=== PATIENT | female | born 1930 | race Caucasian/White ===

== ENCOUNTER 2017-11-12 07:04 | Inpatient (IN) | payer OTHER ==
[~2017-11-12] VITALS: Ht 170.2 cm; Wt 63.2 kg
[2017-11-12] VITALS (17 sets, daily range): BP systolic 47–129; BP diastolic 25–100; PULSE 91–127; TEMP 37.3–37.5; O2SAT 91–98; BMI 19.3
[~2017-11-12 07:04] MED LIST: ATEN-173 PO
[2017-11-12] MEDS ORDERED: SODIUM CHLORIDE 0.9% 1000ML 1,000 ML IV STA (07:18)
--- NOTE | 2017-11-12 07:35 | DIAGNOSTIC IMAGING REPORT ---
CHEST ONE VIEW PORTABLE CLINICAL HISTORY: EVALUATE ALTERED MENTAL STATUS/WEAKNESS dyspnea COMPARISON STUDY: 09/06/2015 FINDINGS: Mild stable cardia megaly. Mild chronic interstitial prominence. No focal infiltrate. Stable postoperative changes left shoulder. IMPRESSION: Mild interstitial prominence. Mild stable cardiomegaly. The above report was generated using voice recognition software. It may contain grammatical, syntax or spelling errors. Electronically signed by: Angel Chau M.D. 11/12/2017 7:34 AM Dictated Date/Time: 11/12/2017 7:33 AM
[2017-11-12 07:57] LABS: EOS % 0.6 %; EOS ABS # 0.01 K/uL (0-0.5); HEMATOCRIT 41.9 % (37-47); HEMOGLOBIN 13.8 g/dL (12.0-16.0); IG# 0.01 K/uL (0.00-0.02); LYMPH % 6.3 %; MEAN CORPUSCULAR HEMOGLOBIN 31.3 pg (25-34); MEAN CORPUSCULAR HGB CONC 32.9 g/dl (32-36); MEAN PLATELET VOLUME 9.1 fL (7.4-10.4); NEUT % 92.5 %; NEUT ABS # 1.48 K/uL (1.4-6.5); PLATELET COUNT 147 K/uL (130-400); RED CELL DISTRIBUTION WIDTH CV 13.4 % (11.5-14.5); RED CELL DISTRIBUTION WIDTH SD 46.2 fL (36.4-46.3)
[2017-11-12] MEDS ORDERED: SERT-234 PO (08:05)
[2017-11-12] MEDS ORDERED: DONE5TAB26 PO (08:05)
[2017-11-12 08:06] LABS: INR 1.1 (0.9-1.1); PTT PATIENT 25.9 SECONDS (21.0-31.0)
[2017-11-12 08:15] LABS: ALBUMIN 3.1 gm/dl (3.4-5.0); ALT/SGPT 64 U/L (12-78); BLOOD UREA NITROGEN 19 mg/dl (7-18); CALCIUM 8.8 mg/dl (8.5-10.1); CARBON DIOXIDE 28 mmol/L (21-32); CREATININE 1.09 mg/dl (0.60-1.20); GLUCOSE 90 mg/dl (70-99); LIPASE 142 U/L (73-393); POTASSIUM 3.2 mmol/L (3.5-5.1); SODIUM 141 mmol/L (136-145)
[2017-11-12 08:24] LABS: ALKALINE PHOSPHATASE 98 U/L (45-117); AST/SGOT 114 U/L (15-37); CKMB 1.1 ng/ml (0.5-3.6); TOTAL PROTEIN 6.4 gm/dl (6.4-8.2)
--- NOTE | 2017-11-12 09:02 | DIAGNOSTIC IMAGING REPORT ---
HEAD WITHOUT CONTRAST (CT) CLINICAL HISTORY: 87 years-old Female presenting with EVALUATE ALTERED MENTAL STATUS/WEAKNESS. TECHNIQUE: Multidetector CT imaging of the head was performed without the use of intravenous contrast. IV contrast: None. A dose lowering technique was used consistent with the principles of ALARA (as low as reasonably achievable). COMPARISON: 10/15/2015. CT DOSE (mGy.cm): The estimated cumulative dose is 537.48 mGy.cm. FINDINGS: Field Service Technician topogram: Unremarkable. Proportional ventricular and sulcal prominence, likely age-related parenchymal volume loss. 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 No mass effect or midline shift. No hemorrhage or acute territorial infarct. No extra-axial fluid collection. Paranasal sinuses and mastoid air cells clear. Calvarium intact. IMPRESSION: 1. No acute intracranial abnormality. Electronically signed by: Hemal Muro M.D. 11/12/2017 9:01 AM Dictated Date/Time: 11/12/2017 8:58 AM
[2017-11-12] MEDS ORDERED: CEFTRIAXONE SOD INJ 1 GM ADDVIAL IV STA (09:22)
[2017-11-12] MEDS ORDERED: SULF800T23 PO (09:47)
[2017-11-12] MEDS ORDERED: SULFAMETHOXAZOLE/TRIMETHOPRIM DS 800/160MG TAB PO STA (09:48)
--- NOTE | 2017-11-12 09:48 | EMERGENCY ROOM VISIT NOTE ---
History Report prepared by Shaunnaibsrinivasan: Filemon Smith Under the Supervision of: Dr. Jamal Duncan D.O. First contact with patient: 07:11 Stated Complaint: FALL/HIP PAIN History of Present Illness The patient is a 87 year old female who presents to the Emergency Room by EMS for evaluation s/p fall occurring shortly prior to arrival. She was brought from her home. Per nursing staff, the patient appears somewhat confused, but her mental baseline is unknown. They state that the patient has complained of a dry mouth. They state that the patient has not had any nausea or vomiting. Nursing staff adds that the patient lost bowel continence during the fall. The patient states "I have big feet and long legs, so I fall a lot". She denies any chest pain, SOB, fevers, or cough. She has no complaints at this time other than her mouth feeling dry. Source of History: patient, nursing staff Onset: Shortly prior to arrival Quality: other (fall) Timing: other (episode) Associated Symptoms: No fevers, No cough, No chest pain, No SOB, No nausea, No vomiting Note: Additional symptoms: dry mouth. Review of Systems See HPI for pertinent positives & negatives. A total of 10 systems reviewed and were otherwise negative. Past Medical & Surgical Medical Problems: (1) Degenerative disc disease (2) Diarrhea (3) HANNAH (generalized anxiety disorder) (4) HTN (hypertension) (5) Hypertension (6) Kidney stone (7) Lactose intolerance (8) Rheumatic fever without heart involvement (9) Sepsis Surgical Problems: (1) H/O breast biopsy (2) S/P shoulder surgery (3) S/P TKR (total knee replacement) Family History FH: CAD (coronary artery disease) FHx: hypertension Kidney stones Social History Smoking Status: Never Smoker Alcohol Use: occasionally Drug Use: none Marital Status: , Housing Status: lives with family Occupation Status: retired Current/Historical Medications Scheduled Donepezil Hydrochloride (Donepezil Hcl), 1 TAB PO DAILY Sertraline (Zoloft), 1 TAB PO DAILY Allergies Coded Allergies: Penicillins (Verified Allergy, Mild, PT UNSURE, RXN A CHILD, 10/15/15) BEE STING (Verified Allergy, Unknown, ANAPHYLAXIS, 10/15/15) Latex1 -Allergic Contact Dermititis (Verified Allergy, Unknown, REDNESS AT SITE, 10/15/15) Physical Exam Vital Signs Date Time Temp Pulse Resp B/P (MAP) Pulse Ox O2 Delivery O2 Flow Rate FiO2 11/12/17 13:24 88 16 83/47 92 Room Air 11/12/17 12:54 95 Room Air 11/12/17 12:19 93 18 73/49 95 Room Air 11/12/17 11:05 95 16 71/49 92 Room Air 11/12/17 10:09 111 16 87/44 94 Room Air 11/12/17 09:38 100 16 82/44 11/12/17 09:06 98 92/50 96 Room Air 11/12/17 07:56 93 16 111/69 96 Room Air 11/12/17 07:42 108 11/12/17 07:16 37.3 111 20 113/62 96 Room Air Physical Exam CONSTITUTIONAL/VITAL SIGNS: Reviewed / noted above. GENERAL: Non-toxic in appearance. INTEGUMENTARY: Warm, dry, and [place]. HEAD: Normocephalic. EYES: without scleral icterus or trauma. ENT/OROPHARYNX: clear with dry mucous membranes. LYMPHADENOPATHY/NECK: Is supple without lymphadenopathy or meningismus. RESPIRATORY: Lungs clear and equal. CARDIOVASCULAR: Regular rate and rhythm. GI/ABDOMEN: Soft and nontender. No organomegaly or pulsatile mass. No rebound or guarding. Normal bowel sounds. EXTREMITIES: Warm and well perfused. BACK: No CVA tenderness. NEUROLOGICAL: Intact without focal deficits. PSYCHIATRIC: normal affect. MUSCULOSKELETAL: Normally developed with good muscle tone. Medical Decision & Procedures ER Provider Diagnostic Interpretation: Radiology results as stated below per my review and radiologist interpretation: HEAD WITHOUT CONTRAST (CT) FINDINGS: Hoop Punch Operator Helper topogram: Unremarkable. Proportional ventricular and sulcal prominence, likely age-related parenchymal volume loss. 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 No mass effect or midline shift. No hemorrhage or acute territorial infarct. No extra-axial fluid collection. Paranasal sinuses and mastoid air cells clear. Calvarium intact. IMPRESSION: 1. No acute intracranial abnormality. Electronically signed by: Hemal Muro M.D. 11/12/2017 9:01 AM CHEST ONE VIEW PORTABLE FINDINGS: Mild stable cardia megaly. Mild chronic interstitial prominence. No focal infiltrate. Stable postoperative changes left shoulder. IMPRESSION: Mild interstitial prominence. Mild stable cardiomegaly. The above report was generated using voice recognition software. It may contain grammatical, syntax or spelling errors. Electronically signed by: Angel Chau M.D. 11/12/2017 7:34 AM Laboratory Results 11/12/17 07:40 Red Blood Count 4.41, Mean Corpuscular Volume 95.0, Mean Corpuscular Hemoglobin 31.3, Mean Corpuscular Hemoglobin Concent 32.9, Mean Platelet Volume 9.1, Neutrophils (%) (Auto) 92.5, Lymphocytes (%) (Auto) 6.3, Monocytes (%) (Auto) 0.0, Eosinophils (%) (Auto) 0.6, Basophils (%) (Auto) 0.0, Neutrophils # (Auto) 1.48, Lymphocytes # (Auto) 0.10, Monocytes # (Auto) 0.00, Eosinophils # (Auto) 0.01, Basophils # (Auto) 0.00 11/12/17 07:40 Test 11/12/17 07:40 11/12/17 07:45 11/12/17 13:33 White Blood Count 1.60 K/uL (4.8-10.8) Red Blood Count 4.41 M/uL (4.2-5.4) Hemoglobin 13.8 g/dL (12.0-16.0) Hematocrit 41.9 % (37-47) Mean Corpuscular Volume 95.0 fL (80-100) Mean Corpuscular Hemoglobin 31.3 pg (25-34) Mean Corpuscular Hemoglobin Concent 32.9 g/dl (32-36) Platelet Count 147 K/uL (130-400) Mean Platelet Volume 9.1 fL (7.4-10.4) Neutrophils (%) (Auto) 92.5 % Lymphocytes (%) (Auto) 6.3 % Monocytes (%) (Auto) 0.0 % Eosinophils (%) (Auto) 0.6 % Basophils (%) (Auto) 0.0 % Neutrophils # (Auto) 1.48 K/uL (1.4-6.5) Lymphocytes # (Auto) 0.10 K/uL (1.2-3.4) Monocytes # (Auto) 0.00 K/uL (0.11-0.59) Eosinophils # (Auto) 0.01 K/uL (0-0.5) Basophils # (Auto) 0.00 K/uL (0-0.2) RDW Standard Deviation 46.2 fL (36.4-46.3) RDW Coefficient of Variation 13.4 % (11.5-14.5) Immature Granulocyte % (Auto) 0.6 % Immature Granulocyte # (Auto) 0.01 K/uL (0.00-0.02) Prothrombin Time 11.7 SECONDS (9.0-12.0) Prothromb Time International Ratio 1.1 (0.9-1.1) Activated Partial Thromboplast Time 25.9 SECONDS (21.0-31.0) Partial Thromboplastin Ratio 1.0 Anion Gap 9.0 mmol/L (3-11) Est Creatinine Clear Calc Drug Dose 33.4 ml/min Estimated GFR () 53.6 Estimated GFR (Non- 46.3 BUN/Creatinine Ratio 17.2 (10-20) Calcium Level 8.8 mg/dl (8.5-10.1) Magnesium Level 1.6 mg/dl (1.8-2.4) Total Bilirubin 1.0 mg/dl (0.2-1) Direct Bilirubin 0.6 mg/dl (0-0.2) Aspartate Amino Transf (AST/SGOT) 114 U/L (15-37) Alanine Aminotransferase (ALT/SGPT) 64 U/L (12-78) Alkaline Phosphatase 98 U/L (45-117) Total Creatine Kinase 58 U/L (26-192) Creatine Kinase MB 1.1 ng/ml (0.5-3.6) Creatine Kinase MB Ratio 1.9 (0-3.0) Troponin I < 0.015 ng/ml (0-0.045) Total Protein 6.4 gm/dl (6.4-8.2) Albumin 3.1 gm/dl (3.4-5.0) Lipase 142 U/L (73-393) Thyroid Stimulating Hormone (TSH) 1.260 uIu/ml (0.300-4.500) Urine Color YELLOW Urine Appearance CLOUDY (CLEAR) Urine pH 7.0 (4.5-7.5) Urine Specific [place] 1.011 (1.000-1.030) Urine Protein 2+ (NEG) Urine Glucose (UA) NEG (NEG) Urine Ketones NEG (NEG) Urine Occult Blood 2+ (NEG) Urine Nitrite NEG (NEG) Urine Bilirubin NEG (NEG) Urine Urobilinogen NEG (NEG) Urine Leukocyte Esterase LARGE (NEG) Urine WBC (Auto) >30 /hpf (0-5) Urine RBC (Auto) 10-30 /hpf (0-4) Urine Hyaline Casts (Auto) 1-5 /lpf (0-5) Urine Epithelial Cells (Auto) 0-5 /lpf (0-5) Urine Bacteria (Auto) 4+ (NEG) Urine Pathogenic Casts 0-3 GRANULAR CASTS /lpf (0) Lactic Acid Level 4.8 mmol/L (0.4-2.0) Laboratory results as stated above per my review. Medications Administered Medications (Trade) Dose Ordered Sig/Tess Route Start Time Stop Time Status Last Admin Dose Admin Sodium Chloride 1,000 ml @ 500 mls/hr Q2H STAT IV 11/12/17 07:18 11/12/17 09:17 DC 11/12/17 07:50 500 MLS/HR Ceftriaxone Sodium (Rocephin Inj) 1 gm NOW STAT IV 11/12/17 09:22 11/12/17 09:23 DC 11/12/17 09:37 1 GM Trimethoprim/ Sulfamethoxazole (Septra Ds 800/ 160MG Tab) 1 tab NOW STAT PO 11/12/17 09:48 11/12/17 09:49 DC 11/12/17 11:14 1 TAB Sodium Chloride 500 ml @ 999 mls/hr Q31M STAT IV 11/12/17 11:08 11/12/17 11:38 DC 11/12/17 11:10 999 MLS/HR Sodium Chloride 500 ml @ 999 mls/hr Q31M STAT IV 11/12/17 12:44 11/12/17 13:14 DC 11/12/17 13:00 999 MLS/HR Magnesium Sulfate 100 ml @ 100 mls/hr NOW STAT IV 11/12/17 13:45 11/12/17 14:44 DC 11/12/17 14:36 100 MLS/HR Potassium Chloride (Klor-Con M10) 40 meq NOW STAT PO 11/12/17 13:45 11/12/17 14:07 DC 11/12/17 14:36 40 MEQ ECG Per My Interpretation Indication: other (fall) Rate (beats per minute): 108 Rhythm: sinus tachycardia Findings: no ectopy, other (Low voltage. No ST elevations. ) ED Course 0713: Previous medical records were reviewed. The patient was evaluated in room A11B. A complete history and physical examination was performed. 0718: Ordered Sodium Chloride 1000 ml @ 500 mls/hr IV. 0922: Ordered Rocephin Inj 1 gm IV. 0948: Ordered Septra Ds 800/160mg Tab PO. 0950: I updated the patient on her results. We discussed her case. 1108: Ordered Sodium Chloride 500 ml @ 999 mls/hr IV. 1235: On reevaluation, the patient is resting. I discussed the results and findings with her. She verbalized agreement of the treatment plan. I spoke with Sandy SHERIFF of the [facility]. The patient will be evaluated for further management and care. Medical Decision Differential diagnosis: Etiologies such as fracture, dislocation, neurovascular compromise, compartment syndrome, soft tissue injury, as well as others were entertained. This is a 87-year-old female who presents to the ED with a chief complaint of a fall. The patient states that she falls a lot. She was brought in by EMS. Her only complaint at this time is feeling that her mouth is dry. She reported to the nurse that she also had a headache. EMS found her to have a blood pressure was on the low side around 70 systolic. She is afebrile. Her vital signs here are stable. Her physical exam was unremarkable other than dry mucous membranes. She does have a history of dementia and is slightly confused at baseline. She does have a caregiver and her daughter came to the emergency department as well. The patient's physical exam did not reveal any obvious trauma. Her EKG shows a sinus tach at a rate of 108. A chest x-ray and a CT scan of the brain did not show acute process. White blood cell count was slightly low at 1.6. Complete metabolic panel was unremarkable. The BUN is 19 and her potassium was 3.2 with magnesium 1.8. Troponin was negative and a TSH was normal, urine reveals evidence of a UTI. The patient was treated with normal saline 1 L IV. She was given Rocephin 1 g IV. The patient was given additional IV fluids as she became hypotensive during her ED stay. Her initial blood pressure was normal. She was given a total of 2 L of normal saline. Lactic acid level was performed and was elevated. Blood cultures have been performed. The patient's initial presentation did not appear to suggest sepsis and despite IV fluids for dehydration, her blood pressure seemed to drop. The patient does not clinically appear septic at this time. She will be seen by the hospitalist for further evaluation and care. Medication Reconcilliation Current Medication List: was personally reviewed by me Blood Pressure Screening Patient's blood pressure: Normal blood pressure Blood pressure disposition: Did not require urgent referral Consults Time Called: [phone] Consulting Physician: [facility] Returned Call: [phone] Discussed the patient's case. The patient will be evaluated for further treatment and disposition. Impression Primary Impression: UTI (urinary tract infection) Scribe Attestation The scribe's documentation has been prepared under my direction and personally reviewed by me in its entirety. I confirm that the note above accurately reflects all work, treatment, procedures, and medical decision making performed by me. Departure Information Dispostion Being Evaluated By Hospitalist Referrals Ruma Copeland M.D. (PCP) Patient Instructions My [facility], UTI Additional Instructions Bactrim as prescribed for urinary tract infection. Follow-up with your doctor for further care and evaluation in 1-2 days. Return to the emergency department for worsening or new symptoms or any concerns. You have been examined and treated today on an emergency basis only. This is not a substitute for, or an effort to provide, complete comprehensive medical care. It is impossible to recognize and treat all injuries or illnesses in a single emergency department visit. It is therefore important that you follow up closely with your doctor. Call as soon as possible for an appointment.
[2017-11-12] MEDS ORDERED: SODIUM CHLORIDE 0.9% 500ML 500 ML IV STA ×2 (11:08→12:44)
[2017-11-12] MEDS ORDERED: MAGNESIUM SULFATE 1 GM IV STA (13:45)
[2017-11-12] MEDS ORDERED: ACETAMINOPHEN 325 MG TAB PO PRN (13:45)
[2017-11-12] MEDS ORDERED: ONDANSETRON INJ 2 MG/ML 2 ML VIAL IV PRN (13:45)
[2017-11-12] MEDS ORDERED: POTASSIUM CHLORIDE 10 MEQ TABCR PO STA (13:45)
[2017-11-12] MEDS ORDERED: D5W 2 GM IV STA (13:45)
[2017-11-12] MEDS ORDERED: SODIUM CHLORIDE 0.9% 1000ML 1,000 ML IV SCH (15:00)
[2017-11-12] MEDS ORDERED: SODIUM CHLORIDE 0.9% 500ML 500 ML IV SCH (15:15)
[2017-11-12] MEDS ORDERED: ENOXAPARIN 40 MG/0.4 ML SYR SC SCH (16:00)
[2017-11-12] MEDS ORDERED: MAGNESIUM SULFATE 1GM / D5W 1 GM IV ONE (16:15)
[2017-11-12] MEDS ORDERED: NURSING VERBAL MED ORDER ONE (16:45)
[2017-11-12] MEDS ORDERED: SODIUM CHLORIDE 0.9% 250ML 250 ML IV ONE (17:00)
--- NOTE | 2017-11-12 18:37 | History and Physical ---
History & Physical Date & Time of Service: Nov 12, 2017 ~ 13:15 Chief Complaint: Fall, Diarrhea Primary Care Physician: Ruma Copeland M.D. History of Present Illness 87-year-old female who presents to the ER after a fall and having diarrhea at home. Patient has underlying Alzheimer's and is disoriented, history is unobtainable from her. Information is obtained from her daughter via telephone. The daughter reports that this morning the patient was having a large amount diarrhea. The daughter's left the room and when he came back and she was on the floor. She was awake and alert. No loss of bowel or bladder function. Daughter reports patient has been at baseline health recently. In the ED, patient's UA is suggestive of UTI. Initially patient's blood pressure was stable however patient developed hypotension. She received 2 L IVF, P.o. Bactrim, dose of IV ceftriaxone. Lactic acid is found to be 4.8. Patient was admitted to the telemetry unit however despite IV fluid she remained hypotensive. She will be transferred to the ICU. Past Medical/Surgical History Medical Problems: (1) Alzheimer disease Status: Chronic (2) Degenerative disc disease Status: Chronic (3) HANNAH (generalized anxiety disorder) Status: Chronic (4) HTN (hypertension) Status: Chronic (5) Hypertension Status: Chronic (6) Kidney stone Status: Chronic (7) Lactose intolerance Status: Chronic (8) Rheumatic fever without heart involvement Permanent Comment: As a child Status: Resolved Surgical Problems: (1) H/O breast biopsy Status: Chronic (2) S/P shoulder surgery Status: Chronic (3) S/P TKR (total knee replacement) Permanent Comment: Right 1993, Left 1995 Status: Chronic Family History Noncontributory secondary to patient's advanced age Social History Smoking Status: Never Smoker Alcohol Use: none Immunizations History of Influenza Vaccine: Yes Influenza Vaccine Date: May 25, 2016 History of Tetanus Vaccine?: Yes Tetanus Immunization Date: Jan 28, 2013 History of Pneumococcal: Yes Pneumococcal Date: May 25, 2016 Allergies Coded Allergies: Penicillins (Verified Allergy, Mild, PT UNSURE, RXN A CHILD, 10/15/15) BEE STING (Verified Allergy, Unknown, ANAPHYLAXIS, 10/15/15) Latex1 -Allergic Contact Dermititis (Verified Allergy, Unknown, REDNESS AT SITE, 10/15/15) Home Medications Scheduled Donepezil Hydrochloride (Donepezil Hcl), 1 TAB PO DAILY Sertraline (Zoloft), 1 TAB PO DAILY Review of Systems 10 points reviewed with patient however considered unreliable due to underlying mental state Physical Exam Vital Signs Date Time Temp Pulse Resp B/P (MAP) Pulse Ox O2 Delivery O2 Flow Rate FiO2 11/12/17 15:15 37.3 91 18 63/37 (46) 92 Room Air 57/34 (42) 11/12/17 14:02 94 16 80/38 91 Room Air 11/12/17 13:52 89 11/12/17 13:24 88 16 83/47 92 Room Air 11/12/17 12:54 95 Room Air 11/12/17 12:19 93 18 73/49 95 Room Air 11/12/17 11:05 95 16 71/49 92 Room Air 11/12/17 10:09 111 16 87/44 94 Room Air 11/12/17 09:38 100 16 82/44 11/12/17 09:06 98 92/50 96 Room Air 11/12/17 07:56 93 16 111/69 96 Room Air 11/12/17 07:42 108 11/12/17 07:16 37.3 111 20 113/62 96 Room Air General Appearance: WD/WN, no apparent distress Head: normocephalic, atraumatic Eyes: normal inspection, EOMI, sclerae normal ENT: hearing grossly normal, + pertinent finding (Mucous membranes dry) Neck: supple, no JVD, trachea midline Respiratory/Chest: lungs clear, normal breath sounds, no respiratory distress Cardiovascular: regular rate, rhythm, no edema, normal peripheral pulses Abdomen/GI: normal bowel sounds, non tender, soft, no organomegaly Extremities/Musculoskelatal: normal inspection, no calf tenderness, normal capillary refill Neurologic/Psych: no motor/sensory deficits, alert, + disoriented (To place, time, and situation) Skin: normal color, warm/dry Diagnostics Laboratory Results Results Past 24 Hours Test 11/12/17 07:40 11/12/17 07:45 11/12/17 13:33 Range/Units White Blood Count 1.60 4.8-10.8 K/uL Red Blood Count 4.41 4.2-5.4 M/uL Hemoglobin 13.8 12.0-16.0 g/dL Hematocrit 41.9 37-47 % Mean Corpuscular Volume 95.0 80-100 fL Mean Corpuscular Hemoglobin 31.3 25-34 pg Mean Corpuscular Hemoglobin Concent 32.9 32-36 g/dl Platelet Count 147 130-400 K/uL Mean Platelet Volume 9.1 7.4-10.4 fL Neutrophils (%) (Auto) 92.5 % Lymphocytes (%) (Auto) 6.3 % Monocytes (%) (Auto) 0.0 % Eosinophils (%) (Auto) 0.6 % Basophils (%) (Auto) 0.0 % Neutrophils # (Auto) 1.48 1.4-6.5 K/uL Lymphocytes # (Auto) 0.10 1.2-3.4 K/uL Monocytes # (Auto) 0.00 0.11-0.59 K/uL Eosinophils # (Auto) 0.01 0-0.5 K/uL Basophils # (Auto) 0.00 0-0.2 K/uL RDW Standard Deviation 46.2 36.4-46.3 fL RDW Coefficient of Variation 13.4 11.5-14.5 % Immature Granulocyte % (Auto) 0.6 % Immature Granulocyte # (Auto) 0.01 0.00-0.02 K/uL Prothrombin Time 11.7 9.0-12.0 SECONDS Prothromb Time International Ratio 1.1 0.9-1.1 Activated Partial Thromboplast Time 25.9 21.0-31.0 SECONDS Partial Thromboplastin Ratio 1.0 Sodium Level 141 136-145 mmol/L Potassium Level 3.2 3.5-5.1 mmol/L Chloride Level 104 98-107 mmol/L Carbon Dioxide Level 28 21-32 mmol/L Anion Gap 9.0 3-11 mmol/L Blood Urea Nitrogen 19 7-18 mg/dl Creatinine 1.09 0.60-1.20 mg/dl Est Creatinine Clear Calc Drug Dose 33.4 ml/min Estimated GFR () 53.6 Estimated GFR (Non- 46.3 BUN/Creatinine Ratio 17.2 10-20 Random Glucose 90 70-99 mg/dl Calcium Level 8.8 8.5-10.1 mg/dl Magnesium Level 1.6 1.8-2.4 mg/dl Total Bilirubin 1.0 0.2-1 mg/dl Direct Bilirubin 0.6 0-0.2 mg/dl Aspartate Amino Transf (AST/SGOT) 114 15-37 U/L Alanine Aminotransferase (ALT/SGPT) 64 12-78 U/L Alkaline Phosphatase 98 45-117 U/L Total Creatine Kinase 58 26-192 U/L Creatine Kinase MB 1.1 0.5-3.6 ng/ml Creatine Kinase MB Ratio 1.9 0-3.0 Troponin I < 0.015 0-0.045 ng/ml Total Protein 6.4 6.4-8.2 gm/dl Albumin 3.1 3.4-5.0 gm/dl Lipase 142 73-393 U/L Thyroid Stimulating Hormone (TSH) 1.260 0.300-4.500 uIu/ml Urine Color YELLOW Urine Appearance CLOUDY CLEAR Urine pH 7.0 4.5-7.5 Urine Specific [place] 1.011 1.000-1.030 Urine Protein 2+ NEG Urine Glucose (UA) NEG NEG Urine Ketones NEG NEG Urine Occult Blood 2+ NEG Urine Nitrite NEG NEG Urine Bilirubin NEG NEG Urine Urobilinogen NEG NEG Urine Leukocyte Esterase LARGE NEG Urine WBC (Auto) >30 0-5 /hpf Urine RBC (Auto) 10-30 0-4 /hpf Urine Hyaline Casts (Auto) 1-5 0-5 /lpf Urine Epithelial Cells (Auto) 0-5 0-5 /lpf Urine Bacteria (Auto) 4+ NEG Urine Pathogenic Casts 0-3 GRANULAR CASTS 0 /lpf Lactic Acid Level 4.8 0.4-2.0 mmol/L Microbiology Results 11/12/17 Blood Culture, Received Pending 11/12/17 Blood Culture, Received Pending 11/12/17 Urine Culture, Received Pending Diagnostic Radiology HEAD CT IMPRESSION: 1. No acute intracranial abnormality. CXR IMPRESSION: Mild interstitial prominence. Mild stable cardiomegaly. Impression Assessment and Plan SEVERE SEPSIS UTI DIARRHEA -Initially admitted to telemetry however transferred to ICU for persistent hypotension -Patient presenting from home after having a large amount of diarrhea this morning and a fall -On presentation, leukopenic WBC 1.6, mildly tachycardic at times with heart rate in the 110's, afebrile -BP initially stable however patient developed hypotension -Patient received appropriate IVF resuscitation and had persistent hypotension -Continue IVF, possible need for pressors -Lactic acid 4.8, recheck in 6 hours -UA suggests UTI; with history of diarrhea, need to r/o C. difficile -S/P oral Bactrim and IV ceftriaxone in the ED; will continue with IV ceftriaxone (patient is from home and no documented history of resistant bacteria) -Blood and urine cultures -Case discussed with Mic Condon PA-C and Dr. Butler ALZHEIMER'S -Continue donepezil and sertraline DVT PROPHYLAXIS -SQ Lovenox CODE STATUS -Patient is a full code as per my discussion with her daughter, Alexa. DISPOSITION -In my clinical judgment this beneficiary meets acute admission criteria, established by [facility], that includes being hospitalized through two midnights. Attending Addendum: The patient was seen by me in The ER Admitted with Sepsis and Hypotension Has had a fall-found on the floor O/E Pleasantly confused No apparent distress BP was noted to be low 80s in ER Chest-clear Heart-regular Abdomen-benign. Extremities-trac edema bilaterally Labs and Imaging studies were reviewed Agree with the assessment and plan. Dr Wiley Huynh Advanced Directives Existing Living Will: No Existing Power of Customer Contact Sales Associate: No Resuscitation Status VTE Prophylaxis Will order VTE Prophylaxis: Yes
[2017-11-12] MEDS ORDERED: HALOPERIDOL LACTATE 5 MG/ML 1 ML VIAL ONE (19:18)
[2017-11-12] MEDS ORDERED: MIDAZOLAM HCL 1 MG/ML 2ML VIAL ONE (19:28)
[2017-11-12] MEDS ORDERED: NORMOSOL R 500 ML IV ONE (20:00)
[2017-11-12] MEDS ORDERED: ICU PROTOCOL FOR HYPERGLYCEMIA PRN (20:00)
--- NOTE | 2017-11-12 20:08 | DIAGNOSTIC IMAGING REPORT ---
CHEST ONE VIEW PORTABLE CLINICAL HISTORY: Chest x-ray status post central venous catheter placement COMPARISON STUDY: 11/12/2017 FINDINGS: The cardiac and mediastinal contours remain stable. There is stable prominence of the right pulmonary artery. There is been interval insertion of a right subclavian central venous catheter. The tip projects over the superior vena cava. There is no pneumothorax. There is no focal pulmonary consolidation. There is no failure. There are no pleural effusions.[ IMPRESSION: No evidence of pneumothorax status post placement of a right subclavian central venous catheter. The tip projects over the superior vena cava Electronically signed by: Yifan Sanches M.D. 11/12/2017 8:07 PM Dictated Date/Time: 11/12/2017 8:06 PM
[2017-11-12] MEDS ORDERED: DexMEDEtomidine HCL IV 200 MCG in SODIUM CHLORIDE 0.9% 50ML 48 ML IV PRN (20:10)
[2017-11-12] MEDS ORDERED: PIPERACILL/TAZOBAC CONSULT ACTIVE PRN (20:15)
[2017-11-12] MEDS ORDERED: ACETAMINOPHEN IV 650 MG in EMPTY BAG 0 ML IV PRN (20:15)
[2017-11-12] MEDS: NORMOSOL R 1,000 ML IV SCH (20:15)
[2017-11-12] MEDS ORDERED: PIPERACILL/TAZOBAC IV 4.5 GM in DEXTROSE 5% 100ML 100 ML IV SCH (20:15)
[2017-11-12] MEDS: NOREPINEPHRINE BIT INJ 8 MG in DEXTROSE 5% 500ML 500 ML IV SCH (20:43)
--- NOTE | 2017-11-12 20:57 | Procedure Note ---
Procedure Note Procedure Date Nov 12, 2017. Procedure Description Procedure Name: Central line placement Procedure time out: side/site verified, patient ID confirmed, correct procedure Consent obtained: written Performed by: attending, resident Indications: diagnostic, therapeutic Contraindications: none Description: The patient was placed in supine position, right subclavian approach, Dr. Acosta had the procedure done, I was present throughout the entire procedure supervising her. Due to the patient's agitation, she received 2 mg of Haldol and total of 3 mg of Versed. The skin was prepped with chlorhexidine, under strict sterile field using OR style, 5 mL 1% lidocaine injected in the right subclavian area, using Seldinger technique, a line was placed to 15 cm and secured with 2 sutures, covered with surgical dressing, the chest x-ray showed the tip of the catheter at the SVC, no pneumothorax. Tolerated the procedure very well. No immediate complication. Complications: none
--- NOTE | 2017-11-12 21:03 | Critical Care Consultation ---
Critical Care Consultation Date of Consultation: Nov 12, 2017. Attending Physician: Brandon Booth M.D. Reason for Consultation: 87-year-old female initially admitted to the medical floor, however patient required vasopressor support after nonresponsiveness to crystalloid bolus infusion for sepsis with likely urinary source. Hypotensive and tachycardic with a lactate of 4.8. Patient demented and agitated worse from baseline. History of Present Illness History of present illness obtained from prior records, staff members, and family members as patient is pleasantly demented and unable to provide past medical history information. Patient is an 87-year-old female with a significant past medical history of Alzheimer disease, anxiety, hypertension, and kidney stones who initially presented to the emergency department earlier this afternoon after sustaining a fall. Apparently, at approximately 4 AM, the patient developed multiple bouts of diarrhea which progressed throughout the day. This afternoon, after a bowel movement, the patient was found on the floor by her son-in-law. She was awake, alert, and oriented. There was no reported loss of consciousness. She was brought to the emergency department for further evaluation. On evaluation, she was noted to be leukopenic and there was concern for UTI on cath urine sample. She was treated with a one-time dose of Bactrim and there was plan for discharge to home, however the patient's blood pressure began to drop. She received 2 L of IV fluid in the emergency department as well as a one-time dose of IV Rocephin. Her blood pressures did stabilize slightly and she was admitted to the med telemetry floor. At that point, the patient had persistent hypotension which did not respond to an additional 750 cc normal saline bolus. She was subsequently transferred to the ICU for further evaluation and management. Upon arrival in the ICU, the patient is awake and alert. She is unable to provide any historical information, however. She is agitated, but denies any discomfort. Per family, the patient has had a history of C. difficile in the past. In addition, she has had a history of kidney stones and urinary tract infections as well. Up until today, the patient had been at her baseline. She lives at home with her daughter. She is reportedly more agitated than normal at this point. She has had no reported past medical history of coronary artery disease, CVA, ACS, valvular heart disease, or lung disease. Past Medical/Surgical History Medical Problems: (1) Alzheimer disease (2) Degenerative disc disease (3) HANNAH (generalized anxiety disorder) (4) HTN (hypertension) (5) Hypertension (6) Kidney stone (7) Lactose intolerance (8) Rheumatic fever without heart involvement Surgical Problems: (1) H/O breast biopsy (2) S/P shoulder surgery (3) S/P TKR (total knee replacement) Family History FH: CAD (coronary artery disease) FHx: hypertension Kidney stones Reviewed. Noncontributory. Social History Smoking Status: Never Smoker Smokeless Tobacco Use: No Alcohol Use: none Drug Use: none Marital Status: single Housing Status: lives with family Occupation Status: retired Allergies Coded Allergies: Penicillins (Verified Allergy, Mild, PT UNSURE, RXN A CHILD, 10/15/15) BEE STING (Verified Allergy, Unknown, ANAPHYLAXIS, 10/15/15) Latex1 -Allergic Contact Dermititis (Verified Allergy, Unknown, REDNESS AT SITE, 10/15/15) Home Medications Scheduled Donepezil Hydrochloride (Donepezil Hcl), 1 TAB PO DAILY Sertraline (Zoloft), 1 TAB PO DAILY Current Inpatient Medications Current Inpatient Medications Medications (Trade) Dose Ordered Sig/Tess Route Start Time Stop Time Status Last Admin Dose Admin Enoxaparin Sodium (Lovenox Inj) 40 mg Q24H SC 11/12/17 16:00 12/12/17 15:59 Ondansetron HCl (Zofran Inj) 4 mg Q6H PRN IV 11/12/17 13:45 12/12/17 13:44 Donepezil HCl (Aricept Tab) 5 mg DAILY PO 11/13/17 09:00 12/13/17 08:59 Sertraline HCl (Zoloft Tab) 100 mg DAILY PO 11/13/17 09:00 12/13/17 08:59 Norepinephrine Bitartrate 8 mg/ Dextrose 508 ml @ 0 mls/hr Q0M IV 11/12/17 20:00 12/12/17 19:59 11/12/17 20:43 12 MLS/HR Miscellaneous Information (Icu Protocol For Hyperglycemia) 1 ea PRN PRN N/A 11/12/17 20:00 11/14/17 19:59 Pantoprazole Sodium 40 mg/ Syringe 10 ml @ 5 mls/min DAILY@11 IV 11/13/17 11:00 12/13/17 10:59 Piperacillin Sod/ Tazobactam Sod 4.5 gm/Dextrose 120 ml @ 200 mls/hr Q6H IV 11/12/17 20:15 11/22/17 20:14 UNV Miscellaneous Information (Consult) 1 ea UD PRN N/A 11/12/17 20:15 12/12/17 20:14 Acetaminophen 650 mg/Empty Bag 65 ml @ 260 mls/hr Q6H PRN IV 11/12/17 20:15 12/12/17 20:14 Dexmedetomidine HCl 200 mcg/ Sodium Chloride 50 ml @ 0 mls/hr Q0M PRN IV 11/12/17 20:10 11/16/17 20:09 Parenteral Electrolyte Solution 1,000 ml @ 80 mls/hr [id number] IV 11/12/17 20:15 12/12/17 20:14 Ciprofloxacin/ Dextrose 400 mg/ Prmx 200 ml @ 100 mls/hr Q12H IV 11/12/17 22:00 11/22/17 21:59 UNV Metronidazole 500 mg/Prmx 100 ml @ 100 mls/hr Q8H IV 11/12/17 21:00 11/22/17 20:59 Review of Systems Unable to obtain review of systems secondary to patient's state of dementia. Physical Exam Date Time Temp Pulse Resp B/P (MAP) Pulse Ox O2 Delivery O2 Flow Rate FiO2 11/12/17 18:27 102 18 70/38 (49) 98 Nasal Cannula 2.0 11/12/17 17:15 37.5 99 22 76/43 (54) 94 Nasal Cannula 2.0 11/12/17 17:15 96 Nasal Cannula 2.0 11/12/17 15:15 37.3 91 18 63/37 (46) 92 Room Air 57/34 (42) 11/12/17 14:02 94 16 80/38 91 Room Air 11/12/17 13:52 89 11/12/17 13:24 88 16 83/47 92 Room Air 11/12/17 12:54 95 Room Air 11/12/17 12:19 93 18 73/49 95 Room Air 11/12/17 11:05 95 16 71/49 92 Room Air 11/12/17 10:09 111 16 87/44 94 Room Air 11/12/17 09:38 100 16 82/44 11/12/17 09:06 98 92/50 96 Room Air 11/12/17 07:56 93 16 111/69 96 Room Air 11/12/17 07:42 108 11/12/17 07:16 37.3 111 20 113/62 96 Room Air VITAL SIGNS - Vital signs and nursing notes were reviewed. GENERAL - 87-year-old female appearing her stated age who is agitated and combative with staff. Communicates, but confused at baseline and is mostly nonsensical. SKIN - Without rashes. HEAD - NC/AT. EYES - PERRL with EOMI bilaterally. EARS - No deformities of external structures noted on gross examination bilaterally. NOSE - Midline and without cyanosis. MOUTH/OROPHARYNX - Without perioral cyanosis. Buccal mucosa pink and dry. NECK - Neck with FROM. Supple to palpation. LUNGS - Chest wall symmetric without accessory muscle use, intercostals retractions, or central cyanosis. Normal vesicular breath sounds CTA B/L. No wheezes, rales, or rhonchi appreciated. CARDIAC - RRR with S1/S2. No murmur, rubs, or gallops appreciated. ABDOMEN - Abdominal contour flat without pulsations or visible masses. BS normoactive all four quadrants. Moderate tenderness to palpation in the LEFT lower and RIGHT sided abdomen. No rebound tenderness or guarding. No palpable masses, hepatosplenomegaly, or ascites noted. EXTREMITIES - No clubbing or peripheral cyanosis. No pretibial edema present. +3 /5 radial pulses palpated throughout. +5/5 strength noted in UE/LE bilaterally. NEUROLOGIC - Cranial nerves II through XII grossly intact. PSYCH - Pleasantly demented. Physically combative with staff. Laboratory Results Last 24 Hours Test 11/12/17 07:40 11/12/17 07:45 11/12/17 13:33 11/12/17 18:36 White Blood Count 1.60 K/uL Red Blood Count 4.41 M/uL Hemoglobin 13.8 g/dL Hematocrit 41.9 % Mean Corpuscular Volume 95.0 fL Mean Corpuscular Hemoglobin 31.3 pg Mean Corpuscular Hemoglobin Concent 32.9 g/dl Platelet Count 147 K/uL Mean Platelet Volume 9.1 fL Neutrophils (%) (Auto) 92.5 % Lymphocytes (%) (Auto) 6.3 % Monocytes (%) (Auto) 0.0 % Eosinophils (%) (Auto) 0.6 % Basophils (%) (Auto) 0.0 % Neutrophils # (Auto) 1.48 K/uL Lymphocytes # (Auto) 0.10 K/uL Monocytes # (Auto) 0.00 K/uL Eosinophils # (Auto) 0.01 K/uL Basophils # (Auto) 0.00 K/uL RDW Standard Deviation 46.2 fL RDW Coefficient of Variation 13.4 % Immature Granulocyte % (Auto) 0.6 % Immature Granulocyte # (Auto) 0.01 K/uL Prothrombin Time 11.7 SECONDS Prothromb Time International Ratio 1.1 Activated Partial Thromboplast Time 25.9 SECONDS Partial Thromboplastin Ratio 1.0 Sodium Level 141 mmol/L Potassium Level 3.2 mmol/L Chloride Level 104 mmol/L Carbon Dioxide Level 28 mmol/L Anion Gap 9.0 mmol/L Blood Urea Nitrogen 19 mg/dl Creatinine 1.09 mg/dl Est Creatinine Clear Calc Drug Dose 33.4 ml/min Estimated GFR () 53.6 Estimated GFR (Non- 46.3 BUN/Creatinine Ratio 17.2 Random Glucose 90 mg/dl Calcium Level 8.8 mg/dl Magnesium Level 1.6 mg/dl Total Bilirubin 1.0 mg/dl Direct Bilirubin 0.6 mg/dl Aspartate Amino Transf (AST/SGOT) 114 U/L Alanine Aminotransferase (ALT/SGPT) 64 U/L Alkaline Phosphatase 98 U/L Total Creatine Kinase 58 U/L Creatine Kinase MB 1.1 ng/ml Creatine Kinase MB Ratio 1.9 Troponin I < 0.015 ng/ml Total Protein 6.4 gm/dl Albumin 3.1 gm/dl Lipase 142 U/L Thyroid Stimulating Hormone (TSH) 1.260 uIu/ml Urine Color YELLOW Urine Appearance CLOUDY Urine pH 7.0 Urine Specific [place] 1.011 Urine Protein 2+ Urine Glucose (UA) NEG Urine Ketones NEG Urine Occult Blood 2+ Urine Nitrite NEG Urine Bilirubin NEG Urine Urobilinogen NEG Urine Leukocyte Esterase LARGE Urine WBC (Auto) >30 /hpf Urine RBC (Auto) 10-30 /hpf Urine Hyaline Casts (Auto) 1-5 /lpf Urine Epithelial Cells (Auto) 0-5 /lpf Urine Bacteria (Auto) 4+ Urine Pathogenic Casts 0-3 GRANULAR CASTS /lpf Lactic Acid Level 4.8 mmol/L Bedside Glucose 69 mg/dl Test 11/12/17 19:56 11/12/17 20:50 11/12/17 20:51 Lactic Acid Level 4.6 mmol/L Diagnostic Results Radiological imaging and reports were reviewed by myself. Radiologist's Interpretation as follows: HEAD WITHOUT CONTRAST (CT) CLINICAL HISTORY: 87 years-old Female presenting with EVALUATE ALTERED MENTAL STATUS/WEAKNESS. TECHNIQUE: Multidetector CT imaging of the head was performed without the use of intravenous contrast. IV contrast: None. A dose lowering technique was used consistent with the principles of ALARA (as low as reasonably achievable). COMPARISON: 10/15/2015. CT DOSE (mGy.cm): The estimated cumulative dose is 537.48 mGy.cm. FINDINGS: Range Aide topogram: Unremarkable. Proportional ventricular and sulcal prominence, likely age-related parenchymal volume loss. 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 No mass effect or midline shift. No hemorrhage or acute territorial infarct. No extra-axial fluid collection. Paranasal sinuses and mastoid air cells clear. Calvarium intact. IMPRESSION: 1. No acute intracranial abnormality. CHEST ONE VIEW PORTABLE CLINICAL HISTORY: EVALUATE ALTERED MENTAL STATUS/WEAKNESS dyspnea COMPARISON STUDY: 09/06/2015 FINDINGS: Mild stable cardia megaly. Mild chronic interstitial prominence. No focal infiltrate. Stable postoperative changes left shoulder. IMPRESSION: Mild interstitial prominence. Mild stable cardiomegaly. CHEST ONE VIEW PORTABLE CLINICAL HISTORY: Chest x-ray status post central venous catheter placement COMPARISON STUDY: 11/12/2017 FINDINGS: The cardiac and mediastinal contours remain stable. There is stable prominence of the right pulmonary artery. There is been interval insertion of a right subclavian central venous catheter. The tip projects over the superior vena cava. There is no pneumothorax. There is no focal pulmonary consolidation. There is no failure. There are no pleural effusions.[ IMPRESSION: No evidence of pneumothorax status post placement of a right subclavian central venous catheter. The tip projects over the superior vena cava Assessment & Plan Reason Critically Ill: 87-year-old female initially admitted to the medical floor, however patient required vasopressor support after nonresponsiveness to crystalloid bolus infusion for sepsis with likely urinary source. Hypotensive and tachycardic with a lactate of 4.8. Patient demented and agitated worse from baseline. Neuro - * CAM ICU: POSITIVE (Baseline dementia) * Agitation: * Likely 2/2 sepsis. * Will place on Precedex w/ PRN Versed. * Restraints in the setting of acuity of illness and multiple lines, access points, etc. * Alzheimer's Dementia: * Continue home Donepezil, Zoloft. Cardiac - * Hypotension/Tachycardia - secondary to severe sepsis w/ septic shock. * Appropriately managed with aggressive IV crystalloid replacement p/t ICU arrival. * Levophed to be titrated to effectiveness. * Patient clinically dry - changed IVF to Normosol w/ occasional boluses. * Provided 5% Albumin x2 w/ minimal improvement of BP. * Added Vasopressin after patient felt to be closer to euvolemic after several fluid boluses. * Placed RIGHT Radial A-line for closer monitoring. * Will titrate down Precedex to minimal effective dose 2/2 associated hypotension/bradycardia. * Initially w/ wide pulse pressures - echo to evaluate for valvular contributions. Known h/o Non-cardiac Rheumatic fever. * EKG initially Sinus tach at 108 w/o ST/T-wave changes and QTc of 424ms per my interpretation. * Monitor on telemetry. Respiratory - * No h/o Pulmonary disease. * Will monitor closely for any changes, need for supplemental O2, noninvasive ventilation, intubation. * CXR in ED and repeat s/p CVL placement unremarkable. GI - * Diarrhea (h/o C. Difficile infection in the remote past): * Will obtain stool cultures. * Patient with abdominal pain on exam. Ideally, plan to perform CT of the Abdomen/Pelvis, however patient is currently to unstable. Have to assume contributing infection until imaging/cultures rule this out. Will attempt to obtain as patient's clinical picture improves. * While patient is too unstable to obtain CT for evaluation of bowels, will treat empirically for Diverticulitis/C.Diff (i.e. Cipro/Flagyl IV). Appreciate Flagyl's anaerobic coverage as patient has unknown penicillin allergy and on Cefepime versus Zosyn. * Prophylaxis: Protonix * NPO pending CT evaluation. RENAL/LYTES - * Hypokalemia on presentation. Repeat Labs WNL - will monitor and replace as needed. * Hypomagnesemia - received replacement per admitting service. Will monitor and replace. * IVF - Normosol @80mL/hr. Will add occasional boluses PRN. - * Sepsis likely 2/2 Urinary Source: * Slight UTI appreciated on presentation. * h/o nephrolithiasis. * Plan to perform CT of the Abdomen/Pelvis for evaluation of GI/ pathology. Patient too unstable at this time. Will obtain as patient's clinical picture improves and allows for safe transport to and from CT. * Initially on Rocephin alone - Changed to Cefepime, Cipro, and Flagyl (see ID section). * Will await urine cultures. * Faustin Catheter in place. * Strict I&Os ENDO - * No h/o DM or Thyroid Dz. * BSGs per protocol w/ ISS/gtt PRN. HEME - * Stable H&H - will monitor. * Initially leukopenic in the setting of sepsis picture: * Repeat Labs show moderate leukocytosis. * Will trend. ID - * Severe Sepsis with Septic Shock from Likely Urinary Source: * Currently on Pressors (Levophed/Vasopressin) after aggressive IVF resuscitation failed. * Lactic Acid initially 4.8 - will trend q6h. * ProCal added - >170 * At this point, the patient is clinically hemodynamically unstable and full evaluation of GI/ pathology cannot be obtained via CT as patient is not stable for transport to and from CT. I chose to empirically treat the patient for her +/- GI infections (i.e. diverticulitis, colitis, c. diff). * Initially placed the patient on Cefepime versus Zosyn as she has an unknown allergy to penicillins. Added Flagyl for dual purpose of C. Diff treatment (as she had severe diarrhea and h/o C. diff) and for Anaerobic coverage to be used in combination with the Cefepime. * Additionally, added Cipro for the dual coverage of GI infection (i.e. diverticulitis) and for dual Pseudomonal coverage from urinary source in the severely ill patient. * Eventually, antibiotics to be narrowed down as cultures allow. LINES/IV ACCESS - * RIGHT Subclavian CVL * RIGHT Radial Arterial Line * Faustin Catheter DVT PROPHYLAXIS - * Placed on Lovenox initially: * Plan to changed to Heparin in the setting of new YEHUDA. * Hold on SCDs while receiving chemoprophylaxis. Patient agitated and demented. May not tolerate at this point. Will add as patient improves. I have personally spent 90 minutes of critical care time in the direct management of this patient. This is a life/limb threatening event. This includes time spent evaluating patient, direct bedside care, chart review, placing orders, interpretation of diagnostic studies, discussion with consultants, patient, and family members, as well as other required patient management activities. This time is exclusive of all separately billable procedures, and teaching time and separate from and in addition to any other critical care service time. Thank you for this consultation allow us to be part of this patient's care. Please refer to my attending physician's documentation for any further recommendations. Attending addendum, The patient was seen, examined independently, agree with assessment and plan of my colleague Neil Max. The patient is 87-year-old female with history of advanced dementia, presented to the hospital with recurrent UTI. The patient was septic not responsive to IV fluid. Patient was admitted to the ICU for pressor management. The patient underwent central line placement and started on IV fluid in addition to Levophed. Vasopressin was added in that regard to maintain her blood pressure. The patient is totally demented and confused requiring aggressive sedation with Precedex. She did receive frequent doses of Versed. The patient needs a CAT scan of the abdomen to evaluate for hydronephrosis and obstructing kidney stone. Blood cultures has been obtained. Broad-spectrum antibiotics also was started. The patient is on prophylaxis for DVT and GI. Currently she is n.p.o. after she will be able to take orals. Case discussed with my colleague, critical care time spent with the patient excluding procedure time was 45 minutes. Discussed in details with the family.
[2017-11-12 21:27] LABS: HEMATOCRIT 33.8 % (37-47); HEMOGLOBIN 11.3 g/dL (12.0-16.0); MEAN CELL VOLUME 93.9 fL (80-100); MEAN CORPUSCULAR HEMOGLOBIN 31.4 pg (25-34); MEAN CORPUSCULAR HGB CONC 33.4 g/dl (32-36); MEAN PLATELET VOLUME 9.9 fL (7.4-10.4); PLATELET COUNT 115 K/uL (130-400); RED CELL DISTRIBUTION WIDTH CV 13.7 % (11.5-14.5); RED CELL DISTRIBUTION WIDTH SD 47.1 fL (36.4-46.3); WHITE BLOOD COUNT 20.88 K/uL (4.8-10.8)
[2017-11-12] MEDS ORDERED: MIDAZOLAM HCL 1 MG/ML 2ML VIAL IV PRN ×2 (21:30→23:45)
[2017-11-12] MEDS ORDERED: ALBUMIN HUMAN 5% 12.5 GM/250 ML VIAL IV ONE ×2 (21:30→22:45)
[2017-11-12] MEDS: METRONIDAZOLE / NSS 500 MG in PREMIXED NSS 100 ML IV SCH (21:32)
[2017-11-12 21:37] LABS: CREATININE 1.72 mg/dl (0.60-1.20); POTASSIUM 4.1 mmol/L (3.5-5.1)
[2017-11-12] MEDS ORDERED: CEFEPIME CONSULT ACTIVE PRN (21:48)
[2017-11-12] MEDS ORDERED: CEFEPIME IV 2,000 MG in SYRINGE 7.5 ML IV SCH (22:00)
[2017-11-12] MEDS ORDERED: CEFEPIME IV 2,000 MG in DEXTROSE 5% 100ML 100 ML IV SCH (22:00)
[2017-11-12 22:01] LABS: CALCIUM 7.3 mg/dl (8.5-10.1)
[2017-11-12] MEDS: CIPROFLOXACIN / D5W 400 MG in PREMIXED IN D5W 200 ML IV SCH ×2 (22:38→23:53)
[2017-11-13] VITALS (47 sets, daily range): BP systolic 79–135; BP diastolic 26–72; PULSE 75–120; TEMP 36.5–37; O2SAT 90–99
[2017-11-13 00:30] LABS: CKMB 7.2 ng/ml (0.5-3.6)
--- NOTE | 2017-11-13 00:41 | Procedure Note ---
Procedure Note Procedure Date Nov 13, 2017. Procedure Description Procedure Name: RIGHT Radial Art Line Procedure time out: patient ID confirmed, correct procedure Consent obtained: verbal, emergent consent implied Time of procedure: 00:00 Performed by: physician water softener installer Indications: diagnostic, therapeutic Description: Procedure: Arterial Line Placement Attending: Dr. Butler APC: Neil Max PA-C Indication: Monitoring on Pressors Anesthesia: Lidocaine 1% Consent was implied as emergent in conversation with my attending and with the family who consents. A time-out was completed verifying correct patient, procedure, site, positioning , and implant(s) or special equipment if applicable. Bhavesh's test was performed to ensure adequate perfusion. Patient's RIGHT wrist was prepped and draped in the usual sterile fashion. Ultrasound guidance was used to aid needle placement. A 20g Arrow arterial line was introduced into the RIGHT Radial artery. Catheter was threaded, and the needle was removed with appropriate blood return. Good waveform was observed. The patient tolerated the procedure well. Confirmation of placement with ultrasound. Blood Loss: Minimal Complications: None Procedural Ultrasound Guidance: Procedure Date: 11/13/2017 Indication: Pressors, ABGs, Frequent Lab Draws Attending: Dr. Butler APC: Neil Max PA-C Artery Identified: YES Line confirmed in Artery with ultrasound: YES Complications: NONE Patient tolerated procedure: WELL Complications: none Patient tolerated procedure: well Post-procedure vital signs: reviewed and stable
--- NOTE | 2017-11-13 02:36 | History & Physical Bridge Note ---
H&P Re-Evaluation Bridge Note: I have examined the patient, reviewed the History & Physical and in the interval since the performance of the History & Physical I have noted the following changes of clinical significance: Patient has large obstructing stone in proximal ureter with severe hydronephrosis. Patient is septic with lactic acidosis on multiple pressors. Emergent consent called and okayed with patient's MPOA Daughter Alexa and her Alex. Patient is being transferred from ICU directly to OR for emergent stent placement. Full consultation to follow.
[2017-11-13] MEDS ORDERED: KETAMINE HCL INJ 50 MG/ML 10 ML VIAL ONE (02:40)
[2017-11-13] MEDS ORDERED: SODIUM CHLORIDE 0.9% IV PRN (02:45)
[2017-11-13] MEDS ORDERED: DEXMEDETOMIDINE HCL IV PRN (02:45)
[2017-11-13] MEDS ORDERED: FENTANYL CITRATE INJ 50 MCG/1 ML 2 ML VIAL ONE (03:12)
[2017-11-13] MEDS ORDERED: Cysto-Conray II 17.2% 250ML BOTTLE ONE (03:33)
--- NOTE | 2017-11-13 03:41 | [facility] Operative Report ---
Operative Report Operative Date Nov 13, 2017. Pre-Operative Diagnosis Septic Stone Right Post-Operative Diagnosis Septic Stone Right Procedure(s) Performed Cystoscopy with retrograde on right and right stent placement. Surgeon Dr Schneider Horticultural Worker Surgeon(s) None Estimated Blood Loss Minimal Findings Septic stone on right mid/proximal ureter. Specimens None as per surgeon Drains 6Fr Multilength stent right Anesthesia Type MAC Complication(s) none Disposition Surgical ICU Indications Septic stone on pressors with hypotension and lactic acidosis. Risks and benefits discussed with MPOA. Patient is sedated. Description of Procedure Patient was consented and brought back to the operating room. Patient was placed under anesthesia in the supine position and moved to the dorsal lithotomy position. Patient was prepped and draped in the regular sterile fashion. A time out was completed. A 30degree Cystoscope was placed into the bladder and the entire bladder was examined. The UO's were identified. The right was cannulized with a catheter and a retrograde pyelogram was completed. A wire was then placed. With the wire in place, a 6 Fr Multi-Length Double J stent was placed. It was confirmed with fluoroscopy. With the stent in place, the bladder was emptied. The scope was removed. The patient was cleaned, aroused from anesthesia, and transferred to the pacu in stable condition having tolerated the procedure well with no complications. I was present and participated in all aspects of the procedure. The patient will be monitored postoperatively in the ICU with critical care and close monitoring. I attest to the content of the Intraoperative Record and any orders documented therein. Any exceptions are noted below.
[2017-11-13] MEDS ORDERED: FENTANYL CITRATE INJ 50 MCG/1 ML 2 ML VIAL IV PRN ×2 (04:15→06:30)
[2017-11-13] MEDS ORDERED: ATROPINE SULFATE 0.1 MG/ML 5ML SYR IV PRN (04:15)
[2017-11-13] MEDS ORDERED: EpHEDrine SULFATE INJ 50 MG/ML AMP IV PRN (04:15)
[2017-11-13] MEDS ORDERED: PHENYLEPHRINE 100MCG/ML 5ML SYR IV PRN (04:15)
[2017-11-13] MEDS ORDERED: ONDANSETRON INJ 2 MG/ML 2 ML VIAL IV PRN (04:15)
--- NOTE | 2017-11-13 05:19 | Anesthesiology Progress Note ---
Anesthesia Post Op Note Date & Time Nov 13, 2017 at 05:19 Vital Signs Pain Intensity: 7.0 Vital Signs Past 12 Hours Date Time Temp Pulse Resp B/P (MAP) Pulse Ox O2 Delivery O2 Flow Rate FiO2 11/13/17 04:31 89 16 93/49 (64) 90 Oxymask 4.0 11/13/17 04:15 36.9 20 100/67 (76) 91 Oxymask 4 11/13/17 04:01 93 16 115/51 (72) 93 Oxymask 4.0 11/13/17 04:00 93 15 112/49 (70) 92 Oxymask 4.0 11/13/17 04:00 36.9 16 108/64 (75) 95 Oxymask 4 11/13/17 04:00 98 Oxymask 4.0 11/13/17 03:48 36.9 18 125/52 (76) 99 Oxymask 4 11/13/17 03:00 112 21 125/43 (70) 93 Oxymask 4.0 11/13/17 02:31 91 19 110/41 (64) 92 Room Air 11/13/17 02:00 98 18 103/39 (60) 92 Room Air 11/13/17 00:31 116 20 98/34 (55) 93 Room Air 11/13/17 00:00 94 Room Air 11/13/17 00:00 120 20 79/26 (43) 93 Room Air 11/12/17 21:47 121 22 71/34 (46) 11/12/17 21:36 104 21 75/43 (54) 11/12/17 21:31 127 20 67/52 (57) 94 Room Air 11/12/17 21:22 120 22 69/48 (55) 11/12/17 21:16 117 17 70/45 (53) 95 Room Air 11/12/17 21:04 121 19 79/44 (56) 94 Room Air 11/12/17 20:34 117 21 55/43 (47) 11/12/17 20:31 115 22 55/45 (48) 11/12/17 20:30 120 19 74/38 (50) 91 Room Air 11/12/17 20:06 111 19 129/100 (110) 11/12/17 20:00 94 Room Air 11/12/17 19:07 111 20 67/45 (52) 94 Room Air 11/12/17 19:03 109 23 47/25 (32) 93 Room Air 11/12/17 18:27 102 18 70/38 (49) 98 Nasal Cannula 2.0 Notes Mental Status: alert / awake / arousable, participated in evaluation Pt Amnestic to Procedure: Yes Nausea / Vomiting: adequately controlled Pain: adequately controlled Airway Patency, RR, SpO2: stable & adequate BP & HR: stable & adequate Hydration State: stable & adequate Anesthetic Complications: no major complications apparent
--- NOTE | 2017-11-13 05:37 | Critical Care Progress Note ---
Critical Care Progress Note Date of Service Nov 13, 2017. 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 Eventually, a combination of Precedex and Versed provided adequate sedation. Eventually, with the addition of vasopressin, the patient was able to sustain more tolerable blood pressures adequate for transport to and from CT scan. I personally accompanied the patient and nursing staff to and from CT. She received an additional 1 mg Versed while in the CT suite secondary to increase in agitation. Upon arrival to the ICU, the patient was resting comfortably. The CT of the abdomen and pelvis was obtained and reviewed as described below: Radiological imaging and reports were reviewed by myself. Radiologist's Interpretation per [facility] as follows: CT ABDOMEN & PELVIS Without Contrast: 09/02/2015 prior 8 x 6 x 16 mm obstructing calculus in the right midureter. Moderate right hydroureteronephrosis and perinephritic stranding. Superimposed infection not excluded. Tiny calculus also within the dilated right UPJ region. Mild left perinephric stranding, increased from the prior and fluid also in the left anterior pararenal space. No obvious left-sided obstructing calculus. Correlate for infection or recently passed calculus. Also consider pancreatitis associated with left anterior pararenal space fluid. Faustin catheter within decompressed urinary bladder. Small pleural effusions and associated basilar atelectasis. Distended gallbladder. Colonic diverticulosis. Small amount of free fluid in the pelvis. No free air. Stable compression deformity, scoliosis, and degenerative changes of the lumbar spine. At this point, I did discuss the case with on-call urology who agrees with emergent surgical intervention secondary to likely source of sepsis. I discussed this with the patient's daughter, Cecile, as well as the patient's power of event marketing coordinator, Alexa (daughter). They were kept up-to-date on all current interventions and for the need for emergent cystoscopy for evaluation and possible removal of stone. They spoke with the on-call urologist, Dr. Schneider , and are in agreement with proceeding forward with surgery. I have personally spent 60 minutes of critical care time in the direct management of this patient. This is a life/limb threatening event. This includes time spent evaluating patient, direct bedside care, chart review, placing orders, interpretation of diagnostic studies, discussion with consultants, patient, and family members, as well as other required patient management activities. This time is exclusive of all separately billable procedures, and teaching time and separate from and in addition to any other critical care service time. Thank you for this consultation allow us to be part of this patient's care. Please refer to my attending physician's documentation for any further recommendations. Attending addendum, Agree with the above, please defer to my other notes.
[2017-11-13 05:46] LABS: HEMATOCRIT 35.1 % (37-47); MEAN CELL VOLUME 92.6 fL (80-100); MEAN CORPUSCULAR HEMOGLOBIN 31.7 pg (25-34); MEAN CORPUSCULAR HGB CONC 34.2 g/dl (32-36); RED CELL DISTRIBUTION WIDTH CV 13.7 % (11.5-14.5); RED CELL DISTRIBUTION WIDTH SD 46.5 fL (36.4-46.3); WHITE BLOOD COUNT 28.27 K/uL (4.8-10.8)
[2017-11-13] MEDS: METRONIDAZOLE / NSS 500 MG in PREMIXED NSS 100 ML IV SCH (05:57)
[2017-11-13 06:10] LABS: MEAN PLATELET VOLUME 10.1 fL (7.4-10.4); PLATELET COUNT 91 K/uL (130-400)
[2017-11-13 06:14] LABS: BASO ABS # 0.01 K/uL (0-0.2); IG# 0.39 K/uL (0.00-0.02); LYMPH % 1.1 %; MONO % 2.2 %; MONO ABS # 0.62 K/uL (0.11-0.59); NEUT % 95.3 %; NEUT ABS # 26.95 K/uL (1.4-6.5)
[2017-11-13 06:19] LABS: ALBUMIN 2.5 gm/dl (3.4-5.0); CALCIUM 6.9 mg/dl (8.5-10.1); CREATININE 1.69 mg/dl (0.60-1.20); POTASSIUM 3.7 mmol/L (3.5-5.1)
[2017-11-13 06:25] LABS: CKMB 12.8 ng/ml (0.5-3.6); PHOSPHORUS 2.5 mg/dl (2.5-4.9); TOTAL PROTEIN 5.3 gm/dl (6.4-8.2)
[2017-11-13] MEDS ORDERED: NURSING VERBAL MED ORDER ONE ×2 (06:30→13:00)
--- NOTE | 2017-11-13 06:56 | DIAGNOSTIC IMAGING REPORT ---
RETROGRADE INCLUDES KUB CLINICAL HISTORY: RT STENT stent placement TECHNIQUE: Image intensifier COMPARISON STUDY: None FINDINGS: Image intensifier was used for placement of a right ureteral stent. The proximal aspect of the stent as well as distal aspect of stent is positioned appropriately. IMPRESSION: Right ureteral stent placement. Good position The above report was generated using voice recognition software. It may contain grammatical, syntax or spelling errors. Electronically signed by: Angel Chau M.D. 11/13/2017 6:55 AM Dictated Date/Time: 11/13/2017 6:54 AM
[2017-11-13 07:03] LABS: INR 1.4 (0.9-1.1)
--- NOTE | 2017-11-13 07:05 | DIAGNOSTIC IMAGING REPORT ---
ABD/PELVIS WITHOUT FOR STONE CT DOSE: 2199.50 mGy.cm HISTORY: Pain abd pain - h/o stones, septic TECHNIQUE: Multiaxial CT images of the abdomen and pelvis were performed without the use of intravenous and oral contrast according to the standard department stone protocol. A dose lowering technique was utilized adhering to the principles of ALARA. COMPARISON STUDY: 09/02/2015 FINDINGS: Small bilateral pleural effusions. Prominent basilar bronchovascular markings. Configuration of liver spleen and pancreas are grossly unremarkable. There is within limitations of a total lack enhancement. Moderate left renal perinephric fluid. No well-defined evidence for an obstructing left urinary tract calculus. Faustin catheter within a collapsed bladder. Right renal hydronephrosis. Distended right ureter to the level of the superior sacrum. At this point there is a 1 cm obstructing calculus. May be a 2 mm calculus within the anterior right renal pelvis. Considerable right perinephric infiltrative change. Bowel pattern suggests a moderate nonobstructive ileus. Several small uterine fibroids are present. There are findings of chronic sigmoid diverticulosis. Mild generalized body wall anasarca. IMPRESSION: 1. Bilateral pleural effusions with secondary findings suggesting prominent basilar pulmonary vasculature. 2. 1 cm obstructing mid right ureteral calculus with significant right urinary tract hydroureteronephrosis. 3. Moderate left perinephric infiltrative change with no well-defined evidence for an acute obstructing calculus. 4. Mild nonspecific infiltrative change of the mesentery with findings of mild body wall anasarca. 5. Generalized nonobstructive bowel ileus. 5. Several small uterine fibroids. The above report was generated using voice recognition software. It may contain grammatical, syntax or spelling errors. Electronically signed by: Angel Chau M.D. 11/13/2017 7:04 AM Dictated Date/Time: 11/13/2017 6:59 AM
[2017-11-13] MEDS: DexMEDEtomidine HCL IV 400 MCG in SODIUM CHLORIDE 0.9% 100ML 96 ML IV PRN ×3 (07:44→22:17)
[2017-11-13] MEDS: NORMOSOL R 1,000 ML IV SCH (07:44)
[2017-11-13] MEDS: DONEPEZIL HCL 5 MG TAB PO SCH (08:45)
[2017-11-13] MEDS: SERTRALINE HCL 100 MG TAB PO SCH (08:45)
--- NOTE | 2017-11-13 08:50 | Progress Note ---
Subjective Date of Service: Nov 13, 2017. Subjective Pt evaluation today including: conversation w/ patient, chart review, lab review Voiding: lopez catheter in place (patent, draining clear, yellow urine ) 87 yo female s/p cysto with right ureteral stent placement for sepsis with stone and hypotension overnight. Pt currently restrained to the bed, but sleeping. Apparently was very agitated pre-op requiring restraints. She did awake with verbal stimuli, but unable to answer questions for me d/t AMS. She did ask me if she slept in a bed last evening. Blood and urine cultures growing gram negative bacilli preliminarily. Review of Systems Pt groggy with dementia. Unable to answer questions for me this morning. Objective Vital Signs Date Time Temp Pulse Resp B/P (MAP) Pulse Ox O2 Delivery O2 Flow Rate FiO2 11/13/17 08:00 36.5 95 20 127/55 (79) 95 Room Air 11/13/17 08:00 Room Air 11/13/17 07:46 94 21 109/72 (84) 93 Room Air 11/13/17 07:31 92 19 110/72 (85) 96 Oxymask 2.0 11/13/17 07:16 96 18 115/56 (75) 97 Oxymask 4.0 11/13/17 07:01 84 16 123/52 (75) 98 Oxymask 4.0 11/13/17 07:00 19 132/55 (80) 97 Oxymask 4.0 11/13/17 06:00 36.9 93 22 100/67 (78) 98 Oxymask 4.0 11/13/17 04:31 89 16 93/49 (64) 90 Oxymask 4.0 11/13/17 04:15 36.9 20 100/67 (76) 91 Oxymask 4 11/13/17 04:01 93 16 115/51 (72) 93 Oxymask 4.0 11/13/17 04:00 93 15 112/49 (70) 92 Oxymask 4.0 11/13/17 04:00 36.9 16 108/64 (75) 95 Oxymask 4 11/13/17 04:00 98 Oxymask 4.0 11/13/17 03:48 36.9 18 125/52 (76) 99 Oxymask 4 11/13/17 03:00 112 21 125/43 (70) 93 Oxymask 4.0 11/13/17 02:31 91 19 110/41 (64) 92 Room Air 11/13/17 02:00 98 18 103/39 (60) 92 Room Air 11/13/17 00:31 116 20 98/34 (55) 93 Room Air 11/13/17 00:00 94 Room Air 11/13/17 00:00 120 20 79/26 (43) 93 Room Air 11/12/17 21:47 121 22 71/34 (46) 11/12/17 21:36 104 21 75/43 (54) 11/12/17 21:31 127 20 67/52 (57) 94 Room Air 11/12/17 21:22 120 22 69/48 (55) 11/12/17 21:16 117 17 70/45 (53) 95 Room Air 11/12/17 21:04 121 19 79/44 (56) 94 Room Air 11/12/17 20:34 117 21 55/43 (47) 11/12/17 20:31 115 22 55/45 (48) 11/12/17 20:30 120 19 74/38 (50) 91 Room Air 11/12/17 20:06 111 19 129/100 (110) 11/12/17 20:00 94 Room Air 11/12/17 19:07 111 20 67/45 (52) 94 Room Air 11/12/17 19:03 109 23 47/25 (32) 93 Room Air 11/12/17 18:27 102 18 70/38 (49) 98 Nasal Cannula 2.0 11/12/17 17:15 37.5 99 22 76/43 (54) 94 Nasal Cannula 2.0 11/12/17 17:15 96 Nasal Cannula 2.0 11/12/17 15:15 37.3 91 18 63/37 (46) 92 Room Air 57/34 (42) 11/12/17 14:02 94 16 80/38 91 Room Air 11/12/17 13:52 89 11/12/17 13:24 88 16 83/47 92 Room Air 11/12/17 12:54 95 Room Air 11/12/17 12:19 93 18 73/49 95 Room Air 11/12/17 11:05 95 16 71/49 92 Room Air 11/12/17 10:09 111 16 87/44 94 Room Air 11/12/17 09:38 100 16 82/44 11/12/17 09:06 98 92/50 96 Room Air Physical Exam General Appearance: no apparent distress Eyes: normal inspection ENT: hearing grossly normal Neck: no JVD Respiratory/Chest: no respiratory distress, no accessory muscle use Cardiovascular: no JVD Extremities: normal inspection Neurologic/Psychiatric: alert, normal mood/affect Skin: normal color Laboratory Results Last 24 Hours Test 11/12/17 13:33 11/12/17 18:36 11/12/17 19:56 11/12/17 20:50 Lactic Acid Level 4.8 mmol/L 4.6 mmol/L Bedside Glucose 69 mg/dl Sodium Level 140 mmol/L Potassium Level 4.1 mmol/L Chloride Level 107 mmol/L Carbon Dioxide Level 21 mmol/L Anion Gap 11.0 mmol/L Blood Urea Nitrogen 25 mg/dl Creatinine 1.72 mg/dl Est Creatinine Clear Calc Drug Dose 23.3 ml/min Estimated GFR () 30.9 Estimated GFR (Non- 26.6 BUN/Creatinine Ratio 14.4 Random Glucose 75 mg/dl Calcium Level 7.3 mg/dl Procalcitonin 178.97 ng/ml Random Cortisol 73.01 mcg/dl Test 11/12/17 20:51 11/12/17 23:55 11/13/17 05:31 11/13/17 05:44 White Blood Count 20.88 K/uL 28.27 K/uL Red Blood Count 3.60 M/uL 3.79 M/uL Hemoglobin 11.3 g/dL 12.0 g/dL Hematocrit 33.8 % 35.1 % Mean Corpuscular Volume 93.9 fL 92.6 fL Mean Corpuscular Hemoglobin 31.4 pg 31.7 pg Mean Corpuscular Hemoglobin Concent 33.4 g/dl 34.2 g/dl RDW Standard Deviation 47.1 fL 46.5 fL RDW Coefficient of Variation 13.7 % 13.7 % Platelet Count 115 K/uL 91 K/uL Mean Platelet Volume 9.9 fL 10.1 fL Arterial Blood pH 7.46 Arterial Blood Partial Pressure CO2 29 mmHg Arterial Blood Partial Pressure O2 71 mm/Hg Arterial Blood HCO3 20 mmol/L Arterial Blood Oxygen Saturation 93.7 % Arterial Blood Base Excess -3.0 mEq/L Arterial Blood Gas Delivery RA Bhavesh Test Lactic Acid Level 3.8 mmol/L 3.1 mmol/L Total Creatine Kinase 354 U/L 639 U/L Creatine Kinase MB 7.2 ng/ml 12.8 ng/ml Creatine Kinase MB Ratio 2.0 2.0 Troponin I 0.041 ng/ml 0.232 ng/ml Neutrophils (%) (Auto) 95.3 % Lymphocytes (%) (Auto) 1.1 % Monocytes (%) (Auto) 2.2 % Eosinophils (%) (Auto) 0.0 % Basophils (%) (Auto) 0.0 % Neutrophils # (Auto) 26.95 K/uL Lymphocytes # (Auto) 0.30 K/uL Monocytes # (Auto) 0.62 K/uL Eosinophils # (Auto) 0.00 K/uL Basophils # (Auto) 0.01 K/uL Immature Granulocyte % (Auto) 1.4 % Immature Granulocyte # (Auto) 0.39 K/uL Toxic Vacuolation 2+ Dohle Bodies 1+ Platelet Estimate DECREASED Sodium Level 136 mmol/L Potassium Level 3.7 mmol/L Chloride Level 106 mmol/L Carbon Dioxide Level 20 mmol/L Anion Gap 11.0 mmol/L Blood Urea Nitrogen 29 mg/dl Creatinine 1.69 mg/dl Est Creatinine Clear Calc Drug Dose 23.7 ml/min Estimated GFR () 31.5 Estimated GFR (Non- 27.2 BUN/Creatinine Ratio 17.0 Random Glucose 103 mg/dl Calcium Level 6.9 mg/dl Phosphorus Level 2.5 mg/dl Magnesium Level 2.0 mg/dl Total Bilirubin 0.4 mg/dl Direct Bilirubin 0.1 mg/dl Aspartate Amino Transf (AST/SGOT) 89 U/L Alanine Aminotransferase (ALT/SGPT) 69 U/L Alkaline Phosphatase 49 U/L Total Protein 5.3 gm/dl Albumin 2.5 gm/dl Lipase 61 U/L Procalcitonin 170.21 ng/ml Bedside Glucose (other) 80 mg/dl Test 11/13/17 06:44 Prothrombin Time 14.9 SECONDS Prothromb Time International Ratio 1.4 Heparin-PF4 Antibody Screen NEG Assessment and Plan S/p cysto and right ureteral stent placement for ureteral stone with sepsis. Continue IV abx pending culture sensitivities. Will then need transitioned to 14 days of oral abx prior to d/c home. Continue lopez catheter until the pt is clinically improved and more ambulatory. Will need definitive management of stone once her infection has been adequately treated. Will continue to follow along with primary service.
[2017-11-13] MEDS: HEPARIN SOD 5000 UNIT/0.5 ML CARP SQ SCH ×2 (08:56→21:20)
[2017-11-13] MEDS ORDERED: CEFTRIAXONE SOD INJ 1 GM in DEXTROSE 5% ADD-VANTAGE 50ML 50 ML IV SCH (09:00)
--- NOTE | 2017-11-13 09:40 | Progress Note ---
Internal Med Progress Note Date of Service: Nov 13, 2017. Provider Documentation: SUBJECTIVE: The patient was seen and examined in ICU S/P Rt Ureteric obstructing stone removal and stent placement Clinically better than yesterday OBJECTIVE: Vital Signs-as noted below Exam: General-Minimal distress at rest Eyes-normal ENT-normal Neck-supple Lungs-decreased breath sound bilaterally Heart-Regular,no murmur appreciated Abdomen-Benign,no masses Extremities-No edema Neuro-AA Pleasantly confused No focal neuro deficit Lab data as noted below. ASSESSMENT & PLAN: SEVERE SEPSIS SECONDARY TO COMPLICATED UTI -Initially admitted to telemetry however transferred to ICU for persistent HYPOTENSION -Patient presenting from home after having a large amount of diarrhea this morning and a fall -On presentation, leukopenic WBC 1.6, mildly tachycardic at times with heart rate in the 110's, afebrile -Patient received appropriate IVF resuscitation and had persistent hypotension -Lactic acid 4.8, recheck in 6 hours and decreased -S/P oral Bactrim and IV ceftriaxone in the ED; will continue with IV ceftriaxone (patient is from home and no documented history of resistant bacteria) -WCC increased to >28 K -Urine and Blood cultures -Gm negative Bacilli -sensitivity pending -Antibiotic changed to Cefepime and Ciprofloxacin -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 Vital Signs: Date Time Temp Pulse Resp B/P (MAP) Pulse Ox O2 Delivery O2 Flow Rate FiO2 11/13/17 08:00 36.5 95 20 127/55 (79) 95 Room Air 11/13/17 08:00 Room Air 11/13/17 07:46 94 21 109/72 (84) 93 Room Air 11/13/17 07:31 92 19 110/72 (85) 96 Oxymask 2.0 11/13/17 07:16 96 18 115/56 (75) 97 Oxymask 4.0 11/13/17 07:01 84 16 123/52 (75) 98 Oxymask 4.0 11/13/17 07:00 19 132/55 (80) 97 Oxymask 4.0 11/13/17 06:00 36.9 93 22 100/67 (78) 98 Oxymask 4.0 11/13/17 04:31 89 16 93/49 (64) 90 Oxymask 4.0 11/13/17 04:15 36.9 20 100/67 (76) 91 Oxymask 4 11/13/17 04:01 93 16 115/51 (72) 93 Oxymask 4.0 11/13/17 04:00 93 15 112/49 (70) 92 Oxymask 4.0 11/13/17 04:00 36.9 16 108/64 (75) 95 Oxymask 4 11/13/17 04:00 98 Oxymask 4.0 11/13/17 03:48 36.9 18 125/52 (76) 99 Oxymask 4 11/13/17 03:00 112 21 125/43 (70) 93 Oxymask 4.0 11/13/17 02:31 91 19 110/41 (64) 92 Room Air 11/13/17 02:00 98 18 103/39 (60) 92 Room Air 11/13/17 00:31 116 20 98/34 (55) 93 Room Air 11/13/17 00:00 94 Room Air 11/13/17 00:00 120 20 79/26 (43) 93 Room Air 11/12/17 21:47 121 22 71/34 (46) 11/12/17 21:36 104 21 75/43 (54) 11/12/17 21:31 127 20 67/52 (57) 94 Room Air 11/12/17 21:22 120 22 69/48 (55) 11/12/17 21:16 117 17 70/45 (53) 95 Room Air 11/12/17 21:04 121 19 79/44 (56) 94 Room Air 11/12/17 20:34 117 21 55/43 (47) 11/12/17 20:31 115 22 55/45 (48) 11/12/17 20:30 120 19 74/38 (50) 91 Room Air 11/12/17 20:06 111 19 129/100 (110) 11/12/17 20:00 94 Room Air 11/12/17 19:07 111 20 67/45 (52) 94 Room Air 11/12/17 19:03 109 23 47/25 (32) 93 Room Air 11/12/17 18:27 102 18 70/38 (49) 98 Nasal Cannula 2.0 11/12/17 17:15 37.5 99 22 76/43 (54) 94 Nasal Cannula 2.0 11/12/17 17:15 96 Nasal Cannula 2.0 11/12/17 15:15 37.3 91 18 63/37 (46) 92 Room Air 57/34 (42) 11/12/17 14:02 94 16 80/38 91 Room Air 11/12/17 13:52 89 11/12/17 13:24 88 16 83/47 92 Room Air 11/12/17 12:54 95 Room Air 11/12/17 12:19 93 18 73/49 95 Room Air 11/12/17 11:05 95 16 71/49 92 Room Air 11/12/17 10:09 111 16 87/44 94 Room Air Lab Results: Results Past 24 Hours Test 11/12/17 13:33 11/12/17 18:36 11/12/17 19:56 11/12/17 20:50 Range/Units Lactic Acid Level 4.8 4.6 0.4-2.0 mmol/L Bedside Glucose 69 70-90 mg/dl Sodium Level 140 136-145 mmol/L Potassium Level 4.1 3.5-5.1 mmol/L Chloride Level 107 98-107 mmol/L Carbon Dioxide Level 21 21-32 mmol/L Anion Gap 11.0 3-11 mmol/L Blood Urea Nitrogen 25 7-18 mg/dl Creatinine 1.72 0.60-1.20 mg/dl Est Creatinine Clear Calc Drug Dose 23.3 ml/min Estimated GFR () 30.9 Estimated GFR (Non- 26.6 BUN/Creatinine Ratio 14.4 10-20 Random Glucose 75 70-99 mg/dl Calcium Level 7.3 8.5-10.1 mg/dl Procalcitonin 178.97 0-0.5 ng/ml Random Cortisol 73.01 mcg/dl Test 11/12/17 20:51 11/12/17 23:55 11/13/17 05:31 11/13/17 05:44 Range/Units White Blood Count 20.88 28.27 4.8-10.8 K/uL Red Blood Count 3.60 3.79 4.2-5.4 M/uL Hemoglobin 11.3 12.0 12.0-16.0 g/dL Hematocrit 33.8 35.1 37-47 % Mean Corpuscular Volume 93.9 92.6 80-100 fL Mean Corpuscular Hemoglobin 31.4 31.7 25-34 pg Mean Corpuscular Hemoglobin Concent 33.4 34.2 32-36 g/dl RDW Standard Deviation 47.1 46.5 36.4-46.3 fL RDW Coefficient of Variation 13.7 13.7 11.5-14.5 % Platelet Count 115 91 130-400 K/uL Mean Platelet Volume 9.9 10.1 7.4-10.4 fL Arterial Blood pH 7.46 7.35-7.45 Arterial Blood Partial Pressure CO2 29 35-46 mmHg Arterial Blood Partial Pressure O2 71 80-95 mm/Hg Arterial Blood HCO3 20 19-24 mmol/L Arterial Blood Oxygen Saturation 93.7 90-95 % Arterial Blood Base Excess -3.0 -9-1.8 mEq/L Arterial Blood Gas Delivery RA Bhavesh Test POS Lactic Acid Level 3.8 3.1 0.4-2.0 mmol/L Total Creatine Kinase 354 639 26-192 U/L Creatine Kinase MB 7.2 12.8 0.5-3.6 ng/ml Creatine Kinase MB Ratio 2.0 2.0 0-3.0 Troponin I 0.041 0.232 0-0.045 ng/ml Neutrophils (%) (Auto) 95.3 % Lymphocytes (%) (Auto) 1.1 % Monocytes (%) (Auto) 2.2 % Eosinophils (%) (Auto) 0.0 % Basophils (%) (Auto) 0.0 % Neutrophils # (Auto) 26.95 1.4-6.5 K/uL Lymphocytes # (Auto) 0.30 1.2-3.4 K/uL Monocytes # (Auto) 0.62 0.11-0.59 K/uL Eosinophils # (Auto) 0.00 0-0.5 K/uL Basophils # (Auto) 0.01 0-0.2 K/uL Immature Granulocyte % (Auto) 1.4 % Immature Granulocyte # (Auto) 0.39 0.00-0.02 K/uL Toxic Vacuolation 2+ Dohle Bodies 1+ Platelet Estimate DECREASED Sodium Level 136 136-145 mmol/L Potassium Level 3.7 3.5-5.1 mmol/L Chloride Level 106 98-107 mmol/L Carbon Dioxide Level 20 21-32 mmol/L Anion Gap 11.0 3-11 mmol/L Blood Urea Nitrogen 29 7-18 mg/dl Creatinine 1.69 0.60-1.20 mg/dl Est Creatinine Clear Calc Drug Dose 23.7 ml/min Estimated GFR () 31.5 Estimated GFR (Non- 27.2 BUN/Creatinine Ratio 17.0 10-20 Random Glucose 103 70-99 mg/dl Calcium Level 6.9 8.5-10.1 mg/dl Phosphorus Level 2.5 2.5-4.9 mg/dl Magnesium Level 2.0 1.8-2.4 mg/dl Total Bilirubin 0.4 0.2-1 mg/dl Direct Bilirubin 0.1 0-0.2 mg/dl Aspartate Amino Transf (AST/SGOT) 89 15-37 U/L Alanine Aminotransferase (ALT/SGPT) 69 12-78 U/L Alkaline Phosphatase 49 45-117 U/L Total Protein 5.3 6.4-8.2 gm/dl Albumin 2.5 3.4-5.0 gm/dl Lipase 61 73-393 U/L Procalcitonin 170.21 0-0.5 ng/ml Bedside Glucose (other) 80 70-99 mg/dl Test 11/13/17 06:44 Range/Units Prothrombin Time 14.9 9.0-12.0 SECONDS Prothromb Time International Ratio 1.4 0.9-1.1 Heparin-PF4 Antibody Screen NEG NEG Microbiology Results 11/12/17 Blood Culture - Preliminary, Resulted Gram Negative Bacilli 11/12/17 Blood Culture - Preliminary, Resulted Gram Negative Bacilli 11/13/17 MRSA DNA Surveillance Screen - Final, Complete Specimen Negative for MRSA by DNA Probe
--- NOTE | 2017-11-13 11:30 | Critical Care Progress Note ---
Critical Care Progress Note Date of Service Nov 13, 2017. Attending Dr. Butler Subjective The patient is fully demented, confused, continue to pull on her lines however she was chemically restrained as well as physically restrained with soft restraints and upper extremities. She seems to tolerate Precedex well. The patient events overnight noted to have right-sided hydronephrosis with obstructive urolithiasis, underwent stent placement and she continued to be hypotensive requiring pressors. The patient was started on vasopressin addition to Levophed. The patient continue on IV fluid and continue also on albumin. Antibiotic changes were noted and doses were adjusted, awaiting the identification of the bacteremia with gram-negative hayden. The patient is poor historian, review of system was not obtainable. Objective Her physical exam on November 13, 2017, showed no fever, blood pressure remains supported by pressors, S1-S2 regular rate and rhythm, tachycardic, lungs with distant breath sounds, abdomen is soft and benign, lower extremity no edema. Her labs showed elevated white count and BUN/creatinine has been elevated but stable, CAT scan of the abdomen was reviewed which showed right-sided hydronephrosis and large urolithiasis. No evidence of pyelonephritis. Assessment & Plan 1. Septic shock secondary to urolithiasis with hydronephrosis and UTI. 2. Urolithiasis status post ureteral stenting. 3. Advanced dementia. Plan: 1. I would continue with antibiotics, although we discussed the change of antibiotics to include high dose of cefepime based on the GFR, given the gram- negative hayden in the blood, awaiting for identification of the pathogen, the elevated white count is concerning to me for ESBL pathogen, I will change antibiotics to cover pending until ESBL is found to be negative. 2. If there is no evidence of multidrug resistant Pseudomonas, ciprofloxacin can be stopped as well. 3. No need for Flagyl. 4. Continue with aggressive IV fluid in addition to albumin. 5. Although thrombocytopenia was noted this is likely related to sepsis and delusional effect. This is not heparin-induced thrombocytopenia. To short of her course. May continue with the heparin subcu. 6. Glucose control. 7. Precedex. 8. Stop fentanyl and Versed as needed. As the patient is not vented at this point. 9. The patient remains a full code. 10. Oral intake will be determined once the patient is off Precedex. 11. The patient's CVP has been variable but still on the low side measuring approximately 7. 12. discussed with the family yesterday and details. Discussed with the staff on rounds and details. Critical care time spent with the patient was 45 minutes. Data Medications: Current Inpatient Medications Medications (Trade) Dose Ordered Sig/Tess Route Start Time Stop Time Status Last Admin Dose Admin Ondansetron HCl (Zofran Inj) 4 mg Q6H PRN IV 11/12/17 13:45 12/12/17 13:44 Donepezil HCl (Aricept Tab) 5 mg DAILY PO 11/13/17 09:00 12/13/17 08:59 Sertraline HCl (Zoloft Tab) 100 mg DAILY PO 11/13/17 09:00 12/13/17 08:59 Norepinephrine Bitartrate 8 mg/ Dextrose 508 ml @ 0 mls/hr Q0M IV 11/12/17 20:00 12/12/17 19:59 11/12/17 20:43 12 MLS/HR Miscellaneous Information ([facility] Protocol For Hyperglycemia) 1 ea PRN PRN N/A 11/12/17 20:00 11/14/17 19:59 Pantoprazole Sodium 40 mg/ Syringe 10 ml @ 5 mls/min DAILY@11 IV 11/13/17 11:00 12/13/17 10:59 Parenteral Electrolyte Solution 1,000 ml @ 80 mls/hr [id number] IV 11/12/17 20:15 12/12/17 20:14 11/13/17 07:44 80 MLS/HR Cefepime HCl (Consult) 1 ea DAILY PRN N/A 11/12/17 21:48 12/12/17 21:47 Vasopressin 50 units/Sodium Chloride 502.5 ml @ 24 mls/hr [id number] PRN IV 11/12/17 23:16 12/12/17 23:15 Dexmedetomidine HCl 400 mcg/ Sodium Chloride 100 ml @ 0 mls/hr Q0M PRN IV 11/13/17 02:45 11/17/17 02:44 11/13/17 07:44 16.6 MLS/HR Heparin Sodium (Porcine) (Heparin Sq 5000 Unit/0.5ml) 5,000 unit Q12 SQ 11/13/17 09:00 4/19/18 08:59 11/13/17 08:56 5,000 UNIT Ciprofloxacin/ Dextrose 400 mg/ Prmx 200 ml @ 100 mls/hr Q18H IV 11/13/17 16:00 11/22/17 21:59 Hydromorphone HCl (Dilaudid Inj) 0.5 mg Q4H PRN IV 11/13/17 08:15 11/27/17 08:14 Cefepime HCl 2000 mg/Syringe 20 ml @ 5 mls/min Q24H IV 11/13/17 22:00 11/23/17 21:59 Vital Signs: Date Time Temp Pulse Resp B/P (MAP) Pulse Ox O2 Delivery O2 Flow Rate FiO2 11/13/17 10:30 89 17 107/50 (69) 11/13/17 10:15 91 17 106/49 (68) 11/13/17 10:00 101 22 98/46 (63) 93 Room Air 11/13/17 09:45 97 20 80/50 (60) 11/13/17 09:30 108 23 87/60 (69) 11/13/17 09:15 94 17 102/47 (65) 11/13/17 09:00 89 19 116/52 (73) 11/13/17 08:45 99 23 135/66 (89) 90 Room Air 11/13/17 08:30 89 17 116/62 (80) 91 Room Air 11/13/17 08:15 88 15 118/53 (74) 92 Room Air 11/13/17 08:00 Room Air 11/13/17 08:00 36.5 95 20 127/55 (79) 95 Room Air 11/13/17 08:00 Room Air 11/13/17 07:46 94 21 109/72 (84) 93 Room Air 11/13/17 07:31 92 19 110/72 (85) 96 Oxymask 2.0 11/13/17 07:16 96 18 115/56 (75) 97 Oxymask 4.0 11/13/17 07:01 84 16 123/52 (75) 98 Oxymask 4.0 11/13/17 07:00 19 132/55 (80) 97 Oxymask 4.0 11/13/17 06:00 36.9 93 22 100/67 (78) 98 Oxymask 4.0 11/13/17 04:31 89 16 93/49 (64) 90 Oxymask 4.0 11/13/17 04:15 36.9 20 100/67 (76) 91 Oxymask 4 11/13/17 04:01 93 16 115/51 (72) 93 Oxymask 4.0 11/13/17 04:00 93 15 112/49 (70) 92 Oxymask 4.0 11/13/17 04:00 36.9 16 108/64 (75) 95 Oxymask 4 11/13/17 04:00 98 Oxymask 4.0 11/13/17 03:48 36.9 18 125/52 (76) 99 Oxymask 4 11/13/17 03:00 112 21 125/43 (70) 93 Oxymask 4.0 11/13/17 02:31 91 19 110/41 (64) 92 Room Air 11/13/17 02:00 98 18 103/39 (60) 92 Room Air 11/13/17 00:31 116 20 98/34 (55) 93 Room Air 11/13/17 00:00 94 Room Air 11/13/17 00:00 120 20 79/26 (43) 93 Room Air 11/12/17 21:47 121 22 71/34 (46) 11/12/17 21:36 104 21 75/43 (54) 11/12/17 21:31 127 20 67/52 (57) 94 Room Air 11/12/17 21:22 120 22 69/48 (55) 11/12/17 21:16 117 17 70/45 (53) 95 Room Air 11/12/17 21:04 121 19 79/44 (56) 94 Room Air 11/12/17 20:34 117 21 55/43 (47) 11/12/17 20:31 115 22 55/45 (48) 11/12/17 20:30 120 19 74/38 (50) 91 Room Air 11/12/17 20:06 111 19 129/100 (110) 11/12/17 20:00 94 Room Air 11/12/17 19:07 111 20 67/45 (52) 94 Room Air 11/12/17 19:03 109 23 47/25 (32) 93 Room Air 11/12/17 18:27 102 18 70/38 (49) 98 Nasal Cannula 2.0 11/12/17 17:15 37.5 99 22 76/43 (54) 94 Nasal Cannula 2.0 11/12/17 17:15 96 Nasal Cannula 2.0 11/12/17 15:15 37.3 91 18 63/37 (46) 92 Room Air 57/34 (42) 11/12/17 14:02 94 16 80/38 91 Room Air 11/12/17 13:52 89 11/12/17 13:24 88 16 83/47 92 Room Air 11/12/17 12:54 95 Room Air 11/12/17 12:19 93 18 73/49 95 Room Air Laboratory Results: Last 24 Hours Test 11/12/17 13:33 11/12/17 18:36 11/12/17 19:56 11/12/17 20:50 Lactic Acid Level 4.8 mmol/L 4.6 mmol/L Bedside Glucose 69 mg/dl Sodium Level 140 mmol/L Potassium Level 4.1 mmol/L Chloride Level 107 mmol/L Carbon Dioxide Level 21 mmol/L Anion Gap 11.0 mmol/L Blood Urea Nitrogen 25 mg/dl Creatinine 1.72 mg/dl Est Creatinine Clear Calc Drug Dose 23.3 ml/min Estimated GFR () 30.9 Estimated GFR (Non- 26.6 BUN/Creatinine Ratio 14.4 Random Glucose 75 mg/dl Calcium Level 7.3 mg/dl Procalcitonin 178.97 ng/ml Random Cortisol 73.01 mcg/dl Test 11/12/17 20:51 11/12/17 23:55 11/13/17 05:31 11/13/17 05:44 White Blood Count 20.88 K/uL 28.27 K/uL Red Blood Count 3.60 M/uL 3.79 M/uL Hemoglobin 11.3 g/dL 12.0 g/dL Hematocrit 33.8 % 35.1 % Mean Corpuscular Volume 93.9 fL 92.6 fL Mean Corpuscular Hemoglobin 31.4 pg 31.7 pg Mean Corpuscular Hemoglobin Concent 33.4 g/dl 34.2 g/dl RDW Standard Deviation 47.1 fL 46.5 fL RDW Coefficient of Variation 13.7 % 13.7 % Platelet Count 115 K/uL 91 K/uL Mean Platelet Volume 9.9 fL 10.1 fL Arterial Blood pH 7.46 Arterial Blood Partial Pressure CO2 29 mmHg Arterial Blood Partial Pressure O2 71 mm/Hg Arterial Blood HCO3 20 mmol/L Arterial Blood Oxygen Saturation 93.7 % Arterial Blood Base Excess -3.0 mEq/L Arterial Blood Gas Delivery RA Bhavesh Test Lactic Acid Level 3.8 mmol/L 3.1 mmol/L Total Creatine Kinase 354 U/L 639 U/L Creatine Kinase MB 7.2 ng/ml 12.8 ng/ml Creatine Kinase MB Ratio 2.0 2.0 Troponin I 0.041 ng/ml 0.232 ng/ml Neutrophils (%) (Auto) 95.3 % Lymphocytes (%) (Auto) 1.1 % Monocytes (%) (Auto) 2.2 % Eosinophils (%) (Auto) 0.0 % Basophils (%) (Auto) 0.0 % Neutrophils # (Auto) 26.95 K/uL Lymphocytes # (Auto) 0.30 K/uL Monocytes # (Auto) 0.62 K/uL Eosinophils # (Auto) 0.00 K/uL Basophils # (Auto) 0.01 K/uL Immature Granulocyte % (Auto) 1.4 % Immature Granulocyte # (Auto) 0.39 K/uL Toxic Vacuolation 2+ Dohle Bodies 1+ Platelet Estimate DECREASED Sodium Level 136 mmol/L Potassium Level 3.7 mmol/L Chloride Level 106 mmol/L Carbon Dioxide Level 20 mmol/L Anion Gap 11.0 mmol/L Blood Urea Nitrogen 29 mg/dl Creatinine 1.69 mg/dl Est Creatinine Clear Calc Drug Dose 23.7 ml/min Estimated GFR () 31.5 Estimated GFR (Non- 27.2 BUN/Creatinine Ratio 17.0 Random Glucose 103 mg/dl Calcium Level 6.9 mg/dl Phosphorus Level 2.5 mg/dl Magnesium Level 2.0 mg/dl Total Bilirubin 0.4 mg/dl Direct Bilirubin 0.1 mg/dl Aspartate Amino Transf (AST/SGOT) 89 U/L Alanine Aminotransferase (ALT/SGPT) 69 U/L Alkaline Phosphatase 49 U/L Total Protein 5.3 gm/dl Albumin 2.5 gm/dl Lipase 61 U/L Procalcitonin 170.21 ng/ml Bedside Glucose (other) 80 mg/dl Test 11/13/17 06:44 11/13/17 10:37 Prothrombin Time 14.9 SECONDS Prothromb Time International Ratio 1.4 Heparin-PF4 Antibody Screen NEG Lactic Acid Level 2.6 mmol/L
[2017-11-13] MEDS: PANTOprazole INJ 40 MG in SYRINGE 0 ML IV SCH (11:50)
[2017-11-13] MEDS ORDERED: DEXTROSE 50% 50 ML SYR ONE ×2 (12:37→18:14)
[2017-11-13] MEDS ORDERED: IMIPENEM-CILASTATIN 250 MG in DEXTROSE 5% 100ML 100 ML IV SCH (12:52)
[2017-11-13] MEDS ORDERED: PHARMACY CONSULT IN PROGRESS PRN (13:15)
[2017-11-13] MEDS ORDERED: CIPROFLOXACIN / D5W 400 MG in PREMIXED IN D5W 200 ML IV SCH (16:00)
[2017-11-13] MEDS: D5W AND NSS 1,000 ML IV SCH (16:07)
[2017-11-13] MEDS: NOREPINEPHRINE BIT INJ 8 MG in DEXTROSE 5% 500ML 500 ML IV SCH (16:09)
--- NOTE | 2017-11-13 17:56 | ECHOCARDIOGRAM REPORT ---
*NOTICE TO RECEIVING [employer]Y This information is strictly Confidential and protected under [place] law. [place] law prohibits you from making any further disclosure of this information unless further disclosure is expressly permitted by the written consent of the person to whom it pertains or is authorized by law. A general authorization for the release of medical or other information is not sufficient for this purpose. Hospital accepts no responsibility if the information is made available to any other person, INCLUDING THE PATIENT. Interpretation Summary * Name: ROOSEVELT TRUJILLO Study Date: 11/13/2017 06:20 AM BP: 100/67 mmHg * [facility] HR: 93 * : 1930 (M/d/yyy) Gender: Female Height: 67 in * Age: 87 yrs Ethnicity: [place] Weight: 123 lb * Ordering Physician: Neil Max * Referring Physician: Self, Referred * Performed By: Madelyn Vasquez RDCS * * Reason For Study: Hypotension, Sepsis * BSA: 1.6 m2 * The study was technically adequate. * There is no comparison study available. * -- Conclusions -- * Ejection Fraction = 50-55%. * No regional wall motion abnormalities noted. * Grade I diastolic dysfunction, (abnormal relaxation pattern). * Aortic valve sclerosis mild, without significant aortic valvular stenosis. * Trace aortic regurgitation. * There is mild mitral regurgitation. * There is mild tricuspid regurgitation. * Doppler findings do not suggest pulmonary hypertension. Procedure Details * A complete two-dimensional transthoracic echocardiogram was performed (2D, M-mode, Doppler and color flow Doppler). Left Ventricle * The left ventricle is normal in size. * There is no thrombus. * The basal septum is thickened and angulated consistent with sigmoid septum. * There is borderline concentric left ventricular hypertrophy. * Ejection Fraction = 50-55%. * Left ventricular systolic function is normal. * No regional wall motion abnormalities noted. Right Ventricle * The right ventricle is normal size. * The right ventricular systolic function is normal as assessed by tricuspid annular plane systolic excursion (TAPSE) (normal >1.5 cm). Atria * The left atrial size is normal. * Right atrial size is normal. * There is no evidence of atrial septal defect, but resolution does not allow assessment for a patent foramen ovale. Mitral Valve * There is moderate mitral annular calcification. * There is no mitral valve stenosis. * There is mild mitral regurgitation. Tricuspid Valve * The tricuspid valve is normal. * There is no tricuspid stenosis. * There is mild tricuspid regurgitation. * Doppler findings do not suggest pulmonary hypertension. Aortic Valve * The aortic valve is trileaflet. * Aortic valve sclerosis mild, without significant aortic valvular stenosis. * Aortic stenosis is absent. * Trace aortic regurgitation. Pulmonic Valve * The pulmonary valve is not well seen, but the Doppler examination is normal without significant regurgitation or stenosis. Great Vessels * The aortic root is normal size. Pericardium/Pleural * There is no pericardial effusion. Great Vessels * Normal inferior vena cava diameter and respiratory variation suggests normal central venous pressure. Left Ventricular Diastolic Function * Grade I diastolic dysfunction, (abnormal relaxation pattern). MMode 2D Measurements and Calculations IVSd 1.2 cm IVSs 1.2 cm LVIDd 3.9 cm LVIDs 2.9 cm LVPWd 1.2 cm LVPWs 1.7 cm IVS/LVPW 0.98 FS 25.9 % EDV(Teich) 66.3 ml ESV(Teich) 32.1 ml EF(Teich) 51.6 % EDV(cubed) 59.7 ml ESV(cubed) 24.3 ml EF(cubed) 59.3 % % IVS thick 3.0 % % LVPW thick 39.1 % LV mass(C)d 164.9 grams LV mass(C)dI 100.3 grams/m\S\2 LV mass(C)s 148.5 grams LV mass(C)sI 90.3 grams/m\S\2 SV(Teich) 34.2 ml SI(Teich) 20.8 ml/m\S\2 SV(cubed) 35.4 ml SI(cubed) 21.5 ml/m\S\2 Ao root diam 2.9 cm Ao root area 6.4 cm\S\2 ACS 1.1 cm LA dimension 3.2 cm LA/Ao 1.1 LVAd ap4 21.3 cm\S\2 LVLd ap4 7.4 cm EDV(MOD-sp4) 55.3 ml EDV(sp4-el) 52.4 ml LVAs ap4 14.1 cm\S\2 LVLs ap4 6.4 cm ESV(MOD-sp4) 27.9 ml ESV(sp4-el) 26.4 ml EF(MOD-sp4) 49.5 % EF(sp4-el) 49.5 % LVAd ap2 24.0 cm\S\2 LVLd ap2 7.8 cm EDV(MOD-sp2) 64.2 ml EDV(sp2-el) 62.6 ml LVAs ap2 15.1 cm\S\2 LVLs ap2 6.6 cm ESV(MOD-sp2) 30.1 ml ESV(sp2-el) 29.2 ml EF(MOD-sp2) 53.1 % EF(sp2-el) 53.3 % LVLd %diff 5.4 % EDV(MOD-bp) 60.4 ml LVLs %diff 3.8 % ESV(MOD-bp) 29.2 ml EF(MOD-bp) 51.7 % SV(MOD-sp4) 27.3 ml SI(MOD-sp4) 16.6 ml/m\S\2 SV(MOD-sp2) 34.1 ml SI(MOD-sp2) 20.7 ml/m\S\2 SV(MOD-bp) 31.2 ml SI(MOD-bp) 19.0 ml/m\S\2 SV(sp4-el) 25.9 ml SI(sp4-el) 15.8 ml/m\S\2 SV(sp2-el) 33.4 ml SI(sp2-el) 20.3 ml/m\S\2 Doppler Measurements and Calculations MV E max radha 64.7 cm/sec MV A max radha 81.1 cm/sec MV E/A 0.80 MV dec time 0.26 sec Ao V2 max 133.8 cm/sec Ao max PG 7.2 mmHg Ao max PG (full) 4.8 mmHg AI max radha 379.7 cm/sec AI max PG 57.7 mmHg AI dec slope 290.9 cm/sec\S\2 AI P1/2t 382.3 msec LV V1 max PG 2.3 mmHg LV V1 max 76.4 cm/sec MR max radha 412.0 cm/sec MR max PG 67.9 mmHg MR mean radha 297.6 cm/sec MR mean PG 39.8 mmHg MR VTI 128.1 cm PA V2 max 63.1 cm/sec PA max PG 1.6 mmHg TR max radha 208.0 cm/sec
[2017-11-13] MEDS ORDERED: DEXTROSE 10% 1,000 ML BAG ONE (18:33)
[2017-11-13] MEDS: DEXTROSE 10% 1,000 ML IV SCH (19:00)
[2017-11-13] MEDS ORDERED: CEFEPIME IV 2,000 MG in SYRINGE 0 ML IV SCH (22:00)
[2017-11-13] MEDS ORDERED: CEFEPIME IV 2,000 MG in SYRINGE 7.5 ML IV SCH (22:00)
[2017-11-13] MEDS ORDERED: CEFEPIME IV 1,000 MG in SYRINGE 0 ML IV SCH (22:00)
[2017-11-13] MEDS: VASOPRESSIN INJ 50 UNITS in SODIUM CHLORIDE 0.9% 500ML 500 ML IV PRN (22:17)
[2017-11-14] VITALS (74 sets, daily range): BP systolic 77–129; BP diastolic 43–86; PULSE 70–97; TEMP 36.5–37; O2SAT 80–100
[2017-11-14] MEDS ORDERED: ACETAMINOPHEN IV 650 MG in EMPTY BAG 0 ML IV ONE (00:15)
[2017-11-14] MEDS ORDERED: IMIPENEM/CILASTATIN IV 500 MG in DEXTROSE 5% 100ML 100 ML IV SCH (02:00)
[2017-11-14] MEDS: D5W AND NSS 1,000 ML IV SCH ×2 (05:33→16:20)
[2017-11-14 06:18] LABS: HEMATOCRIT 32.5 % (37-47); HEMOGLOBIN 11.3 g/dL (12.0-16.0); MEAN CORPUSCULAR HEMOGLOBIN 31.7 pg (25-34); MEAN CORPUSCULAR HGB CONC 34.8 g/dl (32-36); MEAN PLATELET VOLUME 11.1 fL (7.4-10.4); PLATELET COUNT 68 K/uL (130-400); RED CELL DISTRIBUTION WIDTH SD 46.3 fL (36.4-46.3); WHITE BLOOD COUNT 31.12 K/uL (4.8-10.8)
[2017-11-14 06:26] LABS: ALBUMIN 2.1 gm/dl (3.4-5.0); CALCIUM 7.4 mg/dl (8.5-10.1); CREATININE 0.99 mg/dl (0.60-1.20); PHOSPHORUS 2.2 mg/dl (2.5-4.9); POTASSIUM 3.6 mmol/L (3.5-5.1); TOTAL PROTEIN 4.8 gm/dl (6.4-8.2)
[2017-11-14] MEDS: HEPARIN SOD 5000 UNIT/0.5 ML CARP SQ SCH ×2 (07:54→20:34)
[2017-11-14] MEDS: DONEPEZIL HCL 5 MG TAB PO SCH (07:56)
[2017-11-14] MEDS: SERTRALINE HCL 100 MG TAB PO SCH (07:56)
[2017-11-14] MEDS: DexMEDEtomidine HCL IV 400 MCG in SODIUM CHLORIDE 0.9% 100ML 96 ML IV PRN (09:06)
[2017-11-14] MEDS: NOREPINEPHRINE BIT INJ 8 MG in DEXTROSE 5% 500ML 500 ML IV SCH (09:06)
[2017-11-14] MEDS ORDERED: SODIUM CHLORIDE 0.9% IV PRN (09:45)
[2017-11-14] MEDS ORDERED: DEXMEDETOMIDINE HCL IV PRN (09:45)
--- NOTE | 2017-11-14 10:09 | Progress Note ---
Subjective Date of Service: Nov 14, 2017. (Tonya Baez CRNP) Subjective Pt evaluation today including: conversation w/ patient, chart review, lab review Voiding: lopez catheter in place (patent, draining clear, yellow urine ) 87 yo female s/p right ureteral stent for sepsis. Pt denies pain this morning. She is able to answer questions coherently, but remains confused. States she is in some sort of medical center and it is the year "two thousand something." She says she does not know who the president is. She does know her date today. Blood and urine cultures preliminarily positive. UC&S growing ESBL e coli. Pt remains on norepinephrine and vasopressin. (Tonya Baez CRNP) Review of Systems Constitutional: No fever, No chills Respiratory: No shortness of breath Cardiac: No chest pain Abdomen: No pain, No nausea, No vomiting Female : No hematuria Heme: No abnormal bleeding/bruising (Tonya Baez CRNP) Objective Vital Signs Date Time Temp Pulse Resp B/P (MAP) Pulse Ox O2 Delivery O2 Flow Rate FiO2 11/14/17 09:30 82 22 96 11/14/17 09:18 37.0 89 22 101/68 (79) 100 Room Air 11/14/17 09:16 71 16 101/68 (79) 97 11/14/17 09:15 71 17 96 11/14/17 09:01 74 21 119/72 (88) 95 11/14/17 09:00 76 23 97 11/14/17 08:47 82 23 112/86 (95) 96 11/14/17 08:45 82 23 93 11/14/17 08:32 88 22 82/63 (69) 94 11/14/17 08:30 88 26 99 11/14/17 08:16 75 18 117/72 (87) 98 11/14/17 08:15 83 21 97 11/14/17 08:01 81 24 101/79 (86) 98 11/14/17 08:00 86 22 96 11/14/17 07:48 81 24 116/43 (67) 98 11/14/17 07:45 82 30 91 11/14/17 07:30 36.7 88 19 118/56 (76) 99 Room Air 11/14/17 07:30 Room Air 11/14/17 07:30 86 23 11/14/17 07:29 88 24 118/56 (76) 100 11/14/17 07:15 85 26 98 11/14/17 07:00 90 29 80 11/14/17 06:07 80 19 118/61 (80) 99 Room Air 11/14/17 04:00 37.0 85 24 110/64 (79) 98 Room Air 11/14/17 04:00 98 Room Air 11/14/17 03:00 88 20 104/63 (77) 99 Room Air 117/49 (71) 11/14/17 02:00 97 20 110/65 (80) 100 Room Air 119/51 (73) 11/14/17 01:00 97 20 117/74 (88) 96 Room Air 129/55 (79) 11/14/17 00:01 96 Room Air 11/14/17 00:01 37.0 90 23 105/63 (77) 94 Room Air 116/51 (72) 11/13/17 23:02 92 24 105/42 (63) 96 Room Air 120/53 (75) 11/13/17 22:00 37.0 83 21 93/57 (69) 94 Room Air 110/48 (68) 11/13/17 21:00 89 22 94/62 (73) 96 Room Air 109/46 (67) 11/13/17 20:00 36.6 79 22 97/59 (72) 94 Room Air 110/45 (66) 11/13/17 20:00 96 Room Air 11/13/17 19:00 80 22 90/47 (61) 96 Room Air 109/48 (68) 11/13/17 18:01 96 25 120/58 (78) 99 11/13/17 18:00 92 23 116/55 (75) 98 11/13/17 17:00 96 23 105/48 (67) 96 11/13/17 16:01 100 28 103/62 (76) 98 11/13/17 16:00 Room Air 11/13/17 16:00 36.6 86 22 121/53 (75) 96 11/13/17 15:01 87 18 115/53 (73) 11/13/17 14:00 75 18 104/46 (65) 11/13/17 13:01 86 18 105/45 (65) 11/13/17 12:45 90 23 107/46 (66) 11/13/17 12:30 100 26 84/40 (55) 11/13/17 12:15 92 18 103/47 (65) 11/13/17 12:07 98 23 95/45 (62) 11/13/17 12:00 36.6 102 22 92/43 (59) 11/13/17 12:00 Room Air 11/13/17 11:45 92 18 93/45 (61) 11/13/17 11:30 96 18 96/47 (63) 11/13/17 11:15 104 21 84/36 (52) 11/13/17 11:00 103 23 111/49 (69) 11/13/17 10:30 89 17 107/50 (69) 11/13/17 10:15 91 17 106/49 (68) 11/13/17 10:00 101 22 98/46 (63) 93 Room Air (Tonya Baez, FIELD SERVICE ANALYST) Physical Exam General Appearance: no apparent distress Eyes: normal inspection ENT: hearing grossly normal Neck: no JVD Respiratory/Chest: no respiratory distress, no accessory muscle use Cardiovascular: no JVD Extremities: normal inspection Neurologic/Psychiatric: alert, normal mood/affect, oriented x 3 Skin: normal color (Tonya Baez, FIELD SERVICE ANALYST) Laboratory Results Last 24 Hours Test 11/13/17 10:37 11/13/17 12:37 11/13/17 13:05 11/13/17 13:51 Lactic Acid Level 2.6 mmol/L Bedside Glucose (other) 59 mg/dl 99 mg/dl Total Creatine Kinase 553 U/L Creatine Kinase MB 14.0 ng/ml Creatine Kinase MB Ratio 2.5 Troponin I 0.474 ng/ml Test 11/13/17 18:00 11/13/17 18:42 11/14/17 05:11 11/14/17 06:19 Bedside Glucose (other) 67 mg/dl 122 mg/dl 86 mg/dl White Blood Count 31.12 K/uL Red Blood Count 3.57 M/uL Hemoglobin 11.3 g/dL Hematocrit 32.5 % Mean Corpuscular Volume 91.0 fL Mean Corpuscular Hemoglobin 31.7 pg Mean Corpuscular Hemoglobin Concent 34.8 g/dl Platelet Count 68 K/uL Mean Platelet Volume 11.1 fL RDW Standard Deviation 46.3 fL RDW Coefficient of Variation 14.0 % Neutrophils % (Manual) 100.0 % Lymphocytes % (Manual) 0.0 % Neutrophils # (Manual) 31.12 K/uL Total Absolute Neutrophils 31.12 K/uL Total Absolute Lymphocytes 0.00 K/uL Toxic Vacuolation 1+ Dohle Bodies 1+ Echinocytes 2+ Sodium Level 135 mmol/L Potassium Level 3.6 mmol/L Chloride Level 105 mmol/L Carbon Dioxide Level 21 mmol/L Anion Gap 9.0 mmol/L Blood Urea Nitrogen 24 mg/dl Creatinine 0.99 mg/dl Est Creatinine Clear Calc Drug Dose 40.4 ml/min Estimated GFR () 60.2 Estimated GFR (Non- 52.0 BUN/Creatinine Ratio 24.3 Random Glucose 76 mg/dl Calcium Level 7.4 mg/dl Phosphorus Level 2.2 mg/dl Magnesium Level 1.8 mg/dl Total Bilirubin 0.4 mg/dl Direct Bilirubin 0.2 mg/dl Aspartate Amino Transf (AST/SGOT) 59 U/L Alanine Aminotransferase (ALT/SGPT) 48 U/L Alkaline Phosphatase 59 U/L Total Protein 4.8 gm/dl Albumin 2.1 gm/dl Lipase 45 U/L Test 11/14/17 09:45 (Tonya Baez CRNP) Assessment and Plan POD #1 s/p cysto and right ureteral stent placement for ureteral stone with sepsis. Pt will need 10-14 days of IV abx to appropriately tx infection. Consider consulting ID for input. Continue lopez catheter until the pt is clinically improved and more ambulatory. Will need definitive management of stone once her infection has been adequately treated. Will continue to follow along with primary service. (Tonya Baez CRNP)
[2017-11-14] MEDS: PANTOprazole INJ 40 MG in SYRINGE 0 ML IV SCH (10:14)
[2017-11-14] MEDS: IMIPENEM/CILASTATIN IV 500 MG in DEXTROSE 5% 100ML 100 ML IV SCH ×2 (10:14→17:41)
[2017-11-14 10:16] LABS: HEMATOCRIT 32.9 % (37-47); HEMOGLOBIN 11.2 g/dL (12.0-16.0); MEAN CELL VOLUME 90.9 fL (80-100); MEAN CORPUSCULAR HEMOGLOBIN 30.9 pg (25-34); MEAN PLATELET VOLUME 11.6 fL (7.4-10.4); PLATELET COUNT 59 K/uL (130-400); RED CELL DISTRIBUTION WIDTH CV 13.9 % (11.5-14.5); RED CELL DISTRIBUTION WIDTH SD 46.2 fL (36.4-46.3)
[2017-11-14] MEDS: HYDROmorphone INJ 0.5 MG/0.5 ML SYR IV PRN ×3 (11:01→21:43)
--- NOTE | 2017-11-14 12:27 | Progress Note ---
Internal Med Progress Note Date of Service: Nov 14, 2017. Provider Documentation: SUBJECTIVE: The patient was seen and examined in ICU S/P Rt Ureteric obstructing stone removal and stent placement Clinically better than yesterday Pleasantly confused otherwise no complaints OBJECTIVE: Vital Signs-as noted below Exam: General-No distress at rest Eyes-normal ENT-normal Neck-supple Lungs-decreased breath sound bilaterally Heart-Regular,no murmur appreciated Abdomen-Benign,no masses Extremities-No edema Neuro-AA Pleasantly confused No focal neuro deficit Lab data as noted below. ASSESSMENT & PLAN: SEVERE SEPSIS SECONDARY TO COMPLICATED UTI with Multidrug Resistant Organism -Initially admitted to telemetry however transferred to ICU for persistent HYPOTENSION -Patient presenting from home after having a large amount of diarrhea this morning and a fall -On presentation, leukopenic WBC 1.6, mildly tachycardic at times with heart rate in the 110's, afebrile -Patient received appropriate IVF resuscitation and had persistent hypotension -Lactic acid 4.8, recheck in 6 hours and decreased -S/P oral Bactrim and IV ceftriaxone in the ED; will continue with IV ceftriaxone (patient is from home and no documented history of resistant bacteria) -WCC increased to >28 K -Urine and Blood cultures -Gm negative Bacilli -Multidrug Resistant Organism -Antibiotic changed to Cefepime and Ciprofloxacin -Antibiotic changed to Imipenem -Clinically better Hypotension-Secondary to Septic Shock Due to sepsis Did not response to IVF Required pressors in ICU BP seems better this AM Wean off pressors today OBSTRUCTIVE RIGHT HYDRONEPHROSIS DUE TO OBSTRUCTING CALCULUS s/p REMOVAL AND STENT PLACEMENT Appreciate Urology input Will need IV antibiotic for 14 days Clinically better YEHUDA Secondary to Hydronephrosis Complicated by dehydration and sepsis Continue IV Fluid Improving and will monitor -Improved ALZHEIMER'S -Continue donepezil and sertraline DVT PROPHYLAXIS -SQ Lovenox and now on SQ Heparin CODE STATUS -Patient is a full code as per my discussion with her daughter, Alexa. Vital Signs: Date Time Temp Pulse Resp B/P (MAP) Pulse Ox O2 Delivery O2 Flow Rate FiO2 11/14/17 11:32 72 19 81/46 (58) 95 11/14/17 11:30 Room Air 11/14/17 11:30 76 23 94 11/14/17 11:16 70 16 84/46 (59) 95 11/14/17 11:15 73 18 95 11/14/17 11:01 78 21 92/54 (67) 95 11/14/17 11:00 78 25 98 11/14/17 10:46 78 22 91/55 (67) 94 11/14/17 10:45 76 20 96 11/14/17 10:31 78 24 89/55 (66) 94 11/14/17 10:30 77 21 94 11/14/17 10:20 75 23 108/60 (76) 96 11/14/17 10:16 78 23 /56 (38) 93 11/14/17 10:15 73 24 96 11/14/17 10:01 75 21 105/59 (74) 98 11/14/17 10:00 76 21 95 11/14/17 09:46 75 22 118/69 (85) 100 11/14/17 09:45 70 18 100 11/14/17 09:31 86 20 114/69 (84) 100 11/14/17 09:30 82 26 96 11/14/17 09:30 82 22 96 11/14/17 09:18 37.0 89 22 101/68 (79) 100 Room Air 11/14/17 09:16 71 16 101/68 (79) 97 11/14/17 09:15 71 17 96 11/14/17 09:01 74 21 119/72 (88) 95 11/14/17 09:00 76 23 97 11/14/17 08:47 82 23 112/86 (95) 96 11/14/17 08:45 82 23 93 11/14/17 08:32 88 22 82/63 (69) 94 11/14/17 08:30 88 26 99 11/14/17 08:16 75 18 117/72 (87) 98 11/14/17 08:15 83 21 97 11/14/17 08:01 81 24 101/79 (86) 98 11/14/17 08:00 86 22 96 11/14/17 07:48 81 24 116/43 (67) 98 11/14/17 07:45 82 30 91 11/14/17 07:30 36.7 88 19 118/56 (76) 99 Room Air 11/14/17 07:30 Room Air 11/14/17 07:30 86 23 11/14/17 07:29 88 24 118/56 (76) 100 11/14/17 07:15 85 26 98 11/14/17 07:00 90 29 80 11/14/17 06:07 80 19 118/61 (80) 99 Room Air 11/14/17 04:00 37.0 85 24 110/64 (79) 98 Room Air 11/14/17 04:00 98 Room Air 11/14/17 03:00 88 20 104/63 (77) 99 Room Air 117/49 (71) 11/14/17 02:00 97 20 110/65 (80) 100 Room Air 119/51 (73) 11/14/17 01:00 97 20 117/74 (88) 96 Room Air 129/55 (79) 11/14/17 00:01 96 Room Air 11/14/17 00:01 37.0 90 23 105/63 (77) 94 Room Air 116/51 (72) 11/13/17 23:02 92 24 105/42 (63) 96 Room Air 120/53 (75) 11/13/17 22:00 37.0 83 21 93/57 (69) 94 Room Air 110/48 (68) 11/13/17 21:00 89 22 94/62 (73) 96 Room Air 109/46 (67) 11/13/17 20:00 36.6 79 22 97/59 (72) 94 Room Air 110/45 (66) 11/13/17 20:00 96 Room Air 11/13/17 19:00 80 22 90/47 (61) 96 Room Air 109/48 (68) 11/13/17 18:01 96 25 120/58 (78) 99 11/13/17 18:00 92 23 116/55 (75) 98 11/13/17 17:00 96 23 105/48 (67) 96 11/13/17 16:01 100 28 103/62 (76) 98 11/13/17 16:00 Room Air 11/13/17 16:00 36.6 86 22 121/53 (75) 96 11/13/17 15:01 87 18 115/53 (73) 11/13/17 14:00 75 18 104/46 (65) 11/13/17 13:01 86 18 105/45 (65) 11/13/17 12:45 90 23 107/46 (66) 11/13/17 12:30 100 26 84/40 (55) Lab Results: Results Past 24 Hours Test 11/13/17 12:37 11/13/17 13:05 11/13/17 13:51 11/13/17 18:00 Range/Units Bedside Glucose (other) 59 99 67 70-99 mg/dl Total Creatine Kinase 553 26-192 U/L Creatine Kinase MB 14.0 0.5-3.6 ng/ml Creatine Kinase MB Ratio 2.5 0-3.0 Troponin I 0.474 0-0.045 ng/ml Test 11/13/17 18:42 11/14/17 05:11 11/14/17 06:19 11/14/17 09:45 Range/Units Bedside Glucose (other) 122 86 70-99 mg/dl White Blood Count 31.12 30.90 4.8-10.8 K/uL Red Blood Count 3.57 3.62 4.2-5.4 M/uL Hemoglobin 11.3 11.2 12.0-16.0 g/dL Hematocrit 32.5 32.9 37-47 % Mean Corpuscular Volume 91.0 90.9 80-100 fL Mean Corpuscular Hemoglobin 31.7 30.9 25-34 pg Mean Corpuscular Hemoglobin Concent 34.8 34.0 32-36 g/dl Platelet Count 68 59 130-400 K/uL Mean Platelet Volume 11.1 11.6 7.4-10.4 fL RDW Standard Deviation 46.3 46.2 36.4-46.3 fL RDW Coefficient of Variation 14.0 13.9 11.5-14.5 % Neutrophils % (Manual) 100.0 99.1 % Lymphocytes % (Manual) 0.0 0.0 % Neutrophils # (Manual) 31.12 30.62 1.4-6.5 K/uL Total Absolute Neutrophils 31.12 30.62 1.4-6.5 K/uL Total Absolute Lymphocytes 0.00 0.00 1.2-3.4 K/uL Toxic Vacuolation 1+ 1+ Dohle Bodies 1+ 1+ Echinocytes 2+ 2+ Sodium Level 135 136-145 mmol/L Potassium Level 3.6 3.5-5.1 mmol/L Chloride Level 105 98-107 mmol/L Carbon Dioxide Level 21 21-32 mmol/L Anion Gap 9.0 3-11 mmol/L Blood Urea Nitrogen 24 7-18 mg/dl Creatinine 0.99 0.60-1.20 mg/dl Est Creatinine Clear Calc Drug Dose 40.4 ml/min Estimated GFR () 60.2 Estimated GFR (Non- 52.0 BUN/Creatinine Ratio 24.3 10-20 Random Glucose 76 70-99 mg/dl Calcium Level 7.4 8.5-10.1 mg/dl Phosphorus Level 2.2 2.5-4.9 mg/dl Magnesium Level 1.8 1.8-2.4 mg/dl Total Bilirubin 0.4 0.2-1 mg/dl Direct Bilirubin 0.2 0-0.2 mg/dl Aspartate Amino Transf (AST/SGOT) 59 15-37 U/L Alanine Aminotransferase (ALT/SGPT) 48 12-78 U/L Alkaline Phosphatase 59 45-117 U/L Total Protein 4.8 6.4-8.2 gm/dl Albumin 2.1 3.4-5.0 gm/dl Lipase 45 73-393 U/L Monocytes % (Manual) 0.9 % Monocytes # (Manual) 0.28 0.11-0.59 K/uL Toxic Granulation 1+
[2017-11-14] MEDS ORDERED: NURSING VERBAL MED ORDER ONE (13:45)
[2017-11-14] MEDS ORDERED: LORAZEPAM 2 MG/ML 1 ML VIAL IV PRN (16:45)
[2017-11-14] MEDS: DEXTROSE 10% 1,000 ML IV SCH (16:53)
[2017-11-14] MEDS: VASOPRESSIN INJ 50 UNITS in SODIUM CHLORIDE 0.9% 500ML 500 ML IV PRN (16:54)
--- NOTE | 2017-11-14 17:52 | Critical Care Progress Note ---
Critical Care Progress Note Date of Service Nov 14, 2017. Attending Dr. Butler Subjective The patient remained confused, agitated occasionally, she was unable to tolerate being off the sedation for a long period of time. She denies any pain , no nausea or vomiting, she is confused and wants to go home. Objective Her physical exam on November 13, 2017, showed no fever, blood pressure remains supported by pressors, S1-S2 regular rate and rhythm, tachycardic, lungs with distant breath sounds, abdomen is soft and benign, lower extremity no edema. Her labs showed elevated white count and BUN/creatinine has been elevated but stable, CAT scan of the abdomen was reviewed which showed right-sided hydronephrosis and large urolithiasis. No evidence of pyelonephritis. Physical exam on November 14, 2017, showed no fever again, blood pressure has been maintained, O2 saturation is 94% on nasal cannula, S1-S2 regular rate and rhythm , lungs were distant clear, abdomen nontender and soft, no edema. Her labs also were reviewed for today which showed positive C. difficile antigen by PCR in the stool. Assessment & Plan 1. Septic shock secondary to urolithiasis with hydronephrosis and UTI. 2. Urolithiasis status post ureteral stenting. 3. Advanced dementia. 4. C. difficile colitis. Plan: 1. Antibiotic was changed to imipenem, the patient was found to have ESBL in the blood with recent urolithiasis. 2. If there is no evidence of multidrug resistant Pseudomonas, ciprofloxacin can be stopped as well. 3. No need for Flagyl. 4. Continue with aggressive IV fluid in addition to albumin. 5. Although thrombocytopenia was noted this is likely related to sepsis and delusional effect. This is not heparin-induced thrombocytopenia. To short of her course. May continue with the heparin subcu. 6. Glucose control. The patient continued to have episodes of hypoglycemia requiring D50, I have increased D10 IV infusion to 60 mL an hour. We will continue also with IV hydration including normal so with D5W. At 125 mL an hour. 7. Discontinue Precedex. 8. Stop fentanyl, Ativan was used without any effect on her agitation, I will place the patient back again on Versed 1 mg every 2 hours as needed for agitation. 9. The patient remains a full code. 10. Oral intake will be determined once the patient is off Precedex. 11. No need to continue to transfuse CVP. 12. discussed with the family in details. 13. I have repeated the CBC which was still elevated in the range of 31,000. Discussed with the staff on rounds and details. Critical care time spent with the patient was 45 minutes. Data Medications: Current Inpatient Medications Medications (Trade) Dose Ordered Sig/Tess Route Start Time Stop Time Status Last Admin Dose Admin Ondansetron HCl (Zofran Inj) 4 mg Q6H PRN IV 11/12/17 13:45 12/12/17 13:44 Donepezil HCl (Aricept Tab) 5 mg DAILY PO 11/13/17 09:00 12/13/17 08:59 11/14/17 07:56 5 MG Sertraline HCl (Zoloft Tab) 100 mg DAILY PO 11/13/17 09:00 12/13/17 08:59 11/14/17 07:56 100 MG Norepinephrine Bitartrate 8 mg/ Dextrose 508 ml @ 0 mls/hr Q0M IV 11/12/17 20:00 12/12/17 19:59 11/14/17 09:06 18 MLS/HR Miscellaneous Information (Icu Protocol For Hyperglycemia) 1 ea PRN PRN N/A 11/12/17 20:00 11/14/17 19:59 Pantoprazole Sodium 40 mg/ Syringe 10 ml @ 5 mls/min DAILY@11 IV 11/13/17 11:00 12/13/17 10:59 11/14/17 10:14 5 MLS/MIN Parenteral Electrolyte Solution 1,000 ml @ 80 mls/hr [id number] IV 11/12/17 20:15 12/12/17 20:14 Future Hold 11/13/17 07:44 80 MLS/HR Vasopressin 50 units/Sodium Chloride 502.5 ml @ 24 mls/hr [id number] PRN IV 11/12/17 23:16 12/12/17 23:15 11/14/17 16:54 24 MLS/HR Heparin Sodium (Porcine) (Heparin Sq 5000 Unit/0.5ml) 5,000 unit Q12 SQ 11/13/17 09:00 12/13/17 08:59 11/14/17 07:54 5,000 UNIT Hydromorphone HCl (Dilaudid Inj) 0.5 mg Q4H PRN IV 11/13/17 08:15 11/27/17 08:14 11/14/17 17:41 0.5 MG Miscellaneous Information 1 ea UD PRN N/A 11/13/17 13:15 12/13/17 13:14 Dextrose/Sodium Chloride 1,000 ml @ 80 mls/hr [id number] IV 11/13/17 15:00 12/13/17 14:59 11/14/17 16:20 80 MLS/HR Dextrose 1,000 ml @ 60 mls/hr [id number] IV 11/13/17 19:00 12/13/17 18:59 11/14/17 16:53 60 MLS/HR Imipenem/ Cilastatin Sodium 500 mg/Dextrose 110 ml @ 100 mls/hr Q8H IV 11/14/17 10:00 11/24/17 01:59 11/14/17 17:41 100 MLS/HR Dexmedetomidine HCl 200 mcg/ Sodium Chloride 48 ml @ 0 mls/hr Q0M PRN IV 11/14/17 09:45 11/18/17 09:44 Lorazepam (Ativan Inj) 1 mg Q4H PRN IV 11/14/17 16:45 12/14/17 16:44 11/14/17 16:54 1 MG Vancomycin HCl (Vancomycin Oral Soln) 250 mg Q6H PO 11/14/17 18:00 11/28/17 17:59 UNV Raspberry (Raspberry Syrup 5ml Cup) 5 ml Q6H PO 11/14/17 18:00 11/28/17 17:59 UNV I & O: 24-Hour Column 11/15/17 08:00 Intake Total 1216 ml Output Total 450 ml Balance 766 ml Vital Signs: Date Time Temp Pulse Resp B/P (MAP) Pulse Ox O2 Delivery O2 Flow Rate FiO2 11/14/17 16:00 36.7 11/14/17 16:00 99 Room Air 11/14/17 14:00 36.7 80 19 108/56 (73) 99 Room Air 11/14/17 12:46 75 21 127/81 (96) 91 11/14/17 12:45 75 25 89 11/14/17 12:32 78 22 112/58 (76) 92 11/14/17 12:30 83 18 3/21/18 12:27 84 22 105/49 (67) 100 11/14/17 12:15 83 18 93 11/14/17 12:01 72 16 77/56 (63) 11/14/17 12:00 73 23 85 11/14/17 11:32 72 19 81/46 (58) 95 11/14/17 11:30 Room Air 11/14/17 11:30 76 23 94 11/14/17 11:16 70 16 84/46 (59) 95 11/14/17 11:15 73 18 95 11/14/17 11:01 78 21 92/54 (67) 95 11/14/17 11:00 78 25 98 11/14/17 10:46 78 22 91/55 (67) 94 11/14/17 10:45 76 20 96 11/14/17 10:31 78 24 89/55 (66) 94 11/14/17 10:30 77 21 94 11/14/17 10:20 75 23 108/60 (76) 96 11/14/17 10:16 78 23 /56 (38) 93 11/14/17 10:15 73 24 96 11/14/17 10:01 75 21 105/59 (74) 98 11/14/17 10:00 76 21 95 11/14/17 09:46 75 22 118/69 (85) 100 11/14/17 09:45 70 18 100 11/14/17 09:31 86 20 114/69 (84) 100 11/14/17 09:30 82 26 96 11/14/17 09:30 82 22 96 11/14/17 09:18 37.0 89 22 101/68 (79) 100 Room Air 11/14/17 09:16 71 16 101/68 (79) 97 11/14/17 09:15 71 17 96 11/14/17 09:01 74 21 119/72 (88) 95 11/14/17 09:00 76 23 97 11/14/17 08:47 82 23 112/86 (95) 96 11/14/17 08:45 82 23 93 11/14/17 08:32 88 22 82/63 (69) 94 11/14/17 08:30 88 26 99 11/14/17 08:16 75 18 117/72 (87) 98 11/14/17 08:15 83 21 97 11/14/17 08:01 81 24 101/79 (86) 98 11/14/17 08:00 Room Air 11/14/17 08:00 86 22 96 11/14/17 07:48 81 24 116/43 (67) 98 11/14/17 07:45 82 30 91 11/14/17 07:30 36.7 88 19 118/56 (76) 99 Room Air 11/14/17 07:30 Room Air 11/14/17 07:30 86 23 11/14/17 07:29 88 24 118/56 (76) 100 11/14/17 07:15 85 26 98 11/14/17 07:00 90 29 80 11/14/17 06:07 80 19 118/61 (80) 99 Room Air 11/14/17 04:00 37.0 85 24 110/64 (79) 98 Room Air 11/14/17 04:00 98 Room Air 11/14/17 03:00 88 20 104/63 (77) 99 Room Air 117/49 (71) 11/14/17 02:00 97 20 110/65 (80) 100 Room Air 119/51 (73) 11/14/17 01:00 97 20 117/74 (88) 96 Room Air 129/55 (79) 11/14/17 00:01 96 Room Air 11/14/17 00:01 37.0 90 23 105/63 (77) 94 Room Air 116/51 (72) 11/13/17 23:02 92 24 105/42 (63) 96 Room Air 120/53 (75) 11/13/17 22:00 37.0 83 21 93/57 (69) 94 Room Air 110/48 (68) 11/13/17 21:00 89 22 94/62 (73) 96 Room Air 109/46 (67) 11/13/17 20:00 36.6 79 22 97/59 (72) 94 Room Air 110/45 (66) 11/13/17 20:00 96 Room Air 11/13/17 19:00 80 22 90/47 (61) 96 Room Air 109/48 (68) 11/13/17 18:01 96 25 120/58 (78) 99 11/13/17 18:00 92 23 116/55 (75) 98 Laboratory Results: Last 24 Hours Test 11/13/17 18:00 11/13/17 18:42 11/14/17 05:11 11/14/17 06:19 Bedside Glucose (other) 67 mg/dl 122 mg/dl 86 mg/dl White Blood Count 31.12 K/uL Red Blood Count 3.57 M/uL Hemoglobin 11.3 g/dL Hematocrit 32.5 % Mean Corpuscular Volume 91.0 fL Mean Corpuscular Hemoglobin 31.7 pg Mean Corpuscular Hemoglobin Concent 34.8 g/dl Platelet Count 68 K/uL Mean Platelet Volume 11.1 fL RDW Standard Deviation 46.3 fL RDW Coefficient of Variation 14.0 % Neutrophils % (Manual) 100.0 % Lymphocytes % (Manual) 0.0 % Neutrophils # (Manual) 31.12 K/uL Total Absolute Neutrophils 31.12 K/uL Total Absolute Lymphocytes 0.00 K/uL Toxic Vacuolation 1+ Dohle Bodies 1+ Echinocytes 2+ Sodium Level 135 mmol/L Potassium Level 3.6 mmol/L Chloride Level 105 mmol/L Carbon Dioxide Level 21 mmol/L Anion Gap 9.0 mmol/L Blood Urea Nitrogen 24 mg/dl Creatinine 0.99 mg/dl Est Creatinine Clear Calc Drug Dose 40.4 ml/min Estimated GFR () 60.2 Estimated GFR (Non- 52.0 BUN/Creatinine Ratio 24.3 Random Glucose 76 mg/dl Calcium Level 7.4 mg/dl Phosphorus Level 2.2 mg/dl Magnesium Level 1.8 mg/dl Total Bilirubin 0.4 mg/dl Direct Bilirubin 0.2 mg/dl Aspartate Amino Transf (AST/SGOT) 59 U/L Alanine Aminotransferase (ALT/SGPT) 48 U/L Alkaline Phosphatase 59 U/L Total Protein 4.8 gm/dl Albumin 2.1 gm/dl Lipase 45 U/L Test 11/14/17 09:45 White Blood Count 30.90 K/uL Red Blood Count 3.62 M/uL Hemoglobin 11.2 g/dL Hematocrit 32.9 % Mean Corpuscular Volume 90.9 fL Mean Corpuscular Hemoglobin 30.9 pg Mean Corpuscular Hemoglobin Concent 34.0 g/dl Platelet Count 59 K/uL Mean Platelet Volume 11.6 fL RDW Standard Deviation 46.2 fL RDW Coefficient of Variation 13.9 % Neutrophils % (Manual) 99.1 % Lymphocytes % (Manual) 0.0 % Monocytes % (Manual) 0.9 % Neutrophils # (Manual) 30.62 K/uL Total Absolute Neutrophils 30.62 K/uL Total Absolute Lymphocytes 0.00 K/uL Monocytes # (Manual) 0.28 K/uL Toxic Granulation 1+ Toxic Vacuolation 1+ Dohle Bodies 1+ Echinocytes 2+
[2017-11-14] MEDS: VANCOMYCIN HCL 250 MG/5 ML SOLN PO SCH ×2 (19:15→23:41)
[2017-11-14] MEDS: RASPBERRY SYRUP 5 ML UDP PO SCH ×2 (19:16→23:41)
[2017-11-14] MEDS: MIDAZOLAM HCL 1 MG/ML 2ML VIAL IV PRN (20:52)
[2017-11-15] VITALS (35 sets, daily range): BP systolic 82–133; BP diastolic 44–78; PULSE 68–107; TEMP 36.6–36.8; O2SAT 89–100; Ht 170.2 cm; Wt 63.2 kg
[2017-11-15] MEDS: HYDROmorphone INJ 0.5 MG/0.5 ML SYR IV PRN ×5 (00:51→20:46)
[2017-11-15] MEDS: IMIPENEM/CILASTATIN IV 500 MG in DEXTROSE 5% 100ML 100 ML IV SCH ×3 (02:00→18:16)
[2017-11-15] MEDS: D5W AND NSS 1,000 ML IV SCH (05:37)
[2017-11-15] MEDS: RASPBERRY SYRUP 5 ML UDP PO SCH ×3 (05:37→18:16)
[2017-11-15] MEDS: VANCOMYCIN HCL 250 MG/5 ML SOLN PO SCH ×3 (05:37→18:16)
[2017-11-15 05:38] LABS: HEMATOCRIT 29.9 % (37-47); HEMOGLOBIN 9.9 g/dL (12.0-16.0); MEAN CELL VOLUME 93.1 fL (80-100); MEAN CORPUSCULAR HEMOGLOBIN 30.8 pg (25-34); MEAN CORPUSCULAR HGB CONC 33.1 g/dl (32-36); MEAN PLATELET VOLUME 12.1 fL (7.4-10.4); PLATELET COUNT 45 K/uL (130-400); RED CELL DISTRIBUTION WIDTH SD 47.7 fL (36.4-46.3); WHITE BLOOD COUNT 29.75 K/uL (4.8-10.8)
[2017-11-15 05:42] LABS: BASO ABS # 0.01 K/uL (0-0.2); EOS ABS # 0.01 K/uL (0-0.5); IG# 0.42 K/uL (0.00-0.02); LYMPH % 2.2 %; LYMPH ABS # 0.66 K/uL (1.2-3.4); MONO % 2.2 %; MONO ABS # 0.64 K/uL (0.11-0.59); NEUT % 94.2 %; NEUT ABS # 28.01 K/uL (1.4-6.5)
[2017-11-15 05:44] LABS: CALCIUM 7.3 mg/dl (8.5-10.1); CREATININE 0.62 mg/dl (0.60-1.20); PHOSPHORUS 2.1 mg/dl (2.5-4.9); TOTAL PROTEIN 4.7 gm/dl (6.4-8.2)
[2017-11-15] MEDS: DONEPEZIL HCL 5 MG TAB PO SCH (08:09)
[2017-11-15] MEDS: SERTRALINE HCL 100 MG TAB PO SCH (08:09)
[2017-11-15] MEDS: HEPARIN SOD 5000 UNIT/0.5 ML CARP SQ SCH (08:10)
[2017-11-15] MEDS ORDERED: POTASSIUM PHOS 3 MMOL/1 ML INFUSION IV STA (08:25)
[2017-11-15] MEDS ORDERED: MAGNESIUM SULFATE 1GM / D5W 1 GM in PREMIXED IN D5W 100 ML IV SCH (09:00)
[2017-11-15] MEDS ORDERED: POTASSIUM PHOSPHATE INJ 21 MMOL in SODIUM CHLORIDE 0.9% 500ML 500 ML IV ONE (09:00)
[2017-11-15] MEDS: POTASSIUM CHLR 20 MEQ / WTR 20 MEQ in PREMIXED WATER 100 ML IV SCH ×2 (09:25→12:34)
--- NOTE | 2017-11-15 10:30 | DIAGNOSTIC IMAGING REPORT ---
ABD/PELVIS WITHOUT FOR STONE CLINICAL HISTORY: 87 years-old Female presenting with persistent sepsis despite aggressive treatment. . TECHNIQUE: Multidetector CT of the abdomen and pelvis was performed without the use of intravenous contrast. IV contrast: None. A dose lowering technique was used consistent with the principles of ALARA (as low as reasonably achievable). COMPARISON: 11/13/2017. CT DOSE (mGy.cm): The estimated cumulative dose is 1086.92 mGycm. FINDINGS: Evaluation degraded by positioning of the arms at the sides. Copywriter topogram: Unremarkable. Lung bases: Increase in bibasilar consolidation and volume loss. Mild multichamber cardiac enlargement. Aortic valve, coronary artery, and mitral annular calcification. Increased size of the small to moderate right and moderate left pleural effusions. Liver: Normal morphology. Decreased density. Periportal edema. Biliary: No gross biliary ductal dilatation allowing for noncontrast technique. Mildly distended gallbladder. Pancreas: Normal noncontrast appearance. Spleen: Normal noncontrast appearance. Adrenal glands: Thickening of the adrenal glands, nonspecific. Kidneys and ureters: Interval placement of a right ureteral stent with resolution of right hydroureteronephrosis though there is mild pelvocaliectasis likely indicating a flaccid collecting system. Few punctate nonobstructing calculi noted in the lower pole of the right kidney. The prominent obstructing right ureteral calculus has been removed. Normal noncontrast appearance of the left kidney and grossly normal appearance of the left ureter. Bladder: Decompressed with a Faustin catheter. Intraluminal gas related to the presence of the catheter. Pelvic organs: Normal noncontrast appearance. Bowel: Diverticulosis of the sigmoid colon. Fluid noted in the colon consistent with a diarrheal state. The appendix is not visualized. No bowel obstruction. Small hiatal hernia may be present. Peritoneal cavity: Small amount of abdominal pelvic ascites. Significant presacral/extraperitoneal pelvic fluid. No free intraperitoneal gas. Lymph nodes: No gross lymphadenopathy allowing for noncontrast technique. Vasculature: Atherosclerosis of the normal caliber abdominal aorta. Abdominal wall: Extensive body wall edema. Musculoskeletal: Compression deformity of T12, unchanged from prior. Extensive multilevel degenerative changes with endplate erosions likely related to osteoarthritis collateral unchanged. IMPRESSION: 1. Interval placement of a right ureteral stent with decompression of the right urinary collecting system. Removal of the obstructing right ureteral calculus. Nonobstructing punctate right renal calculi. 2. Small amount of abdominal pelvic ascites and extraperitoneal pelvic fluid, significantly increased from prior. Combined with body wall edema and increased bilateral pleural effusions, this could suggest volume overload and anasarca. 3. Diverticulosis without evidence of diverticulitis. 4. Limited evaluation of the distended gallbladder. If there is clinical concern for cholecystitis, further evaluation with ultrasound to be considered. The report will be called/faxed according to standard departmental protocol. Electronically signed by: Hemal Muro M.D. 11/15/2017 10:29 AM Dictated Date/Time: 11/15/2017 10:20 AM
[2017-11-15] MEDS: PANTOprazole INJ 40 MG in SYRINGE 0 ML IV SCH (11:17)
[2017-11-15] MEDS ORDERED: DEXTROSE 50% 50 ML SYR ONE (11:33)
[2017-11-15] MEDS ORDERED: NURSING VERBAL MED ORDER ONE (12:00)
[2017-11-15] MEDS: ALBUMIN HUMAN 5% 12.5 GM/250 ML VIAL IV SCH ×2 (12:39→18:16)
[2017-11-15] MEDS ORDERED: SODI CHLOR 2.5MEQ/ML 14.6% INJ 155 MEQ in DEXTROSE 10% 1,000 ML IV SCH (13:00)
--- NOTE | 2017-11-15 14:05 | Critical Care Progress Note ---
Critical Care Progress Note Date of Service Nov 15, 2017. Attending Dr. Butler Subjective The patient remains confused part of her advanced dementia, no events occurred overnight, episodes of hypoglycemia and hypertension were managed with minimal dose of Levophed and D50. The patient oral intake remains inadequate. Objective Her physical exam on November 13, 2017, showed no fever, blood pressure remains supported by pressors, S1-S2 regular rate and rhythm, tachycardic, lungs with distant breath sounds, abdomen is soft and benign, lower extremity no edema. Her labs showed elevated white count and BUN/creatinine has been elevated but stable, CAT scan of the abdomen was reviewed which showed right-sided hydronephrosis and large urolithiasis. No evidence of pyelonephritis. Physical exam on November 14, 2017, showed no fever again, blood pressure has been maintained, O2 saturation is 94% on nasal cannula, S1-S2 regular rate and rhythm , lungs were distant clear, abdomen nontender and soft, no edema. Her labs also were reviewed for today which showed positive C. difficile antigen by PCR in the stool. Physical exam on November 15, 2017, patient did not have any fever, her O2 saturation remains 94% on nasal cannula, S1-S2, regular rate and rhythm, minimal crackles mainly at the bases, abdomen is soft but minimally tender at the pelvic area, no edema. Blood pressure most recently reported 104/52. Urine output is adequate. Assessment & Plan 1. Septic shock secondary to urolithiasis with hydronephrosis and UTI. E. coli with ESBL features. 2. Urolithiasis status post ureteral stenting. 3. Advanced dementia. 4. C. difficile colitis. 5. Anasarca. Plan: 1. Antibiotic was changed to imipenem, the patient was found to have ESBL in the blood with recent urolithiasis. 2. I will decrease IV fluids to 50 mL an hour. 3. No need for Flagyl. 4. I will continue with albumin to maintain her oncotic pressure. 5. Worsening thrombocytopenia, the patient has been taken off the heparin. This is likely related to sepsis. 6. Glucose control. The patient continued to have episodes of hypoglycemia requiring D50, I have increased D10 IV infusion to 50 mL an hour with normal saline, discussed with Yevgeniy Candelario PHD, appreciate his input.. 7. Discontinue Precedex. 8. Stop fentanyl, Ativan was used without any effect on her agitation, I will place the patient back again on Versed 1 mg every 2 hours as needed for agitation. 9. The patient remains a full code. Will discuss with the family the CODE STATUS again. 10. Oral intake will be determined once the patient is off Precedex. 11. No need to continue to transduce CVP. 12. Abdominal CT was repeated due to the persistence of leukocytosis, which showed ascites anasarca and continued colonic wall thickening. The hydronephrosis on the right side has been resolved. 13. We will continue to follow the CBC as well. 14. Prognosis is guarded. 15. Noted that the new CAT scan showed what appeared to be an infiltrative process in the right lower lobe. Discussed with the staff on rounds and details. Critical care time spent with the patient was 45 minutes. Data Medications: Current Inpatient Medications Medications (Trade) Dose Ordered Sig/Tess Route Start Time Stop Time Status Last Admin Dose Admin Ondansetron HCl (Zofran Inj) 4 mg Q6H PRN IV 11/12/17 13:45 12/12/17 13:44 Donepezil HCl (Aricept Tab) 5 mg DAILY PO 11/13/17 09:00 12/13/17 08:59 11/15/17 08:09 5 MG Sertraline HCl (Zoloft Tab) 100 mg DAILY PO 11/13/17 09:00 12/13/17 08:59 11/15/17 08:09 100 MG Norepinephrine Bitartrate 8 mg/ Dextrose 508 ml @ 0 mls/hr Q0M IV 11/12/17 20:00 12/12/17 19:59 11/14/17 09:06 18 MLS/HR Pantoprazole Sodium 40 mg/ Syringe 10 ml @ 5 mls/min DAILY@11 IV 11/13/17 11:00 12/13/17 10:59 11/15/17 11:17 5 MLS/MIN Vasopressin 50 units/Sodium Chloride 502.5 ml @ 24 mls/hr [id number] PRN IV 11/12/17 23:16 12/12/17 23:15 11/14/17 16:54 24 MLS/HR Miscellaneous Information 1 ea UD PRN N/A 11/13/17 13:15 12/13/17 13:14 Vancomycin HCl (Vancomycin Oral Soln) 250 mg Q6H PO 11/14/17 18:00 11/28/17 17:59 11/15/17 11:18 250 MG Raspberry (Raspberry Syrup 5ml Cup) 5 ml Q6H PO 11/14/17 18:00 11/28/17 17:59 11/15/17 11:18 5 ML Midazolam HCl (Versed Inj) 1 mg Q2HWA PRN IV 11/14/17 18:00 12/14/17 17:59 11/14/17 20:52 1 MG Hydromorphone HCl (Dilaudid Inj) 0.5 mg Q3H PRN IV 11/15/17 00:45 11/27/17 08:14 11/15/17 11:29 0.5 MG Imipenem/ Cilastatin Sodium 500 mg/Dextrose 110 ml @ 100 mls/hr Q6H IV 11/15/17 18:00 11/24/17 01:59 Albumin Human (Albumin 5%) 12.5 gm Q6H IV 11/15/17 12:00 11/17/17 06:01 11/15/17 12:39 12.5 GM Sodium Chloride 155 meq/Dextrose 1,062 ml @ 50 mls/hr [id number] IV 11/15/17 13:00 12/15/17 12:59 I & O: 24-Hour Column 11/16/17 08:00 Intake Total 1469 ml Output Total 350 ml Balance 1119 ml Vital Signs: Date Time Temp Pulse Resp B/P (MAP) Pulse Ox O2 Delivery O2 Flow Rate FiO2 11/15/17 13:30 36.6 75 20 106/48 (67) 97 Nasal Cannula 4.0 11/15/17 12:00 36.6 68 20 93/47 (62) 94 Nasal Cannula 4.0 11/15/17 12:00 Nasal Cannula 4.0 11/15/17 11:30 88 18 97 11/15/17 11:01 81 18 121/53 (75) 95 11/15/17 11:00 84 20 95 11/15/17 10:31 85 18 112/66 (81) 95 11/15/17 10:31 85 18 112/66 (81) 95 11/15/17 10:30 96 19 93 11/15/17 10:30 96 19 93 3/22/18 10:25 87 45 99/78 (85) 93 11/15/17 10:25 87 45 99/78 (85) 93 11/15/17 10:00 36.6 92 20 92/47 (62) 95 Nasal Cannula 4.0 11/15/17 09:31 77 13 92/51 (65) 97 11/15/17 09:31 77 13 92/51 (65) 97 11/15/17 09:30 78 14 97 11/15/17 09:30 78 14 97 11/15/17 09:29 77 13 99/45 (63) 98 11/15/17 09:29 77 13 99/45 (63) 98 11/15/17 09:01 75 15 89/44 (59) 97 11/15/17 09:01 75 15 89/44 (59) 97 11/15/17 09:00 76 13 97 11/15/17 09:00 76 13 97 11/15/17 08:31 74 13 100/50 (67) 97 11/15/17 08:31 74 13 100/50 (67) 97 11/15/17 08:30 74 13 98 11/15/17 08:30 74 13 98 11/15/17 08:01 78 20 116/60 (78) 96 11/15/17 08:01 78 20 116/60 (78) 96 11/15/17 08:00 81 22 97 11/15/17 08:00 81 22 97 11/15/17 08:00 Nasal Cannula 11/15/17 07:31 85 18 120/64 (82) 11/15/17 07:31 85 18 120/64 (82) 11/15/17 07:30 Oxymask 4.0 11/15/17 07:30 86 21 11/15/17 07:30 86 21 11/15/17 07:30 36.6 107 20 120/64 (82) 95 Nasal Cannula 4.0 11/15/17 07:01 81 22 119/63 (81) 92 11/15/17 07:01 81 22 119/63 (81) 92 11/15/17 07:00 78 18 97 11/15/17 07:00 78 18 97 11/15/17 06:00 107 20 118/54 (75) 95 Nasal Cannula 4.0 11/15/17 04:00 99 Oxymask 4.0 11/15/17 04:00 36.8 74 16 89/57 (68) 99 Oxymask 4.0 11/15/17 02:00 75 16 98/53 (68) 99 Oxyhood 4.0 11/15/17 01:00 36.6 20 85/45 (58) 100 Oxymask 4.0 11/15/17 00:00 100 Nasal Cannula 4.0 11/14/17 22:31 81 15 101/56 (72) 94 11/14/17 22:01 77 16 92/46 (70) 97 11/14/17 21:47 84 20 95/50 (61) 97 11/14/17 21:08 86 18 108/50 (51) 91 11/14/17 21:05 95 26 117/47 (83) 89 11/14/17 20:32 76 14 84/56 (58) 97 11/14/17 20:01 74 18 122/68 (93) 97 11/14/17 20:00 94 Oxymask 4.0 11/14/17 20:00 36.5 11/14/17 19:31 77 16 104/67 (78) 97 11/14/17 19:06 79 17 95/57 (67) 93 11/14/17 18:31 75 14 89/53 (66) 96 11/14/17 18:01 93 16 90/48 (62) 95 11/14/17 17:55 80 17 98/58 (66) 95 11/14/17 17:02 85 23 107/67 (76) 95 11/14/17 16:31 77 20 110/56 (81) 94 11/14/17 16:02 76 19 110/55 (85) 95 11/14/17 16:00 36.7 11/14/17 16:00 99 Room Air 11/14/17 15:52 78 18 116/71 (82) 93 11/14/17 15:31 89 23 116/71 (82) 94 11/14/17 15:18 76 20 111/53 (73) 95 11/14/17 15:01 71 17 104/55 (69) 99 11/14/17 14:00 36.7 80 19 108/56 (73) 99 Room Air Laboratory Results: Last 24 Hours Test 11/14/17 14:25 11/14/17 17:56 11/15/17 05:04 11/15/17 05:37 Bedside Glucose 45 mg/dl Bedside Glucose (other) 97 mg/dl 97 mg/dl White Blood Count 29.75 K/uL Red Blood Count 3.21 M/uL Hemoglobin 9.9 g/dL Hematocrit 29.9 % Mean Corpuscular Volume 93.1 fL Mean Corpuscular Hemoglobin 30.8 pg Mean Corpuscular Hemoglobin Concent 33.1 g/dl Platelet Count 45 K/uL Mean Platelet Volume 12.1 fL Neutrophils (%) (Auto) 94.2 % Lymphocytes (%) (Auto) 2.2 % Monocytes (%) (Auto) 2.2 % Eosinophils (%) (Auto) 0.0 % Basophils (%) (Auto) 0.0 % Neutrophils # (Auto) 28.01 K/uL Lymphocytes # (Auto) 0.66 K/uL Monocytes # (Auto) 0.64 K/uL Eosinophils # (Auto) 0.01 K/uL Basophils # (Auto) 0.01 K/uL RDW Standard Deviation 47.7 fL RDW Coefficient of Variation 14.0 % Immature Granulocyte % (Auto) 1.4 % Immature Granulocyte # (Auto) 0.42 K/uL Toxic Vacuolation 2+ Dohle Bodies 1+ Echinocytes 1+ Sodium Level 134 mmol/L Potassium Level 3.0 mmol/L Chloride Level 106 mmol/L Carbon Dioxide Level 22 mmol/L Anion Gap 6.0 mmol/L Blood Urea Nitrogen 21 mg/dl Creatinine 0.62 mg/dl Est Creatinine Clear Calc Drug Dose 64.5 ml/min Estimated GFR () 95.3 Estimated GFR (Non- 82.2 BUN/Creatinine Ratio 33.0 Random Glucose 98 mg/dl Lactic Acid Level 1.6 mmol/L Calcium Level 7.3 mg/dl Phosphorus Level 2.1 mg/dl Magnesium Level 1.7 mg/dl Total Bilirubin 0.4 mg/dl Direct Bilirubin 0.2 mg/dl Aspartate Amino Transf (AST/SGOT) 37 U/L Alanine Aminotransferase (ALT/SGPT) 37 U/L Alkaline Phosphatase 69 U/L Total Protein 4.7 gm/dl Albumin 2.0 gm/dl Lipase 49 U/L Procalcitonin 21.82 ng/ml Test 11/15/17 11:18 11/15/17 11:48 Bedside Glucose (other) 57 mg/dl 191 mg/dl
--- NOTE | 2017-11-15 14:35 | Progress Note ---
Internal Med Progress Note Date of Service: Nov 15, 2017. Provider Documentation: SUBJECTIVE: The patient was seen and examined in ICU S/P Rt Ureteric obstructing stone removal and stent placement Clinically better than yesterday Pleasantly confused otherwise no complaints 11/15: More weak and drowsy today Not in any acute distress Still requiring pressors OBJECTIVE: Vital Signs-as noted below Exam: General-No distress at rest Eyes-normal ENT-normal Neck-supple Lungs-decreased breath sound bilaterally Heart-Regular,no murmur appreciated Abdomen-Benign,no masses Extremities-No edema Neuro-AA Pleasantly confused No focal neuro deficit Lab data as noted below. ASSESSMENT & PLAN: SEVERE SEPSIS SECONDARY TO COMPLICATED UTI with ELBS,MDR -Initially admitted to telemetry however transferred to ICU for persistent HYPOTENSION -Patient presenting from home after having a large amount of diarrhea this morning and a fall -On presentation, leukopenic WBC 1.6, mildly tachycardic at times with heart rate in the 110's, afebrile -Patient received appropriate IVF resuscitation and had persistent hypotension -Lactic acid 4.8, recheck in 6 hours and decreased -S/P oral Bactrim and IV ceftriaxone in the ED; will continue with IV ceftriaxone (patient is from home and no documented history of resistant bacteria) -WCC increased to >28 K -Urine and Blood cultures -Gm negative Bacilli -Multidrug Resistant Organism -Antibiotic changed to Cefepime and Ciprofloxacin -Antibiotic changed to Imipenem -Clinically not any better -Repeat CT -no obstruction -monitor Hypotension-Secondary to Septic Shock Due to sepsis Did not response to IVF Required pressors in ICU BP seems better this AM Trying to wean off Pressors OBSTRUCTIVE RIGHT HYDRONEPHROSIS DUE TO OBSTRUCTING CALCULUS s/p REMOVAL AND STENT PLACEMENT Appreciate Urology input Will need IV antibiotic for [address] looks better too YEHUDA Secondary to Hydronephrosis Complicated by dehydration and sepsis Continue IV Fluid Improving and will monitor -Improved and Normalized ALZHEIMER'S -Continue donepezil and sertraline -may have acute Delirium DVT PROPHYLAXIS -SQ Lovenox and now on SQ Heparin CODE STATUS -Patient is a full code as per my discussion with her daughter, Alexa. -Discussed with the Daughter Vital Signs: Date Time Temp Pulse Resp B/P (MAP) Pulse Ox O2 Delivery O2 Flow Rate FiO2 11/15/17 13:30 36.6 75 20 106/48 (67) 97 Nasal Cannula 4.0 3/22/18 12:00 36.6 68 20 93/47 (62) 94 Nasal Cannula 4.0 11/15/17 12:00 Nasal Cannula 4.0 11/15/17 11:30 88 18 97 11/15/17 11:01 81 18 121/53 (75) 95 11/15/17 11:00 84 20 95 11/15/17 10:31 85 18 112/66 (81) 95 11/15/17 10:31 85 18 112/66 (81) 95 11/15/17 10:30 96 19 93 11/15/17 10:30 96 19 93 11/15/17 10:25 87 45 99/78 (85) 93 11/15/17 10:25 87 45 99/78 (85) 93 11/15/17 10:00 36.6 92 20 92/47 (62) 95 Nasal Cannula 4.0 11/15/17 09:31 77 13 92/51 (65) 97 11/15/17 09:31 77 13 92/51 (65) 97 11/15/17 09:30 78 14 97 11/15/17 09:30 78 14 97 11/15/17 09:29 77 13 99/45 (63) 98 11/15/17 09:29 77 13 99/45 (63) 98 11/15/17 09:01 75 15 89/44 (59) 97 11/15/17 09:01 75 15 89/44 (59) 97 11/15/17 09:00 76 13 97 11/15/17 09:00 76 13 97 11/15/17 08:31 74 13 100/50 (67) 97 11/15/17 08:31 74 13 100/50 (67) 97 11/15/17 08:30 74 13 98 11/15/17 08:30 74 13 98 11/15/17 08:01 78 20 116/60 (78) 96 11/15/17 08:01 78 20 116/60 (78) 96 11/15/17 08:00 81 22 97 11/15/17 08:00 81 22 97 11/15/17 08:00 Nasal Cannula 11/15/17 07:31 85 18 120/64 (82) 11/15/17 07:31 85 18 120/64 (82) 11/15/17 07:30 Oxymask 4.0 11/15/17 07:30 86 21 11/15/17 07:30 86 21 11/15/17 07:30 36.6 107 20 120/64 (82) 95 Nasal Cannula 4.0 11/15/17 07:01 81 22 119/63 (81) 92 11/15/17 07:01 81 22 119/63 (81) 92 11/15/17 07:00 78 18 97 11/15/17 07:00 78 18 97 11/15/17 06:00 107 20 118/54 (75) 95 Nasal Cannula 4.0 11/15/17 04:00 99 Oxymask 4.0 11/15/17 04:00 36.8 74 16 89/57 (68) 99 Oxymask 4.0 11/15/17 02:00 75 16 98/53 (68) 99 Oxyhood 4.0 11/15/17 01:00 36.6 20 85/45 (58) 100 Oxymask 4.0 11/15/17 00:00 100 Nasal Cannula 4.0 11/14/17 22:31 81 15 101/56 (72) 94 11/14/17 22:01 77 16 92/46 (70) 97 11/14/17 21:47 84 20 95/50 (61) 97 11/14/17 21:08 86 18 108/50 (51) 91 11/14/17 21:05 95 26 117/47 (83) 89 11/14/17 20:32 76 14 84/56 (58) 97 11/14/17 20:01 74 18 122/68 (93) 97 11/14/17 20:00 94 Oxymask 4.0 11/14/17 20:00 36.5 11/14/17 19:31 77 16 104/67 (78) 97 11/14/17 19:06 79 17 95/57 (67) 93 11/14/17 18:31 75 14 89/53 (66) 96 11/14/17 18:01 93 16 90/48 (62) 95 11/14/17 17:55 80 17 98/58 (66) 95 11/14/17 17:02 85 23 107/67 (76) 95 11/14/17 16:31 77 20 110/56 (81) 94 11/14/17 16:02 76 19 110/55 (85) 95 11/14/17 16:00 36.7 11/14/17 16:00 99 Room Air 11/14/17 15:52 78 18 116/71 (82) 93 11/14/17 15:31 89 23 116/71 (82) 94 11/14/17 15:18 76 20 111/53 (73) 95 11/14/17 15:01 71 17 104/55 (69) 99 Lab Results: Results Past 24 Hours Test 11/14/17 17:56 11/15/17 05:04 11/15/17 05:37 11/15/17 11:18 Range/Units Bedside Glucose (other) 97 97 57 70-99 mg/dl White Blood Count 29.75 4.8-10.8 K/uL Red Blood Count 3.21 4.2-5.4 M/uL Hemoglobin 9.9 12.0-16.0 g/dL Hematocrit 29.9 37-47 % Mean Corpuscular Volume 93.1 80-100 fL Mean Corpuscular Hemoglobin 30.8 25-34 pg Mean Corpuscular Hemoglobin Concent 33.1 32-36 g/dl Platelet Count 45 130-400 K/uL Mean Platelet Volume 12.1 7.4-10.4 fL Neutrophils (%) (Auto) 94.2 % Lymphocytes (%) (Auto) 2.2 % Monocytes (%) (Auto) 2.2 % Eosinophils (%) (Auto) 0.0 % Basophils (%) (Auto) 0.0 % Neutrophils # (Auto) 28.01 1.4-6.5 K/uL Lymphocytes # (Auto) 0.66 1.2-3.4 K/uL Monocytes # (Auto) 0.64 0.11-0.59 K/uL Eosinophils # (Auto) 0.01 0-0.5 K/uL Basophils # (Auto) 0.01 0-0.2 K/uL RDW Standard Deviation 47.7 36.4-46.3 fL RDW Coefficient of Variation 14.0 11.5-14.5 % Immature Granulocyte % (Auto) 1.4 % Immature Granulocyte # (Auto) 0.42 0.00-0.02 K/uL Toxic Vacuolation 2+ Dohle Bodies 1+ Echinocytes 1+ Sodium Level 134 136-145 mmol/L Potassium Level 3.0 3.5-5.1 mmol/L Chloride Level 106 98-107 mmol/L Carbon Dioxide Level 22 21-32 mmol/L Anion Gap 6.0 3-11 mmol/L Blood Urea Nitrogen 21 7-18 mg/dl Creatinine 0.62 0.60-1.20 mg/dl Est Creatinine Clear Calc Drug Dose 64.5 ml/min Estimated GFR () 95.3 Estimated GFR (Non- 82.2 BUN/Creatinine Ratio 33.0 10-20 Random Glucose 98 70-99 mg/dl Lactic Acid Level 1.6 0.4-2.0 mmol/L Calcium Level 7.3 8.5-10.1 mg/dl Phosphorus Level 2.1 2.5-4.9 mg/dl Magnesium Level 1.7 1.8-2.4 mg/dl Total Bilirubin 0.4 0.2-1 mg/dl Direct Bilirubin 0.2 0-0.2 mg/dl Aspartate Amino Transf (AST/SGOT) 37 15-37 U/L Alanine Aminotransferase (ALT/SGPT) 37 12-78 U/L Alkaline Phosphatase 69 45-117 U/L Total Protein 4.7 6.4-8.2 gm/dl Albumin 2.0 3.4-5.0 gm/dl Lipase 49 73-393 U/L Procalcitonin 21.82 0-0.5 ng/ml Test 11/15/17 11:48 Range/Units Bedside Glucose (other) 191 70-99 mg/dl Microbiology Results 11/14/17 C.difficile Toxin B Gene (PCR) - Final, Complete Positive for C. difficile toxin B gene
--- NOTE | 2017-11-15 15:10 | Progress Note ---
Subjective Date of Service: Nov 15, 2017. Subjective Pt evaluation today including: conversation w/ patient, chart review, lab review Voiding: lopez catheter in place (patent, draining clear, yellow urine ) 87 yo female s/p right ureteral stent placement for sepsis. Pt remains agitated and confused with one to one supervision. Blood and urine cultures growing ESBL e coli. UC&S also growing Klebsiella. Renal function has normalized since surgery. White count remains elevated at 29.75. Remains on low dose of Levophed for her BP. Review of Systems AMS. Pt unable to answer questions. Objective Vital Signs Date Time Temp Pulse Resp B/P (MAP) Pulse Ox O2 Delivery O2 Flow Rate FiO2 11/15/17 13:30 36.6 75 20 106/48 (67) 97 Nasal Cannula 4.0 11/15/17 12:00 36.6 68 20 93/47 (62) 94 Nasal Cannula 4.0 11/15/17 12:00 Nasal Cannula 4.0 11/15/17 11:30 88 18 97 11/15/17 11:01 81 18 121/53 (75) 95 11/15/17 11:00 84 20 95 11/15/17 10:31 85 18 112/66 (81) 95 11/15/17 10:31 85 18 112/66 (81) 95 11/15/17 10:30 96 19 93 11/15/17 10:30 96 19 93 11/15/17 10:25 87 45 99/78 (85) 93 11/15/17 10:25 87 45 99/78 (85) 93 11/15/17 10:00 36.6 92 20 92/47 (62) 95 Nasal Cannula 4.0 11/15/17 09:31 77 13 92/51 (65) 97 11/15/17 09:31 77 13 92/51 (65) 97 11/15/17 09:30 78 14 97 11/15/17 09:30 78 14 97 11/15/17 09:29 77 13 99/45 (63) 98 11/15/17 09:29 77 13 99/45 (63) 98 11/15/17 09:01 75 15 89/44 (59) 97 11/15/17 09:01 75 15 89/44 (59) 97 11/15/17 09:00 76 13 97 11/15/17 09:00 76 13 97 11/15/17 08:31 74 13 100/50 (67) 97 11/15/17 08:31 74 13 100/50 (67) 97 11/15/17 08:30 74 13 98 11/15/17 08:30 74 13 98 11/15/17 08:01 78 20 116/60 (78) 96 11/15/17 08:01 78 20 116/60 (78) 96 11/15/17 08:00 81 22 97 11/15/17 08:00 81 22 97 11/15/17 08:00 Nasal Cannula 11/15/17 07:31 85 18 120/64 (82) 11/15/17 07:31 85 18 120/64 (82) 11/15/17 07:30 Oxymask 4.0 11/15/17 07:30 86 21 11/15/17 07:30 86 21 11/15/17 07:30 36.6 107 20 120/64 (82) 95 Nasal Cannula 4.0 11/15/17 07:01 81 22 119/63 (81) 92 11/15/17 07:01 81 22 119/63 (81) 92 11/15/17 07:00 78 18 97 11/15/17 07:00 78 18 97 11/15/17 06:00 107 20 118/54 (75) 95 Nasal Cannula 4.0 11/15/17 04:00 99 Oxymask 4.0 11/15/17 04:00 36.8 74 16 89/57 (68) 99 Oxymask 4.0 11/15/17 02:00 75 16 98/53 (68) 99 Oxyhood 4.0 11/15/17 01:00 36.6 20 85/45 (58) 100 Oxymask 4.0 11/15/17 00:00 100 Nasal Cannula 4.0 11/14/17 22:31 81 15 101/56 (72) 94 11/14/17 22:01 77 16 92/46 (70) 97 11/14/17 21:47 84 20 95/50 (61) 97 11/14/17 21:08 86 18 108/50 (51) 91 11/14/17 21:05 95 26 117/47 (83) 89 11/14/17 20:32 76 14 84/56 (58) 97 11/14/17 20:01 74 18 122/68 (93) 97 11/14/17 20:00 94 Oxymask 4.0 11/14/17 20:00 36.5 11/14/17 19:31 77 16 104/67 (78) 97 11/14/17 19:06 79 17 95/57 (67) 93 11/14/17 18:31 75 14 89/53 (66) 96 11/14/17 18:01 93 16 90/48 (62) 95 11/14/17 17:55 80 17 98/58 (66) 95 11/14/17 17:02 85 23 107/67 (76) 95 11/14/17 16:31 77 20 110/56 (81) 94 11/14/17 16:02 76 19 110/55 (85) 95 11/14/17 16:00 36.7 11/14/17 16:00 99 Room Air 11/14/17 15:52 78 18 116/71 (82) 93 11/14/17 15:31 89 23 116/71 (82) 94 11/14/17 15:18 76 20 111/53 (73) 95 Physical Exam General Appearance: + mild distress (pt agitated and attempting to pull off her gown ) Eyes: normal inspection ENT: hearing grossly normal Neck: no JVD Respiratory/Chest: no respiratory distress Cardiovascular: no JVD Extremities: normal inspection Neurologic/Psychiatric: alert, normal mood/affect, oriented x 3 Skin: normal color Laboratory Results Last 24 Hours Test 11/14/17 17:56 11/15/17 05:04 11/15/17 05:37 11/15/17 11:18 Bedside Glucose (other) 97 mg/dl 97 mg/dl 57 mg/dl White Blood Count 29.75 K/uL Red Blood Count 3.21 M/uL Hemoglobin 9.9 g/dL Hematocrit 29.9 % Mean Corpuscular Volume 93.1 fL Mean Corpuscular Hemoglobin 30.8 pg Mean Corpuscular Hemoglobin Concent 33.1 g/dl Platelet Count 45 K/uL Mean Platelet Volume 12.1 fL Neutrophils (%) (Auto) 94.2 % Lymphocytes (%) (Auto) 2.2 % Monocytes (%) (Auto) 2.2 % Eosinophils (%) (Auto) 0.0 % Basophils (%) (Auto) 0.0 % Neutrophils # (Auto) 28.01 K/uL Lymphocytes # (Auto) 0.66 K/uL Monocytes # (Auto) 0.64 K/uL Eosinophils # (Auto) 0.01 K/uL Basophils # (Auto) 0.01 K/uL RDW Standard Deviation 47.7 fL RDW Coefficient of Variation 14.0 % Immature Granulocyte % (Auto) 1.4 % Immature Granulocyte # (Auto) 0.42 K/uL Toxic Vacuolation 2+ Dohle Bodies 1+ Echinocytes 1+ Sodium Level 134 mmol/L Potassium Level 3.0 mmol/L Chloride Level 106 mmol/L Carbon Dioxide Level 22 mmol/L Anion Gap 6.0 mmol/L Blood Urea Nitrogen 21 mg/dl Creatinine 0.62 mg/dl Est Creatinine Clear Calc Drug Dose 64.5 ml/min Estimated GFR () 95.3 Estimated GFR (Non- 82.2 BUN/Creatinine Ratio 33.0 Random Glucose 98 mg/dl Lactic Acid Level 1.6 mmol/L Calcium Level 7.3 mg/dl Phosphorus Level 2.1 mg/dl Magnesium Level 1.7 mg/dl Total Bilirubin 0.4 mg/dl Direct Bilirubin 0.2 mg/dl Aspartate Amino Transf (AST/SGOT) 37 U/L Alanine Aminotransferase (ALT/SGPT) 37 U/L Alkaline Phosphatase 69 U/L Total Protein 4.7 gm/dl Albumin 2.0 gm/dl Lipase 49 U/L Procalcitonin 21.82 ng/ml Test 11/15/17 11:48 Bedside Glucose (other) 191 mg/dl Assessment and Plan POD #3 s/p cysto and right ureteral stent placement for ureteral stone with sepsis. Pt will need 10-14 days of IV abx to appropriately tx infection. Consider consulting ID for input. Continue lopez catheter until the pt is clinically improved and more ambulatory. Will need definitive management of stone once her infection has been adequately treated. Will continue to follow along with primary service. The pt was seen and assessed with Dr. Balgey this afternoon.
[2017-11-16] VITALS (51 sets, daily range): BP systolic 76–134; BP diastolic 37–78; PULSE 68–103; TEMP 36.4–36.9; O2SAT 86–100
[2017-11-16] MEDS: HYDROmorphone INJ 0.5 MG/0.5 ML SYR IV PRN ×3 (00:19→07:43)
[2017-11-16] MEDS: ALBUMIN HUMAN 5% 12.5 GM/250 ML VIAL IV SCH ×2 (00:46→05:28)
[2017-11-16] MEDS: VANCOMYCIN HCL 250 MG/5 ML SOLN PO SCH ×2 (00:47→05:27)
[2017-11-16] MEDS: IMIPENEM/CILASTATIN IV 500 MG in DEXTROSE 5% 100ML 100 ML IV SCH ×5 (00:47→23:35)
[2017-11-16] MEDS: RASPBERRY SYRUP 5 ML UDP PO SCH ×2 (00:47→05:27)
[2017-11-16 05:48] LABS: HEMATOCRIT 33.2 % (37-47); HEMOGLOBIN 10.8 g/dL (12.0-16.0); MEAN CELL VOLUME 94.6 fL (80-100); MEAN CORPUSCULAR HEMOGLOBIN 30.8 pg (25-34); MEAN CORPUSCULAR HGB CONC 32.5 g/dl (32-36); RED CELL DISTRIBUTION WIDTH CV 14.5 % (11.5-14.5); RED CELL DISTRIBUTION WIDTH SD 49.4 fL (36.4-46.3); WHITE BLOOD COUNT 29.44 K/uL (4.8-10.8)
[2017-11-16 05:50] LABS: MEAN PLATELET VOLUME 11.7 fL (7.4-10.4); PLATELET COUNT 36 K/uL (130-400)
[2017-11-16 06:25] LABS: BASO % 0.1 %; BASO ABS # 0.03 K/uL (0-0.2); EOS ABS # 0.01 K/uL (0-0.5); IG# 1.14 K/uL (0.00-0.02); LYMPH % 2.5 %; LYMPH ABS # 0.73 K/uL (1.2-3.4); MONO % 3.2 %; MONO ABS # 0.93 K/uL (0.11-0.59); NEUT % 90.3 %
[2017-11-16] MEDS ORDERED: FUROSEMIDE INJ 40 MG in SYRINGE 0 ML IV ONE (06:30)
[2017-11-16] MEDS ORDERED: ALBUMIN HUMAN 25% 12.5 GM/50 ML VIAL IV ONE (06:30)
[2017-11-16 06:35] LABS: ALBUMIN 2.5 gm/dl (3.4-5.0); CALCIUM 7.8 mg/dl (8.5-10.1); CREATININE 0.5 mg/dl (0.60-1.20); PHOSPHORUS 2.4 mg/dl (2.5-4.9); POTASSIUM 3.5 mmol/L (3.5-5.1); TOTAL PROTEIN 5.1 gm/dl (6.4-8.2)
--- NOTE | 2017-11-16 06:40 | Critical Care Progress Note ---
Critical Care Progress Note Date of Service Nov 16, 2017. Critical Care Progress Note Just before 6 AM, I was approached by nursing staff and asked to evaluate the patient secondary to increasing oxygen requirements. Prior to my arrival last evening, the patient had an O2 requirement of 4 L. Throughout the night, patient had increasing oxygen requirement. At this point, she is on a 7 L oxygen mask with oxygen saturations in the high 80s. I did evaluate the patient and she had rails appreciated throughout the lower and posterior lung garcia bilaterally. She has wheezes at the apices of the lungs, LEFT greater than right. At this point, I did order chest x-ray. Per my interpretation, the patient has developed acute pulmonary edema with likely infiltrative change appreciated to the RIGHT lower lobe. At this point, I did order a dose of 40 mg IV Lasix as well as 12.5 g of 25% albumin. I personally placed orders for BiPAP to aid in oxygenation. Patient will continue to be monitored closely for any further changes or worsening respiratory distress. I have personally spent 30 minutes of critical care time in the direct management of this patient. This is a life/limb threatening event. This includes time spent evaluating patient, direct bedside care, chart review, placing orders, interpretation of diagnostic studies, discussion with consultants, patient, and family members, as well as other required patient management activities. This time is exclusive of all separately billable procedures, and teaching time and separate from and in addition to any other critical care service time.
--- NOTE | 2017-11-16 07:06 | DIAGNOSTIC IMAGING REPORT ---
CHEST ONE VIEW PORTABLE HISTORY: 87 years-old Female chf? Acute shortness of breath COMPARISON: Chest radiograph 11/12/2017, CT abdomen and pelvis 11/15/2017 TECHNIQUE: Portable AP view of the chest FINDINGS: Cardiac silhouette is mildly enlarged. Mild right hemidiaphragmatic elevation redemonstrated with small bilateral pleural effusions and bibasilar consolidation. Additionally, multifocal multilobar distribution of mixed interstitial and alveolar opacities are present bilaterally within a perihilar predominant distribution, new from chest radiograph 11/12/2017. No pneumothorax. Right subclavian [id number] catheter is unchanged. Left shoulder arthroplasty. Bones appear demineralized. Degenerative changes are seen about the shoulders and spine. IMPRESSION: 1. Cardiomegaly with interval development of mixed bilateral interstitial and alveolar opacities suggesting moderate pulmonary edema, new from chest radiograph 11/12/2017. 2. Small bilateral pleural effusions with bibasilar consolidative opacities, unchanged from comparison CT. The above report was generated using voice recognition software. It may contain grammatical, syntax or spelling errors. Electronically signed by: Jeremy Gonsalez M.D. 11/16/2017 7:04 AM Dictated Date/Time: 11/16/2017 7:01 AM
[2017-11-16] MEDS ORDERED: POTASSIUM PHOS 3 MMOL/1 ML INFUSION IV STA (08:12)
[2017-11-16] MEDS ORDERED: POTASSIUM PHOSPHATE INJ 24 MMOL in SODIUM CHLORIDE 0.9% 500ML 500 ML IV ONE (08:30)
[2017-11-16] MEDS: DONEPEZIL HCL 5 MG TAB PO SCH (09:00)
[2017-11-16] MEDS ORDERED: RAPID SEQUENCE INDUCTION BAG ONE (09:42)
[2017-11-16] MEDS ORDERED: MIDAZOLAM 125MG/250ML D5W IV ONE (10:01)
[2017-11-16] MEDS ORDERED: FENTANYL CITRATE 1250MCG/250ML NSS ONE (10:02)
--- NOTE | 2017-11-16 10:20 | Progress Note ---
Subjective Date of Service: Nov 16, 2017. Subjective Pt evaluation today including: chart review, lab review Voiding: lopez catheter in place (patent, draining clear, yellow urine ) 87 yo female s/p right ureteral stent placement for sepsis. Unfortunately the pt has decompensated with pulmonary edema. In the process of intubation and bronchoscopy when I stopped by to see her this morning. Continues to require pressors. Review of Systems Pt intubated and unable to answer questions. Objective Vital Signs Date Time Temp Pulse Resp B/P (MAP) Pulse Ox O2 Delivery O2 Flow Rate FiO2 11/16/17 08:18 73 20 90/37 (54) 96 BiPAP 60 11/16/17 08:02 70 17 77/37 (50) 94 BiPAP 60 11/16/17 08:01 36.4 68 18 76/38 (51) 94 BiPAP 60 11/16/17 08:00 BiPAP 60 11/16/17 07:32 92 22 129/61 (83) 95 BiPAP 60 11/16/17 07:01 86 24 109/75 (86) 90 BiPAP 60 11/16/17 06:40 82 93 60 11/16/17 06:00 90 17 101/44 (63) 88 Oxymask 8.0 11/16/17 05:00 87 15 119/55 (76) 88 Oxymask 7.0 11/16/17 04:00 80 15 92/46 (61) 91 Oxymask 6.0 11/16/17 04:00 90 Nasal Cannula 6.0 11/16/17 03:00 81 15 114/47 (69) 87 Oxymask 6.0 11/16/17 02:00 78 15 118/59 (78) 91 Oxymask 6.0 11/16/17 01:00 88 14 90/42 (58) 91 Oxymask 6.0 11/16/17 00:00 36.9 91 22 134/78 (96) 86 Nasal Cannula 6.0 11/15/17 23:59 89 Nasal Cannula 6.0 11/15/17 23:00 79 17 112/56 (74) 89 Nasal Cannula 6.0 11/15/17 22:00 84 15 110/58 (75) 89 Nasal Cannula 4.0 11/15/17 21:00 83 16 99/66 (77) 91 Nasal Cannula 4.0 11/15/17 20:00 Nasal Cannula 4.0 11/15/17 20:00 36.6 85 20 133/71 (91) 90 Nasal Cannula 4.0 11/15/17 18:31 91 17 117/49 (71) 92 11/15/17 18:00 77 15 82/50 (61) 95 11/15/17 16:00 36.8 86 17 111/57 (75) 91 Nasal Cannula 4.0 11/15/17 16:00 Nasal Cannula 4.0 11/15/17 13:30 36.6 75 20 106/48 (67) 97 Nasal Cannula 4.0 11/15/17 12:00 36.6 68 20 93/47 (62) 94 Nasal Cannula 4.0 11/15/17 12:00 Nasal Cannula 4.0 11/15/17 11:30 88 18 97 11/15/17 11:01 81 18 121/53 (75) 95 11/15/17 11:00 84 20 95 11/15/17 10:31 85 18 112/66 (81) 95 11/15/17 10:31 85 18 112/66 (81) 95 11/15/17 10:30 96 19 93 11/15/17 10:30 96 19 93 11/15/17 10:25 87 45 99/78 (85) 93 11/15/17 10:25 87 45 99/78 (85) 93 Physical Exam Comments: Pt sedated in the process of bronchoscopy. No further assessment at this time. Laboratory Results Last 24 Hours Test 11/15/17 11:18 11/15/17 11:48 11/16/17 04:59 11/16/17 05:04 Bedside Glucose (other) 57 mg/dl 191 mg/dl White Blood Count 29.44 K/uL Red Blood Count 3.51 M/uL Hemoglobin 10.8 g/dL Hematocrit 33.2 % Mean Corpuscular Volume 94.6 fL Mean Corpuscular Hemoglobin 30.8 pg Mean Corpuscular Hemoglobin Concent 32.5 g/dl Platelet Count 36 K/uL Mean Platelet Volume 11.7 fL Neutrophils (%) (Auto) 90.3 % Lymphocytes (%) (Auto) 2.5 % Monocytes (%) (Auto) 3.2 % Eosinophils (%) (Auto) 0.0 % Basophils (%) (Auto) 0.1 % Neutrophils # (Auto) 26.60 K/uL Lymphocytes # (Auto) 0.73 K/uL Monocytes # (Auto) 0.93 K/uL Eosinophils # (Auto) 0.01 K/uL Basophils # (Auto) 0.03 K/uL RDW Standard Deviation 49.4 fL RDW Coefficient of Variation 14.5 % Immature Granulocyte % (Auto) 3.9 % Immature Granulocyte # (Auto) 1.14 K/uL Toxic Vacuolation OCCASIONAL Dohle Bodies OCCASIONAL Echinocytes 2+ Sodium Level 137 mmol/L Potassium Level 3.5 mmol/L Chloride Level 108 mmol/L Carbon Dioxide Level 22 mmol/L Anion Gap 7.0 mmol/L Blood Urea Nitrogen 19 mg/dl Creatinine 0.50 mg/dl Est Creatinine Clear Calc Drug Dose 80.0 ml/min Estimated GFR () 102.3 Estimated GFR (Non- 88.3 BUN/Creatinine Ratio 37.9 Random Glucose 85 mg/dl Calcium Level 7.8 mg/dl Phosphorus Level 2.4 mg/dl Magnesium Level 2.1 mg/dl Total Bilirubin 0.9 mg/dl Direct Bilirubin 0.2 mg/dl Aspartate Amino Transf (AST/SGOT) 25 U/L Alanine Aminotransferase (ALT/SGPT) 29 U/L Alkaline Phosphatase 87 U/L Total Protein 5.1 gm/dl Albumin 2.5 gm/dl Lipase 96 U/L Procalcitonin 11.14 ng/ml Bedside Glucose 80 mg/dl Assessment and Plan POD #4 s/p cysto and right ureteral stent placement for ureteral stone with sepsis. Unfortunately the pt has decompensated. Management per primary service. Pt will need 10-14 days of IV abx to appropriately tx infection. Consider consulting ID for input. Continue lopez catheter until the pt is clinically improved and more ambulatory. Will need definitive management of stone once her infection has been adequately treated and prognosis improved. Will continue to follow along intermittently with primary service.
[2017-11-16] MEDS: SERTRALINE HCL 100 MG TAB PO SCH (10:54)
[2017-11-16] MEDS: PANTOprazole INJ 40 MG in SYRINGE 0 ML IV SCH (10:57)
--- NOTE | 2017-11-16 11:44 | DIAGNOSTIC IMAGING REPORT ---
CHEST ONE VIEW PORTABLE CLINICAL HISTORY: Respiratory failure. The patient. COMPARISON STUDY: 11/16/2017 FINDINGS: The cardiac and mediastinal contours remain stable. There are extensive bilateral pulmonary airspace opacity similar to the prior study. A right subclavian central venous catheter remains unchanged in position. There has been interval placement of endotracheal tube which is positioned 7.3 cm above the jo-ann. An additional catheter, overlies the stomach. This likely represents a nasogastric tube. Small pleural effusions are suspected.[ IMPRESSION: 1. Interval placement of an endotracheal tube 7.3 cm above the jo-ann 2. Extensive bilateral pulmonary airspace opacities remain unchanged from the prior study. Persistent pleural effusions. Electronically signed by: Yifan Sanches M.D. 11/16/2017 11:43 AM Dictated Date/Time: 11/16/2017 11:41 AM
[2017-11-16] MEDS ORDERED: NURSING VERBAL MED ORDER ONE ×2 (11:45→12:00)
[2017-11-16] MEDS: VANCOMYCIN HCL 500 MG/10ML SOLN NG SCH ×3 (11:58→23:35)
[2017-11-16] MEDS ORDERED: MIDAZOLAM 125MG/250ML D5W 250 ML IV PRN (12:00)
[2017-11-16] MEDS ORDERED: RASPBERRY SYRUP 5 ML UDP PO SCH (12:00)
--- NOTE | 2017-11-16 12:01 | DIAGNOSTIC IMAGING REPORT ---
KUB HISTORY: NG tube placement. COMPARISON: Abdomen and pelvis CT 11/15/2017. FINDINGS: Distended gas-filled stomach. The nasogastric tube terminates in the mid body of the stomach. Right ureteral stent is again noted. Calcification within the right side of the pelvis is vascular. No change in position in the 1.4 cm stone within the right renal pelvis. Mildly dilated gas-filled loops of large and small bowel seen throughout the abdomen. This is an system with a mild ileus. No pneumoperitoneum or pneumatosis. IMPRESSION: 1. Distended gas-filled stomach. The nasogastric tube terminates in the mid body the stomach. 2. Mildly dilated gas-filled large and small bowel consistent with an ileus. 3. A right ureteral stent and a 1.4 cm stone within the right renal pelvis remained unchanged in position. Electronically signed by: Mike Pereyra M.D. 11/16/2017 12:00 PM Dictated Date/Time: 11/16/2017 11:56 AM
[2017-11-16] MEDS: FUROSEMIDE INJ 40 MG in SYRINGE 0 ML IV PRN (12:26)
[2017-11-16] MEDS: NORMOSOL R 1,000 ML IV SCH ×2 (12:27→16:24)
[2017-11-16] MEDS ORDERED: SODIUM CHLORIDE 0.9% 500ML 500 ML IV PRN (12:30)
[2017-11-16] MEDS ORDERED: SODIUM CHLORIDE 0.9% 500ML 250 ML IV PRN (12:30)
[2017-11-16] MEDS ORDERED: ETOMIDATE 2 MG/ML 20 ML VIAL IV ONE (13:42)
[2017-11-16] MEDS ORDERED: ROCURONIUM BROMIDE 10 MG/ML 5 ML VIAL IV ONE (13:42)
--- NOTE | 2017-11-16 14:32 | Critical Care Progress Note ---
Critical Care Progress Note Date of Service Nov 16, 2017. Attending Dr. Carrie Tiwari The patient developed hypoxia overnight, requiring BiPAP, currently she is on 60 % FiO2 to maintain her O2 sat barely at 89%. The patient is somnolent and does not follow commands properly. She responded with Dilaudid for the pain Objective Her physical exam on November 13, 2017, showed no fever, blood pressure remains supported by pressors, S1-S2 regular rate and rhythm, tachycardic, lungs with distant breath sounds, abdomen is soft and benign, lower extremity no edema. Her labs showed elevated white count and BUN/creatinine has been elevated but stable, CAT scan of the abdomen was reviewed which showed right-sided hydronephrosis and large urolithiasis. No evidence of pyelonephritis. Physical exam on November 14, 2017, showed no fever again, blood pressure has been maintained, O2 saturation is 94% on nasal cannula, S1-S2 regular rate and rhythm , lungs were distant clear, abdomen nontender and soft, no edema. Her labs also were reviewed for today which showed positive C. difficile antigen by PCR in the stool. Physical exam on November 15, 2017, patient did not have any fever, her O2 saturation remains 94% on nasal cannula, S1-S2, regular rate and rhythm, minimal crackles mainly at the bases, abdomen is soft but minimally tender at the pelvic area, no edema. Blood pressure most recently reported 104/52. Urine output is adequate. Physical exam on November 16, 2017, the patient is afebrile, her blood pressure is borderline, the patient is demented and confused and review of system was unobtainable, O2 saturation is 89% on 60% via the BiPAP. S1-S2 regular rate and rhythm. Lungs with bilateral diminished breath sounds, abdomen is soft but fluid shift were notable, anasarca, neurologically difficult to assess. Assessment & Plan 1. Septic shock secondary to urolithiasis with hydronephrosis and UTI. E. coli with ESBL features. 2. Urolithiasis status post ureteral stenting. 3. Advanced dementia. 4. C. difficile colitis. 5. Anasarca. Fluid overloaded. 6. Developing pneumonia right lower lobe. Bilateral pleural effusion. 7. Thrombocytopenia secondary to sepsis. Plan: #1 I have discussed with the daughter Cecile as well as with the rest of the family the need for intubation. They are in agreement of this plan at this point given the patient requirement of oxygen with FiO2 of 60%. 2. The patient was intubated with #8 ET tube. OG tube was placed also for feeding. 3. The ET tube was confirmed with chest x-ray. And the chest x-ray reviewed personally which showed multiple patchy infiltrate consistent with her superimposed pneumonia on the top of her previous infectious processes. 4. I will stop albumin considering the patient anasarca. 5. Diuresis. 6. Transduce CVP and manage the fluid base of the syncope. 7. Levophed for blood pressure support. 8. Resume Versed and fentanyl drip for sedation. 9. Ventilator associated pneumonia bundle. 10. Thrombocytopenia was noted likely related to sepsis, will continue to watch. 11. Discussed with the family in the meeting, all family members were at the bedside, agreed with the plan to continue with this aggressive treatment for the next 3 days, a decision can be made afterwards. 12. Case discussed with the staff on rounds and details. Critical care time spent with the patient was 45 minutes. Data Medications: Current Inpatient Medications Medications (Trade) Dose Ordered Sig/Tess Route Start Time Stop Time Status Last Admin Dose Admin Ondansetron HCl (Zofran Inj) 4 mg Q6H PRN IV 11/12/17 13:45 12/12/17 13:44 Donepezil HCl (Aricept Tab) 5 mg DAILY PO 11/13/17 09:00 12/13/17 08:59 11/15/17 08:09 5 MG Sertraline HCl (Zoloft Tab) 100 mg DAILY PO 11/13/17 09:00 12/13/17 08:59 11/15/17 08:09 100 MG Norepinephrine Bitartrate 8 mg/ Dextrose 508 ml @ 0 mls/hr Q0M IV 11/12/17 20:00 12/12/17 19:59 11/14/17 09:06 18 MLS/HR Pantoprazole Sodium 40 mg/ Syringe 10 ml @ 5 mls/min DAILY@11 IV 11/13/17 11:00 12/13/17 10:59 11/16/17 10:57 5 MLS/MIN Vasopressin 50 units/Sodium Chloride 502.5 ml @ 24 mls/hr [id number] PRN IV 11/12/17 23:16 12/12/17 23:15 11/14/17 16:54 24 MLS/HR Miscellaneous Information 1 ea UD PRN N/A 11/13/17 13:15 12/13/17 13:14 Midazolam HCl (Versed Inj) 1 mg Q2HWA PRN IV 11/14/17 18:00 12/14/17 17:59 11/14/17 20:52 1 MG Hydromorphone HCl (Dilaudid Inj) 0.5 mg Q3H PRN IV 11/15/17 00:45 11/27/17 08:14 11/16/17 07:43 0.5 MG Imipenem/ Cilastatin Sodium 500 mg/Dextrose 110 ml @ 100 mls/hr Q6H IV 11/15/17 18:00 11/24/17 01:59 11/16/17 11:57 100 MLS/HR Furosemide 40 mg/ Syringe 4 ml @ 4 mls/min Q8 PRN IV 11/16/17 11:00 12/16/17 10:59 11/16/17 12:26 4 MLS/MIN Vancomycin HCl (Vancomycin Oral Soln) 500 mg Q6H NG 11/16/17 12:00 11/30/17 11:59 11/16/17 11:58 500 MG Midazolam HCl 250 ml @ 0 mls/hr Q0M PRN IV 11/16/17 12:00 12/16/17 11:59 Fentanyl Citrate 250 ml @ 0 mls/hr Q0M PRN IV 11/16/17 12:00 11/30/17 11:59 Parenteral Electrolyte Solution 1,000 ml @ 75 mls/hr [id number] IV 11/16/17 12:30 12/16/17 12:29 Sodium Chloride 250 ml @ 999 mls/hr Q16M PRN IV 11/16/17 12:30 12/16/17 12:29 I & O: 24-Hour Column 11/17/17 08:00 Intake Total 712 ml Output Total 1970 ml Balance -1258 ml Vital Signs: Date Time Temp Pulse Resp B/P (MAP) Pulse Ox O2 Delivery O2 Flow Rate FiO2 11/16/17 14:01 80 12 96/46 (63) 96 Mechanical Ventilator 50 11/16/17 13:46 71 12 89/40 (56) 93 Mechanical Ventilator 50 11/16/17 13:31 70 12 85/40 (55) 92 Mechanical Ventilator 50 11/16/17 13:28 50 11/16/17 13:01 76 12 102/42 (62) 99 Mechanical Ventilator 80 11/16/17 12:31 82 12 100/51 (67) 99 Mechanical Ventilator 80 11/16/17 12:01 36.6 79 12 97/48 (64) 99 Mechanical Ventilator 80 11/16/17 12:00 80 11/16/17 12:00 Mechanical Ventilator 80 11/16/17 11:31 79 12 92/45 (61) 97 11/16/17 11:01 79 14 97/45 (62) 93 11/16/17 10:46 80 20 89/44 (59) 91 11/16/17 10:43 60 11/16/17 10:31 79 29 96/50 (65) 94 11/16/17 10:30 100 11/16/17 10:17 91 24 104/43 (63) 97 11/16/17 10:15 89 20 110/48 (68) 98 11/16/17 10:13 98 21 112/51 (71) 96 11/16/17 10:11 103 43 117/59 (78) 97 11/16/17 10:09 95 12 114/51 (72) 99 11/16/17 10:07 95 14 102/45 (64) 97 11/16/17 10:05 91 12 97/45 (62) 97 11/16/17 10:03 93 12 94/44 (61) 96 11/16/17 10:01 97 12 90/37 (54) 97 11/16/17 09:59 96 12 83/38 (53) 96 11/16/17 09:57 95 16 86/38 (54) 96 11/16/17 09:55 93 33 84/55 (65) 96 11/16/17 09:53 80 17 95/48 (64) 100 11/16/17 09:52 87 21 91/41 (58) 98 11/16/17 09:31 72 22 105/51 (69) 93 11/16/17 09:01 70 20 112/48 (69) 93 11/16/17 08:18 73 20 90/37 (54) 96 BiPAP 60 11/16/17 08:02 70 17 77/37 (50) 94 BiPAP 60 11/16/17 08:01 36.4 68 18 76/38 (51) 94 BiPAP 60 11/16/17 08:00 BiPAP 60 11/16/17 08:00 BiPAP 11/16/17 07:32 92 22 129/61 (83) 95 BiPAP 60 11/16/17 07:01 86 24 109/75 (86) 90 BiPAP 60 11/16/17 06:40 82 93 60 11/16/17 06:00 90 17 101/44 (63) 88 Oxymask 8.0 11/16/17 05:00 87 15 119/55 (76) 88 Oxymask 7.0 11/16/17 04:00 80 15 92/46 (61) 91 Oxymask 6.0 11/16/17 04:00 90 Nasal Cannula 6.0 11/16/17 03:00 81 15 114/47 (69) 87 Oxymask 6.0 11/16/17 02:00 78 15 118/59 (78) 91 Oxymask 6.0 11/16/17 01:00 88 14 90/42 (58) 91 Oxymask 6.0 11/16/17 00:00 36.9 91 22 134/78 (96) 86 Nasal Cannula 6.0 11/15/17 23:59 89 Nasal Cannula 6.0 11/15/17 23:00 79 17 112/56 (74) 89 Nasal Cannula 6.0 11/15/17 22:00 84 15 110/58 (75) 89 Nasal Cannula 4.0 11/15/17 21:00 83 16 99/66 (77) 91 Nasal Cannula 4.0 11/15/17 20:00 Nasal Cannula 4.0 11/15/17 20:00 36.6 85 20 133/71 (91) 90 Nasal Cannula 4.0 11/15/17 18:31 91 17 117/49 (71) 92 11/15/17 18:00 77 15 82/50 (61) 95 11/15/17 16:00 36.8 86 17 111/57 (75) 91 Nasal Cannula 4.0 11/15/17 16:00 Nasal Cannula 4.0 Laboratory Results: Last 24 Hours Test 11/15/17 16:48 11/15/17 20:20 11/16/17 04:59 11/16/17 05:04 Bedside Glucose (other) 74 mg/dl 77 mg/dl White Blood Count 29.44 K/uL Red Blood Count 3.51 M/uL Hemoglobin 10.8 g/dL Hematocrit 33.2 % Mean Corpuscular Volume 94.6 fL Mean Corpuscular Hemoglobin 30.8 pg Mean Corpuscular Hemoglobin Concent 32.5 g/dl Platelet Count 36 K/uL Mean Platelet Volume 11.7 fL Neutrophils (%) (Auto) 90.3 % Lymphocytes (%) (Auto) 2.5 % Monocytes (%) (Auto) 3.2 % Eosinophils (%) (Auto) 0.0 % Basophils (%) (Auto) 0.1 % Neutrophils # (Auto) 26.60 K/uL Lymphocytes # (Auto) 0.73 K/uL Monocytes # (Auto) 0.93 K/uL Eosinophils # (Auto) 0.01 K/uL Basophils # (Auto) 0.03 K/uL RDW Standard Deviation 49.4 fL RDW Coefficient of Variation 14.5 % Immature Granulocyte % (Auto) 3.9 % Immature Granulocyte # (Auto) 1.14 K/uL Toxic Vacuolation OCCASIONAL Dohle Bodies OCCASIONAL Echinocytes 2+ Sodium Level 137 mmol/L Potassium Level 3.5 mmol/L Chloride Level 108 mmol/L Carbon Dioxide Level 22 mmol/L Anion Gap 7.0 mmol/L Blood Urea Nitrogen 19 mg/dl Creatinine 0.50 mg/dl Est Creatinine Clear Calc Drug Dose 80.0 ml/min Estimated GFR () 102.3 Estimated GFR (Non- 88.3 BUN/Creatinine Ratio 37.9 Random Glucose 85 mg/dl Calcium Level 7.8 mg/dl Phosphorus Level 2.4 mg/dl Magnesium Level 2.1 mg/dl Total Bilirubin 0.9 mg/dl Direct Bilirubin 0.2 mg/dl Aspartate Amino Transf (AST/SGOT) 25 U/L Alanine Aminotransferase (ALT/SGPT) 29 U/L Alkaline Phosphatase 87 U/L Total Protein 5.1 gm/dl Albumin 2.5 gm/dl Lipase 96 U/L Procalcitonin 11.14 ng/ml Bedside Glucose 80 mg/dl Test 11/16/17 12:29 11/16/17 12:32 Bedside Glucose 69 mg/dl 70 mg/dl
--- NOTE | 2017-11-16 14:58 | Procedure Note ---
Procedure Note Procedure Date Nov 16, 2017. Procedure Description Procedure Name: Intubation Procedure time out: side/site verified, patient ID confirmed, correct procedure Consent obtained: verbal (Consent obtained from the daughter Cecile over the phone and agreed her and her siblings with the procedure.) Performed by: attending Indications: therapeutic Contraindications: none Description: The patient was desaturating to 89% on 60% via the BiPAP and become unresponsive. The patient was placed in supine position. Using Ambu bag, the patient was ventilated for total of 2 minutes with O2 sat above the 95% for 2 minutes. The patient was induced with 10 mg of etomidate and 25 mg of rocuronium. 2 doses. Using MAC #3 and #8 ET tube, the patient was intubated with one attempt. Equal breath sounds were noted. A T-tube was placed to 19 cm. End-tidal CO2 was yellow. Confirmed with a chest x-ray. The ET tube was 7 cm above the jo-ann and was advanced by 2 cm. Frothy secretions also noted from the ET tube. Bronchoscopy was called in. Complications: none
--- NOTE | 2017-11-16 15:00 | Procedure Note ---
Procedure Note Procedure Date Nov 16, 2017. Procedure Description Procedure Name: Bronchoscopy. Procedure time out: side/site verified, patient ID confirmed, correct procedure Consent obtained: emergent consent implied Performed by: attending Indications: diagnostic, therapeutic Contraindications: none Description: The patient has been just intubated with large amount of frothy secretions were noted coming out of the ET tube. Bronchoscopy was indicated for that reason. Consent was deferred however her [id number] Alexa who works at our institution was at the bedside. The patient was already been sedated with etomidate and rocuronium and received 2 doses of each totaling 20 mg of etomidate and 50 mg of rocuronium. The bronchoscope passed through the blue adapter through #8 ET tube. And the findings as follows: 1. Moderate amount of secretions appear to be frothy and pink highly suspicious for pulmonary edema was noted in every single segment of the tracheobronchial tree. 2. Suction was applied and total of 10 mL of bronchial wash obtained from the left lower lobe. 3. Specimen was sent for Gram stain and culture. 4. The patient tolerated the procedure very well. And the tracheobronchial tree was cleared. 5. Tolerated the procedure very well, no immediate complication. The patient was placed on the ventilator with titratable FiO2. Complications: none
[2017-11-16] MEDS: PEPTAMEN 1.5 CAL 1000ML BAG OG SCH (15:20)
--- NOTE | 2017-11-16 17:07 | Progress Note ---
Internal Med Progress Note Date of Service: Nov 16, 2017. Provider Documentation: SUBJECTIVE: The patient was seen and examined in ICU S/P Rt Ureteric obstructing stone removal and stent placement Clinically better than yesterday Pleasantly confused otherwise no complaints 11/15: More weak and drowsy today Not in any acute distress Still requiring pressors 11/16 Condition deteriorated Required intubation this AM OBJECTIVE: Vital Signs-as noted below Exam: General-Sedated on Vent Eyes-normal ENT-normal Neck-supple Lungs-decreased breath sound bilaterally Heart-Regular,no murmur appreciated Abdomen-Benign,no masses Extremities-No edema Neuro-sedated on Vent Lab data as noted below. ASSESSMENT & PLAN: Hypoxic Respiratory Failure Required Intubation Appreciate Safety Instructor input and care Family members updated by the Safety Instructor Aggressive management for the next 3 days SEVERE SEPSIS SECONDARY TO COMPLICATED UTI with EBLS,MDR -Initially admitted to telemetry however transferred to ICU for persistent HYPOTENSION -Patient presenting from home after having a large amount of diarrhea this morning and a fall -On presentation, leukopenic WBC 1.6, mildly tachycardic at times with heart rate in the 110's, afebrile -Patient received appropriate IVF resuscitation and had persistent hypotension -Lactic acid 4.8, recheck in 6 hours and decreased -S/P oral Bactrim and IV ceftriaxone in the ED; will continue with IV ceftriaxone (patient is from home and no documented history of resistant bacteria) -WCC increased to >28 K -Urine and Blood cultures -Gm negative Bacilli -Multidrug Resistant Organism -Antibiotic changed to Cefepime and Ciprofloxacin -Antibiotic changed to Imipenem -Clinically not any better -Repeat CT -no obstruction Hypotension-Secondary to Septic Shock Due to sepsis Did not response to IVF Required pressors in ICU BP seems better this AM Trying to wean off Pressors Continue pressor support OBSTRUCTIVE RIGHT HYDRONEPHROSIS DUE TO OBSTRUCTING CALCULUS s/p REMOVAL AND STENT PLACEMENT Appreciate Urology input Will need IV antibiotic for [address] looks better too YEHUDA Secondary to Hydronephrosis Complicated by dehydration and sepsis Continue IV Fluid Improving and will monitor -Improved and Normalized ALZHEIMER'S -Continue donepezil and sertraline -may have acute Delirium DVT PROPHYLAXIS -SQ Lovenox and now on SQ Heparin CODE STATUS -Patient is a full code as per my discussion with her daughter, Alexa. -Discussed with the Daughter -Prognosis poor Vital Signs: Date Time Temp Pulse Resp B/P (MAP) Pulse Ox O2 Delivery O2 Flow Rate FiO2 11/16/17 16:45 40 11/16/17 16:01 36.5 81 15 104/48 (66) 94 Mechanical Ventilator 50 11/16/17 16:00 Mechanical Ventilator 50 18 16:00 50 11/16/17 15:31 75 13 98/50 (66) 93 Mechanical Ventilator 50 11/16/17 15:01 82 12 96/45 (62) 94 Mechanical Ventilator 50 11/16/17 14:01 80 12 96/46 (63) 96 Mechanical Ventilator 50 11/16/17 13:46 71 12 89/40 (56) 93 Mechanical Ventilator 50 11/16/17 13:31 70 12 85/40 (55) 92 Mechanical Ventilator 50 11/16/17 13:28 50 11/16/17 13:01 76 12 102/42 (62) 99 Mechanical Ventilator 80 11/16/17 12:31 82 12 100/51 (67) 99 Mechanical Ventilator 80 11/16/17 12:01 36.6 79 12 97/48 (64) 99 Mechanical Ventilator 80 11/16/17 12:00 80 11/16/17 12:00 Mechanical Ventilator 80 11/16/17 11:31 79 12 92/45 (61) 97 11/16/17 11:01 79 14 97/45 (62) 93 11/16/17 10:46 80 20 89/44 (59) 91 11/16/17 10:43 60 11/16/17 10:31 79 29 96/50 (65) 94 11/16/17 10:30 100 11/16/17 10:17 91 24 104/43 (63) 97 18 10:15 89 20 110/48 (68) 98 11/16/17 10:13 98 21 112/51 (71) 96 11/16/17 10:11 103 43 117/59 (78) 97 11/16/17 10:09 95 12 114/51 (72) 99 18 10:07 95 14 102/45 (64) 97 11/16/18 10:05 91 12 97/45 (62) 97 11/16/18 10:03 93 12 94/44 (61) 96 11/16/17 10:01 97 12 90/37 (54) 97 11/16/17 09:59 96 12 83/38 (53) 96 11/16/17 09:57 95 16 86/38 (54) 96 11/16/17 09:55 93 33 84/55 (65) 96 11/16/17 09:53 80 17 95/48 (64) 100 11/16/17 09:52 87 21 91/41 (58) 98 11/16/17 09:31 72 22 105/51 (69) 93 11/16/17 09:01 70 20 112/48 (69) 93 11/16/17 08:18 73 20 90/37 (54) 96 BiPAP 60 11/16/17 08:02 70 17 77/37 (50) 94 BiPAP 60 11/16/17 08:01 36.4 68 18 76/38 (51) 94 BiPAP 60 11/16/17 08:00 BiPAP 60 11/16/17 08:00 BiPAP 11/16/17 07:32 92 22 129/61 (83) 95 BiPAP 60 11/16/17 07:01 86 24 109/75 (86) 90 BiPAP 60 11/16/17 06:40 82 93 60 11/16/17 06:00 90 17 101/44 (63) 88 Oxymask 8.0 11/16/17 05:00 87 15 119/55 (76) 88 Oxymask 7.0 11/16/17 04:00 80 15 92/46 (61) 91 Oxymask 6.0 11/16/17 04:00 90 Nasal Cannula 6.0 11/16/17 03:00 81 15 114/47 (69) 87 Oxymask 6.0 11/16/17 02:00 78 15 118/59 (78) 91 Oxymask 6.0 11/16/17 01:00 88 14 90/42 (58) 91 Oxymask 6.0 11/16/17 00:00 36.9 91 22 134/78 (96) 86 Nasal Cannula 6.0 11/15/17 23:59 89 Nasal Cannula 6.0 11/15/17 23:00 79 17 112/56 (74) 89 Nasal Cannula 6.0 11/15/17 22:00 84 15 110/58 (75) 89 Nasal Cannula 4.0 11/15/17 21:00 83 16 99/66 (77) 91 Nasal Cannula 4.0 11/15/17 20:00 Nasal Cannula 4.0 11/15/17 20:00 36.6 85 20 133/71 (91) 90 Nasal Cannula 4.0 11/15/17 18:31 91 17 117/49 (71) 92 11/15/17 18:00 77 15 82/50 (61) 95 Lab Results: Results Past 24 Hours Test 11/15/17 20:20 11/16/17 04:59 11/16/17 05:04 11/16/17 12:29 Range/Units Bedside Glucose (other) 77 70-99 mg/dl White Blood Count 29.44 4.8-10.8 K/uL Red Blood Count 3.51 4.2-5.4 M/uL Hemoglobin 10.8 12.0-16.0 g/dL Hematocrit 33.2 37-47 % Mean Corpuscular Volume 94.6 80-100 fL Mean Corpuscular Hemoglobin 30.8 25-34 pg Mean Corpuscular Hemoglobin Concent 32.5 32-36 g/dl Platelet Count 36 130-400 K/uL Mean Platelet Volume 11.7 7.4-10.4 fL Neutrophils (%) (Auto) 90.3 % Lymphocytes (%) (Auto) 2.5 % Monocytes (%) (Auto) 3.2 % Eosinophils (%) (Auto) 0.0 % Basophils (%) (Auto) 0.1 % Neutrophils # (Auto) 26.60 1.4-6.5 K/uL Lymphocytes # (Auto) 0.73 1.2-3.4 K/uL Monocytes # (Auto) 0.93 0.11-0.59 K/uL Eosinophils # (Auto) 0.01 0-0.5 K/uL Basophils # (Auto) 0.03 0-0.2 K/uL RDW Standard Deviation 49.4 36.4-46.3 fL RDW Coefficient of Variation 14.5 11.5-14.5 % Immature Granulocyte % (Auto) 3.9 % Immature Granulocyte # (Auto) 1.14 0.00-0.02 K/uL Toxic Vacuolation OCCASIONAL Dohle Bodies OCCASIONAL Echinocytes 2+ Sodium Level 137 136-145 mmol/L Potassium Level 3.5 3.5-5.1 mmol/L Chloride Level 108 98-107 mmol/L Carbon Dioxide Level 22 21-32 mmol/L Anion Gap 7.0 3-11 mmol/L Blood Urea Nitrogen 19 7-18 mg/dl Creatinine 0.50 0.60-1.20 mg/dl Est Creatinine Clear Calc Drug Dose 80.0 ml/min Estimated GFR () 102.3 Estimated GFR (Non- 88.3 BUN/Creatinine Ratio 37.9 10-20 Random Glucose 85 70-99 mg/dl Calcium Level 7.8 8.5-10.1 mg/dl Phosphorus Level 2.4 2.5-4.9 mg/dl Magnesium Level 2.1 1.8-2.4 mg/dl Total Bilirubin 0.9 0.2-1 mg/dl Direct Bilirubin 0.2 0-0.2 mg/dl Aspartate Amino Transf (AST/SGOT) 25 15-37 U/L Alanine Aminotransferase (ALT/SGPT) 29 12-78 U/L Alkaline Phosphatase 87 45-117 U/L Total Protein 5.1 6.4-8.2 gm/dl Albumin 2.5 3.4-5.0 gm/dl Lipase 96 73-393 U/L Procalcitonin 11.14 0-0.5 ng/ml Bedside Glucose 80 69 70-90 mg/dl Test 11/16/17 12:32 Range/Units Bedside Glucose 70 70-90 mg/dl Microbiology Results 11/16/17 Blood Culture, Received Pending 11/16/17 Blood Culture, Received Pending 11/16/17 Gram Stain - Final, Resulted 11/16/17 Bronchoalveolar Lavage Culture, Resulted Pending
[2017-11-17] VITALS (41 sets, daily range): BP systolic 77–138; BP diastolic 33–72; PULSE 78–117; TEMP 36.8–38.6; O2SAT 92–100
[2017-11-17] MEDS ORDERED: DEXTROSE 50% 50 ML SYR IV ONE
[2017-11-17] MEDS: D5W NORMOSOL-R 1,000 ML IV SCH ×3 (00:20→16:33)
[2017-11-17 01:59] LABS: CALCIUM 6.8 mg/dl (8.5-10.1); CREATININE 0.56 mg/dl (0.60-1.20); POTASSIUM 2.5 mmol/L (3.5-5.1)
[2017-11-17] MEDS ORDERED: POTASSIUM CHLORIDE 20 MEQ/15 ML UDC PO STA (01:59)
[2017-11-17] MEDS ORDERED: POTASSIUM CHLR 20 MEQ / WTR 20 MEQ in PREMIXED WATER 100 ML IV STA (01:59)
[2017-11-17] MEDS ORDERED: MAGNESIUM SULFATE 1GM / D5W 1 GM in PREMIXED IN D5W 100 ML IV STA ×2 (02:01→03:44)
[2017-11-17] MEDS: FENTANYL 1250MCG/250ML NSS IV PRN ×2 (02:22→20:45)
[2017-11-17] MEDS ORDERED: POTASSIUM CHLR 20 MEQ / WTR 20 MEQ in PREMIXED WATER 100 ML IV SCH (04:00)
--- NOTE | 2017-11-17 05:01 | Critical Care Progress Note ---
Critical Care Progress Note Date of Service Nov 17, 2017. Critical Care Progress Note Shortly after 1 AM, while reviewing the monitors, it was noticed that the patient was starting to have moderate ectopy. Her blood pressure remained stable. I did order repeat EKG as well as repeat labs as the patient was actively diuresed today. EKG was suggestive of atrial fibrillation, however this was of poor baseline. Patient's repeat labs were critical with a potassium of 2.5 and magnesium of 1.5. The patient was provided 20 mEq of IV potassium chloride as well as 40 mEq of oral potassium supplement. She was treated with 1 g of IV magnesium sulfate. Just prior to the ordering of this dictation, the patient was developing frequent, concerning ectopy for progression to torsades. Shortly after administration of IV potassium and magnesium, the patient's rhythm seemed to organize better. Repeat EKG demonstrated a sinus rhythm. She was provided an additional gram of magnesium as her QTC remained prolonged at greater than 550 which was new for the patient. Patient continued to remain relatively hemodynamically stable with an increase in her blood pressure with intervention. I have personally spent 45 minutes of critical care time in the direct management of this patient. This is a life/limb threatening event. This includes time spent evaluating patient, direct bedside care, chart review, placing orders, interpretation of diagnostic studies, discussion with consultants, patient, and family members, as well as other required patient management activities. This time is exclusive of all separately billable procedures, and teaching time and separate from and in addition to any other critical care service time.
[2017-11-17] MEDS: IMIPENEM/CILASTATIN IV 500 MG in DEXTROSE 5% 100ML 100 ML IV SCH ×4 (05:56→23:13)
[2017-11-17] MEDS: VANCOMYCIN HCL 500 MG/10ML SOLN NG SCH ×4 (05:56→23:13)
[2017-11-17 06:03] LABS: HEMATOCRIT 31.8 % (37-47); HEMOGLOBIN 10.8 g/dL (12.0-16.0); MEAN CELL VOLUME 91.6 fL (80-100); MEAN CORPUSCULAR HEMOGLOBIN 31.1 pg (25-34); RED CELL DISTRIBUTION WIDTH CV 14.2 % (11.5-14.5); WHITE BLOOD COUNT 20.23 K/uL (4.8-10.8)
[2017-11-17 06:13] LABS: MEAN PLATELET VOLUME 11.7 fL (7.4-10.4); PLATELET COUNT 37 K/uL (130-400)
[2017-11-17 06:14] LABS: BASO % 0.1 %; BASO ABS # 0.02 K/uL (0-0.2); EOS % 0.3 %; EOS ABS # 0.07 K/uL (0-0.5); IG# 0.13 K/uL (0.00-0.02); LYMPH % 3.5 %; LYMPH ABS # 0.71 K/uL (1.2-3.4); MONO % 6.1 %; MONO ABS # 1.24 K/uL (0.11-0.59); NEUT % 89.4 %; NEUT ABS # 18.06 K/uL (1.4-6.5)
[2017-11-17 06:38] LABS: ALBUMIN 2.2 gm/dl (3.4-5.0); CALCIUM 7.3 mg/dl (8.5-10.1); CREATININE 0.47 mg/dl (0.60-1.20); POTASSIUM 2.7 mmol/L (3.5-5.1)
[2017-11-17] MEDS ORDERED: DOPamine 400MG / 250ML D5W ONE (06:43)
[2017-11-17] MEDS ORDERED: DOPamine 400MG / D5W 400 MG IV PRN (06:45)
[2017-11-17] MEDS: MAGNESIUM SULFATE 1GM / D5W 1 GM in PREMIXED IN D5W 100 ML IV SCH ×4 (06:51→17:37)
[2017-11-17 06:58] LABS: CKMB 1.2 ng/ml (0.5-3.6); PHOSPHORUS 1.4 mg/dl (2.5-4.9); TOTAL PROTEIN 4.8 gm/dl (6.4-8.2)
[2017-11-17] MEDS ORDERED: POTASSIUM PHOS 3 MMOL/1 ML INFUSION IV STA ×2 (06:58→15:21)
[2017-11-17] MEDS ORDERED: POTASSIUM PHOSPHATE INJ 24 MMOL in SODIUM CHLORIDE 0.9% 500ML 500 ML IV ONE (07:30)
[2017-11-17] MEDS ORDERED: FUROSEMIDE INJ 40 MG in SYRINGE 0 ML IV ONE (08:16)
[2017-11-17] MEDS: POTASSIUM CHLR 20 MEQ / WTR 20 MEQ in PREMIXED WATER 100 ML IV SCH ×4 (08:19→17:37)
--- NOTE | 2017-11-17 09:08 | DIAGNOSTIC IMAGING REPORT ---
CHEST ONE VIEW PORTABLE CLINICAL HISTORY: chf/pna dyspnea COMPARISON STUDY: 11/16/2017 FINDINGS: The endotracheal tube is 6 cm above the jo-ann. Diffuse bilateral infiltrative change is stable. Central catheter remains this. Vena cava. IMPRESSION: Diffuse bilateral parenchymal infiltrates unchanged from the prior study. Endotracheal tube 6 cm above the jo-ann. The above report was generated using voice recognition software. It may contain grammatical, syntax or spelling errors. Electronically signed by: Angel Chau M.D. 11/17/2017 9:07 AM Dictated Date/Time: 11/17/2017 9:06 AM
[2017-11-17] MEDS: DONEPEZIL HCL 5 MG TAB PO SCH (09:40)
[2017-11-17] MEDS: SERTRALINE HCL 100 MG TAB PO SCH (09:40)
[2017-11-17] MEDS: PANTOprazole INJ 40 MG in SYRINGE 0 ML IV SCH (10:29)
[2017-11-17] MEDS: METOCLOPRAMIDE HCL INJ 5 MG/ML 2 ML VIAL IV. SCH ×3 (10:31→22:11)
[2017-11-17] MEDS: MIDAZOLAM HCL 1 MG/ML 2ML VIAL IV PRN ×3 (11:30→20:55)
--- NOTE | 2017-11-17 11:36 | Progress Note ---
Internal Med Progress Note Date of Service: Nov 17, 2017. Provider Documentation: SUBJECTIVE: The patient was seen and examined in ICU S/P Rt Ureteric obstructing stone removal and stent placement Clinically better than yesterday Pleasantly confused otherwise no complaints 11/15: More weak and drowsy today Not in any acute distress Still requiring pressors 11/16 Condition deteriorated Required intubation this AM 11/17 Has had Torsade and Arrhythmia Remains stable on Vent OBJECTIVE: Vital Signs-as noted below Exam: General-Sedated on Vent Eyes-normal ENT-normal Neck-supple Lungs-decreased breath sound bilaterally Heart-Regular,no murmur appreciated Abdomen-Benign,no masses Extremities-No edema Neuro-sedated on Vent Lab data as noted below. ASSESSMENT & PLAN: Cardiac Arrhythmia/Electrolytes Imbalance Torsades de pointes Received IV electrolytes Seems controlled Hypoxic Respiratory Failure Required Intubation Appreciate Controlled Area Checker input and care Family members updated by the Controlled Area Checker Aggressive management for the next 3 days Remains stable on VENT SEVERE SEPSIS SECONDARY TO COMPLICATED UTI with EBLS,MDR -Initially admitted to telemetry however transferred to ICU for persistent HYPOTENSION -Patient presenting from home after having a large amount of diarrhea this morning and a fall -On presentation, leukopenic WBC 1.6, mildly tachycardic at times with heart rate in the 110's, afebrile -Patient received appropriate IVF resuscitation and had persistent hypotension -Lactic acid 4.8, recheck in 6 hours and decreased -S/P oral Bactrim and IV ceftriaxone in the ED; will continue with IV ceftriaxone (patient is from home and no documented history of resistant bacteria) -WCC increased to >28 K -Urine and Blood cultures -Gm negative Bacilli -Multidrug Resistant Organism -Antibiotic changed to Cefepime and Ciprofloxacin -Antibiotic changed to Imipenem -Clinically not any better -Repeat CT -no obstruction -continue current antibiotic Hypotension-Secondary to Septic Shock Due to sepsis Did not response to IVF Required pressors in ICU BP seems better this AM Trying to wean off Pressors Continue pressor support OBSTRUCTIVE RIGHT HYDRONEPHROSIS DUE TO OBSTRUCTING CALCULUS s/p REMOVAL AND STENT PLACEMENT Appreciate Urology input Will need IV antibiotic for [address] looks better too YEHUDA Secondary to Hydronephrosis Complicated by dehydration and sepsis Continue IV Fluid Improving and will monitor -Improved and Normalized ALZHEIMER'S -Continue donepezil and sertraline -may have acute Delirium DVT PROPHYLAXIS -SQ Lovenox and now on SQ Heparin CODE STATUS -Patient is a full code as per my discussion with her daughter, Alexa. -Discussed with the Daughter -Prognosis poor Vital Signs: Date Time Temp Pulse Resp B/P (MAP) Pulse Ox O2 Delivery O2 Flow Rate FiO2 11/17/17 10:31 96 17 121/59 (79) 95 Mechanical Ventilator 60 11/17/17 10:01 37.2 99 20 129/68 (88) 95 Mechanical Ventilator 60 11/17/17 09:31 95 19 125/65 (85) 94 Mechanical Ventilator 60 11/17/17 09:01 99 19 128/71 (90) 94 Mechanical Ventilator 60 11/17/17 08:31 102 15 118/54 (75) 96 Mechanical Ventilator 60 11/17/17 08:01 37.4 111 20 128/60 (82) 96 Mechanical Ventilator 60 11/17/17 08:00 Mechanical Ventilator 60 11/17/17 08:00 60 11/17/17 07:50 60 11/17/17 07:31 109 19 127/64 (85) 94 Mechanical Ventilator 60 11/17/17 07:19 117 20 133/69 (90) 92 Mechanical Ventilator 60 11/17/17 07:01 91 17 120/55 (76) 94 Mechanical Ventilator 45 11/17/17 06:01 83 15 113/54 (73) 97 Mechanical Ventilator 45 11/17/17 05:01 92 21 131/67 (88) 94 Mechanical Ventilator 40 11/17/17 04:50 40 11/17/17 04:01 37.2 91 17 117/56 (76) 94 Mechanical Ventilator 40 11/17/17 04:00 40 11/17/17 04:00 93 Mechanical Ventilator 40 11/17/17 03:01 85 23 136/72 (93) 92 Mechanical Ventilator 40 11/17/17 02:01 84 17 114/54 (74) 95 Mechanical Ventilator 40 11/17/17 01:52 40 11/17/17 01:01 90 16 103/47 (65) 95 Mechanical Ventilator 40 11/17/17 00:01 37.0 91 17 126/50 (75) 93 Mechanical Ventilator 40 11/16/17 23:59 40 11/16/17 23:59 95 Mechanical Ventilator 40 11/16/17 23:01 88 14 115/52 (73) 90 Mechanical Ventilator 40 11/16/17 22:55 40 11/16/17 22:00 91 17 121/54 (76) 94 Mechanical Ventilator 40 11/16/17 21:30 40 11/16/17 20:31 85 16 121/57 (78) 94 Mechanical Ventilator 40 11/16/17 20:00 40 11/16/17 20:00 Mechanical Ventilator 40 11/16/17 20:00 36.9 90 16 119/55 (76) 94 Mechanical Ventilator 40 11/16/17 18:01 36.6 80 15 111/63 (79) 93 Mechanical Ventilator 40 11/16/17 17:45 82 15 106/49 (68) 94 Mechanical Ventilator 40 11/16/17 17:31 82 14 105/45 (65) 95 Mechanical Ventilator 40 11/16/17 17:01 79 13 105/43 (63) 94 Mechanical Ventilator 40 11/16/17 16:45 40 11/16/17 16:01 36.5 81 15 104/48 (66) 94 Mechanical Ventilator 50 11/16/17 16:00 Mechanical Ventilator 50 11/16/17 16:00 50 11/16/17 15:31 75 13 98/50 (66) 93 Mechanical Ventilator 50 11/16/17 15:01 82 12 96/45 (62) 94 Mechanical Ventilator 50 11/16/17 14:01 80 12 96/46 (63) 96 Mechanical Ventilator 50 11/16/17 13:46 71 12 89/40 (56) 93 Mechanical Ventilator 50 11/16/17 13:31 70 12 85/40 (55) 92 Mechanical Ventilator 50 11/16/17 13:28 50 11/16/17 13:01 76 12 102/42 (62) 99 Mechanical Ventilator 80 11/16/17 12:31 82 12 100/51 (67) 99 Mechanical Ventilator 80 11/16/17 12:01 36.6 79 12 97/48 (64) 99 Mechanical Ventilator 80 11/16/17 12:00 80 11/16/17 12:00 Mechanical Ventilator 80 Lab Results: Results Past 24 Hours Test 11/16/17 12:29 11/16/17 12:32 11/16/17 18:59 11/16/17 23:53 Range/Units Bedside Glucose 69 70 78 60 70-90 mg/dl Test 11/17/17 00:47 11/17/17 01:19 11/17/17 05:04 11/17/17 05:37 Range/Units Bedside Glucose 106 70-90 mg/dl Sodium Level 140 139 136-145 mmol/L Potassium Level 2.5 2.7 3.5-5.1 mmol/L Chloride Level 105 105 98-107 mmol/L Carbon Dioxide Level 25 26 21-32 mmol/L Anion Gap 9.0 8.0 3-11 mmol/L Blood Urea Nitrogen 15 15 7-18 mg/dl Creatinine 0.56 0.47 0.60-1.20 mg/dl Est Creatinine Clear Calc Drug Dose 71.4 85.1 ml/min Estimated GFR () 98.5 104.4 Estimated GFR (Non- 85.0 90.1 BUN/Creatinine Ratio 27.5 31.1 10-20 Random Glucose 224 117 70-99 mg/dl Calcium Level 6.8 7.3 8.5-10.1 mg/dl Magnesium Level 1.5 2.0 1.8-2.4 mg/dl Blood Gas Sample Site L Radial Bedside Blood Gas pH (LAB) 7.40 7.35-7.45 Bedside Blood Gas pCO2 (LAB) 42 35-46 mmHg Bedside Blood Gas pO2 (LAB) 62 80-95 mmHg Bedside Blood Gas HCO3 (LAB) 26 19-24 meq/L Bedside Blood Gas Total CO2 27 24-31 mEq/l Bedside Blood Gas Base Excess (LAB) 1.0 -9-1.8 meq/L Bedside Blood Gas O2 Saturation 91.0 90-95 % Bhavesh Test Pass Oxygen Delivery Device Ventilator Bedside Oxygen Rate (breaths/min) 12 Blood Gas Minute Ventilation 7.8 Bedside FiO2 40 % Blood Gas Tidal Volume 500 Blood Gas PEEP 5 White Blood Count 20.23 4.8-10.8 K/uL Red Blood Count 3.47 4.2-5.4 M/uL Hemoglobin 10.8 12.0-16.0 g/dL Hematocrit 31.8 37-47 % Mean Corpuscular Volume 91.6 80-100 fL Mean Corpuscular Hemoglobin 31.1 25-34 pg Mean Corpuscular Hemoglobin Concent 34.0 32-36 g/dl Platelet Count 37 130-400 K/uL Mean Platelet Volume 11.7 7.4-10.4 fL Neutrophils (%) (Auto) 89.4 % Lymphocytes (%) (Auto) 3.5 % Monocytes (%) (Auto) 6.1 % Eosinophils (%) (Auto) 0.3 % Basophils (%) (Auto) 0.1 % Neutrophils # (Auto) 18.06 1.4-6.5 K/uL Lymphocytes # (Auto) 0.71 1.2-3.4 K/uL Monocytes # (Auto) 1.24 0.11-0.59 K/uL Eosinophils # (Auto) 0.07 0-0.5 K/uL Basophils # (Auto) 0.02 0-0.2 K/uL RDW Standard Deviation 47.0 36.4-46.3 fL RDW Coefficient of Variation 14.2 11.5-14.5 % Immature Granulocyte % (Auto) 0.6 % Immature Granulocyte # (Auto) 0.13 0.00-0.02 K/uL Phosphorus Level 1.4 2.5-4.9 mg/dl Total Bilirubin 0.9 0.2-1 mg/dl Direct Bilirubin 0.3 0-0.2 mg/dl Aspartate Amino Transf (AST/SGOT) 14 15-37 U/L Alanine Aminotransferase (ALT/SGPT) 21 12-78 U/L Alkaline Phosphatase 95 45-117 U/L Total Creatine Kinase 19 26-192 U/L Creatine Kinase MB 1.2 0.5-3.6 ng/ml Creatine Kinase MB Ratio 6.3 0-3.0 Troponin I 0.043 0-0.045 ng/ml Total Protein 4.8 6.4-8.2 gm/dl Albumin 2.2 3.4-5.0 gm/dl Lipase 117 73-393 U/L Test 11/17/17 05:57 Range/Units Bedside Glucose 99 70-90 mg/dl
--- NOTE | 2017-11-17 12:21 | Critical Care Progress Note ---
Critical Care Progress Note Date of Service Nov 17, 2017. Attending Dr. Butler Subjective The patient remains vented and sedated, overnight the patient did develop what appeared to be wide complex tachycardia mostly torsade. Short-lived nonsustained. The patient was hypokalemic and replaced accordingly. Started on dopamine to shorten her QTC. No drop in the blood pressure was reported. Her urine output seems to be adequate with diuresis. Objective Her physical exam on November 13, 2017, showed no fever, blood pressure remains supported by pressors, S1-S2 regular rate and rhythm, tachycardic, lungs with distant breath sounds, abdomen is soft and benign, lower extremity no edema. Her labs showed elevated white count and BUN/creatinine has been elevated but stable, CAT scan of the abdomen was reviewed which showed right-sided hydronephrosis and large urolithiasis. No evidence of pyelonephritis. Physical exam on November 14, 2017, showed no fever again, blood pressure has been maintained, O2 saturation is 94% on nasal cannula, S1-S2 regular rate and rhythm , lungs were distant clear, abdomen nontender and soft, no edema. Her labs also were reviewed for today which showed positive C. difficile antigen by PCR in the stool. Physical exam on November 15, 2017, patient did not have any fever, her O2 saturation remains 94% on nasal cannula, S1-S2, regular rate and rhythm, minimal crackles mainly at the bases, abdomen is soft but minimally tender at the pelvic area, no edema. Blood pressure most recently reported 104/52. Urine output is adequate. Physical exam on November 16, 2017, the patient is afebrile, her blood pressure is borderline, the patient is demented and confused and review of system was unobtainable, O2 saturation is 89% on 60% via the BiPAP. S1-S2 regular rate and rhythm. Lungs with bilateral diminished breath sounds, abdomen is soft but fluid shift were notable, anasarca, neurologically difficult to assess. Physical exam on November 17, 2017 showed the patient remains afebrile, vital signs currently are stable, she is not in wide-complex tachycardia anymore, she is in normal sinus rhythm. JVP. Heart examination S1-S2 regular rate and rhythm with slight tachycardia. Bilateral crackles right greater than left. Abdomen is soft but benign. Anasarca. Her laboratory were reviewed which showed hypokalemia, magnesium was borderline, BUN/creatinine has been stable, and continued to have thrombocytopenia. Imaging reviewed personally showing persistent infiltrates. Assessment & Plan 1. Septic shock secondary to urolithiasis with hydronephrosis and UTI. E. coli with ESBL features. 2. Urolithiasis status post ureteral stenting. 3. Advanced dementia. 4. C. difficile colitis. 5. Anasarca. Fluid overloaded. 6. Developing pneumonia right lower lobe. Bilateral pleural effusion. 7. Thrombocytopenia secondary to sepsis. Plan: 1. I would replete her potassium aggressively with potassium phosphate. 2. Give the patient magnesium sulfate regardless given her brief torsade that she had. 3. Measure QTC periodically. 4. The patient had residual on her tube feeding with 500 mL however I would add Reglan to improve her gastric emptying and restart the tube feeding at lower rate. 5. I have given the patient additional dose of Lasix as she is still fluid overloaded 40 mg. 6. We will repeat the labs in the afternoon. 7. Continue to decrease FiO2. Currently she is on 60%. Keep her O2 sat above the 90%. 8. I will continue with imipenem for the management of ESBL bacteremia and UTI. 9. Continue with Vanco p.o. for C. difficile colitis. 10. I will stop the IV fluids at this point and continue the tube feeding until goal is accomplished. 11. I have discussed the case with the daughter at the bedside, she is in agreement with the plan. 12. The case discussed with the staff on rounds and details. And with Dr. Ventura Critical care time spent with the patient was 45 minutes. Data Medications: Current Inpatient Medications Medications (Trade) Dose Ordered Sig/Tess Route Start Time Stop Time Status Last Admin Dose Admin Ondansetron HCl (Zofran Inj) 4 mg Q6H PRN IV 11/12/17 13:45 12/12/17 13:44 Donepezil HCl (Aricept Tab) 5 mg DAILY PO 11/13/17 09:00 12/13/17 08:59 11/17/17 09:40 5 MG Sertraline HCl (Zoloft Tab) 100 mg DAILY PO 11/13/17 09:00 12/13/17 08:59 11/17/17 09:40 100 MG Norepinephrine Bitartrate 8 mg/ Dextrose 508 ml @ 0 mls/hr Q0M IV 11/12/17 20:00 4/18/18 19:59 11/14/17 09:06 18 MLS/HR Pantoprazole Sodium 40 mg/ Syringe 10 ml @ 5 mls/min DAILY@11 IV 11/13/17 11:00 12/13/17 10:59 11/17/17 10:29 5 MLS/MIN Vasopressin 50 units/Sodium Chloride 502.5 ml @ 24 mls/hr [id number] PRN IV 11/12/17 23:16 12/12/17 23:15 11/14/17 16:54 24 MLS/HR Miscellaneous Information 1 ea UD PRN N/A 11/13/17 13:15 12/13/17 13:14 Midazolam HCl (Versed Inj) 1 mg Q2HWA PRN IV 11/14/17 18:00 12/14/17 17:59 11/17/17 11:30 1 MG Hydromorphone HCl (Dilaudid Inj) 0.5 mg Q3H PRN IV 11/15/17 00:45 11/27/17 08:14 11/16/17 07:43 0.5 MG Imipenem/ Cilastatin Sodium 500 mg/Dextrose 110 ml @ 100 mls/hr Q6H IV 11/15/17 18:00 11/24/17 01:59 11/17/17 11:31 100 MLS/HR Furosemide 40 mg/ Syringe 4 ml @ 4 mls/min Q8 PRN IV 11/16/17 11:00 12/16/17 10:59 11/16/17 12:26 4 MLS/MIN Vancomycin HCl (Vancomycin Oral Soln) 500 mg Q6H NG 11/16/17 12:00 11/30/17 11:59 11/17/17 05:56 500 MG Midazolam HCl 250 ml @ 0 mls/hr Q0M PRN IV 11/16/17 12:00 12/16/17 11:59 Fentanyl Citrate 250 ml @ 0 mls/hr Q0M PRN IV 11/16/17 12:00 11/30/17 11:59 11/17/17 02:22 10 MLS/HR Enteral Nutritional Formula (Peptamen 1.5) 1,000 ml goal = 50ml/hr OG 11/16/17 16:00 12/16/17 15:59 11/16/17 15:20 1,000 ML Parenteral Electrolyte Di/ Dextrose 1,000 ml @ 75 mls/hr [id number] IV 11/17/17 00:00 12/17/17 00:00 11/17/17 03:24 75 MLS/HR Dopamine HCl/ Dextrose 250 ml @ 0 mls/hr Q0M PRN IV 11/17/17 06:45 12/17/17 06:44 Metoclopramide HCl (Reglan Inj) 10 mg Q6H IV. 11/17/17 10:30 12/17/17 10:29 11/17/17 10:31 10 MG Vital Signs: Date Time Temp Pulse Resp B/P (MAP) Pulse Ox O2 Delivery O2 Flow Rate FiO2 11/17/17 12:01 99 13 115/55 (75) 99 Mechanical Ventilator 60 11/17/17 12:00 60 11/17/17 12:00 Mechanical Ventilator 60 11/17/17 11:31 101 15 119/54 (75) 95 Mechanical Ventilator 60 11/17/17 11:30 60 11/17/17 11:01 99 17 138/71 (93) 97 Mechanical Ventilator 60 11/17/17 10:31 96 17 121/59 (79) 95 Mechanical Ventilator 60 11/17/17 10:01 37.2 99 20 129/68 (88) 95 Mechanical Ventilator 60 11/17/17 09:31 95 19 125/65 (85) 94 Mechanical Ventilator 60 11/17/17 09:01 99 19 128/71 (90) 94 Mechanical Ventilator 60 11/17/17 08:31 102 15 118/54 (75) 96 Mechanical Ventilator 60 11/17/17 08:01 37.4 111 20 128/60 (82) 96 Mechanical Ventilator 60 11/17/17 08:00 Mechanical Ventilator 60 11/17/17 08:00 60 11/17/17 07:50 60 11/17/17 07:31 109 19 127/64 (85) 94 Mechanical Ventilator 60 11/17/17 07:19 117 20 133/69 (90) 92 Mechanical Ventilator 60 11/17/17 07:01 91 17 120/55 (76) 94 Mechanical Ventilator 45 11/17/17 06:01 83 15 113/54 (73) 97 Mechanical Ventilator 45 11/17/17 05:01 92 21 131/67 (88) 94 Mechanical Ventilator 40 11/17/17 04:50 40 11/17/17 04:01 37.2 91 17 117/56 (76) 94 Mechanical Ventilator 40 11/17/17 04:00 40 11/17/17 04:00 93 Mechanical Ventilator 40 11/17/17 03:01 85 23 136/72 (93) 92 Mechanical Ventilator 40 11/17/17 02:01 84 17 114/54 (74) 95 Mechanical Ventilator 40 11/17/17 01:52 40 11/17/17 01:01 90 16 103/47 (65) 95 Mechanical Ventilator 40 11/17/17 00:01 37.0 91 17 126/50 (75) 93 Mechanical Ventilator 40 11/16/17 23:59 40 11/16/17 23:59 95 Mechanical Ventilator 40 11/16/17 23:01 88 14 115/52 (73) 90 Mechanical Ventilator 40 11/16/17 22:55 40 11/16/17 22:00 91 17 121/54 (76) 94 Mechanical Ventilator 40 11/16/17 21:30 40 11/16/17 20:31 85 16 121/57 (78) 94 Mechanical Ventilator 40 11/16/17 20:00 40 11/16/17 20:00 Mechanical Ventilator 40 11/16/17 20:00 36.9 90 16 119/55 (76) 94 Mechanical Ventilator 40 11/16/17 18:01 36.6 80 15 111/63 (79) 93 Mechanical Ventilator 40 11/16/17 17:45 82 15 106/49 (68) 94 Mechanical Ventilator 40 11/16/17 17:31 82 14 105/45 (65) 95 Mechanical Ventilator 40 11/16/17 17:01 79 13 105/43 (63) 94 Mechanical Ventilator 40 11/16/17 16:45 40 11/16/17 16:01 36.5 81 15 104/48 (66) 94 Mechanical Ventilator 50 11/16/17 16:00 Mechanical Ventilator 50 11/16/17 16:00 50 11/16/17 15:31 75 13 98/50 (66) 93 Mechanical Ventilator 50 11/16/17 15:01 82 12 96/45 (62) 94 Mechanical Ventilator 50 11/16/17 14:01 80 12 96/46 (63) 96 Mechanical Ventilator 50 11/16/17 13:46 71 12 89/40 (56) 93 Mechanical Ventilator 50 11/16/17 13:31 70 12 85/40 (55) 92 Mechanical Ventilator 50 11/16/17 13:28 50 11/16/17 13:01 76 12 102/42 (62) 99 Mechanical Ventilator 80 11/16/17 12:31 82 12 100/51 (67) 99 Mechanical Ventilator 80 Laboratory Results: Last 24 Hours Test 11/16/17 12:29 11/16/17 12:32 11/16/17 18:59 11/16/17 23:53 Bedside Glucose 69 mg/dl 70 mg/dl 78 mg/dl 60 mg/dl Test 11/17/17 00:47 11/17/17 01:19 11/17/17 05:04 11/17/17 05:37 Bedside Glucose 106 mg/dl Sodium Level 140 mmol/L 139 mmol/L Potassium Level 2.5 mmol/L 2.7 mmol/L Chloride Level 105 mmol/L 105 mmol/L Carbon Dioxide Level 25 mmol/L 26 mmol/L Anion Gap 9.0 mmol/L 8.0 mmol/L Blood Urea Nitrogen 15 mg/dl 15 mg/dl Creatinine 0.56 mg/dl 0.47 mg/dl Est Creatinine Clear Calc Drug Dose 71.4 ml/min 85.1 ml/min Estimated GFR () 98.5 104.4 Estimated GFR (Non- 85.0 90.1 BUN/Creatinine Ratio 27.5 31.1 Random Glucose 224 mg/dl 117 mg/dl Calcium Level 6.8 mg/dl 7.3 mg/dl Magnesium Level 1.5 mg/dl 2.0 mg/dl Blood Gas Sample Site L Radial Bedside Blood Gas pH (LAB) 7.40 Bedside Blood Gas pCO2 (LAB) 42 mmHg Bedside Blood Gas pO2 (LAB) 62 mmHg Bedside Blood Gas HCO3 (LAB) 26 meq/L Bedside Blood Gas Total CO2 27 mEq/l Bedside Blood Gas Base Excess (LAB) 1.0 meq/L Bedside Blood Gas O2 Saturation 91.0 % Bhavesh Test Pass Oxygen Delivery Device Ventilator Bedside Oxygen Rate (breaths/min) 12 Blood Gas Minute Ventilation 7.8 Bedside FiO2 40 % Blood Gas Tidal Volume 500 Blood Gas PEEP 5 White Blood Count 20.23 K/uL Red Blood Count 3.47 M/uL Hemoglobin 10.8 g/dL Hematocrit 31.8 % Mean Corpuscular Volume 91.6 fL Mean Corpuscular Hemoglobin 31.1 pg Mean Corpuscular Hemoglobin Concent 34.0 g/dl Platelet Count 37 K/uL Mean Platelet Volume 11.7 fL Neutrophils (%) (Auto) 89.4 % Lymphocytes (%) (Auto) 3.5 % Monocytes (%) (Auto) 6.1 % Eosinophils (%) (Auto) 0.3 % Basophils (%) (Auto) 0.1 % Neutrophils # (Auto) 18.06 K/uL Lymphocytes # (Auto) 0.71 K/uL Monocytes # (Auto) 1.24 K/uL Eosinophils # (Auto) 0.07 K/uL Basophils # (Auto) 0.02 K/uL RDW Standard Deviation 47.0 fL RDW Coefficient of Variation 14.2 % Immature Granulocyte % (Auto) 0.6 % Immature Granulocyte # (Auto) 0.13 K/uL Phosphorus Level 1.4 mg/dl Total Bilirubin 0.9 mg/dl Direct Bilirubin 0.3 mg/dl Aspartate Amino Transf (AST/SGOT) 14 U/L Alanine Aminotransferase (ALT/SGPT) 21 U/L Alkaline Phosphatase 95 U/L Total Creatine Kinase 19 U/L Creatine Kinase MB 1.2 ng/ml Creatine Kinase MB Ratio 6.3 Troponin I 0.043 ng/ml Total Protein 4.8 gm/dl Albumin 2.2 gm/dl Lipase 117 U/L Test 11/17/17 05:57 Bedside Glucose 99 mg/dl
--- NOTE | 2017-11-17 13:24 | Progress Note ---
Subjective Date of Service: Nov 17, 2017. Subjective Pt evaluation today including: conversation w/ family Pain: Sedated, Intubated Patient with respiratory failure and sepsis. Obst stone s/p Stent. Guarded condition. Critical management. Problem List Sepsis Objective Vital Signs Date Time Temp Pulse Resp B/P (MAP) Pulse Ox O2 Delivery O2 Flow Rate FiO2 11/17/17 12:31 37.6 94 15 119/54 (75) 97 Mechanical Ventilator 60 11/17/17 12:01 99 13 115/55 (75) 99 Mechanical Ventilator 60 11/17/17 12:00 60 11/17/17 12:00 Mechanical Ventilator 60 11/17/17 11:31 101 15 119/54 (75) 95 Mechanical Ventilator 60 11/17/17 11:30 60 11/17/17 11:01 99 17 138/71 (93) 97 Mechanical Ventilator 60 11/17/17 10:31 96 17 121/59 (79) 95 Mechanical Ventilator 60 11/17/17 10:01 37.2 99 20 129/68 (88) 95 Mechanical Ventilator 60 11/17/17 09:31 95 19 125/65 (85) 94 Mechanical Ventilator 60 11/17/17 09:01 99 19 128/71 (90) 94 Mechanical Ventilator 60 11/17/17 08:31 102 15 118/54 (75) 96 Mechanical Ventilator 60 11/17/17 08:01 37.4 111 20 128/60 (82) 96 Mechanical Ventilator 60 11/17/17 08:00 Mechanical Ventilator 60 11/17/17 08:00 60 11/17/17 07:50 60 11/17/17 07:31 109 19 127/64 (85) 94 Mechanical Ventilator 60 11/17/17 07:19 117 20 133/69 (90) 92 Mechanical Ventilator 60 11/17/17 07:01 91 17 120/55 (76) 94 Mechanical Ventilator 45 11/17/17 06:01 83 15 113/54 (73) 97 Mechanical Ventilator 45 11/17/17 05:01 92 21 131/67 (88) 94 Mechanical Ventilator 40 11/17/17 04:50 40 11/17/17 04:01 37.2 91 17 117/56 (76) 94 Mechanical Ventilator 40 11/17/17 04:00 40 11/17/17 04:00 93 Mechanical Ventilator 40 11/17/17 03:01 85 23 136/72 (93) 92 Mechanical Ventilator 40 11/17/17 02:01 84 17 114/54 (74) 95 Mechanical Ventilator 40 11/17/17 01:52 40 11/17/17 01:01 90 16 103/47 (65) 95 Mechanical Ventilator 40 11/17/17 00:01 37.0 91 17 126/50 (75) 93 Mechanical Ventilator 40 11/16/17 23:59 40 11/16/17 23:59 95 Mechanical Ventilator 40 11/16/17 23:01 88 14 115/52 (73) 90 Mechanical Ventilator 40 11/16/17 22:55 40 11/16/17 22:00 91 17 121/54 (76) 94 Mechanical Ventilator 40 11/16/17 21:30 40 11/16/17 20:31 85 16 121/57 (78) 94 Mechanical Ventilator 40 11/16/17 20:00 40 11/16/17 20:00 Mechanical Ventilator 40 11/16/17 20:00 36.9 90 16 119/55 (76) 94 Mechanical Ventilator 40 11/16/17 18:01 36.6 80 15 111/63 (79) 93 Mechanical Ventilator 40 11/16/17 17:45 82 15 106/49 (68) 94 Mechanical Ventilator 40 11/16/17 17:31 82 14 105/45 (65) 95 Mechanical Ventilator 40 11/16/17 17:01 79 13 105/43 (63) 94 Mechanical Ventilator 40 11/16/17 16:45 40 11/16/17 16:01 36.5 81 15 104/48 (66) 94 Mechanical Ventilator 50 11/16/17 16:00 Mechanical Ventilator 50 11/16/17 16:00 50 11/16/17 15:31 75 13 98/50 (66) 93 Mechanical Ventilator 50 11/16/17 15:01 82 12 96/45 (62) 94 Mechanical Ventilator 50 11/16/17 14:01 80 12 96/46 (63) 96 Mechanical Ventilator 50 11/16/17 13:46 71 12 89/40 (56) 93 Mechanical Ventilator 50 18 13:31 70 12 85/40 (55) 92 Mechanical Ventilator 50 11/16/17 13:28 50 Physical Exam General Appearance: + moderate distress, + cachetic Respiratory/Chest: + accessory muscle use, + pertinent finding (Intubated) Cardiovascular: regular rate, rhythm, + tachycardia Abdomen: non tender, soft Extremities: + pertinent finding (Sedated, ) Neurologic/Psychiatric: + pertinent finding (Arousable) Skin: normal color, warm/dry Comments: Faustin draining clear yellow Laboratory Results Last 24 Hours Test 11/16/17 18:59 11/16/17 23:53 11/17/17 00:47 11/17/17 01:19 Bedside Glucose 78 mg/dl 60 mg/dl 106 mg/dl Sodium Level 140 mmol/L Potassium Level 2.5 mmol/L Chloride Level 105 mmol/L Carbon Dioxide Level 25 mmol/L Anion Gap 9.0 mmol/L Blood Urea Nitrogen 15 mg/dl Creatinine 0.56 mg/dl Est Creatinine Clear Calc Drug Dose 71.4 ml/min Estimated GFR () 98.5 Estimated GFR (Non- 85.0 BUN/Creatinine Ratio 27.5 Random Glucose 224 mg/dl Calcium Level 6.8 mg/dl Magnesium Level 1.5 mg/dl Test 11/17/17 05:04 11/17/17 05:37 11/17/17 05:57 Blood Gas Sample Site L Radial Bedside Blood Gas pH (LAB) 7.40 Bedside Blood Gas pCO2 (LAB) 42 mmHg Bedside Blood Gas pO2 (LAB) 62 mmHg Bedside Blood Gas HCO3 (LAB) 26 meq/L Bedside Blood Gas Total CO2 27 mEq/l Bedside Blood Gas Base Excess (LAB) 1.0 meq/L Bedside Blood Gas O2 Saturation 91.0 % Bhavesh Test Pass Oxygen Delivery Device Ventilator Bedside Oxygen Rate (breaths/min) 12 Blood Gas Minute Ventilation 7.8 Bedside FiO2 40 % Blood Gas Tidal Volume 500 Blood Gas PEEP 5 White Blood Count 20.23 K/uL Red Blood Count 3.47 M/uL Hemoglobin 10.8 g/dL Hematocrit 31.8 % Mean Corpuscular Volume 91.6 fL Mean Corpuscular Hemoglobin 31.1 pg Mean Corpuscular Hemoglobin Concent 34.0 g/dl Platelet Count 37 K/uL Mean Platelet Volume 11.7 fL Neutrophils (%) (Auto) 89.4 % Lymphocytes (%) (Auto) 3.5 % Monocytes (%) (Auto) 6.1 % Eosinophils (%) (Auto) 0.3 % Basophils (%) (Auto) 0.1 % Neutrophils # (Auto) 18.06 K/uL Lymphocytes # (Auto) 0.71 K/uL Monocytes # (Auto) 1.24 K/uL Eosinophils # (Auto) 0.07 K/uL Basophils # (Auto) 0.02 K/uL RDW Standard Deviation 47.0 fL RDW Coefficient of Variation 14.2 % Immature Granulocyte % (Auto) 0.6 % Immature Granulocyte # (Auto) 0.13 K/uL Sodium Level 139 mmol/L Potassium Level 2.7 mmol/L Chloride Level 105 mmol/L Carbon Dioxide Level 26 mmol/L Anion Gap 8.0 mmol/L Blood Urea Nitrogen 15 mg/dl Creatinine 0.47 mg/dl Est Creatinine Clear Calc Drug Dose 85.1 ml/min Estimated GFR () 104.4 Estimated GFR (Non- 90.1 BUN/Creatinine Ratio 31.1 Random Glucose 117 mg/dl Calcium Level 7.3 mg/dl Phosphorus Level 1.4 mg/dl Magnesium Level 2.0 mg/dl Total Bilirubin 0.9 mg/dl Direct Bilirubin 0.3 mg/dl Aspartate Amino Transf (AST/SGOT) 14 U/L Alanine Aminotransferase (ALT/SGPT) 21 U/L Alkaline Phosphatase 95 U/L Total Creatine Kinase 19 U/L Creatine Kinase MB 1.2 ng/ml Creatine Kinase MB Ratio 6.3 Troponin I 0.043 ng/ml Total Protein 4.8 gm/dl Albumin 2.2 gm/dl Lipase 117 U/L Bedside Glucose 99 mg/dl Assessment and Plan 1. Sepsis 2. Obst Stone s/p Stent 3. Resp Failure Patient critically managed. Intubated and sedated. condition critical. Patient' s family at bedside. Discussed at length. stone and related issues. Patient needs stent in place during stabilization. Will consider stone treatment after critical event improved. Will monitor. Plan to continue abx and follow for improvement. Major life threatening medical issues.
[2017-11-17 14:53] LABS: CALCIUM 7.3 mg/dl (8.5-10.1); CREATININE 0.53 mg/dl (0.60-1.20)
[2017-11-17 15:28] LABS: PHOSPHORUS 2.5 mg/dl (2.5-4.9)
[2017-11-17] MEDS ORDERED: ACETAMINOPHEN SOLN 325 MG/10.15 ML UDC ONE (15:57)
[2017-11-17] MEDS ORDERED: POTASSIUM PHOSPHATE INJ 30 MMOL in SODIUM CHLORIDE 0.9% 500ML 500 ML IV SCH (18:30)
--- NOTE | 2017-11-17 20:54 | Critical Care Progress Note ---
Critical Care Progress Note Date of Service Nov 17, 2017. Critical Care Progress Note Patient with elevated CVP at greater than 16, but has low blood pressure readings in the 80s. I was asked by nursing staff for evaluation as there is ordered in place to provide IV Lasix versus fluid bolus given her vital signs. At this point, given her repeat chest x-ray this morning, persistent O2 requirements, and elevated CVP, I did feel it was necessary to provide an IV dose of Lasix. Prior to this, however, I did repeat the patient's PRP, magnesium, pro-calcitonin, lactic acid. Decision was made that if blood pressure continues to decline, will restart Levophed for maintaining adequate MAPs while patient actively diuresing. Continue to reassess electrolytes and blood pressures for any changes and needs for supplementation.
[2017-11-17 20:56] LABS: HEMATOCRIT 31.2 % (37-47); HEMOGLOBIN 10.7 g/dL (12.0-16.0); MEAN CORPUSCULAR HEMOGLOBIN 31.2 pg (25-34); MEAN CORPUSCULAR HGB CONC 34.3 g/dl (32-36); RED CELL DISTRIBUTION WIDTH CV 14.2 % (11.5-14.5); RED CELL DISTRIBUTION WIDTH SD 46.7 fL (36.4-46.3); WHITE BLOOD COUNT 19.87 K/uL (4.8-10.8)
[2017-11-17 21:00] LABS: MEAN PLATELET VOLUME 11.2 fL (7.4-10.4); PLATELET COUNT 48 K/uL (130-400)
[2017-11-17] MEDS: FUROSEMIDE INJ 40 MG in SYRINGE 0 ML IV PRN (21:14)
[2017-11-17 21:25] LABS: CALCIUM 7.1 mg/dl (8.5-10.1); CREATININE 0.49 mg/dl (0.60-1.20); POTASSIUM 3.9 mmol/L (3.5-5.1)
[2017-11-17 21:29] LABS: PHOSPHORUS 3.4 mg/dl (2.5-4.9)
[2017-11-18] VITALS (28 sets, daily range): BP systolic 74–144; BP diastolic 43–84; PULSE 82–139; TEMP 36.8–38.1; O2SAT 90–100
[2017-11-18] MEDS: METOCLOPRAMIDE HCL INJ 5 MG/ML 2 ML VIAL IV. SCH ×4 (04:21→22:38)
[2017-11-18] MEDS: MIDAZOLAM HCL 1 MG/ML 2ML VIAL IV PRN ×2 (04:42→08:14)
[2017-11-18] MEDS: VANCOMYCIN HCL 500 MG/10ML SOLN NG SCH ×3 (05:21→17:35)
[2017-11-18] MEDS: IMIPENEM/CILASTATIN IV 500 MG in DEXTROSE 5% 100ML 100 ML IV SCH ×3 (05:21→17:35)
[2017-11-18 05:56] LABS: HEMATOCRIT 29.7 % (37-47); MEAN CELL VOLUME 91.4 fL (80-100); MEAN CORPUSCULAR HEMOGLOBIN 30.8 pg (25-34); MEAN CORPUSCULAR HGB CONC 33.7 g/dl (32-36); RED CELL DISTRIBUTION WIDTH CV 14.2 % (11.5-14.5); RED CELL DISTRIBUTION WIDTH SD 47.3 fL (36.4-46.3); WHITE BLOOD COUNT 19.32 K/uL (4.8-10.8)
[2017-11-18 06:07] LABS: MEAN PLATELET VOLUME 11.3 fL (7.4-10.4); PLATELET COUNT 57 K/uL (130-400)
[2017-11-18 06:38] LABS: BASO % 0.1 %; BASO ABS # 0.01 K/uL (0-0.2); EOS % 0.5 %; EOS ABS # 0.09 K/uL (0-0.5); IG# 0.15 K/uL (0.00-0.02); LYMPH % 5.7 %; MONO ABS # 1.36 K/uL (0.11-0.59); NEUT % 85.9 %; NEUT ABS # 16.61 K/uL (1.4-6.5)
[2017-11-18 06:40] LABS: ALBUMIN 1.9 gm/dl (3.4-5.0); CALCIUM 7.4 mg/dl (8.5-10.1); CREATININE 0.43 mg/dl (0.60-1.20); POTASSIUM 3.2 mmol/L (3.5-5.1)
[2017-11-18 06:43] LABS: PHOSPHORUS 3.1 mg/dl (2.5-4.9); TOTAL PROTEIN 4.8 gm/dl (6.4-8.2)
--- NOTE | 2017-11-18 07:24 | DIAGNOSTIC IMAGING REPORT ---
CHEST ONE VIEW PORTABLE CLINICAL HISTORY: 87 years-old Female presenting with f/u, CHF/pneumonia, intubated. TECHNIQUE: Portable upright AP view of the chest was obtained. COMPARISON: 11/17/2017. FINDINGS: Endotracheal tube positioned in the upper thoracic trachea over 6 cm from the jo-ann. Right subclavian central venous catheter again terminates in the lower SVC. Nasogastric tube descends below the diaphragm, terminus and sidehole not visualized. Atherosclerosis of the aorta. Cardiac silhouette top normal in size. No significant change in patchy bilateral pulmonary opacities. Small left pleural effusion is difficult to exclude. No large pneumothorax. Degenerative changes of the thoracic spine. Left shoulder arthroplasty. Degenerative change of the right shoulder. Osteopenia suspected. IMPRESSION: 1. Lines and tubes appropriately positioned. 2. No significant change in patchy bilateral pulmonary opacities, which could represent diffuse alveolar damage or multifocal pneumonia among other etiologies. Electronically signed by: Hemal Muro M.D. 11/18/2017 7:22 AM Dictated Date/Time: 11/18/2017 7:20 AM
[2017-11-18] MEDS ORDERED: SOAP SUDS ENEMA PR PRN (09:00)
[2017-11-18] MEDS: DONEPEZIL HCL 5 MG TAB PO SCH (09:22)
[2017-11-18] MEDS: SERTRALINE HCL 100 MG TAB PO SCH (09:22)
[2017-11-18] MEDS: FUROSEMIDE INJ 40 MG in SYRINGE 0 ML IV PRN (09:22)
[2017-11-18] MEDS: POTASSIUM CHLR 20 MEQ / WTR 20 MEQ in PREMIXED WATER 100 ML IV SCH ×4 (09:22→15:38)
[2017-11-18] MEDS ORDERED: NURSING VERBAL MED ORDER ONE ×4 (10:30→18:45)
[2017-11-18] MEDS: PANTOprazole INJ 40 MG in SYRINGE 0 ML IV SCH (10:52)
--- NOTE | 2017-11-18 11:05 | Progress Note ---
Internal Med Progress Note Date of Service: Nov 18, 2017. Provider Documentation: SUBJECTIVE: The patient was seen and examined in ICU S/P Rt Ureteric obstructing stone removal and stent placement Clinically better than yesterday Pleasantly confused otherwise no complaints 11/15: More weak and drowsy today Not in any acute distress Still requiring pressors 11/16 Condition deteriorated Required intubation this AM 11/17 Has had Torsade and Arrhythmia Remains stable on Vent 11/18 Remains on VENT,likely to come off Vent today Clinically a little better OBJECTIVE: Vital Signs-as noted below Exam: General-Sedated on Vent Eyes-normal ENT-normal Neck-supple Lungs-decreased breath sound bilaterally otherwise clear Heart-Regular,no murmur appreciated Abdomen-Benign,no masses Extremities-No edema Neuro-sedated on Vent Lab data as noted below. ASSESSMENT & PLAN: Cardiac Arrhythmia/Electrolytes Imbalance Torsades de pointes Received IV electrolytes Seems controlled No more episodes Hypoxic Respiratory Failure Required Intubation Appreciate Hearing Aid Mechanic input and care Family members updated by the Hearing Aid Mechanic Aggressive management for the next 3 days Remains stable on VENT-likely to extubate today SEVERE SEPSIS SECONDARY TO COMPLICATED UTI with EBLS,MDR -Initially admitted to telemetry however transferred to ICU for persistent HYPOTENSION -Patient presenting from home after having a large amount of diarrhea this morning and a fall -On presentation, leukopenic WBC 1.6, mildly tachycardic at times with heart rate in the 110's, afebrile -Patient received appropriate IVF resuscitation and had persistent hypotension -Lactic acid 4.8, recheck in 6 hours and decreased -S/P oral Bactrim and IV ceftriaxone in the ED; will continue with IV ceftriaxone (patient is from home and no documented history of resistant bacteria) -WCC increased to >28 K -Urine and Blood cultures -Gm negative Bacilli -Multidrug Resistant Organism -Antibiotic changed to Cefepime and Ciprofloxacin -Antibiotic changed to Imipenem -Clinically not any better -Repeat CT -no obstruction -continue current antibiotic Hypotension-Secondary to Septic Shock Due to sepsis Did not response to IVF Required pressors in ICU BP seems better this AM Trying to wean off Pressors Continue pressor support -now on Dopamin OBSTRUCTIVE RIGHT HYDRONEPHROSIS DUE TO OBSTRUCTING CALCULUS s/p REMOVAL AND STENT PLACEMENT Appreciate Urology input Will need IV antibiotic for [address] looks better too YEHUDA Secondary to Hydronephrosis Complicated by dehydration and sepsis Continue IV Fluid Improving and will monitor -Improved and Normalized ALZHEIMER'S -Continue donepezil and sertraline -may have acute Delirium DVT PROPHYLAXIS -SQ Lovenox and now on SQ Heparin CODE STATUS -Patient is a full code as per my discussion with her daughter, Alexa. -Discussed with the Daughter -Prognosis poor -aggressive treatment for the next day or two before making her comfort care only Vital Signs: Date Time Temp Pulse Resp B/P (MAP) Pulse Ox O2 Delivery O2 Flow Rate FiO2 11/18/17 10:16 40 11/18/17 10:00 90 14 111/50 (70) 98 Mechanical Ventilator 40 11/18/17 09:00 86 16 115/68 (84) 95 Mechanical Ventilator 40 11/18/17 08:31 92 12 108/57 (74) 96 Mechanical Ventilator 40 11/18/17 08:01 36.8 82 12 100/51 (67) 97 Mechanical Ventilator 40 11/18/17 08:00 40 11/18/17 08:00 Mechanical Ventilator 40 11/18/17 07:49 40 11/18/17 07:01 98 12 108/64 (79) 99 Mechanical Ventilator 40 11/18/17 06:01 89 12 94/47 (63) 97 Mechanical Ventilator 40 11/18/17 05:45 40 11/18/17 05:28 60 11/18/17 05:01 99 12 74/43 (53) 90 Mechanical Ventilator 40 11/18/17 04:01 37.3 89 12 91/43 (59) 96 Mechanical Ventilator 40 11/18/17 04:00 40 11/18/17 04:00 Mechanical Ventilator 40 11/18/17 03:01 93 12 108/54 (72) 97 Mechanical Ventilator 40 11/18/17 02:27 40 11/18/17 02:01 83 12 97/46 (63) 96 Mechanical Ventilator 40 11/18/17 01:01 86 13 96/56 (69) 96 Mechanical Ventilator 40 11/18/17 00:01 37.0 99 12 92/79 (83) 96 Mechanical Ventilator 40 11/17/17 23:59 Mechanical Ventilator 40 11/17/17 23:59 40 11/17/17 23:30 40 11/17/17 23:01 84 12 105/67 (80) 97 Mechanical Ventilator 40 11/17/17 22:01 78 13 99/48 (65) 96 Mechanical Ventilator 40 [id number] 21:01 85 12 93/47 (62) 94 Mechanical Ventilator 40 [id number] 20:18 40 3/18 20:01 36.8 82 12 92/48 (63) 94 Mechanical Ventilator 40 2418 20:00 Mechanical Ventilator 40 318 20:00 40 18 19:15 37.3 11/17/18 19:01 81 12 86/43 (57) 97 Mechanical Ventilator 40 18 18:01 37.3 82 13 94/41 (58) 95 Mechanical Ventilator 40 18 17:32 84 10 85/33 (50) 94 Mechanical Ventilator 40 18 17:31 92 12 78/42 (54) 95 Mechanical Ventilator 40 18 17:24 50 11/17/18 17:10 112 16 97/57 (70) 98 Mechanical Ventilator 50 18 17:06 50 11/17/18 17:01 82 13 77/38 (51) 96 Mechanical Ventilator 50 18 16:31 91 12 86/41 (56) 97 Mechanical Ventilator 50 18 16:01 38.6 91 11 104/48 (66) 98 Mechanical Ventilator 50 18 16:00 Mechanical Ventilator 50 18 15:31 90 15 111/54 (73) 98 Mechanical Ventilator 50 11/17/18 15:04 94 14 95/59 (71) 99 Mechanical Ventilator 50 18 15:01 87 12 88/44 (59) 98 Mechanical Ventilator 50 18 14:31 91 13 92/47 (62) 99 Mechanical Ventilator 50 18 14:30 60 324/18 14:01 101 12 116/54 (74) 100 Mechanical Ventilator 60 18 13:31 98 12 110/54 (72) 100 Mechanical Ventilator 60 18 13:01 95 12 108/53 (71) 98 Mechanical Ventilator 60 18 12:31 37.6 94 15 119/54 (75) 97 Mechanical Ventilator 60 18 12:01 99 13 115/55 (75) 99 Mechanical Ventilator 60 18 12:00 60 324/18 12:00 Mechanical Ventilator 60 3/24/18 11:31 101 15 119/54 (75) 95 Mechanical Ventilator 60 11/17/17 11:30 60 11/17/17 11:01 99 17 138/71 (93) 97 Mechanical Ventilator 60 Lab Results: Results Past 24 Hours Test 11/17/17 14:22 11/17/17 20:49 11/17/17 23:04 11/18/17 00:02 Range/Units Sodium Level 140 141 136-145 mmol/L Potassium Level 3.0 3.9 3.5-5.1 mmol/L Chloride Level 103 105 98-107 mmol/L Carbon Dioxide Level 31 31 21-32 mmol/L Anion Gap 5.0 5.0 3-11 mmol/L Blood Urea Nitrogen 13 14 7-18 mg/dl Creatinine 0.53 0.49 0.60-1.20 mg/dl Est Creatinine Clear Calc Drug Dose 75.5 81.6 ml/min Estimated GFR () 100.3 103.0 Estimated GFR (Non- 86.6 88.8 BUN/Creatinine Ratio 24.9 27.6 10-20 Random Glucose 112 90 70-99 mg/dl Calcium Level 7.3 7.1 8.5-10.1 mg/dl Phosphorus Level 2.5 3.4 2.5-4.9 mg/dl Magnesium Level 1.8 2.1 1.8-2.4 mg/dl White Blood Count 19.87 4.8-10.8 K/uL Red Blood Count 3.43 4.2-5.4 M/uL Hemoglobin 10.7 12.0-16.0 g/dL Hematocrit 31.2 37-47 % Mean Corpuscular Volume 91.0 80-100 fL Mean Corpuscular Hemoglobin 31.2 25-34 pg Mean Corpuscular Hemoglobin Concent 34.3 32-36 g/dl RDW Standard Deviation 46.7 36.4-46.3 fL RDW Coefficient of Variation 14.2 11.5-14.5 % Platelet Count 48 130-400 K/uL Mean Platelet Volume 11.2 7.4-10.4 fL Lactic Acid Level 0.9 0.4-2.0 mmol/L Procalcitonin 3.50 0-0.5 ng/ml Bedside Glucose 94 78 70-90 mg/dl Test 11/18/17 05:29 11/18/17 05:31 11/18/17 05:32 Range/Units White Blood Count 19.32 4.8-10.8 K/uL Red Blood Count 3.25 4.2-5.4 M/uL Hemoglobin 10.0 12.0-16.0 g/dL Hematocrit 29.7 37-47 % Mean Corpuscular Volume 91.4 80-100 fL Mean Corpuscular Hemoglobin 30.8 25-34 pg Mean Corpuscular Hemoglobin Concent 33.7 32-36 g/dl Platelet Count 57 130-400 K/uL Mean Platelet Volume 11.3 7.4-10.4 fL Neutrophils (%) (Auto) 85.9 % Lymphocytes (%) (Auto) 5.7 % Monocytes (%) (Auto) 7.0 % Eosinophils (%) (Auto) 0.5 % Basophils (%) (Auto) 0.1 % Neutrophils # (Auto) 16.61 1.4-6.5 K/uL Lymphocytes # (Auto) 1.10 1.2-3.4 K/uL Monocytes # (Auto) 1.36 0.11-0.59 K/uL Eosinophils # (Auto) 0.09 0-0.5 K/uL Basophils # (Auto) 0.01 0-0.2 K/uL RDW Standard Deviation 47.3 36.4-46.3 fL RDW Coefficient of Variation 14.2 11.5-14.5 % Immature Granulocyte % (Auto) 0.8 % Immature Granulocyte # (Auto) 0.15 0.00-0.02 K/uL Sodium Level 140 136-145 mmol/L Potassium Level 3.2 3.5-5.1 mmol/L Chloride Level 103 98-107 mmol/L Carbon Dioxide Level 32 21-32 mmol/L Anion Gap 5.0 3-11 mmol/L Blood Urea Nitrogen 14 7-18 mg/dl Creatinine 0.43 0.60-1.20 mg/dl Est Creatinine Clear Calc Drug Dose 93.0 ml/min Estimated GFR () 107.5 Estimated GFR (Non- 92.7 BUN/Creatinine Ratio 32.7 10-20 Random Glucose 110 70-99 mg/dl Calcium Level 7.4 8.5-10.1 mg/dl Phosphorus Level 3.1 2.5-4.9 mg/dl Magnesium Level 1.9 1.8-2.4 mg/dl Total Bilirubin 0.8 0.2-1 mg/dl Direct Bilirubin 0.3 0-0.2 mg/dl Aspartate Amino Transf (AST/SGOT) 10 15-37 U/L Alanine Aminotransferase (ALT/SGPT) 17 12-78 U/L Alkaline Phosphatase 115 45-117 U/L Total Protein 4.8 6.4-8.2 gm/dl Albumin 1.9 3.4-5.0 gm/dl Bedside Glucose 103 70-90 mg/dl Blood Gas Sample Site L Radial Bedside Blood Gas pH (LAB) 7.42 7.35-7.45 Bedside Blood Gas pCO2 (LAB) 53 35-46 mmHg Bedside Blood Gas pO2 (LAB) 139 80-95 mmHg Bedside Blood Gas HCO3 (LAB) 34 19-24 meq/L Bedside Blood Gas Total CO2 35 24-31 mEq/l Bedside Blood Gas Base Excess (LAB) 9.0 -9-1.8 meq/L Bedside Blood Gas O2 Saturation 99.0 90-95 % Bhavesh Test Pass Oxygen Delivery Device Ventilator Bedside Oxygen Rate (breaths/min) 12 Blood Gas Minute Ventilation 6 Bedside FiO2 60 % Blood Gas Tidal Volume 500 Blood Gas PEEP 5
--- NOTE | 2017-11-18 12:59 | DIAGNOSTIC IMAGING REPORT ---
KUB CLINICAL HISTORY: 87 years-old Female presenting with NGT PLACEMENT. TECHNIQUE: Single supine view of the abdomen was obtained. COMPARISON: 11/16/2017. FINDINGS: Interval placement of a weighted feeding catheter containing a guidewire, looped in the stomach. Nasogastric tube has been removed. Right ureteral stent remains in place. Calcification along the course of the right ureteral stent unchanged. No bowel obstruction. No gross free air. Degenerative changes of the spine. IMPRESSION: 1. Interval removal of the nasogastric tube and placement of a weighted feeding catheter, which is looped in the stomach. Electronically signed by: Hemal Muro M.D. 11/18/2017 12:57 PM Dictated Date/Time: 11/18/2017 12:56 PM
[2017-11-18] MEDS: D5W NORMOSOL-R 1,000 ML IV SCH (13:08)
--- NOTE | 2017-11-18 13:39 | Critical Care Progress Note ---
Critical Care Progress Note Date of Service Nov 18, 2017. Attending Dr. Butler Subjective No events overnight, one episode of tachycardia resolved spontaneously, the patient blood pressure has been marginal, the patient O2 saturation remains improving, the patient did receive a dose of Lasix overnight with good urine output. She has been doing better overall. Review of system is not obtainable from this patient with history of dementia and currently intubated and sedated. Objective Her physical exam on November 13, 2017, showed no fever, blood pressure remains supported by pressors, S1-S2 regular rate and rhythm, tachycardic, lungs with distant breath sounds, abdomen is soft and benign, lower extremity no edema. Her labs showed elevated white count and BUN/creatinine has been elevated but stable, CAT scan of the abdomen was reviewed which showed right-sided hydronephrosis and large urolithiasis. No evidence of pyelonephritis. Physical exam on November 14, 2017, showed no fever again, blood pressure has been maintained, O2 saturation is 94% on nasal cannula, S1-S2 regular rate and rhythm , lungs were distant clear, abdomen nontender and soft, no edema. Her labs also were reviewed for today which showed positive C. difficile antigen by PCR in the stool. Physical exam on November 15, 2017, patient did not have any fever, her O2 saturation remains 94% on nasal cannula, S1-S2, regular rate and rhythm, minimal crackles mainly at the bases, abdomen is soft but minimally tender at the pelvic area, no edema. Blood pressure most recently reported 104/52. Urine output is adequate. Physical exam on November 16, 2017, the patient is afebrile, her blood pressure is borderline, the patient is demented and confused and review of system was unobtainable, O2 saturation is 89% on 60% via the BiPAP. S1-S2 regular rate and rhythm. Lungs with bilateral diminished breath sounds, abdomen is soft but fluid shift were notable, anasarca, neurologically difficult to assess. Physical exam on November 17, 2017 showed the patient remains afebrile, vital signs currently are stable, she is not in wide-complex tachycardia anymore, she is in normal sinus rhythm. JVP. Heart examination S1-S2 regular rate and rhythm with slight tachycardia. Bilateral crackles right greater than left. Abdomen is soft but benign. Anasarca. Her laboratory were reviewed which showed hypokalemia, magnesium was borderline, BUN/creatinine has been stable, and continued to have thrombocytopenia. Imaging reviewed personally showing persistent infiltrates. Physical exam on November 18, 2017 revealed elderly female, currently intubated, no fever, appeared very lethargic, vital signs are stable, positive JVP, S1-S2 regular rate and rhythm, bilateral crackles right greater than left, abdomen is benign and soft, no edema in the periphery, sacral edema was noted. Laboratory and chest x-ray both were reviewed. She continued to have leukocytosis, hypokalemia which has been replaced, chest x-ray showed multiple patchy infiltrates bilaterally right greater than left. ET tube was still 6 cm above the jo-ann . Likely positional. Assessment & Plan 1. Septic shock secondary to urolithiasis with hydronephrosis and UTI. E. coli with ESBL features. 2. Urolithiasis status post ureteral stenting. 3. Advanced dementia. 4. C. difficile colitis. 5. Anasarca. Fluid overloaded. 6. Developing pneumonia right lower lobe. Bilateral pleural effusion. 7. Thrombocytopenia secondary to sepsis. Plan: 1. I would replete her potassium aggressively with potassium phosphate. 2. Give the patient magnesium sulfate regardless given her brief torsade that she had. 3. We will continue to monitor her leukocytes count. 4. I would minimize her sedation and stop fentanyl in preparation for extubation. 5. I will change the oral gastric tube to nasogastric tube. 6. CPAP trial was done and the patient succeeded with spontaneous breathing trial. 7. ABG was done and was compatible with extubation. 8. The patient was extubated to facemask and she has been maintaining her airways properly. 9. I will continue with her current antibiotics including coverage for C. difficile colitis as well as with imipenem for ESBL in the urine. 10. GI and DVT prophylaxis. 11. We will minimize his sedation and use soft restraints. 12. Discussed with the family and details. 13. Stop Versed drip. 14. I will stop IV fluids as the patient is reaching her goal with the tube feeding. 15. Swallow evaluation in the morning. 16. Potential physical therapy and out of bed in the morning. 17. The patient remains DNR. Case discussed with the staff on rounds and details. Critical care time spent with the patient was 45 minutes. Data Medications: Current Inpatient Medications Medications (Trade) Dose Ordered Sig/Tess Route Start Time Stop Time Status Last Admin Dose Admin Ondansetron HCl (Zofran Inj) 4 mg Q6H PRN IV 11/12/17 13:45 12/12/17 13:44 Donepezil HCl (Aricept Tab) 5 mg DAILY PO 11/13/17 09:00 12/13/17 08:59 11/18/17 09:22 5 MG Sertraline HCl (Zoloft Tab) 100 mg DAILY PO 11/13/17 09:00 12/13/17 08:59 11/18/17 09:22 100 MG Norepinephrine Bitartrate 8 mg/ Dextrose 508 ml @ 0 mls/hr Q0M IV 11/12/17 20:00 12/12/17 19:59 11/14/17 09:06 18 MLS/HR Pantoprazole Sodium 40 mg/ Syringe 10 ml @ 5 mls/min DAILY@11 IV 11/13/17 11:00 12/13/17 10:59 11/18/17 10:52 5 MLS/MIN Vasopressin 50 units/Sodium Chloride 502.5 ml @ 24 mls/hr [id number] PRN IV 11/12/17 23:16 12/12/17 23:15 11/14/17 16:54 24 MLS/HR Miscellaneous Information 1 ea UD PRN N/A 11/13/17 13:15 12/13/17 13:14 Midazolam HCl (Versed Inj) 1 mg Q2HWA PRN IV 11/14/17 18:00 12/14/17 17:59 11/18/17 08:14 1 MG Imipenem/ Cilastatin Sodium 500 mg/Dextrose 110 ml @ 100 mls/hr Q6H IV 11/15/17 18:00 11/24/17 01:59 11/18/17 13:09 100 MLS/HR Furosemide 40 mg/ Syringe 4 ml @ 4 mls/min Q8 PRN IV 11/16/17 11:00 12/16/17 10:59 11/18/17 09:22 4 MLS/MIN Vancomycin HCl (Vancomycin Oral Soln) 500 mg Q6H NG 11/16/17 12:00 11/30/17 11:59 11/18/17 13:08 500 MG Enteral Nutritional Formula (Peptamen 1.5) 1,000 ml goal = 50ml/hr OG 11/16/17 16:00 12/16/17 15:59 11/16/17 15:20 1,000 ML Parenteral Electrolyte Di/ Dextrose 1,000 ml @ 75 mls/hr [id number] IV 11/17/17 00:00 12/17/17 00:00 11/18/17 13:08 75 MLS/HR Dopamine HCl/ Dextrose 250 ml @ 0 mls/hr Q0M PRN IV 11/17/17 06:45 12/17/17 06:44 Metoclopramide HCl (Reglan Inj) 10 mg Q6H IV. 11/17/17 10:30 12/17/17 10:29 11/18/17 10:52 10 MG Acetaminophen (Tylenol Soln) 650 mg Q4H PRN PO 11/17/17 15:45 12/17/17 15:44 Potassium Chloride 20 meq/ Prmx 100 ml @ 50 mls/hr Q2H IV 11/18/17 09:00 11/18/17 16:59 11/18/17 13:08 50 MLS/HR Miscellaneous (Soap Suds Enema) 1 ea Q2HWA PRN WI 11/18/17 09:00 12/18/17 08:59 Miscellaneous Information (Nursing Verbal Med Order) 1 ea ONE ONCE N/A 11/18/17 13:30 11/18/17 13:31 UNV Vital Signs: Date Time Temp Pulse Resp B/P (MAP) Pulse Ox O2 Delivery O2 Flow Rate FiO2 11/18/17 12:12 103 14 121/61 (81) 99 Mechanical Ventilator 40 11/18/17 12:01 36.9 105 12 121/61 (81) 100 Mechanical Ventilator 40 11/18/17 12:00 CPAP 40 Mechanical Ventilator 11/18/17 12:00 40 11/18/17 11:45 40 11/18/17 11:31 114 13 104/63 (77) 98 Mechanical Ventilator 40 11/18/17 11:01 120 14 133/65 (87) 99 Mechanical Ventilator 40 11/18/17 10:16 40 11/18/17 10:00 90 14 111/50 (70) 98 Mechanical Ventilator 40 11/18/17 09:00 86 16 115/68 (84) 95 Mechanical Ventilator 40 11/18/17 08:31 92 12 108/57 (74) 96 Mechanical Ventilator 40 11/18/17 08:01 36.8 82 12 100/51 (67) 97 Mechanical Ventilator 40 11/18/17 08:00 40 11/18/17 08:00 Mechanical Ventilator 40 11/18/17 07:49 40 11/18/17 07:01 98 12 108/64 (79) 99 Mechanical Ventilator 40 11/18/17 06:01 89 12 94/47 (63) 97 Mechanical Ventilator 40 11/18/17 05:45 40 11/18/17 05:28 60 11/18/17 05:01 99 12 74/43 (53) 90 Mechanical Ventilator 40 11/18/17 04:01 37.3 89 12 91/43 (59) 96 Mechanical Ventilator 40 11/18/17 04:00 40 11/18/17 04:00 Mechanical Ventilator 40 11/18/17 03:01 93 12 108/54 (72) 97 Mechanical Ventilator 40 11/18/17 02:27 40 11/18/17 02:01 83 12 97/46 (63) 96 Mechanical Ventilator 40 11/18/17 01:01 86 13 96/56 (69) 96 Mechanical Ventilator 40 11/18/17 00:01 37.0 99 12 92/79 (83) 96 Mechanical Ventilator 40 11/17/17 23:59 Mechanical Ventilator 40 11/17/17 23:59 40 11/17/17 23:30 40 11/17/17 23:01 84 12 105/67 (80) 97 Mechanical Ventilator 40 11/17/17 22:01 78 13 99/48 (65) 96 Mechanical Ventilator 40 11/17/17 21:01 85 12 93/47 (62) 94 Mechanical Ventilator 40 11/17/17 20:18 40 11/17/17 20:01 36.8 82 12 92/48 (63) 94 Mechanical Ventilator 40 11/17/17 20:00 Mechanical Ventilator 40 11/17/17 20:00 40 11/17/17 19:15 37.3 11/17/17 19:01 81 12 86/43 (57) 97 Mechanical Ventilator 40 11/17/17 18:01 37.3 82 13 94/41 (58) 95 Mechanical Ventilator 40 11/17/17 17:32 84 10 85/33 (50) 94 Mechanical Ventilator 40 11/17/17 17:31 92 12 78/42 (54) 95 Mechanical Ventilator 40 11/17/17 17:24 50 11/17/17 17:10 112 16 97/57 (70) 98 Mechanical Ventilator 50 11/17/17 17:06 50 11/17/17 17:01 82 13 77/38 (51) 96 Mechanical Ventilator 50 11/17/17 16:31 91 12 86/41 (56) 97 Mechanical Ventilator 50 11/17/17 16:01 38.6 91 11 104/48 (66) 98 Mechanical Ventilator 50 11/17/17 16:00 Mechanical Ventilator 50 11/17/17 15:31 90 15 111/54 (73) 98 Mechanical Ventilator 50 11/17/17 15:04 94 14 95/59 (71) 99 Mechanical Ventilator 50 11/17/17 15:01 87 12 88/44 (59) 98 Mechanical Ventilator 50 11/17/17 14:31 91 13 92/47 (62) 99 Mechanical Ventilator 50 11/17/17 14:30 60 11/17/17 14:01 101 12 116/54 (74) 100 Mechanical Ventilator 60 Laboratory Results: Last 24 Hours Test 11/17/17 14:22 11/17/17 20:49 11/17/17 23:04 11/18/17 00:02 Sodium Level 140 mmol/L 141 mmol/L Potassium Level 3.0 mmol/L 3.9 mmol/L Chloride Level 103 mmol/L 105 mmol/L Carbon Dioxide Level 31 mmol/L 31 mmol/L Anion Gap 5.0 mmol/L 5.0 mmol/L Blood Urea Nitrogen 13 mg/dl 14 mg/dl Creatinine 0.53 mg/dl 0.49 mg/dl Est Creatinine Clear Calc Drug Dose 75.5 ml/min 81.6 ml/min Estimated GFR () 100.3 103.0 Estimated GFR (Non- 86.6 88.8 BUN/Creatinine Ratio 24.9 27.6 Random Glucose 112 mg/dl 90 mg/dl Calcium Level 7.3 mg/dl 7.1 mg/dl Phosphorus Level 2.5 mg/dl 3.4 mg/dl Magnesium Level 1.8 mg/dl 2.1 mg/dl White Blood Count 19.87 K/uL Red Blood Count 3.43 M/uL Hemoglobin 10.7 g/dL Hematocrit 31.2 % Mean Corpuscular Volume 91.0 fL Mean Corpuscular Hemoglobin 31.2 pg Mean Corpuscular Hemoglobin Concent 34.3 g/dl RDW Standard Deviation 46.7 fL RDW Coefficient of Variation 14.2 % Platelet Count 48 K/uL Mean Platelet Volume 11.2 fL Lactic Acid Level 0.9 mmol/L Procalcitonin 3.50 ng/ml Bedside Glucose 94 mg/dl 78 mg/dl Test 11/18/17 05:29 11/18/17 05:31 11/18/17 05:32 11/18/17 12:04 White Blood Count 19.32 K/uL Red Blood Count 3.25 M/uL Hemoglobin 10.0 g/dL Hematocrit 29.7 % Mean Corpuscular Volume 91.4 fL Mean Corpuscular Hemoglobin 30.8 pg Mean Corpuscular Hemoglobin Concent 33.7 g/dl Platelet Count 57 K/uL Mean Platelet Volume 11.3 fL Neutrophils (%) (Auto) 85.9 % Lymphocytes (%) (Auto) 5.7 % Monocytes (%) (Auto) 7.0 % Eosinophils (%) (Auto) 0.5 % Basophils (%) (Auto) 0.1 % Neutrophils # (Auto) 16.61 K/uL Lymphocytes # (Auto) 1.10 K/uL Monocytes # (Auto) 1.36 K/uL Eosinophils # (Auto) 0.09 K/uL Basophils # (Auto) 0.01 K/uL RDW Standard Deviation 47.3 fL RDW Coefficient of Variation 14.2 % Immature Granulocyte % (Auto) 0.8 % Immature Granulocyte # (Auto) 0.15 K/uL Sodium Level 140 mmol/L Potassium Level 3.2 mmol/L Chloride Level 103 mmol/L Carbon Dioxide Level 32 mmol/L Anion Gap 5.0 mmol/L Blood Urea Nitrogen 14 mg/dl Creatinine 0.43 mg/dl Est Creatinine Clear Calc Drug Dose 93.0 ml/min Estimated GFR () 107.5 Estimated GFR (Non- 92.7 BUN/Creatinine Ratio 32.7 Random Glucose 110 mg/dl Calcium Level 7.4 mg/dl Phosphorus Level 3.1 mg/dl Magnesium Level 1.9 mg/dl Total Bilirubin 0.8 mg/dl Direct Bilirubin 0.3 mg/dl Aspartate Amino Transf (AST/SGOT) 10 U/L Alanine Aminotransferase (ALT/SGPT) 17 U/L Alkaline Phosphatase 115 U/L Total Protein 4.8 gm/dl Albumin 1.9 gm/dl Bedside Glucose 103 mg/dl 96 mg/dl Blood Gas Sample Site L Radial Bedside Blood Gas pH (LAB) 7.42 Bedside Blood Gas pCO2 (LAB) 53 mmHg Bedside Blood Gas pO2 (LAB) 139 mmHg Bedside Blood Gas HCO3 (LAB) 34 meq/L Bedside Blood Gas Total CO2 35 mEq/l Bedside Blood Gas Base Excess (LAB) 9.0 meq/L Bedside Blood Gas O2 Saturation 99.0 % Bhavesh Test Pass Oxygen Delivery Device Ventilator Bedside Oxygen Rate (breaths/min) 12 Blood Gas Minute Ventilation 6 Bedside FiO2 60 % Blood Gas Tidal Volume 500 Blood Gas PEEP 5 Test 11/18/17 12:08 Blood Gas Sample Site R Radial Bedside Blood Gas pH (LAB) 7.51 Bedside Blood Gas pCO2 (LAB) 42 mmHg Bedside Blood Gas pO2 (LAB) 84 mmHg Bedside Blood Gas HCO3 (LAB) 34 meq/L Bedside Blood Gas Total CO2 35 mEq/l Bedside Blood Gas Base Excess (LAB) 10.0 meq/L Bedside Blood Gas O2 Saturation 97.0 % Bhavesh Test Pass Oxygen Delivery Device Ventilator Bedside FiO2 40 % Blood Gas PEEP 5
[2017-11-18] MEDS ORDERED: POLYETHYLENE (MIRALAX) 17 GM PACK GT SCH (16:30)
[2017-11-18] MEDS: PEPTAMEN 1.5 CAL 1000ML BAG OG SCH (17:35)
[2017-11-18] MEDS ORDERED: ZOLPIDEM TARTRATE 5 MG TAB PO PRN (19:15)
[2017-11-18] MEDS: HYDROmorphone INJ 0.5 MG/0.5 ML SYR IV PRN (19:52)
[2017-11-18] MEDS: ACETAMINOPHEN SOLN 650MG/20.3 ML UDC PO PRN (21:14)
[2017-11-19] VITALS (25 sets, daily range): BP systolic 99–180; BP diastolic 51–121; PULSE 84–118; TEMP 36.8–38.5; O2SAT 4–100
[2017-11-19] MEDS: VANCOMYCIN HCL 500 MG/10ML SOLN NG SCH ×5 (00:10→23:15)
[2017-11-19] MEDS: IMIPENEM/CILASTATIN IV 500 MG in DEXTROSE 5% 100ML 100 ML IV SCH ×2 (00:10→06:13)
[2017-11-19] MEDS: HYDROmorphone INJ 0.5 MG/0.5 ML SYR IV PRN ×5 (00:11→23:16)
[2017-11-19] MEDS: METOCLOPRAMIDE HCL INJ 5 MG/ML 2 ML VIAL IV. SCH (03:38)
[2017-11-19 05:39] LABS: HEMOGLOBIN 10.7 g/dL (12.0-16.0); MEAN CORPUSCULAR HEMOGLOBIN 31.8 pg (25-34); MEAN CORPUSCULAR HGB CONC 34.5 g/dl (32-36); MEAN PLATELET VOLUME 10.7 fL (7.4-10.4); PLATELET COUNT 90 K/uL (130-400); RED CELL DISTRIBUTION WIDTH CV 13.9 % (11.5-14.5); RED CELL DISTRIBUTION WIDTH SD 46.6 fL (36.4-46.3); WHITE BLOOD COUNT 22.17 K/uL (4.8-10.8)
[2017-11-19 05:55] LABS: BASO % 0.1 %; BASO ABS # 0.02 K/uL (0-0.2); EOS % 0.3 %; EOS ABS # 0.06 K/uL (0-0.5); LYMPH % 6.2 %; LYMPH ABS # 1.37 K/uL (1.2-3.4); MONO % 6.3 %; MONO ABS # 1.39 K/uL (0.11-0.59); NEUT % 86.2 %; NEUT ABS # 19.13 K/uL (1.4-6.5)
[2017-11-19 06:13] LABS: CALCIUM 7.6 mg/dl (8.5-10.1); CREATININE 0.44 mg/dl (0.60-1.20); POTASSIUM 3.1 mmol/L (3.5-5.1)
[2017-11-19 06:18] LABS: TOTAL PROTEIN 5.3 gm/dl (6.4-8.2)
[2017-11-19 06:36] LABS: PHOSPHORUS 1.8 mg/dl (2.5-4.9)
[2017-11-19 06:40] LABS: INR 1.1 (0.9-1.1)
--- NOTE | 2017-11-19 07:18 | DIAGNOSTIC IMAGING REPORT ---
CHEST ONE VIEW PORTABLE CLINICAL HISTORY: f/u ARDS COMPARISON STUDY: Chest radiograph November 18, 2017. FINDINGS: Incidental note is made of a left shoulder arthroplasty. A right subclavian central line is in place. Endotracheal tube has been removed. Feeding tube is partially imaged on this exam and is likely coiled within the stomach. There is no pneumothorax. There are small bilateral pleural effusions. Bilateral airspace opacities and diffuse interstitial thickening persists. IMPRESSION: 1. No significant change in interstitial thickening and bilateral opacities which may reflect pneumonia, pulmonary edema or ARDS. 2. Small bilateral pleural effusions. Electronically signed by: Nicolas Covarrubias M.D. 11/19/2017 7:17 AM Dictated Date/Time: 11/19/2017 7:10 AM
[2017-11-19] MEDS: ACETAMINOPHEN SOLN 650MG/20.3 ML UDC PO PRN ×2 (08:49→17:45)
[2017-11-19] MEDS: DONEPEZIL HCL 5 MG TAB PO SCH (08:50)
[2017-11-19] MEDS: SERTRALINE HCL 100 MG TAB PO SCH (08:50)
[2017-11-19] MEDS: METOPROLOL TARTRATE 25 MG TAB PO SCH ×2 (09:26→20:55)
[2017-11-19] MEDS ORDERED: POT PHOSPHATE MONOBASIC W/ SOD TAB PO ONE (09:30)
[2017-11-19] MEDS ORDERED: MAGNESIUM SULFATE 1GM / D5W 1 GM in PREMIXED IN D5W 100 ML IV ONE (09:30)
[2017-11-19] MEDS ORDERED: POTASSIUM PHOSPHATE INJ 24 MMOL in SODIUM CHLORIDE 0.9% 500ML 500 ML IV ONE (09:30)
[2017-11-19] MEDS: ENOXAPARIN 30 MG/0.3 ML SYR SQ SCH (09:35)
--- NOTE | 2017-11-19 09:43 | Progress Note ---
Subjective Date of Service: Nov 19, 2017. Subjective Pt evaluation today including: chart review, lab review Voiding: lopez catheter in place (patent, draining light lopez colored urine ) Pt extubated overnight. Moaning some this morning. Mitts in place. Continues to spike fevers. 38.1F overnight. Review of Systems Pt unable to answer questions d/t AMS. Objective Vital Signs Date Time Temp Pulse Resp B/P (MAP) Pulse Ox O2 Delivery O2 Flow Rate FiO2 11/19/17 06:01 96 18 109/59 (76) 98 Humidified Oxygen 35 11/19/17 05:02 118 19 130/71 (90) 100 Humidified Oxygen 35 11/19/17 04:28 93 Humidified Oxygen 35 Mask 11/19/17 04:01 95 18 102/56 (71) 91 Humidified Oxygen 35 11/19/17 03:01 97 17 120/51 (74) 94 Humidified Oxygen 35 11/19/17 02:01 100 16 99/56 (70) 94 Humidified Oxygen 35 11/19/17 01:07 93 Humidified Oxygen 35 Mask 11/19/17 01:01 101 27 125/85 (98) 91 Humidified Oxygen 35 11/19/17 00:01 36.8 102 20 122/62 (82) 92 Humidified Oxygen 35 11/18/17 23:01 102 16 103/56 (72) 94 Humidified Oxygen 35 11/18/17 22:01 103 18 118/56 (76) 94 Humidified Oxygen 35 11/18/17 21:01 105 17 117/59 (78) 95 Humidified Oxygen 35 11/18/17 20:03 93 Oxymask 6.0 Humidified Oxygen 11/18/17 20:02 38.1 128 22 117/77 (90) 92 Humidified Oxygen 35 11/18/17 19:02 137 22 123/82 (96) 92 Humidified Oxygen 35 11/18/17 18:02 37.3 113 22 144/72 (96) 93 Humidified Oxygen 35 11/18/17 17:01 105 20 140/84 (102) 95 Humidified Oxygen 35 11/18/17 16:01 37.4 115 19 134/80 (98) 93 Humidified Oxygen 35 11/18/17 16:00 Humidified Oxygen 35 Mask 11/18/17 15:01 105 17 137/83 (101) 98 Humidified Oxygen 40 11/18/17 14:01 125 17 126/73 (90) 94 Humidified Oxygen 50 3/25/18 13:01 139 18 128/73 (91) 92 Humidified Oxygen 50 11/18/17 12:12 103 14 121/61 (81) 99 Mechanical Ventilator 40 11/18/17 12:01 36.9 105 12 121/61 (81) 100 Mechanical Ventilator 40 11/18/17 12:00 CPAP 40 Mechanical Ventilator 11/18/17 12:00 40 11/18/17 11:45 40 11/18/17 11:31 114 13 104/63 (77) 98 Mechanical Ventilator 40 11/18/17 11:01 120 14 133/65 (87) 99 Mechanical Ventilator 40 11/18/17 10:16 40 11/18/17 10:00 90 14 111/50 (70) 98 Mechanical Ventilator 40 Physical Exam General Appearance: no apparent distress Neck: no JVD Respiratory/Chest: no respiratory distress, no accessory muscle use Cardiovascular: no JVD Extremities: normal inspection Neurologic/Psychiatric: + disoriented, + pertinent finding (Pt with AMS, resting. ) Skin: normal color Laboratory Results Last 24 Hours Test 11/18/17 12:04 11/18/17 12:08 11/19/17 05:17 11/19/17 06:05 Bedside Glucose 96 mg/dl Blood Gas Sample Site R Radial L Radial Bedside Blood Gas pH (LAB) 7.51 7.51 Bedside Blood Gas pCO2 (LAB) 42 mmHg 45 mmHg Bedside Blood Gas pO2 (LAB) 84 mmHg 60 mmHg Bedside Blood Gas HCO3 (LAB) 34 meq/L 36 meq/L Bedside Blood Gas Total CO2 35 mEq/l 38 mEq/l Bedside Blood Gas Base Excess (LAB) 10.0 meq/L 13.0 meq/L Bedside Blood Gas O2 Saturation 97.0 % 93.0 % Bhavesh Test Pass Pass Oxygen Delivery Device Ventilator Other Bedside FiO2 40 % 40 % Blood Gas PEEP 5 White Blood Count 22.17 K/uL Red Blood Count 3.37 M/uL Hemoglobin 10.7 g/dL Hematocrit 31.0 % Mean Corpuscular Volume 92.0 fL Mean Corpuscular Hemoglobin 31.8 pg Mean Corpuscular Hemoglobin Concent 34.5 g/dl Platelet Count 90 K/uL Mean Platelet Volume 10.7 fL Neutrophils (%) (Auto) 86.2 % Lymphocytes (%) (Auto) 6.2 % Monocytes (%) (Auto) 6.3 % Eosinophils (%) (Auto) 0.3 % Basophils (%) (Auto) 0.1 % Neutrophils # (Auto) 19.13 K/uL Lymphocytes # (Auto) 1.37 K/uL Monocytes # (Auto) 1.39 K/uL Eosinophils # (Auto) 0.06 K/uL Basophils # (Auto) 0.02 K/uL RDW Standard Deviation 46.6 fL RDW Coefficient of Variation 13.9 % Immature Granulocyte % (Auto) 0.9 % Immature Granulocyte # (Auto) 0.20 K/uL Prothrombin Time 11.9 SECONDS Prothromb Time International Ratio 1.1 Sodium Level 142 mmol/L Potassium Level 3.1 mmol/L Chloride Level 102 mmol/L Carbon Dioxide Level 36 mmol/L Anion Gap 5.0 mmol/L Blood Urea Nitrogen 15 mg/dl Creatinine 0.44 mg/dl Est Creatinine Clear Calc Drug Dose 90.9 ml/min Estimated GFR () 106.7 Estimated GFR (Non- 92.0 BUN/Creatinine Ratio 34.4 Random Glucose 116 mg/dl Calcium Level 7.6 mg/dl Phosphorus Level 1.8 mg/dl Magnesium Level 1.5 mg/dl Total Bilirubin 0.9 mg/dl Direct Bilirubin 0.3 mg/dl Aspartate Amino Transf (AST/SGOT) 19 U/L Alanine Aminotransferase (ALT/SGPT) 18 U/L Alkaline Phosphatase 168 U/L Total Protein 5.3 gm/dl Albumin 2.0 gm/dl Assessment and Plan POD #7 s/p cysto and right ureteral stent placement for ureteral stone with sepsis. Pt will need 10-14 days of IV abx to appropriately tx infection. Consider consulting ID for input. Continue lopez catheter until the pt is clinically improved and more ambulatory. Will need definitive management of stone once her infection has been adequately treated and prognosis improved. No further management at this time. Will sign off for now. Recall PRN issues. Will arrange for outpatient f/u with Dr. Schneiedr.
--- NOTE | 2017-11-19 09:45 | Critical Care Progress Note ---
Critical Care Progress Note Date of Service Nov 19, 2017. ICU Day ICU Day Number: [address] Castillo Subjective No overnight events. Review of systems not able to be obtained secondary to history of dementia and acute encephalopathy. Objective Her physical exam on November 13, 2017, showed no fever, blood pressure remains supported by pressors, S1-S2 regular rate and rhythm, tachycardic, lungs with distant breath sounds, abdomen is soft and benign, lower extremity no edema. Her labs showed elevated white count and BUN/creatinine has been elevated but stable, CAT scan of the abdomen was reviewed which showed right-sided hydronephrosis and large urolithiasis. No evidence of pyelonephritis. Physical exam on November 14, 2017, showed no fever again, blood pressure has been maintained, O2 saturation is 94% on nasal cannula, S1-S2 regular rate and rhythm , lungs were distant clear, abdomen nontender and soft, no edema. Her labs also were reviewed for today which showed positive C. difficile antigen by PCR in the stool. Physical exam on November 15, 2017, patient did not have any fever, her O2 saturation remains 94% on nasal cannula, S1-S2, regular rate and rhythm, minimal crackles mainly at the bases, abdomen is soft but minimally tender at the pelvic area, no edema. Blood pressure most recently reported 104/52. Urine output is adequate. Physical exam on November 16, 2017, the patient is afebrile, her blood pressure is borderline, the patient is demented and confused and review of system was unobtainable, O2 saturation is 89% on 60% via the BiPAP. S1-S2 regular rate and rhythm. Lungs with bilateral diminished breath sounds, abdomen is soft but fluid shift were notable, anasarca, neurologically difficult to assess. Physical exam on November 17, 2017 showed the patient remains afebrile, vital signs currently are stable, she is not in wide-complex tachycardia anymore, she is in normal sinus rhythm. JVP. Heart examination S1-S2 regular rate and rhythm with slight tachycardia. Bilateral crackles right greater than left. Abdomen is soft but benign. Anasarca. Her laboratory were reviewed which showed hypokalemia, magnesium was borderline, BUN/creatinine has been stable, and continued to have thrombocytopenia. Imaging reviewed personally showing persistent infiltrates. Physical exam on November 18, 2017 revealed elderly female, currently intubated, no fever, appeared very lethargic, vital signs are stable, positive JVP, S1-S2 regular rate and rhythm, bilateral crackles right greater than left, abdomen is benign and soft, no edema in the periphery, sacral edema was noted. Laboratory and chest x-ray both were reviewed. She continued to have leukocytosis, hypokalemia which has been replaced, chest x-ray showed multiple patchy infiltrates bilaterally right greater than left. ET tube was still 6 cm above the jo-ann . Likely positional. Physical exam on November 19, 2017 revealed elderly female, currently intubated, appeared mildly agitated, vital signs are stable, positive JVP, S1-S2 regular rate and rhythm, bilateral crackles right greater than left, abdomen is benign and soft, no edema in the periphery. Laboratory and chest x-ray both were reviewed. She continued to have leukocytosis, hypokalemia which has been replaced, chest x-ray showed multiple patchy infiltrates bilaterally right greater than left. Assessment & Plan 1. Septic shock secondary to urolithiasis with hydronephrosis and UTI. E. coli with ESBL features. 2. Urolithiasis status post ureteral stenting. 3. Advanced dementia. 4. C. difficile colitis. 5. Anasarca. 7. Thrombocytopenia secondary to sepsis: Improving Plan: 1. Given 1 tab Neutra-Phos and 24 mmol K-Phos today 2. Give the patient magnesium sulfate 1 g IV today and then 400 mg magnesium oxide nightly 3. We will continue to monitor her leukocytes count. 4. Discontinue all sedating medication 5. Nasogastric tube, in place and tolerating tube feeds 6. Aggressive pulmonary toilet as able 7. ABG consistent with aggressive diuresis holding additional diuresis today 8. Wean oxygen as tolerated 9. Blood culture negative on November 16, will continue IV antibiotics for 10 days status post negative blood culture, will continue p.o. vancomycin for at least 1 week after discontinuation of all additional antibiotics 10. GI prophylaxis discontinued as patient is tolerating tube feeds, DVT prophylaxis reinstituted Lovenox 30 mg subcu daily 11. We will minimize his sedation and use soft restraints, currently still requiring soft wrist restraints, combative with staff 12. Discontinued all vasoactive medications from NOV 06. Will likely discontinue subclavian central line tomorrow. 14. Given increase in febrile nature, will add retention enemas at this time 15. Added metoprolol 12.5 mg twice daily 16. Potential physical therapy and out of bed in the morning. 17. The patient remains DNR. Case discussed with the staff on rounds and details. I have personally spent 60 minutes of critical care time in the direct management of this patient. This is a life/limb threatening event. This includes time spent evaluating patient, direct bedside care, chart review, placing orders, interpretation of diagnostic studies, discussion with consultants, patient, and/or family members regarding treatment decisions, as well as other required patient management activities. This time is exclusive of all separately billable procedures, and teaching time and separate from and in addition to any other critical care service time. Data Medications: Current Inpatient Medications Medications (Trade) Dose Ordered Sig/Tess Route Start Time Stop Time Status Last Admin Dose Admin Ondansetron HCl (Zofran Inj) 4 mg Q6H PRN IV 11/12/17 13:45 12/12/17 13:44 Donepezil HCl (Aricept Tab) 5 mg DAILY PO 11/13/17 09:00 12/13/17 08:59 11/19/17 08:50 5 MG Sertraline HCl (Zoloft Tab) 100 mg DAILY PO 11/13/17 09:00 12/13/17 08:59 11/19/17 08:50 100 MG Miscellaneous Information 1 ea UD PRN N/A 11/13/17 13:15 12/13/17 13:14 Imipenem/ Cilastatin Sodium 500 mg/Dextrose 110 ml @ 100 mls/hr Q6H IV 11/15/17 18:00 11/24/17 01:59 11/19/17 06:13 100 MLS/HR Vancomycin HCl (Vancomycin Oral Soln) 500 mg Q6H NG 11/16/17 12:00 11/30/17 11:59 11/19/17 06:13 500 MG Enteral Nutritional Formula (Peptamen 1.5) 1,000 ml goal = 50ml/hr OG 11/16/17 16:00 12/16/17 15:59 11/18/17 17:35 1,000 ML Acetaminophen (Tylenol Soln) 650 mg Q4H PRN PO 11/17/17 15:45 12/17/17 15:44 11/19/17 08:49 650 MG Hydromorphone HCl (Dilaudid Inj) 0.5 mg Q4 PRN IV 11/18/17 19:15 12/02/17 19:14 11/19/17 03:38 0.5 MG Metoprolol Tartrate (Lopressor Tab) 12.5 mg BID PO 11/19/17 09:30 12/19/17 09:29 11/19/17 09:26 12.5 MG Enoxaparin Sodium (Lovenox Inj) 30 mg QAM SQ 11/19/17 09:30 12/19/17 09:29 Potassium/ Phosphorus/Sodium (Phospha 250 Neutral 155-852-130 Mg) 1 tab NOW ONCE PO 11/19/17 09:30 11/19/17 09:31 11/19/17 09:27 1 TAB Potassium Phosphate 24 mmol/ Sodium Chloride 508 ml @ 125 mls/hr TODAY@0930 ONCE IV 11/19/17 09:30 11/19/17 13:33 11/19/17 09:26 125 MLS/HR Magnesium Sulfate 1 gm/Prmx 100 ml @ 100 mls/hr TODAY@0930 ONCE IV 11/19/17 09:30 11/19/17 10:29 Magnesium Oxide (Mag-Ox Tab) 400 mg HS PO 11/19/17 21:00 12/19/17 20:59 Vancomycin HCl (Vancomycin Enema) 500 mg Q6 MI 11/19/17 10:00 12/03/17 09:59 Vital Signs: Date Time Temp Pulse Resp B/P (MAP) Pulse Ox O2 Delivery O2 Flow Rate FiO2 11/19/17 06:01 96 18 109/59 (76) 98 Humidified Oxygen 35 11/19/17 05:02 118 19 130/71 (90) 100 Humidified Oxygen 35 11/19/17 04:28 93 Humidified Oxygen 35 Mask 11/19/17 04:01 95 18 102/56 (71) 91 Humidified Oxygen 35 11/19/17 03:01 97 17 120/51 (74) 94 Humidified Oxygen 35 11/19/17 02:01 100 16 99/56 (70) 94 Humidified Oxygen 35 11/19/17 01:07 93 Humidified Oxygen 35 Mask 11/19/17 01:01 101 27 125/85 (98) 91 Humidified Oxygen 35 11/19/17 00:01 36.8 102 20 122/62 (82) 92 Humidified Oxygen 35 11/18/17 23:01 102 16 103/56 (72) 94 Humidified Oxygen 35 11/18/17 22:01 103 18 118/56 (76) 94 Humidified Oxygen 35 11/18/17 21:01 105 17 117/59 (78) 95 Humidified Oxygen 35 11/18/17 20:03 93 Oxymask 6.0 Humidified Oxygen 11/18/17 20:02 38.1 128 22 117/77 (90) 92 Humidified Oxygen 35 11/18/17 19:02 137 22 123/82 (96) 92 Humidified Oxygen 35 11/18/17 18:02 37.3 113 22 144/72 (96) 93 Humidified Oxygen 35 11/18/17 17:01 105 20 140/84 (102) 95 Humidified Oxygen 35 11/18/17 16:01 37.4 115 19 134/80 (98) 93 Humidified Oxygen 35 11/18/17 16:00 Humidified Oxygen 35 Mask 11/18/17 15:01 105 17 137/83 (101) 98 Humidified Oxygen 40 11/18/17 14:01 125 17 126/73 (90) 94 Humidified Oxygen 50 11/18/17 13:01 139 18 128/73 (91) 92 Humidified Oxygen 50 11/18/17 12:12 103 14 121/61 (81) 99 Mechanical Ventilator 40 11/18/17 12:01 36.9 105 12 121/61 (81) 100 Mechanical Ventilator 40 11/18/17 12:00 CPAP 40 Mechanical Ventilator 11/18/17 12:00 40 11/18/17 11:45 40 11/18/17 11:31 114 13 104/63 (77) 98 Mechanical Ventilator 40 11/18/17 11:01 120 14 133/65 (87) 99 Mechanical Ventilator 40 11/18/17 10:16 40 11/18/17 10:00 90 14 111/50 (70) 98 Mechanical Ventilator 40 Laboratory Results: Last 24 Hours Test 11/18/17 12:04 11/18/17 12:08 11/19/17 05:17 11/19/17 06:05 Bedside Glucose 96 mg/dl Blood Gas Sample Site R Radial L Radial Bedside Blood Gas pH (LAB) 7.51 7.51 Bedside Blood Gas pCO2 (LAB) 42 mmHg 45 mmHg Bedside Blood Gas pO2 (LAB) 84 mmHg 60 mmHg Bedside Blood Gas HCO3 (LAB) 34 meq/L 36 meq/L Bedside Blood Gas Total CO2 35 mEq/l 38 mEq/l Bedside Blood Gas Base Excess (LAB) 10.0 meq/L 13.0 meq/L Bedside Blood Gas O2 Saturation 97.0 % 93.0 % Bhavesh Test Pass Pass Oxygen Delivery Device Ventilator Other Bedside FiO2 40 % 40 % Blood Gas PEEP 5 White Blood Count 22.17 K/uL Red Blood Count 3.37 M/uL Hemoglobin 10.7 g/dL Hematocrit 31.0 % Mean Corpuscular Volume 92.0 fL Mean Corpuscular Hemoglobin 31.8 pg Mean Corpuscular Hemoglobin Concent 34.5 g/dl Platelet Count 90 K/uL Mean Platelet Volume 10.7 fL Neutrophils (%) (Auto) 86.2 % Lymphocytes (%) (Auto) 6.2 % Monocytes (%) (Auto) 6.3 % Eosinophils (%) (Auto) 0.3 % Basophils (%) (Auto) 0.1 % Neutrophils # (Auto) 19.13 K/uL Lymphocytes # (Auto) 1.37 K/uL Monocytes # (Auto) 1.39 K/uL Eosinophils # (Auto) 0.06 K/uL Basophils # (Auto) 0.02 K/uL RDW Standard Deviation 46.6 fL RDW Coefficient of Variation 13.9 % Immature Granulocyte % (Auto) 0.9 % Immature Granulocyte # (Auto) 0.20 K/uL Prothrombin Time 11.9 SECONDS Prothromb Time International Ratio 1.1 Sodium Level 142 mmol/L Potassium Level 3.1 mmol/L Chloride Level 102 mmol/L Carbon Dioxide Level 36 mmol/L Anion Gap 5.0 mmol/L Blood Urea Nitrogen 15 mg/dl Creatinine 0.44 mg/dl Est Creatinine Clear Calc Drug Dose 90.9 ml/min Estimated GFR () 106.7 Estimated GFR (Non- 92.0 BUN/Creatinine Ratio 34.4 Random Glucose 116 mg/dl Calcium Level 7.6 mg/dl Phosphorus Level 1.8 mg/dl Magnesium Level 1.5 mg/dl Total Bilirubin 0.9 mg/dl Direct Bilirubin 0.3 mg/dl Aspartate Amino Transf (AST/SGOT) 19 U/L Alanine Aminotransferase (ALT/SGPT) 18 U/L Alkaline Phosphatase 168 U/L Total Protein 5.3 gm/dl Albumin 2.0 gm/dl
[2017-11-19] MEDS ORDERED: IMIPENEM/CILASTATIN CONSULT ACTIVE PRN (11:00)
--- NOTE | 2017-11-19 12:15 | Clinical Documentation Query ---
CLINICAL DOCUMENTATION QUERY 87-y/o female with septic stone in right mid/proximal ureter. on 11/16 patient required intubation and several days of IV Lasix administration. In your clinical opinion is this patient being managed for: ( ) Acute diastolic (preserved EF) heart failure ( + ) Not Agree May has had fluid overload/Anasarca as mentioned. .Doubt any Heart failure ( ) Other explanation of clinical findings (Please Explain) ( ) Unable to determine (Please Define) ( ) Need to Discuss The medical record reflects the following clinical findings, treatment, and risk factors. Clinical Indicators: Vocal Artist PERLA note, "At this point, she is on a 7 L oxygen mask with oxygen saturations in the high 80s. I did evaluate the patient and she had rails appreciated throughout the lower and posterior lung garcia bilaterally. She has wheezes at the apices of the lungs, LEFT greater than right. At this point, I did order chest x-ray. Per my interpretation, the patient has developed acute pulmonary edema with likely infiltrative change appreciated to the RIGHT lower lobe. At this point, I did order a dose of 40 mg IV Lasix as well as 12.5 g of 25% albumin. I personally placed orders for BiPAP to aid in oxygenation." Echo from this admission shows EF of 50-55% with Grade I diastolic dysfunction. Treatment: IV Lasix, IV albumin, mechanical ventilation Risk Factors: Age, Sepsis, pneumonia, IVF resusitation. Please clarify and document your clinical opinion in the progress notes and discharge summary. Terms such as "probable", "suspected", "likely", "questionable", "possible", or "still to be ruled out" are acceptable. IF IN AGREEMENT, YOU MUST DOCUMENT ABOVE DIAGNOSTIC STATEMENT IN DAILY PROGRESS NOTES AND DISCHARGE SUMMARY. This document is not part of the patient's record. Thank You, Kole Law, RN [phone]
--- NOTE | 2017-11-19 12:17 | Clinical Documentation Query ---
CLINICAL DOCUMENTATION QUERY 87-y/o female with septic stone in right mid/proximal ureter. on 11/16 patient required intubation and several days of IV Lasix administration. In your clinical opinion is this patient being managed for: ( ) Acute diastolic (preserved EF) heart failure occurring 11/16-11/18 treated with diuretics. ( ) Not Agree ( ) Other explanation of clinical findings (Please Explain) (X ) Unable to determine (Please Define) ( ) Need to Discuss Please request Dr. Butler to speak on his opinion The medical record reflects the following clinical findings, treatment, and risk factors. Clinical Indicators: Dairy Farmer PA note, "At this point, she is on a 7 L oxygen mask with oxygen saturations in the high 80s. I did evaluate the patient and she had rails appreciated throughout the lower and posterior lung garcia bilaterally. She has wheezes at the apices of the lungs, LEFT greater than right. At this point, I did order chest x-ray. Per my interpretation, the patient has developed acute pulmonary edema with likely infiltrative change appreciated to the RIGHT lower lobe. At this point, I did order a dose of 40 mg IV Lasix as well as 12.5 g of 25% albumin. I personally placed orders for BiPAP to aid in oxygenation." Echo from this admission shows EF of 50-55% with Grade I diastolic dysfunction. Treatment: IV Lasix, IV albumin, mechanical ventilation Risk Factors: Age, Sepsis, pneumonia, IVF resuscitation. Please clarify and document your clinical opinion in the progress notes and discharge summary. Terms such as "probable", "suspected", "likely", "questionable", "possible", or "still to be ruled out" are acceptable. IF IN AGREEMENT, YOU MUST DOCUMENT ABOVE DIAGNOSTIC STATEMENT IN DAILY PROGRESS NOTES AND DISCHARGE SUMMARY. This document is not part of the patient's record. Thank You, Kole Law, RN [phone]
[2017-11-19] MEDS: PEPTAMEN 1.5 CAL 1000ML BAG OG SCH (13:44)
[2017-11-19] MEDS: VANCOMYCIN ENEMA PR SCH ×3 (13:49→23:15)
[2017-11-19] MEDS: DEXTROSE 5% IV SCH ×2 (13:49→19:36)
[2017-11-19] MEDS: IMIPENEM IV SCH ×2 (13:49→19:36)
[2017-11-19] MEDS: CILASTATIN IV SCH ×2 (13:49→19:36)
--- NOTE | 2017-11-19 15:51 | Progress Note ---
Internal Med Progress Note Date of Service: Nov 19, 2017. Provider Documentation: SUBJECTIVE: The patient was seen and examined in ICU S/P Rt Ureteric obstructing stone removal and stent placement Clinically better than yesterday Pleasantly confused otherwise no complaints 11/15: More weak and drowsy today Not in any acute distress Still requiring pressors 11/16 Condition deteriorated Required intubation this AM 11/17 Has had Torsade and Arrhythmia Remains stable on Vent 11/18 Remains on VENT,likely to come off Vent today Clinically a little better 11/19 S/P Extubation and Off Pressors Remains stable and clinically a little better OBJECTIVE: Vital Signs-as noted below Exam: General-No apparent distress Eyes-normal ENT-normal Neck-supple Lungs-decreased breath sound bilaterally Occasional crackles at the bases Heart-Regular,no murmur appreciated Abdomen-Benign,no masses Extremities-No edema Neuro-advanced dementia Lab data as noted below. ASSESSMENT & PLAN: Cardiac Arrhythmia/Electrolytes Imbalance Torsades de pointes Received IV electrolytes and replace accordingly No more episodes Small dose of BB added Hypoxic Respiratory Failure Required Intubation Appreciate Delinquent Tax Collector Assistant input and care Family members updated by the Delinquent Tax Collector Assistant Aggressive management for the next 3 days Remains stable on VENT-likely to extubate today 11/18 S/O Extubation Clinically a little better SEVERE SEPSIS SECONDARY TO COMPLICATED UTI with EBLS,MDR -Initially admitted to telemetry however transferred to ICU for persistent HYPOTENSION -Patient presenting from home after having a large amount of diarrhea this morning and a fall -On presentation, leukopenic WBC 1.6, mildly tachycardic at times with heart rate in the 110's, afebrile -Patient received appropriate IVF resuscitation and had persistent hypotension -Lactic acid 4.8, recheck in 6 hours and decreased -S/P oral Bactrim and IV ceftriaxone in the ED; will continue with IV ceftriaxone (patient is from home and no documented history of resistant bacteria) -WCC increased to >28 K -Urine and Blood cultures -Gm negative Bacilli -Multidrug Resistant Organism -Antibiotic changed to Cefepime and Ciprofloxacin -Antibiotic changed to Imipenem -Clinically not any better -Repeat CT -no obstruction -continue current antibiotic as per Urology recommendation Hypotension-Secondary to Septic Shock Due to sepsis Did not response to IVF Required pressors in ICU BP seems better this AM Trying to wean off Pressors Continue pressor support -now on Dolamin Pressors are off Monitor OBSTRUCTIVE RIGHT HYDRONEPHROSIS DUE TO OBSTRUCTING CALCULUS s/p REMOVAL AND STENT PLACEMENT Appreciate Urology input Will need IV antibiotic for [address] looks better too YEHUDA Secondary to Hydronephrosis Complicated by dehydration and sepsis Continue IV Fluid Improving and will monitor -Improved and Normalized ALZHEIMER'S -Continue donepezil and sertraline -may have acute Delirium DVT PROPHYLAXIS -SQ Lovenox and now on SQ Heparin CODE STATUS -Patient is a full code as per my discussion with her daughter, Alexa. -Discussed with the Daughter -Prognosis poor -aggressive treatment for the next day or two before making her comfort care only Vital Signs: Date Time Temp Pulse Resp B/P (MAP) Pulse Ox O2 Delivery O2 Flow Rate FiO2 11/19/17 14:00 84 20 111/56 (74) 96 Nasal Cannula 3.0 Humidified Oxygen 11/19/17 12:00 109 17 126/74 (91) 96 Nasal Cannula 3.0 Humidified Oxygen 11/19/17 12:00 99 Nasal Cannula 3.0 Humidified Oxygen 11/19/17 11:00 93 19 107/84 (92) 96 Nasal Cannula 3.0 Humidified Oxygen 11/19/17 10:06 37.4 11/19/17 10:00 95 16 124/64 (84) 100 Nasal Cannula 3.0 Humidified Oxygen 11/19/17 09:00 106 18 132/76 (94) 98 Nasal Cannula 3.0 Humidified Oxygen 11/19/17 08:00 Nasal Cannula 4.0 Humidified Oxygen 11/19/17 08:00 38.5 98 21 133/60 (84) 100 Nasal Cannula 4.0 Humidified Oxygen 11/19/17 07:00 99 23 120/67 (84) 100 Humidified Oxygen 35 11/19/17 06:01 96 18 109/59 (76) 98 Humidified Oxygen 35 11/19/17 05:02 118 19 130/71 (90) 100 Humidified Oxygen 35 11/19/17 04:28 93 Humidified Oxygen 35 Mask 11/19/17 04:01 95 18 102/56 (71) 91 Humidified Oxygen 35 11/19/17 03:01 97 17 120/51 (74) 94 Humidified Oxygen 35 11/19/17 02:01 100 16 99/56 (70) 94 Humidified Oxygen 35 11/19/17 01:07 93 Humidified Oxygen 35 Mask 11/19/17 01:01 101 27 125/85 (98) 91 Humidified Oxygen 35 11/19/17 00:01 36.8 102 20 122/62 (82) 92 Humidified Oxygen 35 11/18/17 23:01 102 16 103/56 (72) 94 Humidified Oxygen 35 11/18/17 22:01 103 18 118/56 (76) 94 Humidified Oxygen 35 11/18/17 21:01 105 17 117/59 (78) 95 Humidified Oxygen 35 11/18/17 20:03 93 Oxymask 6.0 Humidified Oxygen 11/18/17 20:02 38.1 128 22 117/77 (90) 92 Humidified Oxygen 35 11/18/17 19:02 137 22 123/82 (96) 92 Humidified Oxygen 35 11/18/17 18:02 37.3 113 22 144/72 (96) 93 Humidified Oxygen 35 11/18/17 17:01 105 20 140/84 (102) 95 Humidified Oxygen 35 11/18/17 16:01 37.4 115 19 134/80 (98) 93 Humidified Oxygen 35 11/18/17 16:00 Humidified Oxygen 35 Mask Lab Results: Results Past 24 Hours Test 11/19/17 05:17 11/19/17 06:05 11/19/17 11:59 Range/Units White Blood Count 22.17 4.8-10.8 K/uL Red Blood Count 3.37 4.2-5.4 M/uL Hemoglobin 10.7 12.0-16.0 g/dL Hematocrit 31.0 37-47 % Mean Corpuscular Volume 92.0 80-100 fL Mean Corpuscular Hemoglobin 31.8 25-34 pg Mean Corpuscular Hemoglobin Concent 34.5 32-36 g/dl Platelet Count 90 130-400 K/uL Mean Platelet Volume 10.7 7.4-10.4 fL Neutrophils (%) (Auto) 86.2 % Lymphocytes (%) (Auto) 6.2 % Monocytes (%) (Auto) 6.3 % Eosinophils (%) (Auto) 0.3 % Basophils (%) (Auto) 0.1 % Neutrophils # (Auto) 19.13 1.4-6.5 K/uL Lymphocytes # (Auto) 1.37 1.2-3.4 K/uL Monocytes # (Auto) 1.39 0.11-0.59 K/uL Eosinophils # (Auto) 0.06 0-0.5 K/uL Basophils # (Auto) 0.02 0-0.2 K/uL RDW Standard Deviation 46.6 36.4-46.3 fL RDW Coefficient of Variation 13.9 11.5-14.5 % Immature Granulocyte % (Auto) 0.9 % Immature Granulocyte # (Auto) 0.20 0.00-0.02 K/uL Prothrombin Time 11.9 9.0-12.0 SECONDS Prothromb Time International Ratio 1.1 0.9-1.1 Sodium Level 142 136-145 mmol/L Potassium Level 3.1 3.5-5.1 mmol/L Chloride Level 102 98-107 mmol/L Carbon Dioxide Level 36 21-32 mmol/L Anion Gap 5.0 3-11 mmol/L Blood Urea Nitrogen 15 7-18 mg/dl Creatinine 0.44 0.60-1.20 mg/dl Est Creatinine Clear Calc Drug Dose 90.9 ml/min Estimated GFR () 106.7 Estimated GFR (Non- 92.0 BUN/Creatinine Ratio 34.4 10-20 Random Glucose 116 70-99 mg/dl Calcium Level 7.6 8.5-10.1 mg/dl Phosphorus Level 1.8 2.5-4.9 mg/dl Magnesium Level 1.5 1.8-2.4 mg/dl Total Bilirubin 0.9 0.2-1 mg/dl Direct Bilirubin 0.3 0-0.2 mg/dl Aspartate Amino Transf (AST/SGOT) 19 15-37 U/L Alanine Aminotransferase (ALT/SGPT) 18 12-78 U/L Alkaline Phosphatase 168 45-117 U/L Total Protein 5.3 6.4-8.2 gm/dl Albumin 2.0 3.4-5.0 gm/dl Blood Gas Sample Site L Radial Bedside Blood Gas pH (LAB) 7.51 7.35-7.45 Bedside Blood Gas pCO2 (LAB) 45 35-46 mmHg Bedside Blood Gas pO2 (LAB) 60 80-95 mmHg Bedside Blood Gas HCO3 (LAB) 36 19-24 meq/L Bedside Blood Gas Total CO2 38 24-31 mEq/l Bedside Blood Gas Base Excess (LAB) 13.0 -9-1.8 meq/L Bedside Blood Gas O2 Saturation 93.0 90-95 % Bhavesh Test Pass Oxygen Delivery Device Other Bedside FiO2 40 % Bedside Glucose 139 70-90 mg/dl
[2017-11-19] MEDS: MAGNESIUM OXIDE 400 MG TAB PO SCH (20:55)
[2017-11-20] VITALS (30 sets, daily range): BP systolic 113–165; BP diastolic 56–86; PULSE 79–118; TEMP 36–38.1; O2SAT 95–100
[2017-11-20] MEDS: CILASTATIN IV SCH ×2 (04:18→11:37)
[2017-11-20] MEDS: DEXTROSE 5% IV SCH ×2 (04:18→11:37)
[2017-11-20] MEDS: IMIPENEM IV SCH ×2 (04:18→11:37)
[2017-11-20] MEDS: HYDROmorphone INJ 0.5 MG/0.5 ML SYR IV PRN (04:30)
[2017-11-20] MEDS: VANCOMYCIN HCL 500 MG/10ML SOLN NG SCH ×3 (05:44→18:59)
[2017-11-20] MEDS: VANCOMYCIN ENEMA PR SCH ×3 (05:45→18:59)
[2017-11-20 05:53] LABS: HEMATOCRIT 30.1 % (37-47); MEAN CELL VOLUME 91.8 fL (80-100); MEAN CORPUSCULAR HEMOGLOBIN 30.5 pg (25-34); MEAN CORPUSCULAR HGB CONC 33.2 g/dl (32-36); MEAN PLATELET VOLUME 10.6 fL (7.4-10.4); PLATELET COUNT 120 K/uL (130-400); RED CELL DISTRIBUTION WIDTH CV 13.8 % (11.5-14.5); RED CELL DISTRIBUTION WIDTH SD 46.4 fL (36.4-46.3); WHITE BLOOD COUNT 18.35 K/uL (4.8-10.8)
[2017-11-20 06:22] LABS: ALBUMIN 1.8 gm/dl (3.4-5.0); CALCIUM 7.6 mg/dl (8.5-10.1); CREATININE 0.33 mg/dl (0.60-1.20); POTASSIUM 3.3 mmol/L (3.5-5.1)
[2017-11-20 06:25] LABS: PHOSPHORUS 2.1 mg/dl (2.5-4.9)
[2017-11-20] MEDS ORDERED: POT PHOSPHATE MONOBASIC W/ SOD TAB PO STA (06:34)
[2017-11-20] MEDS: POTASSIUM CHLORIDE 20 MEQ/15 ML UDC PO SCH ×3 (08:26→15:14)
[2017-11-20] MEDS: DONEPEZIL HCL 5 MG TAB PO SCH (08:28)
[2017-11-20] MEDS: SERTRALINE HCL 100 MG TAB PO SCH (08:28)
[2017-11-20] MEDS: METOPROLOL TARTRATE 25 MG TAB PO SCH ×2 (08:29→21:01)
[2017-11-20] MEDS: ENOXAPARIN 30 MG/0.3 ML SYR SQ SCH (08:31)
[2017-11-20] MEDS ORDERED: ACETAMINOPHEN 325 MG TAB PO PRN (10:45)
[2017-11-20] MEDS ORDERED: OXYCODONE HCL IR 5 MG TAB (IMMEDIATE RELEASE) PO PRN ×2 (10:45)
[2017-11-20] MEDS ORDERED: POTASSIUM PHOSPHATE INJ 15 MMOL in SODIUM CHLORIDE 0.9% 250ML 250 ML IV ONE (11:00)
[2017-11-20] MEDS: PEPTAMEN 1.5 CAL 1000ML BAG OG SCH (13:57)
[2017-11-20] MEDS ORDERED: HALOPERIDOL LACTATE 5 MG/ML 1 ML VIAL IV STA (17:07)
--- NOTE | 2017-11-20 17:14 | Critical Care Progress Note ---
Critical Care Progress Note Date of Service Nov 20, 2017. ICU Day ICU Day Number: [address] Castillo Subjective Overnight events: Patient required 2 doses of Dilaudid for pain Still combative at times and pulling at NG tube Review of systems unable to be obtained secondary to patient's dementia Objective Her physical exam on November 13, 2017, showed no fever, blood pressure remains supported by pressors, S1-S2 regular rate and rhythm, tachycardic, lungs with distant breath sounds, abdomen is soft and benign, lower extremity no edema. Her labs showed elevated white count and BUN/creatinine has been elevated but stable, CAT scan of the abdomen was reviewed which showed right-sided hydronephrosis and large urolithiasis. No evidence of pyelonephritis. Physical exam on November 14, 2017, showed no fever again, blood pressure has been maintained, O2 saturation is 94% on nasal cannula, S1-S2 regular rate and rhythm , lungs were distant clear, abdomen nontender and soft, no edema. Her labs also were reviewed for today which showed positive C. difficile antigen by PCR in the stool. Physical exam on November 15, 2017, patient did not have any fever, her O2 saturation remains 94% on nasal cannula, S1-S2, regular rate and rhythm, minimal crackles mainly at the bases, abdomen is soft but minimally tender at the pelvic area, no edema. Blood pressure most recently reported 104/52. Urine output is adequate. Physical exam on November 16, 2017, the patient is afebrile, her blood pressure is borderline, the patient is demented and confused and review of system was unobtainable, O2 saturation is 89% on 60% via the BiPAP. S1-S2 regular rate and rhythm. Lungs with bilateral diminished breath sounds, abdomen is soft but fluid shift were notable, anasarca, neurologically difficult to assess. Physical exam on November 17, 2017 showed the patient remains afebrile, vital signs currently are stable, she is not in wide-complex tachycardia anymore, she is in normal sinus rhythm. JVP. Heart examination S1-S2 regular rate and rhythm with slight tachycardia. Bilateral crackles right greater than left. Abdomen is soft but benign. Anasarca. Her laboratory were reviewed which showed hypokalemia, magnesium was borderline, BUN/creatinine has been stable, and continued to have thrombocytopenia. Imaging reviewed personally showing persistent infiltrates. Physical exam on November 18, 2017 revealed elderly female, currently intubated, no fever, appeared very lethargic, vital signs are stable, positive JVP, S1-S2 regular rate and rhythm, bilateral crackles right greater than left, abdomen is benign and soft, no edema in the periphery, sacral edema was noted. Laboratory and chest x-ray both were reviewed. She continued to have leukocytosis, hypokalemia which has been replaced, chest x-ray showed multiple patchy infiltrates bilaterally right greater than left. ET tube was still 6 cm above the jo-ann . Likely positional. Physical exam on November 19, 2017 revealed elderly female, currently intubated, appeared mildly agitated, vital signs are stable, positive JVP, S1-S2 regular rate and rhythm, bilateral crackles right greater than left, abdomen is benign and soft, no edema in the periphery. Laboratory and chest x-ray both were reviewed. She continued to have leukocytosis, hypokalemia which has been replaced, chest x-ray showed multiple patchy infiltrates bilaterally right greater than left. Physical exam on November 20, 2017 revealed elderly female, currently intubated, appeared mildly agitated, vital signs are stable, S1-S2 regular rate and rhythm , bilateral crackles right greater than left, abdomen is benign and soft, no edema in the periphery. Laboratory were reviewed. She continued to have leukocytosis, hypokalemia which has been replaced Assessment & Plan 1. Septic shock secondary to urolithiasis with hydronephrosis and UTI. E. coli with ESBL features. 2. Urolithiasis status post ureteral stenting. 3. Advanced dementia. 4. C. difficile colitis. 5. Anasarca. 7. Thrombocytopenia secondary to sepsis: Improving Plan: 1. Given potassium replacement today 2. 400 mg magnesium oxide nightly 3. We will continue to monitor her leukocytes count. 4. Discontinue all sedating medication 5. Nasogastric tube, in place and tolerating tube feeds 6. Aggressive pulmonary toilet as able 7. Goal fluid balance to remain even 8. Wean oxygen as tolerated 9. Blood culture negative on November 16, will continue IV antibiotics for 10 days status post negative blood culture, will continue p.o. vancomycin for at least 1 week after discontinuation of all additional antibiotics 10. GI prophylaxis discontinued as patient is tolerating tube feeds, DVT prophylaxis reinstituted Lovenox 30 mg subcu daily 11. We will minimize his sedation and use soft restraints, still remains combative with staff 12. Discontinued all vasoactive medications from NOV 06. Discontinue subclavian central line today status post PICC placement 14. Retention enemas for 5 days 15. Tolerating metoprolol 16. Attempt to engage family to assist with reorientation, will need rehabilitation services long-term. 17. The patient remains DNR. Case discussed with the staff on rounds and details. Acute active critical CARE issues have largely resolved. Patient would be stable for downgrade out of the ICU as we transition to chronic care following severe sepsis with septic shock Data Medications: Current Inpatient Medications Medications (Trade) Dose Ordered Sig/Tess Route Start Time Stop Time Status Last Admin Dose Admin Ondansetron HCl (Zofran Inj) 4 mg Q6H PRN IV 11/12/17 13:45 12/12/17 13:44 Donepezil HCl (Aricept Tab) 5 mg DAILY PO 11/13/17 09:00 12/13/17 08:59 11/20/17 08:28 5 MG Sertraline HCl (Zoloft Tab) 100 mg DAILY PO 11/13/17 09:00 12/13/17 08:59 11/20/17 08:28 100 MG Vancomycin HCl (Vancomycin Oral Soln) 500 mg Q6H NG 11/16/17 12:00 12/02/17 23:59 11/20/17 11:37 500 MG Enteral Nutritional Formula (Peptamen 1.5) 1,000 ml goal = 50ml/hr OG 11/16/17 16:00 12/16/17 15:59 11/20/17 13:57 1,000 ML Metoprolol Tartrate (Lopressor Tab) 12.5 mg BID PO 11/19/17 09:30 12/19/17 09:29 11/20/17 08:29 12.5 MG Enoxaparin Sodium (Lovenox Inj) 30 mg QAM SQ 11/19/17 09:30 12/19/17 09:29 11/20/17 08:31 30 MG Magnesium Oxide (Mag-Ox Tab) 400 mg HS PO 11/19/17 21:00 12/19/17 20:59 11/19/17 20:55 400 MG Vancomycin HCl (Vancomycin Enema) 500 mg Q6 AR 11/19/17 10:00 11/24/17 11:59 11/20/17 11:37 500 MG Imipenem/ Cilastatin Sodium (Consult) 1 ea UD PRN N/A 11/19/17 11:00 12/19/17 10:59 Heparin Sodium (Porcine) (Heparin 10 Unit/ ml 5 ml Flush) 5 ml PRN PRN FLUSH 11/19/17 16:15 12/19/17 16:14 Acetaminophen (Tylenol Tab) 975 mg Q6H PRN PO 11/20/17 10:45 12/17/17 15:44 Oxycodone HCl (Roxicodone Immediate Rel Tab) 5 mg Q6H PRN PO 11/20/17 10:45 12/04/17 10:44 Oxycodone HCl (Roxicodone Immediate Rel Tab) 10 mg Q6H PRN PO 11/20/17 10:45 12/04/17 10:44 Imipenem/ Cilastatin Sodium 1000 mg/Dextrose 270 ml @ 250 mls/hr Q8H IV 11/20/17 20:00 11/25/17 23:59 I & O: 24-Hour Column 11/21/17 07:59 Intake Total 815 ml Output Total 725 ml Balance 90 ml Vital Signs: Date Time Temp Pulse Resp B/P (MAP) Pulse Ox O2 Delivery O2 Flow Rate FiO2 11/20/17 16:00 100 Nasal Cannula 3.0 Humidified Oxygen 11/20/17 15:00 87 24 100 11/20/17 14:01 85 24 134/75 (94) 100 11/20/17 14:00 84 23 100 11/20/17 13:01 89 22 137/76 (96) 99 11/20/17 13:00 86 25 99 11/20/17 12:01 38.1 86 21 133/74 (93) 100 Nasal Cannula 3.0 Humidified Oxygen 11/20/17 12:00 100 Nasal Cannula 3.0 Humidified Oxygen 11/20/17 12:00 82 21 100 11/20/17 11:03 88 28 158/69 (98) 100 Nasal Cannula 3.0 Humidified Oxygen 11/20/17 11:00 93 24 95 11/20/17 10:01 85 18 128/69 (88) 100 11/20/17 10:00 80 22 100 11/20/17 09:01 96 20 130/80 (97) 100 Nasal Cannula 3.0 Humidified Oxygen 11/20/17 09:00 87 21 100 11/20/17 08:15 100 Nasal Cannula 3.0 Humidified Oxygen 11/20/17 08:01 38.1 116 25 140/72 (94) 96 Nasal Cannula 3.0 Humidified Oxygen 11/20/17 08:00 118 30 95 11/20/17 07:01 86 20 113/56 (75) 100 Nasal Cannula 3.0 Humidified Oxygen 11/20/17 07:00 85 28 100 11/20/17 06:18 98 16 131/67 (88) 100 Nasal Cannula 3.0 Humidified Oxygen 11/20/17 05:01 84 24 121/66 (84) 98 Nasal Cannula 3.0 Humidified Oxygen 11/20/17 04:02 37.2 102 24 133/75 (94) 96 Nasal Cannula 3.0 Humidified Oxygen 11/20/17 04:00 100 Nasal Cannula 3.0 Humidified Oxygen 11/20/17 02:01 85 24 135/68 (90) 98 Nasal Cannula 3.0 Humidified Oxygen 11/20/17 00:01 37.4 79 21 132/62 (85) 100 Nasal Cannula 3.0 Humidified Oxygen 11/19/17 23:59 100 Nasal Cannula 3.0 Humidified Oxygen 11/19/17 22:02 85 25 130/69 (89) 100 Nasal Cannula 3.0 Humidified Oxygen 11/19/17 20:01 37.7 99 22 139/66 (90) 97 Nasal Cannula 3.0 Humidified Oxygen 11/19/17 20:00 100 Nasal Cannula 3.0 Humidified Oxygen 11/19/17 18:00 91 22 133/71 (91) 100 Nasal Cannula 3.0 Humidified Oxygen Laboratory Results: Last 24 Hours Test 11/19/17 17:40 11/19/17 23:12 11/20/17 05:41 11/20/17 05:42 Bedside Glucose 102 mg/dl 81 mg/dl 127 mg/dl White Blood Count 18.35 K/uL Red Blood Count 3.28 M/uL Hemoglobin 10.0 g/dL Hematocrit 30.1 % Mean Corpuscular Volume 91.8 fL Mean Corpuscular Hemoglobin 30.5 pg Mean Corpuscular Hemoglobin Concent 33.2 g/dl RDW Standard Deviation 46.4 fL RDW Coefficient of Variation 13.8 % Platelet Count 120 K/uL Mean Platelet Volume 10.6 fL Venous Blood pH 7.47 Venous Blood Partial Pressure CO2 47 mmHg Venous Blood Partial Pressure O2 41 mmHg Venous Blood HCO3 34 mmol/L Venous Blood Oxygen Saturation 75.0 % Venous Blood Base Excess 9.2 mEq/L Sodium Level 142 mmol/L Potassium Level 3.3 mmol/L Chloride Level 103 mmol/L Carbon Dioxide Level 33 mmol/L Anion Gap 6.0 mmol/L Blood Urea Nitrogen 16 mg/dl Creatinine 0.33 mg/dl Est Creatinine Clear Calc Drug Dose 121.2 ml/min Estimated GFR () 117.3 Estimated GFR (Non- 101.2 BUN/Creatinine Ratio 49.0 Random Glucose 118 mg/dl Calcium Level 7.6 mg/dl Phosphorus Level 2.1 mg/dl Magnesium Level 2.0 mg/dl Total Bilirubin 0.8 mg/dl Aspartate Amino Transf (AST/SGOT) 19 U/L Alanine Aminotransferase (ALT/SGPT) 18 U/L Alkaline Phosphatase 156 U/L Total Protein 5.0 gm/dl Albumin 1.8 gm/dl Globulin 3.2 gm/dl Albumin/Globulin Ratio 0.6 Test 11/20/17 11:36 Bedside Glucose 105 mg/dl
--- NOTE | 2017-11-20 19:46 | Progress Note ---
Subjective Date of Service: Nov 20, 2017. Subjective Pt evaluation today including: conversation w/ patient, physical exam, lab review, review of studies, review of inpatient medication list Saw/examined the patient in room 104 She is confused, demented, intermittently agitated, requiring one-to-one observation Mitts are placed due to her pulling on tubes Granddaughter in the room with the patient Objective Vital Signs Date Time Temp Pulse Resp B/P (MAP) Pulse Ox O2 Delivery O2 Flow Rate FiO2 11/20/17 19:14 37.5 100 24 165/86 (112) 95 Nasal Cannula 2.0 11/20/17 18:00 98 20 144/83 (103) 97 Nasal Cannula 2.0 11/20/17 17:53 85 23 100 3.0 11/20/17 17:00 37.2 92 21 134/85 (101) 100 Nasal Cannula 2.0 11/20/17 16:00 100 Nasal Cannula 3.0 Humidified Oxygen 11/20/17 15:00 85 23 146/75 (98) 100 Nasal Cannula 3.0 11/20/17 15:00 87 24 100 11/20/17 14:01 85 24 134/75 (94) 100 11/20/17 14:00 84 23 100 11/20/17 13:01 89 22 137/76 (96) 99 11/20/17 13:00 86 25 99 11/20/17 12:01 38.1 86 21 133/74 (93) 100 Nasal Cannula 3.0 Humidified Oxygen 11/20/17 12:00 100 Nasal Cannula 3.0 Humidified Oxygen 11/20/17 12:00 82 21 100 11/20/17 11:03 88 28 158/69 (98) 100 Nasal Cannula 3.0 Humidified Oxygen 11/20/17 11:00 93 24 95 11/20/17 10:01 85 18 128/69 (88) 100 11/20/17 10:00 80 22 100 11/20/17 09:01 96 20 130/80 (97) 100 Nasal Cannula 3.0 Humidified Oxygen 11/20/17 09:00 87 21 100 11/20/17 08:15 100 Nasal Cannula 3.0 Humidified Oxygen 11/20/17 08:01 38.1 116 25 140/72 (94) 96 Nasal Cannula 3.0 Humidified Oxygen 11/20/17 08:00 118 30 95 11/20/17 07:01 86 20 113/56 (75) 100 Nasal Cannula 3.0 Humidified Oxygen 11/20/17 07:00 85 28 100 11/20/17 06:18 98 16 131/67 (88) 100 Nasal Cannula 3.0 Humidified Oxygen 11/20/17 05:01 84 24 121/66 (84) 98 Nasal Cannula 3.0 Humidified Oxygen 11/20/17 04:02 37.2 102 24 133/75 (94) 96 Nasal Cannula 3.0 Humidified Oxygen 11/20/17 04:00 100 Nasal Cannula 3.0 Humidified Oxygen 11/20/17 02:01 85 24 135/68 (90) 98 Nasal Cannula 3.0 Humidified Oxygen 11/20/17 00:01 37.4 79 21 132/62 (85) 100 Nasal Cannula 3.0 Humidified Oxygen 11/19/17 23:59 100 Nasal Cannula 3.0 Humidified Oxygen 11/19/17 22:02 85 25 130/69 (89) 100 Nasal Cannula 3.0 Humidified Oxygen 11/19/17 20:01 37.7 99 22 139/66 (90) 97 Nasal Cannula 3.0 Humidified Oxygen 11/19/17 20:00 100 Nasal Cannula 3.0 Humidified Oxygen Laboratory Results Last 24 Hours Test 11/19/17 23:12 11/20/17 05:41 11/20/17 05:42 11/20/17 11:36 Bedside Glucose 81 mg/dl 127 mg/dl 105 mg/dl White Blood Count 18.35 K/uL Red Blood Count 3.28 M/uL Hemoglobin 10.0 g/dL Hematocrit 30.1 % Mean Corpuscular Volume 91.8 fL Mean Corpuscular Hemoglobin 30.5 pg Mean Corpuscular Hemoglobin Concent 33.2 g/dl RDW Standard Deviation 46.4 fL RDW Coefficient of Variation 13.8 % Platelet Count 120 K/uL Mean Platelet Volume 10.6 fL Venous Blood pH 7.47 Venous Blood Partial Pressure CO2 47 mmHg Venous Blood Partial Pressure O2 41 mmHg Venous Blood HCO3 34 mmol/L Venous Blood Oxygen Saturation 75.0 % Venous Blood Base Excess 9.2 mEq/L Sodium Level 142 mmol/L Potassium Level 3.3 mmol/L Chloride Level 103 mmol/L Carbon Dioxide Level 33 mmol/L Anion Gap 6.0 mmol/L Blood Urea Nitrogen 16 mg/dl Creatinine 0.33 mg/dl Est Creatinine Clear Calc Drug Dose 121.2 ml/min Estimated GFR () 117.3 Estimated GFR (Non- 101.2 BUN/Creatinine Ratio 49.0 Random Glucose 118 mg/dl Calcium Level 7.6 mg/dl Phosphorus Level 2.1 mg/dl Magnesium Level 2.0 mg/dl Total Bilirubin 0.8 mg/dl Aspartate Amino Transf (AST/SGOT) 19 U/L Alanine Aminotransferase (ALT/SGPT) 18 U/L Alkaline Phosphatase 156 U/L Total Protein 5.0 gm/dl Albumin 1.8 gm/dl Globulin 3.2 gm/dl Albumin/Globulin Ratio 0.6 Assessment and Plan 11/20 plan to transfer from ICU to medical monitor white count; continue abx. s/p extubated continue one-to-one off of pressors vitals are stable Cardiac Arrhythmia/Electrolytes Imbalance Torsades de pointes Received IV electrolytes and replace accordingly No more episodes Small dose of BB added Hypoxic Respiratory Failure Required Intubation Appreciate Cigarette Making Machine Hopper Feeder input and care Family members updated by the Cigarette Making Machine Hopper Feeder Aggressive management for the next 3 days Remains stable on VENT-likely to extubate today 11/18 S/O Extubation Clinically a little better SEVERE SEPSIS SECONDARY TO COMPLICATED UTI with EBLS,MDR -Initially admitted to telemetry however transferred to ICU for persistent HYPOTENSION -Patient presenting from home after having a large amount of diarrhea this morning and a fall -On presentation, leukopenic WBC 1.6, mildly tachycardic at times with heart rate in the 110's, afebrile -Patient received appropriate IVF resuscitation and had persistent hypotension -Lactic acid 4.8, recheck in 6 hours and decreased -S/P oral Bactrim and IV ceftriaxone in the ED; will continue with IV ceftriaxone (patient is from home and no documented history of resistant bacteria) -WCC increased to >28 K -Urine and Blood cultures -Gm negative Bacilli -Multidrug Resistant Organism -Antibiotic changed to Cefepime and Ciprofloxacin -Antibiotic changed to Imipenem -Clinically not any better -Repeat CT -no obstruction -continue current antibiotic as per Urology recommendation Hypotension-Secondary to Septic Shock Due to sepsis Did not response to IVF Required pressors in ICU BP seems better this AM Trying to wean off Pressors Continue pressor support -now on Dolamin Pressors are off Monitor OBSTRUCTIVE RIGHT HYDRONEPHROSIS DUE TO OBSTRUCTING CALCULUS s/p REMOVAL AND STENT PLACEMENT Appreciate Urology input Will need IV antibiotic for [address] looks better too YEHUDA Secondary to Hydronephrosis Complicated by dehydration and sepsis Continue IV Fluid Improving and will monitor -Improved and Normalized ALZHEIMER'S -Continue donepezil and sertraline -may have acute Delirium DVT PROPHYLAXIS -SQ Lovenox and now on SQ Heparin CODE STATUS -Patient is a full code as per my discussion with her daughter, Alexa. -Discussed with the Daughter -Prognosis poor -aggressive treatment for the next day or two before making her comfort care only
[2017-11-20] MEDS: IMIPENEM/CILASTATIN IV 1,000 MG in DEXTROSE 5% 250ML 250 ML IV SCH (21:00)
[2017-11-20] MEDS: MAGNESIUM OXIDE 400 MG TAB PO SCH (21:01)
[2017-11-21] MEDS: VANCOMYCIN ENEMA PR SCH ×3 (01:02→11:56)
[2017-11-21] MEDS: VANCOMYCIN HCL 500 MG/10ML SOLN NG SCH ×3 (01:03→11:55)
[2017-11-21] MEDS: IMIPENEM/CILASTATIN IV 1,000 MG in DEXTROSE 5% 250ML 250 ML IV SCH ×3 (04:12→20:00)
[2017-11-21 06:57] VITALS: BP 135/75; PULSE 86; TEMP 37.1; O2SAT 100
[2017-11-21 07:10] LABS: CALCIUM 8.3 mg/dl (8.5-10.1); CREATININE 0.41 mg/dl (0.60-1.20); PHOSPHORUS 2.3 mg/dl (2.5-4.9); POTASSIUM 3.8 mmol/L (3.5-5.1)
[2017-11-21 07:22] LABS: HEMATOCRIT 31.9 % (37-47); HEMOGLOBIN 10.6 g/dL (12.0-16.0); MEAN CELL VOLUME 91.9 fL (80-100); MEAN CORPUSCULAR HEMOGLOBIN 30.5 pg (25-34); MEAN CORPUSCULAR HGB CONC 33.2 g/dl (32-36); MEAN PLATELET VOLUME 11.2 fL (7.4-10.4); PLATELET COUNT 189 K/uL (130-400); RED CELL DISTRIBUTION WIDTH CV 13.9 % (11.5-14.5); RED CELL DISTRIBUTION WIDTH SD 46.4 fL (36.4-46.3)
[2017-11-21] MEDS: METOPROLOL TARTRATE 25 MG TAB PO SCH ×2 (08:07→20:00)
[2017-11-21] MEDS: ENOXAPARIN 30 MG/0.3 ML SYR SQ SCH (08:07)
[2017-11-21] MEDS: DONEPEZIL HCL 5 MG TAB PO SCH (08:07)
[2017-11-21] MEDS: SERTRALINE HCL 100 MG TAB PO SCH (08:07)
[2017-11-21] MEDS ORDERED: MAGNESIUM SULFATE 1GM / D5W 1 GM in PREMIXED IN D5W 100 ML IV SCH (11:30)
[2017-11-21 15:00] VITALS: BP 127/58; PULSE 84; TEMP 36.7; O2SAT 92
[2017-11-21] MEDS: RASPBERRY SYRUP 5 ML UDP PO SCH (18:00)
[2017-11-21] MEDS: VANCOMYCIN HCL 250 MG/5 ML SOLN PO SCH (18:00)
[2017-11-21] MEDS: MAGNESIUM OXIDE 400 MG TAB PO SCH (22:00)
[2017-11-22 00:05] VITALS: BP 132/68; PULSE 85; TEMP 36.6; O2SAT 90
[2017-11-22] MEDS: VANCOMYCIN HCL 250 MG/5 ML SOLN PO SCH ×5 (00:14→23:57)
[2017-11-22] MEDS: RASPBERRY SYRUP 5 ML UDP PO SCH ×5 (00:15→23:58)
[2017-11-22] MEDS: IMIPENEM/CILASTATIN IV 1,000 MG in DEXTROSE 5% 250ML 250 ML IV SCH ×3 (03:55→20:55)
[2017-11-22 05:59] LABS: HEMATOCRIT 31.1 % (37-47); HEMOGLOBIN 10.7 g/dL (12.0-16.0); MEAN CELL VOLUME 90.7 fL (80-100); MEAN CORPUSCULAR HEMOGLOBIN 31.2 pg (25-34); MEAN CORPUSCULAR HGB CONC 34.4 g/dl (32-36); MEAN PLATELET VOLUME 10.4 fL (7.4-10.4); PLATELET COUNT 235 K/uL (130-400); RED CELL DISTRIBUTION WIDTH CV 13.7 % (11.5-14.5); RED CELL DISTRIBUTION WIDTH SD 45.6 fL (36.4-46.3); WHITE BLOOD COUNT 15.16 K/uL (4.8-10.8)
[2017-11-22 06:33] LABS: CREATININE 0.36 mg/dl (0.60-1.20)
[2017-11-22 07:25] VITALS: BP 134/81; PULSE 92; TEMP 36.8; O2SAT 96
--- NOTE | 2017-11-22 07:32 | Progress Note ---
Subjective Date of Service: Nov 22, 2017. LATE ENTRY FOR NOVEMBER 21, 2017 Subjective Pt evaluation today including: conversation w/ patient, physical exam, lab review, review of studies, review of inpatient medication list Saw/examined the patient in room 452 on November 21 She was doing well, the mitts were off; her NG tube was removed as well as her dignishield she is calm and not agitated, no anxiety Medications Current Inpatient Medications Medications (Trade) Dose Ordered Sig/Tess Route Start Time Stop Time Status Last Admin Dose Admin Ondansetron HCl (Zofran Inj) 4 mg Q6H PRN IV 11/12/17 13:45 12/12/17 13:44 Donepezil HCl (Aricept Tab) 5 mg DAILY PO 11/13/17 09:00 12/13/17 08:59 11/21/17 08:07 5 MG Sertraline HCl (Zoloft Tab) 100 mg DAILY PO 11/13/17 09:00 12/13/17 08:59 11/21/17 08:07 100 MG Metoprolol Tartrate (Lopressor Tab) 12.5 mg BID PO 11/19/17 09:30 12/19/17 09:29 11/21/17 08:07 12.5 MG Enoxaparin Sodium (Lovenox Inj) 30 mg QAM SQ 11/19/17 09:30 12/19/17 09:29 11/21/17 08:07 30 MG Magnesium Oxide (Mag-Ox Tab) 400 mg HS PO 11/19/17 21:00 12/19/17 20:59 11/20/17 21:01 400 MG Imipenem/ Cilastatin Sodium (Consult) 1 ea UD PRN N/A 11/19/17 11:00 12/19/17 10:59 Heparin Sodium (Porcine) (Heparin 10 Unit/ ml 5 ml Flush) 5 ml PRN PRN FLUSH 11/19/17 16:15 12/19/17 16:14 11/21/17 14:05 5 ML Oxycodone HCl (Roxicodone Immediate Rel Tab) 5 mg Q6H PRN PO 11/20/17 10:45 12/04/17 10:44 Imipenem/ Cilastatin Sodium 1000 mg/Dextrose 270 ml @ 250 mls/hr Q8H IV 11/20/17 20:00 11/25/17 23:59 11/22/17 03:55 250 MLS/HR Vancomycin HCl (Vancomycin Oral Soln) 250 mg Q6H PO 11/21/17 18:00 12/05/17 17:59 11/22/17 06:36 250 MG Raspberry (Raspberry Syrup 5ml Cup) 5 ml Q6H PO 11/21/17 18:00 12/05/17 17:59 11/22/17 06:36 5 ML Acetaminophen (Tylenol Tab) 650 mg Q4H PRN PO 11/21/17 13:15 12/21/17 13:14 Lactobacillus Acidophilus (Floranex Tab) 4 tab TIDM PO 11/22/17 08:00 12/22/17 07:59 Objective Vital Signs Date Time Temp Pulse Resp B/P (MAP) Pulse Ox O2 Delivery O2 Flow Rate FiO2 11/22/17 00:05 36.6 85 18 132/68 (89) 90 Room Air 11/22/17 00:00 Nasal Cannula 2.0 11/21/17 15:30 Nasal Cannula 2.0 11/21/17 15:00 36.7 84 18 127/58 (81) 92 Room Air 11/21/17 08:30 Nasal Cannula 2.0 Physical Exam General Appearance: no apparent distress, + thin Respiratory/Chest: lungs clear, normal breath sounds, no respiratory distress, no accessory muscle use Cardiovascular: regular rate, rhythm, no edema, no murmur Laboratory Results Last 24 Hours Test 11/21/17 15:37 11/21/17 18:39 11/22/17 01:01 11/22/17 02:01 Lab Scanned Report Lab Referral [id number] Bedside Glucose 70 mg/dl 68 mg/dl 76 mg/dl Test 11/22/17 05:14 White Blood Count 15.16 K/uL Red Blood Count 3.43 M/uL Hemoglobin 10.7 g/dL Hematocrit 31.1 % Mean Corpuscular Volume 90.7 fL Mean Corpuscular Hemoglobin 31.2 pg Mean Corpuscular Hemoglobin Concent 34.4 g/dl RDW Standard Deviation 45.6 fL RDW Coefficient of Variation 13.7 % Platelet Count 235 K/uL Mean Platelet Volume 10.4 fL Creatinine 0.36 mg/dl Est Creatinine Clear Calc Drug Dose 111.1 ml/min Estimated GFR () 114.0 Estimated GFR (Non- 98.3 Assessment and Plan 11/21 patient is doing better clinically improved now off of mitts one-to-one to continue for now NG tube removed the rectal tube was removed 11/20 plan to transfer from ICU to medical monitor white count; continue abx. s/p extubated continue one-to-one off of pressors vitals are stable Cardiac Arrhythmia/Electrolytes Imbalance Torsades de pointes Received IV electrolytes and replace accordingly No more episodes Small dose of BB added Hypoxic Respiratory Failure Required Intubation Appreciate Hood Maker input and care Family members updated by the Hood Maker Aggressive management for the next 3 days Remains stable on VENT-likely to extubate today 11/18 S/O Extubation Clinically a little better SEVERE SEPSIS SECONDARY TO COMPLICATED UTI with EBLS,MDR -Initially admitted to telemetry however transferred to ICU for persistent HYPOTENSION -Patient presenting from home after having a large amount of diarrhea this morning and a fall -On presentation, leukopenic WBC 1.6, mildly tachycardic at times with heart rate in the 110's, afebrile -Patient received appropriate IVF resuscitation and had persistent hypotension -Lactic acid 4.8, recheck in 6 hours and decreased -S/P oral Bactrim and IV ceftriaxone in the ED; will continue with IV ceftriaxone (patient is from home and no documented history of resistant bacteria) -WCC increased to >28 K -Urine and Blood cultures -Gm negative Bacilli -Multidrug Resistant Organism -Antibiotic changed to Cefepime and Ciprofloxacin -Antibiotic changed to Imipenem -Clinically not any better -Repeat CT -no obstruction -continue current antibiotic as per Urology recommendation Hypotension-Secondary to Septic Shock Due to sepsis Did not response to IVF Required pressors in ICU BP seems better this AM Trying to wean off Pressors Continue pressor support -now on Dolamin Pressors are off Monitor OBSTRUCTIVE RIGHT HYDRONEPHROSIS DUE TO OBSTRUCTING CALCULUS s/p REMOVAL AND STENT PLACEMENT Appreciate Urology input Will need IV antibiotic for [address] looks better too YEHUDA Secondary to Hydronephrosis Complicated by dehydration and sepsis Continue IV Fluid Improving and will monitor -Improved and Normalized ALZHEIMER'S -Continue donepezil and sertraline -may have acute Delirium DVT PROPHYLAXIS -SQ Lovenox and now on SQ Heparin CODE STATUS -Patient is a full code as per my discussion with her daughter, Alexa. -Discussed with the Daughter -Prognosis poor -aggressive treatment for the next day or two before making her comfort care only
[2017-11-22] MEDS: LACTOBACILLUS ACIDOPHILUS (FLORANEX) TAB PO SCH ×3 (08:49→17:37)
[2017-11-22] MEDS: DONEPEZIL HCL 5 MG TAB PO SCH (08:50)
[2017-11-22] MEDS: METOPROLOL TARTRATE 25 MG TAB PO SCH ×2 (08:50→20:59)
[2017-11-22] MEDS: SERTRALINE HCL 100 MG TAB PO SCH (08:51)
[2017-11-22] MEDS: ENOXAPARIN 30 MG/0.3 ML SYR SQ SCH (08:52)
--- NOTE | 2017-11-22 10:44 | Progress Note ---
Subjective Date of Service: Nov 22, 2017. Subjective Pt evaluation today including: conversation w/ patient, chart review, lab review Voiding: lopez catheter in place (patent, draining clear, yellow urine ) 87 yo female with stent placement for sepsis. Extubated, and improving clinically. Pt less agitated and oriented to self this morning. States she is in some hospital environment when asked where she was. She does think the year is around 1988. Pt states she is getting bored, and requests books and activities to do this morning. Review of Systems Constitutional: No fever, No chills Respiratory: No shortness of breath Cardiac: No chest pain Abdomen: No pain, No nausea, No vomiting Female : No hematuria Heme: No abnormal bleeding/bruising Objective Vital Signs Date Time Temp Pulse Resp B/P (MAP) Pulse Ox O2 Delivery O2 Flow Rate FiO2 11/22/17 07:33 Nasal Cannula 2.0 11/22/17 07:25 36.8 92 18 134/81 (98) 96 2.0 11/22/17 00:05 36.6 85 18 132/68 (89) 90 Room Air 11/22/17 00:00 Nasal Cannula 2.0 11/21/17 15:30 Nasal Cannula 2.0 11/21/17 15:00 36.7 84 18 127/58 (81) 92 Room Air Physical Exam General Appearance: no apparent distress Eyes: normal inspection ENT: hearing grossly normal Neck: no JVD Respiratory/Chest: no respiratory distress, no accessory muscle use Cardiovascular: no JVD Extremities: normal inspection Neurologic/Psychiatric: alert, normal mood/affect, oriented x 3 Skin: normal color Laboratory Results Last 24 Hours Test 11/21/17 15:37 11/21/17 18:39 11/22/17 01:01 11/22/17 02:01 Lab Scanned Report Lab Referral [id number] Bedside Glucose 70 mg/dl 68 mg/dl 76 mg/dl Test 11/22/17 05:14 White Blood Count 15.16 K/uL Red Blood Count 3.43 M/uL Hemoglobin 10.7 g/dL Hematocrit 31.1 % Mean Corpuscular Volume 90.7 fL Mean Corpuscular Hemoglobin 31.2 pg Mean Corpuscular Hemoglobin Concent 34.4 g/dl RDW Standard Deviation 45.6 fL RDW Coefficient of Variation 13.7 % Platelet Count 235 K/uL Mean Platelet Volume 10.4 fL Creatinine 0.36 mg/dl Est Creatinine Clear Calc Drug Dose 111.1 ml/min Estimated GFR () 114.0 Estimated GFR (Non- 98.3 Assessment and Plan POD #9 s/p cysto and right ureteral stent placement for ureteral stone with sepsis. Pt clinically improving. Pt will need 10-14 days of IV abx to appropriately tx infection. Consider consulting ID for input. Continue lopez catheter until the pt is clinically improved and more ambulatory. Trial of void prior to d/c home. Will need definitive management of stone once her infection has been adequately treated. Will plan as an outpatient. No further management at this time. Will sign off for now. Recall PRN issues. Will arrange for outpatient f/u with Dr. Schneider.
[2017-11-22] MEDS: ACETAMINOPHEN 325 MG TAB PO PRN (15:39)
[2017-11-22 16:28] VITALS: BP 100/57; PULSE 79; TEMP 36.6; O2SAT 97
[2017-11-22] MEDS ORDERED: NURSING VERBAL MED ORDER ONE (19:15)
--- NOTE | 2017-11-22 19:41 | Progress Note ---
Subjective Date of Service: Nov 22, 2017. Subjective Pt evaluation today including: conversation w/ patient, physical exam, lab review, review of studies, review of inpatient medication list Saw/examined the patient in room 452 She is pleasantly demented less agitated, calm but very eager to go home or be discharged Objective Vital Signs Date Time Temp Pulse Resp B/P (MAP) Pulse Ox O2 Delivery O2 Flow Rate FiO2 11/22/17 16:28 36.6 79 20 100/57 (71) 97 Nasal Cannula 2.0 11/22/17 16:00 Room Air 11/22/17 07:33 Nasal Cannula 2.0 11/22/17 07:25 36.8 92 18 134/81 (98) 96 2.0 11/22/17 00:05 36.6 85 18 132/68 (89) 90 Room Air 11/22/17 00:00 Nasal Cannula 2.0 Physical Exam General Appearance: no apparent distress, + thin, + pertinent finding ( underlying pleasant dementia) Respiratory/Chest: no respiratory distress, no accessory muscle use Cardiovascular: regular rate, rhythm, no edema, no murmur Laboratory Results Last 24 Hours Test 11/22/17 01:01 11/22/17 02:01 11/22/17 05:14 Bedside Glucose 68 mg/dl 76 mg/dl White Blood Count 15.16 K/uL Red Blood Count 3.43 M/uL Hemoglobin 10.7 g/dL Hematocrit 31.1 % Mean Corpuscular Volume 90.7 fL Mean Corpuscular Hemoglobin 31.2 pg Mean Corpuscular Hemoglobin Concent 34.4 g/dl RDW Standard Deviation 45.6 fL RDW Coefficient of Variation 13.7 % Platelet Count 235 K/uL Mean Platelet Volume 10.4 fL Creatinine 0.36 mg/dl Est Creatinine Clear Calc Drug Dose 111.1 ml/min Estimated GFR () 114.0 Estimated GFR (Non- 98.3 Assessment and Plan 11/22 patient is doing well plan to d/c with abx. length of treatment as per ID will d/c on oral vanco as well for C. diff 11/21 patient is doing better clinically improved now off of mitts one-to-one to continue for now NG tube removed the rectal tube was removed 11/20 plan to transfer from ICU to medical monitor white count; continue abx. s/p extubated continue one-to-one off of pressors vitals are stable Cardiac Arrhythmia/Electrolytes Imbalance Torsades de pointes Received IV electrolytes and replace accordingly No more episodes Small dose of BB added Hypoxic Respiratory Failure Required Intubation Appreciate Dry Folder Cloth input and care Family members updated by the Dry Folder Cloth Aggressive management for the next 3 days Remains stable on VENT-likely to extubate today 11/18 S/O Extubation Clinically a little better SEVERE SEPSIS SECONDARY TO COMPLICATED UTI with EBLS,MDR -Initially admitted to telemetry however transferred to ICU for persistent HYPOTENSION -Patient presenting from home after having a large amount of diarrhea this morning and a fall -On presentation, leukopenic WBC 1.6, mildly tachycardic at times with heart rate in the 110's, afebrile -Patient received appropriate IVF resuscitation and had persistent hypotension -Lactic acid 4.8, recheck in 6 hours and decreased -S/P oral Bactrim and IV ceftriaxone in the ED; will continue with IV ceftriaxone (patient is from home and no documented history of resistant bacteria) -WCC increased to >28 K -Urine and Blood cultures -Gm negative Bacilli -Multidrug Resistant Organism -Antibiotic changed to Cefepime and Ciprofloxacin -Antibiotic changed to Imipenem -Clinically not any better -Repeat CT -no obstruction -continue current antibiotic as per Urology recommendation Hypotension-Secondary to Septic Shock Due to sepsis Did not response to IVF Required pressors in ICU BP seems better this AM Trying to wean off Pressors Continue pressor support -now on Dolamin Pressors are off Monitor OBSTRUCTIVE RIGHT HYDRONEPHROSIS DUE TO OBSTRUCTING CALCULUS s/p REMOVAL AND STENT PLACEMENT Appreciate Urology input Will need IV antibiotic for [address] looks better too YEHUDA Secondary to Hydronephrosis Complicated by dehydration and sepsis Continue IV Fluid Improving and will monitor -Improved and Normalized ALZHEIMER'S -Continue donepezil and sertraline -may have acute Delirium DVT PROPHYLAXIS -SQ Lovenox and now on SQ Heparin CODE STATUS -Patient is a full code as per my discussion with her daughter, Alexa. -Discussed with the Daughter -Prognosis poor -aggressive treatment for the next day or two before making her comfort care only
--- NOTE | 2017-11-22 20:15 | Progress Note ---
Post ICU Progress Note Date & Time Nov 22, 2017 at 20:14 Vital Signs Vital Signs Past 12 Hours Date Time Temp Pulse Resp B/P (MAP) Pulse Ox O2 Delivery O2 Flow Rate FiO2 11/22/17 16:28 36.6 79 20 100/57 (71) 97 Nasal Cannula 2.0 11/22/17 16:00 Room Air Notes Mental Status: alert / awake, participated in evaluation Nausea / Vomiting: adequately controlled (denied) Pain: adequately controlled (denied) Airway Patency, RR, SpO2: stable & adequate (2L nasal cannula, adequate oxygentation) BP & HR: stable & adequate Lynda Perry is an 87 yo female with past medical history of Alzheimers who presented on 11/12 with a diagnosis of UTI E. Coli ESBL and Klebsiella Pneumoniae and C. difficile colitis that became hypotensive despite fluid resuscitation. Blood culutres initially positive on 11/12 for E. Coli ESBL. Pt underwent subclavian CVL on 11/12 with administration of Dopamine, Intubation on 11/16 after she was on 60% FIO2 via BiPap and began desaturation to the 80's and became unresponsive. She was bronch'd 11/16 after increased in secretions were noted. She was later diuresed and extubated on 11/18. Pt was also treated multiple times for hypokalemia. Pt remained in soft mitts s/p extubation due to aggressive behavior including spiting at nursing. Sedation with Precedex was weaned on 11/14 prior to transfer from the ICU on 11/20. Upon seeing the pt tonight she is POD #9 s/p cysto and right ureteral stent placement of her ureteral stone complicated by sepsis and C. Diff colitis. Her lopez is patent and draining urine. Per this should remain in place until she is more ambulatory, but pt should void independently before being discharged. Pt continues to have multiple very loose stools. Nurse states 4 or 5 since the start of her shift a few hours prior. She is resting comfortably in bed without her prior soft mitts. She is oriented to self, hospital and time as Spring. However, she thinks it is 2021. Pts nurse states she has been asking for her and wanting to know when he will be picking her up. She has been pleasant though still demented and confused at times. Pt denies all complaints. Subclavian line has been d/c'd and a clean, dry intact dressing is in its place. Arterial line has been d/c'd as well. Her prior aggression and encephalopathy have since greatly improved. No other acute findings on physical exam at this time. Pt has been eating and tolerating food well, though only eating about 1/4 of her meal per her night nurse. Discharge is not known at this time but pt will require outp abx at this time. ID consult placed today to monitor this treatment. Consider outpatient follow up in 1 to 2 weeks with: PCP Dr. Ruma Copeland and Urology Dr. Schneider Repeat imaging needed: Per Urology Follow up cultures: Not indicated, Negative Blood Cultures 11/16 Reviewed progress notes, labs, and inpatient medication list Continue current management Additional recommendations: None Pt has currently stabilized. Critical Care will sign off at this time. Should pt decompensate please feel free to reconsult as needed. Thank you for including us in the care of this pt. Consults & Procedures Consultants: ID: Dr. Mejía Urology: Dr. Schneider Procedures: Intubated: 11/16 Bronchoscopy: 11/16 Extubate: 11/18 Subclavian CVL: 11/12 Arterial Line: 11/13 Cystoscopy with retrograde and right stent placement: 11/13
[2017-11-22] MEDS: MAGNESIUM OXIDE 400 MG TAB PO SCH (20:55)
[2017-11-22 23:00] VITALS: BP 110/64; PULSE 80; TEMP 36.7; O2SAT 92
[2017-11-23] MEDS: IMIPENEM/CILASTATIN IV 1,000 MG in DEXTROSE 5% 250ML 250 ML IV SCH ×3 (04:30→20:05)
[2017-11-23] MEDS: RASPBERRY SYRUP 5 ML UDP PO SCH ×4 (05:43→23:50)
[2017-11-23] MEDS: VANCOMYCIN HCL 250 MG/5 ML SOLN PO SCH ×4 (05:43→23:50)
[2017-11-23 07:11] VITALS: BP 126/70; PULSE 80; TEMP 36.8; O2SAT 97
[2017-11-23] MEDS: METOPROLOL TARTRATE 25 MG TAB PO SCH ×2 (08:54→20:02)
[2017-11-23] MEDS: SERTRALINE HCL 100 MG TAB PO SCH (08:54)
[2017-11-23] MEDS: DONEPEZIL HCL 5 MG TAB PO SCH (08:56)
[2017-11-23] MEDS: ENOXAPARIN 30 MG/0.3 ML SYR SQ SCH (08:56)
--- NOTE | 2017-11-23 11:30 | Progress Note ---
Progress Note Date of Service Nov 23, 2017. Progress Note ID Consult Dictated #[id number] A/P: 1. E. coli sepsis - due to source 2. C. diff colitis 3. Leukocytosis - resolving -Can change to Ertapenem 1g daily for ease of use on d/c. -Would give 14 days from negative cultures (11/16) -would extend po vanco an additional 7 days past last day of IV abx -ok for d/c from ID standpoint when otherwise stable -thank you
--- NOTE | 2017-11-23 11:44 | INFECT. DISEASE CONSULTATION ---
DATE OF CONSULTATION: 11/23/2017 HISTORY OF PRESENT ILLNESS: This is an 87-year-old female who was admitted on the secondary to having a fall and diarrhea at home. A C. diff was obtained and was positive. She also had a leukocytosis on admission and blood cultures were obtained as part of her workup. They did grow E. coli. She also grew E. coli and Klebsiella from the urine. She has been on antibiotics for this. Initially, she was on cefepime and then she was changed to imipenem when her sensitivities returned. She has been on imipenem since the 14 of November. She initially had a white blood cell count of 30,000 in the year. This has improved to 15. She is also being treated for her C. diff with p.o. vancomycin. She did have a CAT scan of the abdomen in the Emergency Room, which showed a 1-cm stone in the right kidney with obstruction and hydronephrosis. She was followed by urology and went to the OR on the , where she had a cystoscopy and stent placement. She tolerated this well. She has been tolerating antibiotics well and overall, states she is feeling better. She is afebrile. She denies any chest pain, cough, shortness of breath, nausea, vomiting or diarrhea. She states this has improved. She is anxious to go home. Infectious diseases was consulted for a length of antibiotics. She did have repeat blood cultures done on the and those are negative and final. PAST MEDICAL HISTORY: Significant for Alzheimer's, degenerative joint disease, anxiety disorder, hypertension, history of kidney stones, and rheumatic fever as a child. PAST SURGICAL HISTORY: Significant for breast biopsy, shoulder surgery, total knee replacement and a right ureteral stent placed this admission on the . FAMILY HISTORY: Noncontributory. SOCIAL HISTORY: Negative for tobacco use, alcohol use or drug use. ALLERGIES: SHE HAS ALLERGIES TO PENICILLIN AND LATEX. CURRENT MEDICATIONS: Include p.o. vancomycin, Tylenol, imipenem, Roxicodone, magnesium, subQ heparin, Lopressor, Lovenox, Aricept, Zoloft and Zofran. PHYSICAL EXAMINATION: VITAL SIGNS: She currently is afebrile, pulse 80, respiratory rate 18, blood pressure 126/70, and oxygen saturation is 97% on room air. GENERAL: She is awake, alert and oriented x3. She is in no acute distress. HEENT: Mucous membranes are moist. Extraocular muscles are intact. HEART: Regular. LUNGS: Clear. ABDOMEN: Soft, nontender, and nondistended. EXTREMITIES: There is no lower extremity edema. LABORATORY STUDIES: CBC yesterday reveals a white blood cell count of 15.1, hemoglobin 10.7 and platelets of 235. Most recent chemistry panel from the reveals a sodium of 139, potassium 3.8, chloride 103, bicarbonate 31, BUN 19, creatinine 0.4, and glucose 127. LFTs were normal on the . Her urinalysis in the ER on the had large leukocyte esterase, greater than 30 WBCs and 4+ bacteria. Initial blood cultures from the grew ESBL positive E. coli. Repeat blood cultures on the are negative and final. A C. diff is positive on the . A sputum culture from the is negative. Urine culture from the again had ESBL positive E. coli and Klebsiella pneumonia. Imaging is as above. ASSESSMENT AND PLAN: 1. Escherichia coli septicemia, likely secondary to genitourinary source. 2. Clostridium difficile colitis. 3. Leukocytosis, improved. At this time, she should receive a 14-day course of IV antibiotics from her first negative blood culture, which was the . This could be changed to ertapenem 1 gram daily for ease of use if she is to be discharged on IV antibiotic. She does have a PICC line in her left upper extremity. I would extend her oral vancomycin for an additional 7 days after her systemic antibiotics are completed. I do not see any contraindication for discharge from an infectious diseases standpoint.
[2017-11-23 16:00] VITALS: BP 117/81; PULSE 78; TEMP 36.2; O2SAT 96
[2017-11-23] MEDS ORDERED: NURSING VERBAL MED ORDER ONE (17:15)
[2017-11-23] MEDS: BOOST VANILLA PO SCH (17:26)
[2017-11-23] MEDS: LACTOBACILLUS ACIDOPHILUS (FLORANEX) TAB PO SCH (17:28)
--- NOTE | 2017-11-23 18:21 | Progress Note ---
Subjective Date of Service: Nov 23, 2017. Subjective Pt evaluation today including: conversation w/ patient, physical exam, lab review, review of studies, review of inpatient medication list Saw/examined the patient in room 452 She is having a lot more diarrhea today than the past few days As per nursing, her skin is starting to breakdown daughters are in the room with her She is pleasantly demented, but no longer agitated/anxious Medications Current Inpatient Medications Medications (Trade) Dose Ordered Sig/Tess Route Start Time Stop Time Status Last Admin Dose Admin Ondansetron HCl (Zofran Inj) 4 mg Q6H PRN IV 11/12/17 13:45 12/12/17 13:44 Donepezil HCl (Aricept Tab) 5 mg DAILY PO 11/13/17 09:00 12/13/17 08:59 11/23/17 08:56 5 MG Sertraline HCl (Zoloft Tab) 100 mg DAILY PO 11/13/17 09:00 12/13/17 08:59 11/23/17 08:54 100 MG Metoprolol Tartrate (Lopressor Tab) 12.5 mg BID PO 11/19/17 09:30 12/19/17 09:29 11/23/17 08:54 12.5 MG Enoxaparin Sodium (Lovenox Inj) 30 mg QAM SQ 11/19/17 09:30 12/19/17 09:29 11/23/17 08:56 30 MG Magnesium Oxide (Mag-Ox Tab) 400 mg HS PO 11/19/17 21:00 12/19/17 20:59 11/22/17 20:55 400 MG Imipenem/ Cilastatin Sodium (Consult) 1 ea UD PRN N/A 11/19/17 11:00 12/19/17 10:59 Heparin Sodium (Porcine) (Heparin 10 Unit/ ml 5 ml Flush) 5 ml PRN PRN FLUSH 11/19/17 16:15 12/19/17 16:14 11/23/17 13:01 5 ML Oxycodone HCl (Roxicodone Immediate Rel Tab) 5 mg Q6H PRN PO 11/20/17 10:45 12/04/17 10:44 Imipenem/ Cilastatin Sodium 1000 mg/Dextrose 270 ml @ 250 mls/hr Q8H IV 11/20/17 20:00 11/25/17 23:59 11/23/17 11:35 250 MLS/HR Raspberry (Raspberry Syrup 5ml Cup) 5 ml Q6H PO 11/21/17 18:00 12/05/17 17:59 11/23/17 11:36 5 ML Acetaminophen (Tylenol Tab) 650 mg Q4H PRN PO 11/21/17 13:15 12/21/17 13:14 11/22/17 15:39 650 MG Vancomycin HCl (Vancomycin Oral Soln) 500 mg Q6H PO 11/23/17 12:00 12/05/17 17:59 11/23/17 11:35 500 MG Enteral Nutritional Formula (Boost) 1 can BIDM PO 11/23/17 17:00 12/23/17 16:59 Lactobacillus Acidophilus (Floranex Tab) 4 tab TIDM PO 11/23/17 17:00 12/23/17 16:59 Objective Vital Signs Date Time Temp Pulse Resp B/P (MAP) Pulse Ox O2 Delivery O2 Flow Rate FiO2 11/23/17 16:00 Room Air 11/23/17 08:00 Room Air 11/23/17 07:11 36.8 80 18 126/70 (88) 97 2.0 11/23/17 00:00 Nasal Cannula 2.0 11/22/17 23:00 36.7 80 18 110/64 (79) 92 Room Air Physical Exam General Appearance: no apparent distress, + thin, + pertinent finding ( pleasantly demented) Respiratory/Chest: no respiratory distress, no accessory muscle use Cardiovascular: regular rate, rhythm, no edema, no murmur Abdomen: + abnormal bowel sounds (hyperactive BS) Assessment and Plan This is an 87 year old female with a PMH of dementia, hypertension, hyperlipidemia, depression/anxiety - presented with septic shock secondary to obstructive uropathy and right sided septic stone and R hydronephrosis. Symptoms further complicated by C. diff infection. Patient had required pressors for the septic shock in the ICU. Due to hypoxic respiratory failure, patient had also been intubated, then later extubated on November 19. NGT was inserted initially, then removed and diet started. Septic Shock secondary to Obstructive Uropathy R Ureteral Stone s/p stenting Septicemia secondary to Complicated UTI and E. coli ESBL - patient initially in the ICU for pressor support due to persistent hypotension and septic shock - had a ureteral stent placed as per urology - broad antibiotics were started - pressures improved, and pressors stopped - WBC improving, clinically improving - appreciate ID input; currently on Imipenem; to continue IV abx until November 30 - PICC line is in place - will use Ertapenem 1 gram daily at a facility; plan for discharge likely on November 26 C. Diff Diarrhea - patient with C. diff infection - currently on PO Vanco - will continue PO Vanco until December 07- - due to significant diarrhea, will add Dignishield - remove rectal tube as soon as possible - monitor electrolytes Hypoxic Respiratory Failure - resolved - initially intubated, s/p extubation on 11/19 - doing well with her breathing, no shortness of breath/cough at this time Acute Kidney Injury - resolved - peaked at 1.7 Torsades de Pointes - resolved - episode of Torsades earlier in admission - electrolytes given and small dose metoprolol added - no further episodes Dementia - stable DVT ppx - Lovenox DNR
[2017-11-23] MEDS: MAGNESIUM OXIDE 400 MG TAB PO SCH (20:01)
[2017-11-23 20:06] VITALS: BP 135/111
[2017-11-24] VITALS (7 sets, daily range): BP systolic 89–112; BP diastolic 52–60; PULSE 81–190; TEMP 36.4–36.9; O2SAT 76–100
[2017-11-24] MEDS: IMIPENEM/CILASTATIN IV 1,000 MG in DEXTROSE 5% 250ML 250 ML IV SCH ×3 (04:00→19:45)
[2017-11-24] MEDS ORDERED: ALBUMIN HUMAN 25% 12.5 GM/50 ML VIAL IV ONE (05:00)
[2017-11-24] MEDS: VANCOMYCIN HCL 250 MG/5 ML SOLN PO SCH ×4 (05:18→23:09)
[2017-11-24] MEDS: RASPBERRY SYRUP 5 ML UDP PO SCH ×4 (05:18→23:09)
[2017-11-24] MEDS ORDERED: LEVALBUTEROL/IPRATROPIUM NEB INH PRN (05:30)
[2017-11-24 05:44] LABS: HEMATOCRIT 28.9 % (37-47); HEMOGLOBIN 9.9 g/dL (12.0-16.0); MEAN CORPUSCULAR HEMOGLOBIN 30.8 pg (25-34); MEAN CORPUSCULAR HGB CONC 34.3 g/dl (32-36); MEAN PLATELET VOLUME 9.7 fL (7.4-10.4); PLATELET COUNT 374 K/uL (130-400); RED CELL DISTRIBUTION WIDTH CV 13.5 % (11.5-14.5); RED CELL DISTRIBUTION WIDTH SD 44.7 fL (36.4-46.3); WHITE BLOOD COUNT 11.39 K/uL (4.8-10.8)
[2017-11-24 05:49] LABS: PTT PATIENT 30.5 SECONDS (21.0-31.0)
[2017-11-24 06:07] LABS: ALBUMIN 2.1 gm/dl (3.4-5.0); CALCIUM 7.6 mg/dl (8.5-10.1); CREATININE 0.51 mg/dl (0.60-1.20); POTASSIUM 3.9 mmol/L (3.5-5.1)
[2017-11-24 06:10] LABS: TOTAL PROTEIN 5.9 gm/dl (6.4-8.2)
[2017-11-24] MEDS ORDERED: IPRATROPIUM BROMIDE NEB SOLN 0.02% 2.5 ML VIAL INH PRN (06:15)
[2017-11-24] MEDS ORDERED: LEVALBUTEROL 1.25MG/0.5ML NEB INH PRN (06:15)
[2017-11-24 06:37] LABS: BASO % 0.3 %; BASO ABS # 0.03 K/uL (0-0.2); EOS % 1.9 %; EOS ABS # 0.22 K/uL (0-0.5); IG# 0.12 K/uL (0.00-0.02); LYMPH % 10.3 %; LYMPH ABS # 1.17 K/uL (1.2-3.4); MONO % 8.7 %; MONO ABS # 0.99 K/uL (0.11-0.59); NEUT % 77.7 %; NEUT ABS # 8.86 K/uL (1.4-6.5)
--- NOTE | 2017-11-24 07:20 | DIAGNOSTIC IMAGING REPORT ---
SINGLE VIEW CHEST CLINICAL HISTORY: Hypoxia. FINDINGS: An AP, portable, upright chest radiograph is compared to study dated 11/19/2017. The examination is degraded by portable technique and patient rotation. A left PICC line is new from previous. The tip of the catheter projects over the cavoatrial junction. A right subclavian central venous catheter has been removed. The heart is enlarged and there is atherosclerotic calcification of the thoracic aorta. Pulmonary vascular congestion persists. There are layering pleural effusions with bibasilar atelectasis. More focal airspace opacities are seen in the upper lobes. No pneumothorax is seen. The skeletal structures are osteopenic. A left shoulder arthroplasty is in place. Advanced arthritic change is noted in the right shoulder. Degenerative change is also seen throughout the thoracic spine. IMPRESSION: 1. A left PICC line is new from previous. A right subclavian central venous catheter has been removed. 2. Cardiomegaly with pulmonary vascular congestion. 3. Layering pleural effusions with bibasilar atelectasis. 4. More focal airspace opacities are seen in the upper lobes. This could represent ARDS, pneumonia, and/or a component of asymmetric interstitial edema. This is unchanged from 11/19/2017 and clinical correlation will be required. Electronically signed by: Mic Dalton M.D. 11/24/2017 7:19 AM Dictated Date/Time: 11/24/2017 7:16 AM
[2017-11-24] MEDS: LACTOBACILLUS ACIDOPHILUS (FLORANEX) TAB PO SCH ×3 (08:14→17:39)
[2017-11-24] MEDS: DONEPEZIL HCL 5 MG TAB PO SCH (08:14)
[2017-11-24] MEDS: METOPROLOL TARTRATE 25 MG TAB PO SCH ×2 (08:14→19:47)
[2017-11-24] MEDS: ENOXAPARIN 30 MG/0.3 ML SYR SQ SCH (08:15)
[2017-11-24] MEDS: BOOST VANILLA PO SCH ×2 (08:15→17:00)
[2017-11-24] MEDS: SERTRALINE HCL 100 MG TAB PO SCH (08:16)
--- NOTE | 2017-11-24 12:39 | Progress Note ---
Subjective Date of Service: Nov 24, 2017. Subjective Pt evaluation today including: conversation w/ patient, physical exam, lab review, review of studies, review of inpatient medication list Saw/examined the patient in room 452 She is seated in a chair rectal tube and Faustin catheter in place She states she is weak, but overall doing well, and progressing well underlying dementia present, but she is more clear and alert today Review of Systems Constitutional: + weakness Medications Current Inpatient Medications Medications (Trade) Dose Ordered Sig/Tess Route Start Time Stop Time Status Last Admin Dose Admin Ondansetron HCl (Zofran Inj) 4 mg Q6H PRN IV 11/12/17 13:45 12/12/17 13:44 Donepezil HCl (Aricept Tab) 5 mg DAILY PO 11/13/17 09:00 12/13/17 08:59 11/24/17 08:14 5 MG Sertraline HCl (Zoloft Tab) 100 mg DAILY PO 11/13/17 09:00 12/13/17 08:59 11/24/17 08:16 100 MG Metoprolol Tartrate (Lopressor Tab) 12.5 mg BID PO 11/19/17 09:30 12/19/17 09:29 11/24/17 08:14 12.5 MG Enoxaparin Sodium (Lovenox Inj) 30 mg QAM SQ 11/19/17 09:30 12/19/17 09:29 11/24/17 08:15 30 MG Magnesium Oxide (Mag-Ox Tab) 400 mg HS PO 11/19/17 21:00 12/19/17 20:59 11/23/17 20:01 400 MG Imipenem/ Cilastatin Sodium (Consult) 1 ea UD PRN N/A 11/19/17 11:00 12/19/17 10:59 Heparin Sodium (Porcine) (Heparin 10 Unit/ ml 5 ml Flush) 5 ml PRN PRN FLUSH 11/19/17 16:15 12/19/17 16:14 11/24/17 05:22 5 ML Oxycodone HCl (Roxicodone Immediate Rel Tab) 5 mg Q6H PRN PO 11/20/17 10:45 12/04/17 10:44 Imipenem/ Cilastatin Sodium 1000 mg/Dextrose 270 ml @ 250 mls/hr Q8H IV 3/27/18 20:00 11/25/17 23:59 11/24/17 11:34 250 MLS/HR Raspberry (Raspberry Syrup 5ml Cup) 5 ml Q6H PO 11/21/17 18:00 12/05/17 17:59 11/24/17 11:36 5 ML Acetaminophen (Tylenol Tab) 650 mg Q4H PRN PO 11/21/17 13:15 12/21/17 13:14 11/22/17 15:39 650 MG Vancomycin HCl (Vancomycin Oral Soln) 500 mg Q6H PO 11/23/17 12:00 12/05/17 17:59 11/24/17 11:35 500 MG Enteral Nutritional Formula (Boost) 1 can BIDM PO 11/23/17 17:00 12/23/17 16:59 11/24/17 08:15 1 CAN Lactobacillus Acidophilus (Floranex Tab) 4 tab TIDM PO 11/23/17 17:00 12/23/17 16:59 11/24/17 11:35 4 TAB Ipratropium [place] (Atrovent 0.02% 0.5MG/2.5ML Neb) 0.5 mg Q4H PRN INH 11/24/17 06:15 12/24/17 06:14 Levalbuterol (Xopenex 1.25MG/ 0.5ML Neb) 1.25 mg Q4H PRN INH 11/24/17 06:15 12/24/17 06:14 Objective Vital Signs Date Time Temp Pulse Resp B/P (MAP) Pulse Ox O2 Delivery O2 Flow Rate FiO2 11/24/17 08:00 Room Air 11/24/17 07:19 36.8 81 18 105/52 (69) 100 Nasal Cannula 2.0 11/24/17 05:20 36.7 87 20 99/60 (73) 99 Nasal Cannula 2.0 11/24/17 04:16 36.9 85 17 89/57 (68) 99 Nasal Cannula 2.0 11/24/17 00:25 36.8 190 17 89/57 (68) 76 Room Air 11/24/17 00:00 Room Air 11/23/17 20:06 135/111 (119) 11/23/17 16:00 Room Air 11/23/17 16:00 36.2 78 18 117/81 (93) 96 Physical Exam General Appearance: no apparent distress, + pertinent finding (pleasantly demented) Respiratory/Chest: no respiratory distress, no accessory muscle use Cardiovascular: regular rate, rhythm, no edema, no murmur Abdomen: + pertinent finding (rectal tube in place, Faustin catheter in place) Neurologic/Psychiatric: alert, normal mood/affect Laboratory Results Last 24 Hours Test 11/24/17 05:18 White Blood Count 11.39 K/uL Red Blood Count 3.21 M/uL Hemoglobin 9.9 g/dL Hematocrit 28.9 % Mean Corpuscular Volume 90.0 fL Mean Corpuscular Hemoglobin 30.8 pg Mean Corpuscular Hemoglobin Concent 34.3 g/dl Platelet Count 374 K/uL Mean Platelet Volume 9.7 fL Neutrophils (%) (Auto) 77.7 % Lymphocytes (%) (Auto) 10.3 % Monocytes (%) (Auto) 8.7 % Eosinophils (%) (Auto) 1.9 % Basophils (%) (Auto) 0.3 % Neutrophils # (Auto) 8.86 K/uL Lymphocytes # (Auto) 1.17 K/uL Monocytes # (Auto) 0.99 K/uL Eosinophils # (Auto) 0.22 K/uL Basophils # (Auto) 0.03 K/uL RDW Standard Deviation 44.7 fL RDW Coefficient of Variation 13.5 % Immature Granulocyte % (Auto) 1.1 % Immature Granulocyte # (Auto) 0.12 K/uL Activated Partial Thromboplast Time 30.5 SECONDS Partial Thromboplastin Ratio 1.2 Arterial Blood pH 7.48 Arterial Blood Partial Pressure CO2 34 mmHg Arterial Blood Partial Pressure O2 88 mm/Hg Arterial Blood HCO3 25 mmol/L Arterial Blood Oxygen Saturation 96.6 % Arterial Blood Base Excess 1.4 mEq/L Arterial Blood Gas Delivery 2L Bhavesh Test POS Sodium Level 135 mmol/L Potassium Level 3.9 mmol/L Chloride Level 105 mmol/L Carbon Dioxide Level 25 mmol/L Anion Gap 6.0 mmol/L Blood Urea Nitrogen 21 mg/dl Creatinine 0.51 mg/dl Est Creatinine Clear Calc Drug Dose 78.4 ml/min Estimated GFR () 101.6 Estimated GFR (Non- 87.7 BUN/Creatinine Ratio 40.5 Random Glucose 100 mg/dl Lactic Acid Level 0.7 mmol/L Calcium Level 7.6 mg/dl Magnesium Level 2.0 mg/dl Total Bilirubin 0.5 mg/dl Aspartate Amino Transf (AST/SGOT) 30 U/L Alanine Aminotransferase (ALT/SGPT) 36 U/L Alkaline Phosphatase 123 U/L Total Protein 5.9 gm/dl Albumin 2.1 gm/dl Globulin 3.8 gm/dl Albumin/Globulin Ratio 0.6 Assessment and Plan This is an 87 year old female with a PMH of dementia, hypertension, hyperlipidemia, depression/anxiety - presented with septic shock secondary to obstructive uropathy and right sided septic stone and R hydronephrosis. Symptoms further complicated by C. diff infection. Patient had required pressors for the septic shock in the ICU. Due to hypoxic respiratory failure, patient had also been intubated, then later extubated on November 19. NGT was inserted initially, then removed and diet started. Septic Shock secondary to Obstructive Uropathy R Ureteral Stone s/p stenting Septicemia secondary to Complicated UTI and E. coli ESBL 11/24 - plan for continued Imipenem, Invanz on discharge until November 30 - continued oral Vanco 11/23 - patient initially in the ICU for pressor support due to persistent hypotension and septic shock - had a ureteral stent placed as per urology - broad antibiotics were started - pressures improved, and pressors stopped - WBC improving, clinically improving - appreciate ID input; currently on Imipenem; to continue IV abx until November 30 - PICC line is in place - will use Ertapenem 1 gram daily at a facility; plan for discharge likely on November 26 C. Diff Diarrhea - patient with C. diff infection - currently on PO Vanco - will continue PO Vanco until December 07- - due to significant diarrhea, will add Dignishield - remove rectal tube as soon as possible - monitor electrolytes Hypoxic Respiratory Failure - resolved - initially intubated, s/p extubation on 11/19 - doing well with her breathing, no shortness of breath/cough at this time Acute Kidney Injury - resolved - peaked at 1.7 Torsades de Pointes - resolved - episode of Torsades earlier in admission - electrolytes given and small dose metoprolol added - no further episodes Dementia - stable DVT ppx - Lovenox DNR
[2017-11-24] MEDS: ACETAMINOPHEN 325 MG TAB PO PRN (17:40)
--- NOTE | 2017-11-24 18:15 | DIAGNOSTIC IMAGING REPORT ---
RIGHT HIP 2 VIEWS CLINICAL HISTORY: Fall with right hip pain. FINDINGS: AP and frog-leg views of the right hip are correlated with pelvic CT dated 11/15/2017. The skeletal structures are osteopenic. No fracture is identified in the right hip or the visualized right hemipelvis. Mild to moderate arthritic change and joint space narrowing are noted in the right hip. Sclerotic change is seen in the right sacroiliac joint. The overlying soft tissues are normal in appearance. Calcified soft tissue granulomas project lateral to the greater trochanter. The distal end of a right ureteral stent is noted in the pelvis. IMPRESSION: Osteopenia and arthritic change as above. No acute bony abnormality is identified in the right hip. Electronically signed by: Mic Dalton M.D. 11/24/2017 6:13 PM Dictated Date/Time: 11/24/2017 6:11 PM
[2017-11-24] MEDS: MAGNESIUM OXIDE 400 MG TAB PO SCH (19:46)
[2017-11-25] MEDS: IMIPENEM/CILASTATIN IV 1,000 MG in DEXTROSE 5% 250ML 250 ML IV SCH ×3 (04:20→21:13)
[2017-11-25] MEDS: RASPBERRY SYRUP 5 ML UDP PO SCH ×3 (04:20→17:52)
[2017-11-25] MEDS: VANCOMYCIN HCL 250 MG/5 ML SOLN PO SCH ×2 (04:20→11:49)
[2017-11-25 06:05] LABS: HEMATOCRIT 28.6 % (37-47); HEMOGLOBIN 9.4 g/dL (12.0-16.0); MEAN CORPUSCULAR HEMOGLOBIN 30.2 pg (25-34); MEAN CORPUSCULAR HGB CONC 32.9 g/dl (32-36); MEAN PLATELET VOLUME 9.8 fL (7.4-10.4); PLATELET COUNT 443 K/uL (130-400); RED CELL DISTRIBUTION WIDTH CV 13.7 % (11.5-14.5); RED CELL DISTRIBUTION WIDTH SD 45.8 fL (36.4-46.3); WHITE BLOOD COUNT 12.07 K/uL (4.8-10.8)
[2017-11-25 06:26] LABS: CALCIUM 7.8 mg/dl (8.5-10.1); CREATININE 0.47 mg/dl (0.60-1.20)
[2017-11-25 07:06] VITALS: BP 105/64; PULSE 83; TEMP 36.6; O2SAT 96
[2017-11-25] MEDS: LACTOBACILLUS ACIDOPHILUS (FLORANEX) TAB PO SCH ×3 (08:56→17:38)
[2017-11-25] MEDS: METOPROLOL TARTRATE 25 MG TAB PO SCH ×2 (08:57→21:13)
[2017-11-25] MEDS: SERTRALINE HCL 100 MG TAB PO SCH (08:59)
[2017-11-25] MEDS: DONEPEZIL HCL 5 MG TAB PO SCH (08:59)
[2017-11-25] MEDS: ENOXAPARIN 30 MG/0.3 ML SYR SQ SCH (09:00)
[2017-11-25] MEDS: BOOST VANILLA PO SCH ×2 (09:03→17:35)
--- NOTE | 2017-11-25 12:17 | Progress Note ---
Subjective Date of Service: Nov 25, 2017. Subjective Pt evaluation today including: conversation w/ patient, physical exam, lab review, review of studies, review of inpatient medication list Saw/examined the patient in room 452 She's laying comfortably - had a fall last evening Currently in no distress - one to one in the room with the patient Underlying dementia; currently pleasant Rectal tube removed last evening Medications Current Inpatient Medications Medications (Trade) Dose Ordered Sig/Tess Route Start Time Stop Time Status Last Admin Dose Admin Ondansetron HCl (Zofran Inj) 4 mg Q6H PRN IV 11/12/17 13:45 12/12/17 13:44 Donepezil HCl (Aricept Tab) 5 mg DAILY PO 11/13/17 09:00 12/13/17 08:59 11/25/17 08:59 5 MG Sertraline HCl (Zoloft Tab) 100 mg DAILY PO 11/13/17 09:00 12/13/17 08:59 11/25/17 08:59 100 MG Metoprolol Tartrate (Lopressor Tab) 12.5 mg BID PO 11/19/17 09:30 12/19/17 09:29 11/25/17 08:57 12.5 MG Enoxaparin Sodium (Lovenox Inj) 30 mg QAM SQ 11/19/17 09:30 12/19/17 09:29 11/25/17 09:00 30 MG Magnesium Oxide (Mag-Ox Tab) 400 mg HS PO 11/19/17 21:00 12/19/17 20:59 11/24/17 19:46 400 MG Imipenem/ Cilastatin Sodium (Consult) 1 ea UD PRN N/A 11/19/17 11:00 12/19/17 10:59 Heparin Sodium (Porcine) (Heparin 10 Unit/ ml 5 ml Flush) 5 ml PRN PRN FLUSH 11/19/17 16:15 12/19/17 16:14 11/25/17 05:40 5 ML Oxycodone HCl (Roxicodone Immediate Rel Tab) 5 mg Q6H PRN PO 11/20/17 10:45 12/04/17 10:44 Imipenem/ Cilastatin Sodium 1000 mg/Dextrose 270 ml @ 250 mls/hr Q8H IV 11/20/17 20:00 11/25/17 23:59 11/25/17 11:40 250 MLS/HR Raspberry (Raspberry Syrup 5ml Cup) 5 ml Q6H PO 11/21/17 18:00 12/05/17 17:59 11/25/17 11:50 5 ML Acetaminophen (Tylenol Tab) 650 mg Q4H PRN PO 11/21/17 13:15 12/21/17 13:14 11/24/17 17:40 650 MG Vancomycin HCl (Vancomycin Oral Soln) 500 mg Q6H PO 11/23/17 12:00 11/25/17 13:00 11/25/17 11:49 500 MG Enteral Nutritional Formula (Boost) 1 can BIDM PO 11/23/17 17:00 12/23/17 16:59 11/25/17 09:03 1 CAN Lactobacillus Acidophilus (Floranex Tab) 4 tab TIDM PO 11/23/17 17:00 12/23/17 16:59 11/25/17 11:40 4 TAB Ipratropium [place] (Atrovent 0.02% 0.5MG/2.5ML Neb) 0.5 mg Q4H PRN INH 11/24/17 06:15 12/24/17 06:14 Levalbuterol (Xopenex 1.25MG/ 0.5ML Neb) 1.25 mg Q4H PRN INH 11/24/17 06:15 12/24/17 06:14 Vancomycin HCl (Vancomycin Oral Soln) 500 mg Q6 PO 11/25/17 18:00 12/05/17 17:59 Objective Vital Signs Date Time Temp Pulse Resp B/P (MAP) Pulse Ox O2 Delivery O2 Flow Rate FiO2 11/25/17 08:00 Room Air 11/25/17 07:06 36.6 83 15 105/64 (78) 96 Nasal Cannula 2.0 11/25/17 00:00 Room Air 11/24/17 23:18 36.8 88 17 96/56 (69) 99 Nasal Cannula 2.0 11/24/17 20:00 Room Air 11/24/17 19:17 36.4 82 17 90/52 (65) 100 Room Air 11/24/17 15:45 Room Air 11/24/17 15:15 36.6 82 18 112/58 (76) 100 Room Air Physical Exam General Appearance: no apparent distress, + thin Respiratory/Chest: lungs clear, normal breath sounds, no respiratory distress, no accessory muscle use Cardiovascular: regular rate, rhythm, no edema, no murmur Laboratory Results Last 24 Hours Test 11/25/17 05:37 White Blood Count 12.07 K/uL Red Blood Count 3.11 M/uL Hemoglobin 9.4 g/dL Hematocrit 28.6 % Mean Corpuscular Volume 92.0 fL Mean Corpuscular Hemoglobin 30.2 pg Mean Corpuscular Hemoglobin Concent 32.9 g/dl RDW Standard Deviation 45.8 fL RDW Coefficient of Variation 13.7 % Platelet Count 443 K/uL Mean Platelet Volume 9.8 fL Sodium Level 137 mmol/L Potassium Level 4.0 mmol/L Chloride Level 106 mmol/L Carbon Dioxide Level 24 mmol/L Anion Gap 7.0 mmol/L Blood Urea Nitrogen 23 mg/dl Creatinine 0.47 mg/dl Est Creatinine Clear Calc Drug Dose 85.1 ml/min Estimated GFR () 104.4 Estimated GFR (Non- 90.1 BUN/Creatinine Ratio 48.3 Random Glucose 98 mg/dl Calcium Level 7.8 mg/dl Assessment and Plan This is an 87 year old female with a PMH of dementia, hypertension, hyperlipidemia, depression/anxiety - presented with septic shock secondary to obstructive uropathy and right sided septic stone and R hydronephrosis. Symptoms further complicated by C. diff infection. Patient had required pressors for the septic shock in the ICU. Due to hypoxic respiratory failure, patient had also been intubated, then later extubated on November 19. NGT was inserted initially, then removed and diet started. Septic Shock secondary to Obstructive Uropathy R Ureteral Stone s/p stenting Septicemia secondary to Complicated UTI and E. coli ESBL 11/25 - plan for d/c out of the hospital in 1-2 days - continue Imipenem and Invanz on discharge, as well as oral Vanco on discharge 11/24 - plan for continued Imipenem, Invanz on discharge until November 30 - continued oral Vanco 11/23 - patient initially in the ICU for pressor support due to persistent hypotension and septic shock - had a ureteral stent placed as per urology - broad antibiotics were started - pressures improved, and pressors stopped - WBC improving, clinically improving - appreciate ID input; currently on Imipenem; to continue IV abx until Nicole 6 - PICC line is in place - will use Ertapenem 1 gram daily at a facility; plan for discharge likely on November 26 C. Diff Diarrhea - patient with C. diff infection - currently on PO Vanco - will continue PO Vanco until December 07- - due to significant diarrhea, will add Dignishield - remove rectal tube as soon as possible - monitor electrolytes Hypoxic Respiratory Failure - resolved - initially intubated, s/p extubation on 11/19 - doing well with her breathing, no shortness of breath/cough at this time Acute Kidney Injury - resolved - peaked at 1.7 Torsades de Pointes - resolved - episode of Torsades earlier in admission - electrolytes given and small dose metoprolol added - no further episodes Dementia - stable DVT ppx - Lovenox DNR
[2017-11-25 16:09] VITALS: O2SAT 96
[2017-11-25] MEDS: VANCOMYCIN HCL 500 MG/10ML SOLN PO SCH (17:36)
[2017-11-25] MEDS: MAGNESIUM OXIDE 400 MG TAB PO SCH (21:14)
[2017-11-26] MEDS: RASPBERRY SYRUP 5 ML UDP PO SCH ×4 (00:12→18:23)
[2017-11-26] MEDS: VANCOMYCIN HCL 500 MG/10ML SOLN PO SCH ×4 (00:13→18:23)
[2017-11-26 00:47] VITALS: BP 103/60; PULSE 82; TEMP 36.5; O2SAT 96
[2017-11-26 06:04] LABS: HEMATOCRIT 29.6 % (37-47); HEMOGLOBIN 9.8 g/dL (12.0-16.0); MEAN CELL VOLUME 92.5 fL (80-100); MEAN CORPUSCULAR HEMOGLOBIN 30.6 pg (25-34); MEAN CORPUSCULAR HGB CONC 33.1 g/dl (32-36); MEAN PLATELET VOLUME 9.4 fL (7.4-10.4); PLATELET COUNT 506 K/uL (130-400); RED CELL DISTRIBUTION WIDTH CV 13.5 % (11.5-14.5); RED CELL DISTRIBUTION WIDTH SD 45.9 fL (36.4-46.3); WHITE BLOOD COUNT 13.66 K/uL (4.8-10.8)
[2017-11-26 06:41] LABS: CALCIUM 8.5 mg/dl (8.5-10.1); CREATININE 0.47 mg/dl (0.60-1.20); POTASSIUM 4.5 mmol/L (3.5-5.1)
[2017-11-26 08:00] VITALS: O2SAT 96
[2017-11-26] MEDS: LACTOBACILLUS ACIDOPHILUS (FLORANEX) TAB PO SCH ×3 (09:28→17:02)
[2017-11-26] MEDS: METOPROLOL TARTRATE 25 MG TAB PO SCH ×2 (09:29→20:21)
[2017-11-26] MEDS: ENOXAPARIN 30 MG/0.3 ML SYR SQ SCH (09:30)
[2017-11-26] MEDS: DONEPEZIL HCL 5 MG TAB PO SCH (09:31)
[2017-11-26] MEDS: SERTRALINE HCL 100 MG TAB PO SCH (09:31)
[2017-11-26 09:51] VITALS: BP 107/61; PULSE 106; TEMP 36.8; O2SAT 95
[2017-11-26] MEDS: IMIPENEM/CILASTATIN IV 1,000 MG in DEXTROSE 5% 250ML 250 ML IV SCH ×2 (10:56→19:23)
[2017-11-26] MEDS: BOOST VANILLA PO SCH ×2 (12:17→17:10)
--- NOTE | 2017-11-26 13:03 | Progress Note ---
Subjective Date of Service: Nov 26, 2017. Subjective Pt evaluation today including: conversation w/ patient, physical exam, lab review, review of studies, review of inpatient medication list Saw/examined the patient in room 452 she is resting comfortably one-to-one at bedside She has worsening diarrhea, plan for re-insertion of rectal tube, though diarrhea down to two episodes from 9AM to noon Medications Current Inpatient Medications Medications (Trade) Dose Ordered Sig/Tess Route Start Time Stop Time Status Last Admin Dose Admin Ondansetron HCl (Zofran Inj) 4 mg Q6H PRN IV 11/12/17 13:45 12/12/17 13:44 Donepezil HCl (Aricept Tab) 5 mg DAILY PO 11/13/17 09:00 12/13/17 08:59 11/26/17 09:31 5 MG Sertraline HCl (Zoloft Tab) 100 mg DAILY PO 11/13/17 09:00 12/13/17 08:59 11/26/17 09:31 100 MG Metoprolol Tartrate (Lopressor Tab) 12.5 mg BID PO 11/19/17 09:30 12/19/17 09:29 11/26/17 09:29 12.5 MG Enoxaparin Sodium (Lovenox Inj) 30 mg QAM SQ 11/19/17 09:30 12/19/17 09:29 11/26/17 09:30 30 MG Magnesium Oxide (Mag-Ox Tab) 400 mg HS PO 11/19/17 21:00 12/19/17 20:59 11/25/17 21:14 400 MG Imipenem/ Cilastatin Sodium (Consult) 1 ea UD PRN N/A 11/19/17 11:00 12/19/17 10:59 Heparin Sodium (Porcine) (Heparin 10 Unit/ ml 5 ml Flush) 5 ml PRN PRN FLUSH 11/19/17 16:15 12/19/17 16:14 11/25/17 13:34 5 ML Oxycodone HCl (Roxicodone Immediate Rel Tab) 5 mg Q6H PRN PO 11/20/17 10:45 12/04/17 10:44 Raspberry (Raspberry Syrup 5ml Cup) 5 ml Q6H PO 11/21/17 18:00 12/05/17 17:59 11/26/17 12:17 5 ML Acetaminophen (Tylenol Tab) 650 mg Q4H PRN PO 11/21/17 13:15 12/21/17 13:14 11/24/17 17:40 650 MG Enteral Nutritional Formula (Boost) 1 can BIDM PO 11/23/17 17:00 12/23/17 16:59 11/26/17 12:17 1 CAN Lactobacillus Acidophilus (Floranex Tab) 4 tab TIDM PO 11/23/17 17:00 12/23/17 16:59 11/26/17 12:16 4 TAB Ipratropium [place] (Atrovent 0.02% 0.5MG/2.5ML Neb) 0.5 mg Q4H PRN INH 11/24/17 06:15 12/24/17 06:14 Levalbuterol (Xopenex 1.25MG/ 0.5ML Neb) 1.25 mg Q4H PRN INH 11/24/17 06:15 12/24/17 06:14 Vancomycin HCl (Vancomycin Oral Soln) 500 mg Q6 PO 11/25/17 18:00 12/05/17 17:59 11/26/17 12:17 500 MG Imipenem/ Cilastatin Sodium 1000 mg/Dextrose 270 ml @ 250 mls/hr Q8H IV 11/26/17 11:00 12/10/17 10:59 11/26/17 10:56 250 MLS/HR Objective Vital Signs Date Time Temp Pulse Resp B/P (MAP) Pulse Ox O2 Delivery O2 Flow Rate FiO2 11/26/17 09:51 36.8 106 18 107/61 (76) 95 2.0 11/26/17 08:00 96 Nasal Cannula 2.0 11/26/17 00:47 36.5 82 18 103/60 (74) 96 Nasal Cannula 2.0 11/26/17 00:00 Nasal Cannula 2.0 11/25/17 16:09 96 Nasal Cannula 2.0 Physical Exam General Appearance: no apparent distress Respiratory/Chest: no respiratory distress, no accessory muscle use Neurologic/Psychiatric: + pertinent finding (lethargic, tired; underlying dementia) Laboratory Results Last 24 Hours Test 11/26/17 05:48 White Blood Count 13.66 K/uL Red Blood Count 3.20 M/uL Hemoglobin 9.8 g/dL Hematocrit 29.6 % Mean Corpuscular Volume 92.5 fL Mean Corpuscular Hemoglobin 30.6 pg Mean Corpuscular Hemoglobin Concent 33.1 g/dl RDW Standard Deviation 45.9 fL RDW Coefficient of Variation 13.5 % Platelet Count 506 K/uL Mean Platelet Volume 9.4 fL Sodium Level 137 mmol/L Potassium Level 4.5 mmol/L Chloride Level 107 mmol/L Carbon Dioxide Level 25 mmol/L Anion Gap 5.0 mmol/L Blood Urea Nitrogen 25 mg/dl Creatinine 0.47 mg/dl Est Creatinine Clear Calc Drug Dose 85.1 ml/min Estimated GFR () 104.4 Estimated GFR (Non- 90.1 BUN/Creatinine Ratio 53.6 Random Glucose 84 mg/dl Calcium Level 8.5 mg/dl Assessment and Plan This is an 87 year old female with a PMH of dementia, hypertension, hyperlipidemia, depression/anxiety - presented with septic shock secondary to obstructive uropathy and right sided septic stone and R hydronephrosis. Symptoms further complicated by C. diff infection. Patient had required pressors for the septic shock in the ICU. Due to hypoxic respiratory failure, patient had also been intubated, then later extubated on November 19. NGT was inserted initially, then removed and diet started. Septic Shock secondary to Obstructive Uropathy R Ureteral Stone s/p stenting Septicemia secondary to Complicated UTI and E. coli ESBL 11/26 - continues to have worsening diarrhea; due to raw skin, insertion of rectal tube again - plan for Invanz until November 30, PICC in place - oral Vanco until December 07 at the very least - once diarrhea improving; can d/c to SNF 11/25 - plan for d/c out of the hospital in 1-2 days - continue Imipenem and Invanz on discharge, as well as oral Vanco on discharge 11/24 - plan for continued Imipenem, Invanz on discharge until November 30 - continued oral Vanco 11/23 - patient initially in the ICU for pressor support due to persistent hypotension and septic shock - had a ureteral stent placed as per urology - broad antibiotics were started - pressures improved, and pressors stopped - WBC improving, clinically improving - appreciate ID input; currently on Imipenem; to continue IV abx until November 30 - PICC line is in place - will use Ertapenem 1 gram daily at a facility; plan for discharge likely on November 26 C. Diff Diarrhea - patient with C. diff infection - currently on PO Vanco - will continue PO Vanco until December 07- - due to significant diarrhea, will add Dignishield - remove rectal tube as soon as possible - monitor electrolytes Hypoxic Respiratory Failure - resolved - initially intubated, s/p extubation on 11/19 - doing well with her breathing, no shortness of breath/cough at this time Acute Kidney Injury - resolved - peaked at 1.7 Torsades de Pointes - resolved - episode of Torsades earlier in admission - electrolytes given and small dose metoprolol added - no further episodes Dementia - stable DVT ppx - Lovenox DNR
[2017-11-26 15:08] VITALS: BP 104/66; PULSE 85; TEMP 36.8; O2SAT 97
[2017-11-26 16:00] VITALS: O2SAT 97
[2017-11-26] MEDS ORDERED: hydrOXYzine HCL 25 MG TAB PO PRN (17:30)
[2017-11-26] MEDS ORDERED: NURSING DECISION MEDICATION ORDER SCH (18:45)
[2017-11-26] MEDS ORDERED: MICONAZOLE NITRATE POWDER 43 GM EXT PRN (19:00)
[2017-11-26 19:05] VITALS: BP 110/57; PULSE 95; TEMP 36.7; O2SAT 99
[2017-11-26] MEDS: MAGNESIUM OXIDE 400 MG TAB PO SCH (20:20)
[2017-11-27] MEDS: VANCOMYCIN HCL 500 MG/10ML SOLN PO SCH ×5 (00:12→23:52)
[2017-11-27] MEDS: RASPBERRY SYRUP 5 ML UDP PO SCH ×5 (00:12→23:52)
[2017-11-27 00:20] VITALS: BP 99/57; PULSE 86; TEMP 36.7; O2SAT 99
[2017-11-27] MEDS: IMIPENEM/CILASTATIN IV 1,000 MG in DEXTROSE 5% 250ML 250 ML IV SCH ×3 (03:24→18:51)
[2017-11-27 05:58] LABS: HEMATOCRIT 27.1 % (37-47); MEAN CELL VOLUME 91.9 fL (80-100); MEAN CORPUSCULAR HEMOGLOBIN 30.5 pg (25-34); MEAN CORPUSCULAR HGB CONC 33.2 g/dl (32-36); MEAN PLATELET VOLUME 9.1 fL (7.4-10.4); PLATELET COUNT 483 K/uL (130-400); RED CELL DISTRIBUTION WIDTH CV 13.4 % (11.5-14.5); RED CELL DISTRIBUTION WIDTH SD 45.3 fL (36.4-46.3); WHITE BLOOD COUNT 8.09 K/uL (4.8-10.8)
[2017-11-27 06:33] LABS: CALCIUM 8.1 mg/dl (8.5-10.1); CREATININE 0.4 mg/dl (0.60-1.20)
[2017-11-27 07:39] VITALS: BP 112/64; PULSE 88; TEMP 36.6; O2SAT 96
[2017-11-27] MEDS: BOOST VANILLA PO SCH ×2 (07:42→17:15)
[2017-11-27] MEDS: ENOXAPARIN 30 MG/0.3 ML SYR SQ SCH (07:43)
[2017-11-27] MEDS: LACTOBACILLUS ACIDOPHILUS (FLORANEX) TAB PO SCH ×3 (07:44→17:15)
[2017-11-27] MEDS: SERTRALINE HCL 100 MG TAB PO SCH (07:44)
[2017-11-27] MEDS: METOPROLOL TARTRATE 25 MG TAB PO SCH ×2 (07:44→20:06)
[2017-11-27] MEDS: DONEPEZIL HCL 5 MG TAB PO SCH (07:45)
[2017-11-27] MEDS: ACETAMINOPHEN 325 MG TAB PO PRN ×2 (11:26→17:16)
--- NOTE | 2017-11-27 15:00 | Progress Note ---
Internal Med Progress Note Date of Service: Nov 27, 2017. Provider Documentation: SUBJECTIVE: Patient denies acute pain. 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 Symptoms further complicated by C. diff infection. Patient had required pressors for the septic shock in the ICU. Due to hypoxic respiratory failure, patient had also been intubated, then later extubated on November 19 Septic Shock secondary to Obstructive Uropathy R Ureteral Stone s/p stenting Septicemia secondary to Complicated UTI and E. coli ESBL - patient to complete IV antibiotic for URI until 11/30/17, has been on Imipenem q8h and may switch to Ertapenem tomorrow for ease as daily dosing C. Diff Diarrhea continue PO Vanco until December 07 or redness between buttock area monitor bowel movements whether a rectal tube is needed has lopez, will remove lopez and try a trial of void without lopez Respiratory -breathing on room air -Hypoxic Respiratory Failure - resolved (initially intubated, s/p extubation on 11/19) Acute Kidney Injury - resolved -Monitor lopez output vs trial of void Episode of Torsades earlier in admission resolved -continue Lopressor, monitor electrolytes Dementia history DVT ppx - Lovenox Code Status: DNR Vital Signs: Date Time Temp Pulse Resp B/P (MAP) Pulse Ox O2 Delivery O2 Flow Rate FiO2 11/27/17 08:00 Room Air 11/27/17 07:39 36.6 88 18 112/64 (80) 96 Room Air 11/27/17 00:20 36.7 86 20 99/57 (71) 99 Nasal Cannula 2.0 11/26/17 23:59 Nasal Cannula 2.0 11/26/17 19:05 36.7 95 20 110/57 (74) 99 Nasal Cannula 2.0 11/26/17 16:00 97 Nasal Cannula 2.0 35 Lab Results: Results Past 24 Hours Test 11/27/17 05:46 Range/Units White Blood Count 8.09 4.8-10.8 K/uL Red Blood Count 2.95 4.2-5.4 M/uL Hemoglobin 9.0 12.0-16.0 g/dL Hematocrit 27.1 37-47 % Mean Corpuscular Volume 91.9 80-100 fL Mean Corpuscular Hemoglobin 30.5 25-34 pg Mean Corpuscular Hemoglobin Concent 33.2 32-36 g/dl RDW Standard Deviation 45.3 36.4-46.3 fL RDW Coefficient of Variation 13.4 11.5-14.5 % Platelet Count 483 130-400 K/uL Mean Platelet Volume 9.1 7.4-10.4 fL Sodium Level 135 136-145 mmol/L Potassium Level 4.0 3.5-5.1 mmol/L Chloride Level 102 98-107 mmol/L Carbon Dioxide Level 26 21-32 mmol/L Anion Gap 7.0 3-11 mmol/L Blood Urea Nitrogen 21 7-18 mg/dl Creatinine 0.40 0.60-1.20 mg/dl Est Creatinine Clear Calc Drug Dose 100.0 ml/min Estimated GFR () 110.1 Estimated GFR (Non- 95.0 BUN/Creatinine Ratio 52.7 10-20 Random Glucose 80 70-99 mg/dl Calcium Level 8.1 8.5-10.1 mg/dl
[2017-11-27 16:00] VITALS: BP 97/56; PULSE 99; TEMP 36.3; O2SAT 97
[2017-11-27 20:03] VITALS: BP 108/60; PULSE 94; O2SAT 95
[2017-11-27] MEDS: MAGNESIUM OXIDE 400 MG TAB PO SCH (20:06)
[2017-11-27 23:57] VITALS: BP 101/59; PULSE 89; TEMP 36.9; O2SAT 95
[2017-11-28] MEDS: ERTAPENEM IV 1 GM in SODIUM CHLOR 0.9% AD-VAN 50ML 50 ML IV SCH (03:03)
[2017-11-28 05:37] LABS: HEMATOCRIT 26.6 % (37-47); MEAN CELL VOLUME 90.8 fL (80-100); MEAN CORPUSCULAR HEMOGLOBIN 30.7 pg (25-34); MEAN CORPUSCULAR HGB CONC 33.8 g/dl (32-36); MEAN PLATELET VOLUME 8.9 fL (7.4-10.4); PLATELET COUNT 496 K/uL (130-400); RED CELL DISTRIBUTION WIDTH CV 13.7 % (11.5-14.5); RED CELL DISTRIBUTION WIDTH SD 45.5 fL (36.4-46.3); WHITE BLOOD COUNT 6.92 K/uL (4.8-10.8)
[2017-11-28] MEDS: VANCOMYCIN HCL 500 MG/10ML SOLN PO SCH ×4 (05:53→23:45)
[2017-11-28] MEDS: RASPBERRY SYRUP 5 ML UDP PO SCH ×4 (05:53→23:46)
[2017-11-28 06:09] LABS: CREATININE 0.39 mg/dl (0.60-1.20)
[2017-11-28 07:02] VITALS: BP 110/64; PULSE 88; TEMP 36.7; O2SAT 96
[2017-11-28] MEDS: DONEPEZIL HCL 5 MG TAB PO SCH (08:19)
[2017-11-28] MEDS: BOOST VANILLA PO SCH ×2 (08:19→17:28)
[2017-11-28] MEDS: LACTOBACILLUS ACIDOPHILUS (FLORANEX) TAB PO SCH ×3 (08:20→17:03)
[2017-11-28] MEDS: METOPROLOL TARTRATE 25 MG TAB PO SCH ×2 (08:22→20:49)
[2017-11-28] MEDS: SERTRALINE HCL 100 MG TAB PO SCH (08:23)
[2017-11-28] MEDS: ENOXAPARIN 30 MG/0.3 ML SYR SQ SCH (08:24)
[2017-11-28 15:42] VITALS: O2SAT 96
[2017-11-28 16:17] VITALS: BP 100/63; PULSE 84; TEMP 36.8; O2SAT 98
--- NOTE | 2017-11-28 18:23 | Progress Note ---
Internal Med Progress Note Date of Service: Nov 28, 2017. Provider Documentation: SUBJECTIVE: Patient denies acute pain. Is not on a 1 to 1 today OBJECTIVE: Exam: General- no acute distress Eyes- EOMI ENT- no gross exudates Neck- no JVD Lungs- CTABL, no wheezing Heart- Regular rate Abdomen-soft, nontender, + bowel sounds Extremities- no edema Neuro- awake, alert ASSESSMENT & PLAN: 87 year old female with a PMH of dementia, hypertension, hyperlipidemia, depression/anxiety - presented with septic shock secondary to obstructive uropathy and right sided septic stone and R hydronephrosis. Symptoms further complicated by C. diff infection. Patient had required pressors for the septic shock in the ICU. Due to hypoxic respiratory failure, patient had also been intubated, then later extubated on November 19 Septic Shock secondary to Obstructive Uropathy R Ureteral Stone s/p stenting Septicemia secondary to Complicated UTI and E. coli ESBL - patient to complete IV antibiotic for UTI until 11/30/17, has been on Imipenem q8h up to 11/27/17 and then and may switched to Ertapenem daily on 11/28/17 for ease of dosing as a once a day medication C. Diff Diarrhea continue PO Vanco until December 07 or redness between buttock area monitor bowel movements whether a rectal tube is needed lopez removed on 11/28/17 and completed trial of void successfully for now Respiratory -breathing on room air -Hypoxic Respiratory Failure - resolved (initially intubated, s/p extubation on 11/19) Acute Kidney Injury - resolved Episode of Torsades earlier in admission resolved -continue Lopressor, monitor electrolytes Dementia history DVT ppx - Lovenox Code Status: DNR Disposition: awaiting placement Vital Signs: Date Time Temp Pulse Resp B/P (MAP) Pulse Ox O2 Delivery O2 Flow Rate FiO2 11/28/17 16:17 36.8 84 18 100/63 (75) 98 Room Air 11/28/17 15:42 96 Room Air 11/28/17 11:58 Room Air 11/28/17 08:10 Room Air 11/28/17 07:02 36.7 88 20 110/64 (79) 96 Room Air 11/27/17 23:59 Room Air 11/27/17 23:57 36.9 89 20 101/59 (73) 95 Room Air 11/27/17 20:03 94 18 108/60 (76) 95 Room Air Lab Results: Results Past 24 Hours Test 11/27/17 19:59 11/28/17 05:09 Range/Units Bedside Glucose 168 70-90 mg/dl White Blood Count 6.92 4.8-10.8 K/uL Red Blood Count 2.93 4.2-5.4 M/uL Hemoglobin 9.0 12.0-16.0 g/dL Hematocrit 26.6 37-47 % Mean Corpuscular Volume 90.8 80-100 fL Mean Corpuscular Hemoglobin 30.7 25-34 pg Mean Corpuscular Hemoglobin Concent 33.8 32-36 g/dl RDW Standard Deviation 45.5 36.4-46.3 fL RDW Coefficient of Variation 13.7 11.5-14.5 % Platelet Count 496 130-400 K/uL Mean Platelet Volume 8.9 7.4-10.4 fL Creatinine 0.39 0.60-1.20 mg/dl Est Creatinine Clear Calc Drug Dose 102.6 ml/min Estimated GFR () 111.0 Estimated GFR (Non- 95.8
[2017-11-28] MEDS: MAGNESIUM OXIDE 400 MG TAB PO SCH (20:49)
[2017-11-28 23:07] VITALS: BP 103/61; PULSE 90; TEMP 36.6; O2SAT 96
[2017-11-29] MEDS: ERTAPENEM IV 1 GM in SODIUM CHLOR 0.9% AD-VAN 50ML 50 ML IV SCH (01:38)
[2017-11-29] MEDS: RASPBERRY SYRUP 5 ML UDP PO SCH ×2 (05:04→12:22)
[2017-11-29] MEDS: VANCOMYCIN HCL 500 MG/10ML SOLN PO SCH ×2 (05:04→12:22)
[2017-11-29 07:10] VITALS: BP 123/69; PULSE 95; TEMP 36.6; O2SAT 96
[2017-11-29] MEDS: DONEPEZIL HCL 5 MG TAB PO SCH (08:38)
[2017-11-29] MEDS: LACTOBACILLUS ACIDOPHILUS (FLORANEX) TAB PO SCH ×2 (08:38→12:22)
[2017-11-29] MEDS: ENOXAPARIN 30 MG/0.3 ML SYR SQ SCH (08:39)
[2017-11-29] MEDS: SERTRALINE HCL 100 MG TAB PO SCH (08:39)
[2017-11-29] MEDS: METOPROLOL TARTRATE 25 MG TAB PO SCH (08:39)
[2017-11-29] MEDS: BOOST VANILLA PO SCH (08:40)
[2017-11-29 10:29] VITALS: BP 123/69; PULSE 95; TEMP 36.6; O2SAT 96
[2017-11-29] MEDS ORDERED: LPR25 PO (11:19)
[2017-11-29] MEDS ORDERED: MCTP EXT (11:19)
[2017-11-29] MEDS ORDERED: Enteral Nutrition Formula PO (11:19)
--- NOTE | 2017-11-29 11:31 | Progress Note ---
Internal Med Progress Note Date of Service: Nov 29, 2017. Provider Documentation: SUBJECTIVE: Patient denies acute pain. continues to make urine without lopez OBJECTIVE: Exam: General- no acute distress Eyes- EOMI ENT- no gross exudates Neck- no JVD Lungs- CTABL, no wheezing Heart- Regular rate Abdomen-soft, nontender, + bowel sounds Extremities- no edema Neuro- awake, alert ASSESSMENT & PLAN: 87 year old female with a PMH of dementia, hypertension, hyperlipidemia, depression/anxiety - presented with septic shock secondary to obstructive uropathy and right sided septic stone and R hydronephrosis. Symptoms further complicated by C. diff infection. Patient had required pressors for the septic shock in the ICU. Due to hypoxic respiratory failure, patient had also been intubated, then later extubated on November 19 Septic Shock secondary to Obstructive Uropathy R Ureteral Stone s/p stenting Septicemia secondary to Complicated UTI and E. coli ESBL - patient to complete IV antibiotic for UTI until 11/30/17, has been on Imipenem q8h up to 11/27/17 and then and switched to Ertapenem daily on 11/28/17 for ease of dosing as a once a day medication C. Diff Diarrhea continue PO Vanco until December 07 or redness between buttock area, continue applying topical miconazole powder monitor bowel movements whether a rectal tube is needed lopez removed on 11/28/17 and completed trial of void successfully Respiratory -breathing on room air -Hypoxic Respiratory Failure - resolved (initially intubated, s/p extubation on 11/19) Acute Kidney Injury - resolved Episode of Torsades earlier in admission resolved -continue Lopressor Dementia history Disposition: discharge to [facility] Patient will need [facility] Urology group follow up after discharge with Dr. Schneider in regards for the uretal stent (Address: [address] [place] [address] , [place] [address] ) Vital Signs: Date Time Temp Pulse Resp B/P (MAP) Pulse Ox O2 Delivery O2 Flow Rate FiO2 11/29/17 10:29 36.6 95 20 96 Room Air 11/29/17 10:26 Room Air 11/29/17 07:10 36.6 95 20 123/69 (87) 96 Room Air 11/28/17 23:59 Room Air 11/28/17 23:07 36.6 90 18 103/61 (75) 96 Room Air 11/28/17 16:17 36.8 84 18 100/63 (75) 98 Room Air 11/28/17 15:42 96 Room Air 11/28/17 11:58 Room Air
[2017-11-29] MEDS ORDERED: NF1094 PO (11:35)
--- NOTE | 2017-11-29 11:43 | Discharge Instructions ---
Discharge Instructions Date of Service Nov 29, 2017. Admission Reason for Admission: Uti (Urinary Tract Infection) Discharge Discharge Diagnosis / Problem: septic shock secondary to obstructive uropathy and right sided septic stone Discharge Goals Goal(s): Improve function Activity Recommendations Activity Limitations: per Instructions/Follow-up section Shower/Bathe: no limitations . Instructions / Follow-Up Instructions / Follow-Up 87 year old female with a PMH of dementia, hypertension, hyperlipidemia, depression/anxiety - presented with septic shock secondary to obstructive uropathy and right sided septic stone and R hydronephrosis. Symptoms further complicated by C. diff infection. Patient had required pressors for the septic shock in the ICU. Due to hypoxic respiratory failure, patient had also been intubated, then later extubated on November 19 Septic Shock secondary to Obstructive Uropathy R Ureteral Stone s/p stenting Septicemia secondary to Complicated UTI and E. coli ESBL - patient to complete IV antibiotic for UTI until 11/30/17, has been on Imipenem q8h up to 11/27/17 and then and switched to Ertapenem daily on 11/28/17 for ease of dosing as a once a day medication C. Diff Diarrhea continue PO Vanco until December 07 or redness between buttock area, continue applying topical miconazole powder monitor bowel movements whether a rectal tube is needed lopez removed on 11/28/17 and completed trial of void successfully Respiratory -breathing on room air -Hypoxic Respiratory Failure - resolved (initially intubated, s/p extubation on 11/19) Acute Kidney Injury - resolved Episode of Torsades earlier in admission resolved -continue Lopressor Dementia history Disposition: discharge to [facility] Patient will need [facility] Urology group follow up after discharge with Dr. Schneider in regards for the uretal stent (Address: [address] [place] [address] , [place] [address] ) Current Hospital Diet Patient's current hospital diet: Low Lactose Diet Discharge Diet Recommended Diet: N/A (low lactose diet) Procedures Procedures Performed: Cysto retrograde with right stent insertion Pending Studies Studies pending at discharge: no Laboratory Results 11/28/17 05:09 11/27/17 05:46 11/28/17 05:09 Test 11/12/17 07:40 11/12/17 07:45 11/12/17 20:50 11/13/17 06:44 Thyroid Stimulating Hormone (TSH) 1.260 uIu/ml (0.300-4.500) Urine Color YELLOW Urine Appearance CLOUDY (CLEAR) Urine pH 7.0 (4.5-7.5) Urine Specific [place] 1.011 (1.000-1.030) Urine Protein 2+ (NEG) Urine Glucose (UA) NEG (NEG) Urine Ketones NEG (NEG) Urine Occult Blood 2+ (NEG) Urine Nitrite NEG (NEG) Urine Bilirubin NEG (NEG) Urine Urobilinogen NEG (NEG) Urine Leukocyte Esterase LARGE (NEG) Urine WBC (Auto) >30 /hpf (0-5) Urine RBC (Auto) 10-30 /hpf (0-4) Urine Hyaline Casts (Auto) 1-5 /lpf (0-5) Urine Epithelial Cells (Auto) 0-5 /lpf (0-5) Urine Bacteria (Auto) 4+ (NEG) Urine Pathogenic Casts 0-3 GRANULAR CASTS /lpf (0) Random Cortisol 73.01 mcg/dl Heparin-PF4 Antibody Screen NEG (NEG) Test 11/14/17 09:45 11/15/17 20:20 11/16/17 04:59 11/17/17 05:37 Neutrophils % (Manual) 99.1 % Lymphocytes % (Manual) 0.0 % Monocytes % (Manual) 0.9 % Neutrophils # (Manual) 30.62 K/uL (1.4-6.5) Total Absolute Neutrophils 30.62 K/uL (1.4-6.5) Total Absolute Lymphocytes 0.00 K/uL (1.2-3.4) Monocytes # (Manual) 0.28 K/uL (0.11-0.59) Toxic Granulation 1+ Bedside Glucose (other) 77 mg/dl (70-99) Toxic Vacuolation OCCASIONAL Dohle Bodies OCCASIONAL Echinocytes 2+ Total Creatine Kinase 19 U/L (26-192) Creatine Kinase MB 1.2 ng/ml (0.5-3.6) Creatine Kinase MB Ratio 6.3 (0-3.0) Troponin I 0.043 ng/ml (0-0.045) Lipase 117 U/L (73-393) Test 11/17/17 20:49 11/18/17 05:32 11/18/17 12:08 11/19/17 05:17 Procalcitonin 3.50 ng/ml (0-0.5) Bedside Oxygen Rate (breaths/min) 12 Blood Gas Minute Ventilation 6 Blood Gas Tidal Volume 500 Blood Gas PEEP 5 Prothrombin Time 11.9 SECONDS (9.0-12.0) Prothromb Time International Ratio 1.1 (0.9-1.1) Direct Bilirubin 0.3 mg/dl (0-0.2) Test 11/19/17 06:05 11/20/17 05:42 11/21/17 05:22 11/21/17 15:37 Blood Gas Sample Site L Radial Bedside Blood Gas pH (LAB) 7.51 (7.35-7.45) Bedside Blood Gas pCO2 (LAB) 45 mmHg (35-46) Bedside Blood Gas pO2 (LAB) 60 mmHg (80-95) Bedside Blood Gas HCO3 (LAB) 36 meq/L (19-24) Bedside Blood Gas Total CO2 38 mEq/l (24-31) Bedside Blood Gas Base Excess (LAB) 13.0 meq/L (-9-1.8) Bedside Blood Gas O2 Saturation 93.0 % (90-95) Oxygen Delivery Device Other Bedside FiO2 40 % Venous Blood pH 7.47 (7.36-7.41) Venous Blood Partial Pressure CO2 47 mmHg (38.0-50.0) Venous Blood Partial Pressure O2 41 mmHg Venous Blood HCO3 34 mmol/L Venous Blood Oxygen Saturation 75.0 % Venous Blood Base Excess 9.2 mEq/L Platelet Estimate NORMAL Phosphorus Level 2.3 mg/dl (2.5-4.9) Lab Scanned Report Lab Referral [id number] Test 11/24/17 05:18 11/27/17 05:46 11/27/17 19:59 11/28/17 05:09 Immature Granulocyte % (Auto) 1.1 % White Blood Count 11.39 K/uL (4.8-10.8) Red Blood Count 3.21 M/uL (4.2-5.4) 2.93 M/uL (4.2-5.4) Hemoglobin 9.9 g/dL (12.0-16.0) Hematocrit 28.9 % (37-47) Mean Corpuscular Volume 90.0 fL (80-100) 90.8 fL (80-100) Mean Corpuscular Hemoglobin 30.8 pg (25-34) 30.7 pg (25-34) Mean Corpuscular Hemoglobin Concent 34.3 g/dl (32-36) 33.8 g/dl (32-36) Platelet Count 374 K/uL (130-400) Mean Platelet Volume 9.7 fL (7.4-10.4) 8.9 fL (7.4-10.4) Neutrophils (%) (Auto) 77.7 % Lymphocytes (%) (Auto) 10.3 % Monocytes (%) (Auto) 8.7 % Eosinophils (%) (Auto) 1.9 % Basophils (%) (Auto) 0.3 % Neutrophils # (Auto) 8.86 K/uL (1.4-6.5) Lymphocytes # (Auto) 1.17 K/uL (1.2-3.4) Monocytes # (Auto) 0.99 K/uL (0.11-0.59) Eosinophils # (Auto) 0.22 K/uL (0-0.5) Basophils # (Auto) 0.03 K/uL (0-0.2) Immature Granulocyte # (Auto) 0.12 K/uL (0.00-0.02) Activated Partial Thromboplast Time 30.5 SECONDS (21.0-31.0) Partial Thromboplastin Ratio 1.2 Arterial Blood pH 7.48 (7.35-7.45) Arterial Blood Partial Pressure CO2 34 mmHg (35-46) Arterial Blood Partial Pressure O2 88 mm/Hg (80-95) Arterial Blood HCO3 25 mmol/L (19-24) Arterial Blood Oxygen Saturation 96.6 % (90-95) Arterial Blood Base Excess 1.4 mEq/L (-9-1.8) Arterial Blood Gas Delivery 2L Bhavesh Test POS (POS) Lactic Acid Level 0.7 mmol/L (0.4-2.0) Magnesium Level 2.0 mg/dl (1.8-2.4) Total Bilirubin 0.5 mg/dl (0.2-1) Aspartate Amino Transf (AST/SGOT) 30 U/L (15-37) Alanine Aminotransferase (ALT/SGPT) 36 U/L (12-78) Alkaline Phosphatase 123 U/L (45-117) Total Protein 5.9 gm/dl (6.4-8.2) Albumin 2.1 gm/dl (3.4-5.0) Globulin 3.8 gm/dl (2.5-4.0) Albumin/Globulin Ratio 0.6 (0.9-2) Anion Gap 7.0 mmol/L (3-11) BUN/Creatinine Ratio 52.7 (10-20) Calcium Level 8.1 mg/dl (8.5-10.1) Bedside Glucose 168 mg/dl (70-90) RDW Standard Deviation 45.5 fL (36.4-46.3) RDW Coefficient of Variation 13.7 % (11.5-14.5) Est Creatinine Clear Calc Drug Dose 102.6 ml/min Estimated GFR () 111.0 Estimated GFR (Non- 95.8 Date/Time Source Procedure Growth Status 11/16/17 11:25 Blood Blood Culture - Final NO GROWTH Complete 11/13/17 07:00 Nasal MRSA DNA Surveillance Screen - Final Specimen Negative for MRSA by DNA Probe Complete 11/14/17 15:35 Stool C.difficile Toxin B Gene (PCR) - Final Positive for C. difficile toxin B gene Complete 11/16/17 10:15 Bronchial Washings Left Lower Lobe Gram Stain - Final Complete 11/16/17 10:15 Bronchial Washings Left Lower Lobe Bronchoalveolar Lavage Culture - Final NO GROWTH Complete 11/12/17 07:45 Urine,Catheterized Urine Culture - Final Escherichia Coli Esbl Klebsiella Pneumoniae Complete Medical Emergencies . Who to Call and When: Medical Emergencies: If at any time you feel your situation is an emergency, please call 911 immediately. . Non-Emergent Contact Non-Emergency issues call your: Primary Care Provider, Urologist Call Non-Emergent contact if: you have any medication questions . . "Provider Documentation" section prepared by Deshaun Caballero. .
--- NOTE | 2017-11-29 12:25 | Discharge Summary ---
Discharge Summary Date of Service Nov 29, 2017. Discharge Summary Admission Date: Nov 12, 2017 at 13:45 Discharge Date: Nov 29, 2017 Discharge Disposition: Rehab Principal Diagnosis: septic shock secondary to obstructive uropathy and right sided septic stone and R hydronephrosis, C. difficile infection / diarrhea, Hypoxic Respiratory Failure - resolved (initially intubated, s/p extubation on 11/19) Secondary Diagnoses/Problems: Acute Kidney Injury - resolved Episode of Torsades Dementia history Medication Reconciliation New Medications: Metoprolol Tartrate (Lopressor) 25 Mg Tab 12.5 MG PO BID for 30 Days, #30 TAB Miconazole Nitrate (Desenex Shake Powder) 43 Appln/43 Gm Powd 1 APPLN EXT UD PRN for Affected Skin Folds for 10 Days, #10 APPL apply to red areas of back side Vancomycin HCl (Vancomycin HCl) 100 Mg/Ml Inj 500 MG PO Q6 for 9 Days, #18 GM [Enteral Nutrition Formula] () 1 CAN LIQD 1 CAN PO BIDM for 30 Days, #60 CAN Continued Medications: Donepezil Hydrochloride (Donepezil Hcl) 5 Mg Tab 1 TAB PO DAILY for 30 Days, #30 TAB 5 Refills take with largest meal Sertraline (Zoloft) 100 Mg Tab 1 TAB PO DAILY for 90 Days, #90 TAB 1 Refill Admission Information HPI (per Admitting provider): 87-year-old female who presents to the ER after a fall and having diarrhea at home. Patient has underlying Alzheimer's and is disoriented, history is unobtainable from her. Information is obtained from her daughter via telephone. The daughter reports that this morning the patient was having a large amount diarrhea. The daughter's left the room and when he came back and she was on the floor. She was awake and alert. No loss of bowel or bladder function. Daughter reports patient has been at baseline health recently. In the ED, patient's UA is suggestive of UTI. Initially patient's blood pressure was stable however patient developed hypotension. She received 2 L IVF, P.o. Bactrim, dose of IV ceftriaxone. Lactic acid is found to be 4.8. Patient was admitted to the telemetry unit however despite IV fluid she remained hypotensive. She will be transferred to the ICU. Physical Exam (per Admitting): General Appearance: WD/WN, no apparent distress Head: normocephalic, atraumatic Eyes: normal inspection, EOMI, sclerae normal ENT: hearing grossly normal, + pertinent finding (Mucous membranes dry) Neck: supple, no JVD, trachea midline Respiratory/Chest: lungs clear, normal breath sounds, no respiratory distress Cardiovascular: regular rate, rhythm, no edema, normal peripheral pulses Abdomen/GI: normal bowel sounds, non tender, soft, no organomegaly Extremities/Musculoskelatal: normal inspection, no calf tenderness, normal capillary refill Neurologic/Psych: no motor/sensory deficits, alert, + disoriented (To place , time, and situation) Skin: normal color, warm/dry Hospital Course 87 year old female with a PMH of dementia, hypertension, hyperlipidemia, depression/anxiety - presented with septic shock secondary to obstructive uropathy and right sided septic stone and R hydronephrosis. Symptoms further complicated by C. diff infection. Patient had required pressors for the septic shock in the ICU. Due to hypoxic respiratory failure, patient had also been intubated, then later extubated on November 19 Septic Shock secondary to Obstructive Uropathy R Ureteral Stone s/p stenting Septicemia secondary to Complicated UTI and E. coli ESBL - patient to complete IV antibiotic for UTI until 11/30/17, has been on Imipenem q8h up to 11/27/17 and then and switched to Ertapenem daily on 11/28/17 for ease of dosing as a once a day medication C. Diff Diarrhea continue PO Vanco until December 07 or redness between buttock area, continue applying topical miconazole powder monitor bowel movements whether a rectal tube is needed lopez removed on 11/28/17 and completed trial of void successfully Respiratory -breathing on room air -Hypoxic Respiratory Failure - resolved (initially intubated, s/p extubation on 11/19) Acute Kidney Injury - resolved Episode of Torsades earlier in admission resolved -continue Lopressor Dementia history Disposition: discharge to [facility] Patient will need [facility] group follow up after discharge with Dr. Schneider in regards for the uretal stent (Address: [address] [place] [address] , [place] [address] ) Total time spent on discharge = 40 minutes This includes examination of the patient, discharge planning, medication reconciliation, and communication with other providers. Discharge Instructions see above
== END 2017-11-29 14:30 | DRG 853 ==
LOC: EDBD 07:04 → C.EDA 07:05 → UNDOADMIN 13:45 → C.MED 13:45 → ENRESERV 14:05 → EDBEDREQSVC 16:35 → ENRESERV 16:42 → C.MSICU 17:05 → C.MED 17:05 → EDBEDREQ 11-20 17:47 → ENRESERV 11-20 18:10 → C.MS4W 11-20 19:08 → C.MSICU 11-20 19:08
PROVIDERS: ADMIT Internal Medicine; ATTEND Hospitalist
PROC: 03HY32Z Insertion of Monitoring Device into Upper Artery, Percutaneous Approach (ICD-10-PCS; principal; 2017-11-13 02:16)
PROC: 0T763DZ Dilation of Right Ureter with Intraluminal Device, Percutaneous Approach (ICD-10-PCS; 2017-11-13 02:16)
PROC: 0BBJ8ZX Excision of Left Lower Lung Lobe, Via Natural or Artificial Opening Endoscopic, Diagnostic (ICD-10-PCS; 2017-11-16)
DX: A41.9 Sepsis, unspecified organism (principal); R65.21 Severe sepsis with septic shock; J96.91 Respiratory failure, unspecified with hypoxia; J18.9 Pneumonia, unspecified organism; G93.40 Encephalopathy, unspecified; N39.0 Urinary tract infection, site not specified; N13.2 Hydronephrosis with renal and ureteral calculous obstruction; N17.9 Acute kidney failure, unspecified; A04.72 Enterocolitis due to Clostridium difficile, not specified as recurrent; J90 Pleural effusion, not elsewhere classified; R64 Cachexia; F41.1 Generalized anxiety disorder; I10 Essential (primary) hypertension; E73.9 Lactose intolerance, unspecified; G30.9 Alzheimer's disease, unspecified; F02.80 Dementia in other diseases classified elsewhere, unspecified severity, without behavioral disturbance, psychotic disturbance, mood disturbance, and anxiety; I95.9 Hypotension, unspecified; R00.0 Tachycardia, unspecified; E87.6 Hypokalemia; E83.42 Hypomagnesemia; E86.0 Dehydration; E16.2 Hypoglycemia, unspecified; A49.8 Other bacterial infections of unspecified site; R60.1 Generalized edema; D69.6 Thrombocytopenia, unspecified; Z66 Do not resuscitate; Z86.19 Personal history of other infectious and parasitic diseases; Z96.653 Presence of artificial knee joint, bilateral; Z88.0 Allergy status to penicillin; Z87.442 Personal history of urinary calculi; Z91.030 Bee allergy status; Z91.040 Latex allergy status; Z82.49 Family history of ischemic heart disease and other diseases of the circulatory system; Z84.1 Family history of disorders of kidney and ureter

== ENCOUNTER → 2018-01-10 | Outpatient (CLI) | payer OTHER ==
[~2018-01-10] MED LIST changes: +ACET500T58 PO; -ATEN-173 PO; +DONE5TAB26 PO; +EPP3/2 IM; +Enteral Nutrition Formula PO; +LORA-741 PO; +MELA1TAB5 PO; +PROB1TAB16 PO; +SERT-234 PO
--- NOTE | 2018-01-10 13:39 | DIAGNOSTIC IMAGING REPORT ---
KUB HISTORY: SEPSIS SECONDARY TO UTI, WENT TO ULTR FIRST COMPARISON: KUB 11/18/2017. FINDINGS: The bowel gas pattern is unremarkable. There are no dilated loops of small bowel to suggest an obstruction. Advanced degenerative changes and levoscoliosis within the lumbar spine. There is a right ureteral stent identified. This is unchanged in position. The previous identified right UVJ stone now resides within the lower pole the right kidney. This measures 14 mm. No definite left renal calculi. Stable right adnexal calcification which is likely associated with the right ovary. No ureteral calculi identified. No pneumoperitoneum or pneumatosis. IMPRESSION: 1. The right ureteral stent is unchanged in position. 2. The previous identified right UPJ stone now resides within the lower pole of the right kidney. This measures 14 mm. 3. No definite ureteral calculi. Electronically signed by: Mike Pereyra M.D. 01/10/2018 1:37 PM Dictated Date/Time: 01/10/2018 1:35 PM
--- NOTE | 2018-01-10 14:21 | DIAGNOSTIC IMAGING REPORT ---
RETROPERITONEAL COMPLETE CLINICAL HISTORY: N20.0, N13.30 nephrolithiasis COMPARISON STUDY: 11/15/2017 FINDINGS: The right kidney measures 11.2 cm in length. The left kidney measures 10 cm in length. A right-sided nephroureteral stent is visualized. There is no hydronephrosis. There are left-sided parapelvic cysts versus mild collecting system dilatation.. Images of the bladder revealed the distal portion of the nephroureteral stent. Neither ureteral jet was visualized. IMPRESSION: 1. Interval healing right-sided neck ureteral stent 2. No evidence of right-sided hydronephrosis 3. Mild fullness of the left renal collecting system versus parapelvic cysts. Electronically signed by: Yifan Sanches M.D. 01/10/2018 2:19 PM Dictated Date/Time: 01/10/2018 2:17 PM
[2018-01-10 14:31] LABS: BLOOD UREA NITROGEN 8 mg/dl (7-18); CALCIUM 8.8 mg/dl (8.5-10.1); CARBON DIOXIDE 32 mmol/L (21-32); CREATININE 0.58 mg/dl (0.60-1.20); GLUCOSE 84 mg/dl (70-99); POTASSIUM 3.9 mmol/L (3.5-5.1); SODIUM 140 mmol/L (136-145)
[2018-01-10 14:32] LABS: BASO % 0.4 %; BASO ABS # 0.02 K/uL (0-0.2); EOS ABS # 0.17 K/uL (0-0.5); HEMATOCRIT 35.3 % (37-47); HEMOGLOBIN 11.4 g/dL (12.0-16.0); IG# 0.01 K/uL (0.00-0.02); LYMPH % 20.7 %; LYMPH ABS # 1.18 K/uL (1.2-3.4); MEAN CELL VOLUME 95.4 fL (80-100); MEAN CORPUSCULAR HEMOGLOBIN 30.8 pg (25-34); MEAN CORPUSCULAR HGB CONC 32.3 g/dl (32-36); MEAN PLATELET VOLUME 9.3 fL (7.4-10.4); MONO % 7.7 %; MONO ABS # 0.44 K/uL (0.11-0.59); NEUT ABS # 3.87 K/uL (1.4-6.5); PLATELET COUNT 257 K/uL (130-400); RED CELL DISTRIBUTION WIDTH CV 14.6 % (11.5-14.5); WHITE BLOOD COUNT 5.69 K/uL (4.8-10.8)
== END | disposition home or self-care (01) ==
LOC: C.ULTR 01-03 14:10
PROVIDERS: ATTEND Urology
DX: N20.0 Calculus of kidney (principal); N13.30 Unspecified hydronephrosis; A41.9 Sepsis, unspecified organism

== ENCOUNTER 2018-01-15 12:32 | Day surgery (SDC) | payer OTHER ==
[~2018-01-15] VITALS: Ht 172.7 cm; Wt 61.4 kg
[~2018-01-15 12:32] MED LIST changes: +CEFEPIME IV 2,000 MG in SYRINGE 7.5 ML IV SCH; +CEFEPIME IV 2000 MG in DEXTROSE 5% 100ML IV SCH; +CIPROFLOXACIN / D5W 400 MG IV SCH; +SODIUM CHLORIDE 0.9% 1000ML 1,000 ML IV SCH
--- NOTE | 2018-01-15 13:10 | History & Physical Bridge Note ---
H&P Re-Evaluation Bridge Note: I have examined the patient, reviewed the History & Physical and in the interval since the performance of the History & Physical I have noted the following changes of clinical significance: Patient has significant dementia and memory issues. Does not remember septic stone with emergent stent placement. Currently Klebsiella UTI. Discussed with patient and family options again for management of stone and obstruction. Concern for possible obstruction and potential for septic event. Explained to patient events leading up to stent. Discussed difficulty with intervention with stone. Discussed need for stent exchange if continuing with changing every 3 months. Patient states she is willing to proceed with management of stent but is refusing further intervention. Antibiotics started for UTI. Discussed risks and benefits with proceeding due to Acute UTI vs potential to lead to obstruction and sepsis if stent obstructs. Patient and family willing to proceed.
[2018-01-15 13:14] VITALS: BP 123/70; PULSE 70; TEMP 36.8; O2SAT 99; Ht 172.7 cm; Wt 61.4 kg
[2018-01-15] MEDS ORDERED: PROPOFOL IV EMULSION 10 MG/ML 20 ML VIAL ONE (15:03)
[2018-01-15] MEDS ORDERED: LIDOCAINE HCL 2% 2 ML VIAL (20MG/ML) ONE (15:03)
[2018-01-15] MEDS ORDERED: FENTANYL CITRATE INJ 50 MCG/1 ML 2 ML VIAL ONE (15:04)
[2018-01-15] MEDS ORDERED: HYDROmorphone INJ 0.5 MG/0.5 ML SYR IV PRN (15:15)
[2018-01-15] MEDS ORDERED: FENTANYL CITRATE INJ 50 MCG/1 ML 2 ML VIAL IV PRN (15:15)
[2018-01-15] MEDS ORDERED: EpHEDrine SULFATE INJ 50 MG/ML AMP IV PRN (15:15)
[2018-01-15] MEDS ORDERED: PHENYLEPHRINE 100MCG/ML 5ML SYR IV PRN (15:15)
[2018-01-15] MEDS ORDERED: LABETALOL HCL IV 5 MG/ML 20ML IV PRN (15:15)
[2018-01-15] MEDS ORDERED: ATROPINE SULFATE 0.1 MG/ML 5ML SYR IV PRN (15:15)
[2018-01-15] MEDS ORDERED: ONDANSETRON INJ 2 MG/ML 2 ML VIAL IV PRN (15:15)
[2018-01-15] MEDS ORDERED: SULF800T23 PO (15:45)
[2018-01-15] MEDS ORDERED: OXYCODONE/ACETAMINOPHEN 7.5-325 TAB PO PRN (15:45)
[2018-01-15] MEDS ORDERED: CIPR-255 PO (15:45)
--- NOTE | 2018-01-15 15:47 | Discharge Instructions ---
Discharge Instructions Date of Service January 15, 2018. Admission Reason for Admission: Hydronephrosis Discharge Discharge Diagnosis / Problem: Stone Discharge Goals Goal(s): Decrease discomfort, Improve function Activity Recommendations Activity Limitations: resume your previous activity Lifting Limitations: gradually increase as tolerated Exercise/Sports Limitations: gradually increase as tolerated Shower/Bathe: no limitations . Instructions / Follow-Up Instructions / Follow-Up May have blood in urine. May have pelvic discomfort. Follow up in 3 months for exchange. Call if fevers or chills. Finish antibiotics. Current Hospital Diet Patient's current hospital diet: Discharge Diet Recommended Diet: Regular Diet Procedures Procedures Performed: Cystoscopy and Right stent exchange. Pending Studies Studies pending at discharge: no Medical Emergencies . Who to Call and When: Medical Emergencies: If at any time you feel your situation is an emergency, please call 911 immediately. . Non-Emergent Contact Non-Emergency issues call your: Primary Care Provider, Urologist Call Non-Emergent contact if: you have a fever, temperature is above 101, temperature is above 101.5, your pain is not controlled, your pain is worsening , your pain is unusual for you . . "Provider Documentation" section prepared by Seven Schneider. .
[2018-01-15] MEDS ORDERED: Cysto-Conray II 17.2% 250ML BOTTLE ONE (16:18)
--- NOTE | 2018-01-15 16:24 | [facility] Operative Report ---
Operative Report Operative Date January 15, 2018. Pre-Operative Diagnosis Obstructing stone. History of sepsis Post-Operative Diagnosis Same Procedure(s) Performed Cystoscopy and right stent exchange and pyelogram Surgeon Wyatt Estimated Blood Loss Minimal Findings OBstructing right stone with stent. Specimens None Drains 6 Fr Multilength Anesthesia Type MAC Complication(s) none Disposition Recovery Room / PACU Indications Obstructing stone with sepsis. Now with chronic stent for drainage. Severe Dementia. Risks and benefits discussed. Bro sensitive Klebsiella UTI with double coverage. Description of Procedure Patient was consented and brought back to the operating room. Patient was placed under anesthesia in the supine position and moved to the dorsal lithotomy position. Patient was prepped and draped in the regular sterile fashion. A time out was completed. A 30degree Cystoscope was placed into the bladder and the entire bladder was examined. The UO's were identified and the right stent was grasped and partially removed. A wire was placed and the stent fully removed. With the wire in place, a 6 Fr Multilength Double J stent was placed. It was confirmed with fluoroscopy. With the stent in place, the bladder was emptied. The scope was removed. The patient was cleaned, aroused from anesthesia, and transferred to the pacu in stable condition having tolerated the procedure well with no complications. I was present and participated in all aspects of the procedure. The patient will be monitored in the PACU until transferred. I attest to the content of the Intraoperative Record and any orders documented therein. Any exceptions are noted below.
[2018-01-15 16:33] VITALS: BP 104/54; PULSE 83; TEMP 36.5; O2SAT 96
--- NOTE | 2018-01-15 16:49 | DIAGNOSTIC IMAGING REPORT ---
RETROGRADE INCLUDES KUB CLINICAL HISTORY: 87 years-old Female presenting with RETROGRADE AND STENT EXCHANGE. TECHNIQUE: 4 fluoroscopic image(s) recorded as part of an intraoperative procedure. COMPARISON: 01/10/2018. FINDINGS/IMPRESSION: A guidewire was advanced over the existing right ureteral stent and the stent was removed. The right renal collecting system was opacified with contrast. The right renal collecting system is dilated. The large lower pole right renal calculus is again noted. A new right ureteral stent was placed. Please see surgical report for further details. Fluoroscopy dosage (mGy): Not available. Fluoroscopy time: 41 seconds. Number of fluoroscopic spot images: 0. Electronically signed by: Hemal Muro M.D. 01/15/2018 4:48 PM Dictated Date/Time: 01/15/2018 4:46 PM
--- NOTE | 2018-01-15 17:01 | Anesthesiology Progress Note ---
Anesthesia Post Op Note Date & Time January 15, 2018 at 17:01 Vital Signs Pain Intensity: 0 Vital Signs Past 12 Hours Date Time Temp Pulse Resp B/P (MAP) Pulse Ox O2 Delivery O2 Flow Rate FiO2 01/15/18 16:33 36.5 83 18 104/54 96 Room Air 01/15/18 13:14 36.8 70 16 123/70 (87) 99 Room Air Notes Mental Status: alert / awake / arousable, participated in evaluation Pt Amnestic to Procedure: Yes Nausea / Vomiting: adequately controlled Pain: adequately controlled Airway Patency, RR, SpO2: stable & adequate BP & HR: stable & adequate Hydration State: stable & adequate Anesthetic Complications: no major complications apparent
[2018-01-15 17:05] VITALS: BP 119/64; PULSE 68; TEMP 36.5; O2SAT 100
[2018-01-15 17:30] VITALS: BP 115/67; PULSE 82; O2SAT 96
== END 2018-01-15 17:35 | disposition home or self-care (01) ==
LOC: C.ACU 12:32
PROVIDERS: ATTEND Urology
DX: N20.0 Calculus of kidney (principal); N13.30 Unspecified hydronephrosis; Z86.19 Personal history of other infectious and parasitic diseases; I10 Essential (primary) hypertension; Z88.0 Allergy status to penicillin; F03.90 Unspecified dementia, unspecified severity, without behavioral disturbance, psychotic disturbance, mood disturbance, and anxiety; E78.5 Hyperlipidemia, unspecified; F41.1 Generalized anxiety disorder; Z96.653 Presence of artificial knee joint, bilateral; E66.9 Obesity, unspecified; Z98.890 Other specified postprocedural states; Z91.030 Bee allergy status; Z91.040 Latex allergy status

== ENCOUNTER → 2018-04-19 | Outpatient (CLI) | payer OTHER ==
[~2018-04-19] MED LIST changes: -CEFEPIME IV 2,000 MG in SYRINGE 7.5 ML IV SCH; -CEFEPIME IV 2000 MG in DEXTROSE 5% 100ML IV SCH; -CIPROFLOXACIN / D5W 400 MG IV SCH; -SODIUM CHLORIDE 0.9% 1000ML 1,000 ML IV SCH
[2018-04-19 12:51] LABS: BASO % 0.3 %; BASO ABS # 0.02 K/uL (0-0.2); EOS % 2.2 %; EOS ABS # 0.15 K/uL (0-0.5); HEMATOCRIT 39.4 % (37-47); HEMOGLOBIN 12.9 g/dL (12.0-16.0); IG# 0.02 K/uL (0.00-0.02); LYMPH % 20.5 %; LYMPH ABS # 1.37 K/uL (1.2-3.4); MEAN CELL VOLUME 94.5 fL (80-100); MEAN CORPUSCULAR HEMOGLOBIN 30.9 pg (25-34); MEAN CORPUSCULAR HGB CONC 32.7 g/dl (32-36); MEAN PLATELET VOLUME 10.1 fL (7.4-10.4); MONO % 7.3 %; MONO ABS # 0.49 K/uL (0.11-0.59); NEUT % 69.4 %; NEUT ABS # 4.62 K/uL (1.4-6.5); PLATELET COUNT 248 K/uL (130-400); RED CELL DISTRIBUTION WIDTH CV 14.5 % (11.5-14.5); RED CELL DISTRIBUTION WIDTH SD 49.3 fL (36.4-46.3); WHITE BLOOD COUNT 6.67 K/uL (4.8-10.8)
[2018-04-19 13:46] LABS: BLOOD UREA NITROGEN 16 mg/dl (7-18); CARBON DIOXIDE 29 mmol/L (21-32); GLUCOSE 75 mg/dl (70-99); POTASSIUM 4.2 mmol/L (3.5-5.1); SODIUM 138 mmol/L (136-145)
== END | disposition home or self-care (01) ==
LOC: C.LAB 10:54
PROVIDERS: ATTEND Urology
DX: N20.0 Calculus of kidney (principal)